=== PATIENT | female | born 1945 | race Caucasian/White ===

== ENCOUNTER → 2020-01-02 | Outpatient (CLI) | payer MEDICARE, BC ==
[~2020-01-02] MED LIST: ASPI81TA85 PO; BENZ150C2 PO; CRAN400C PO; CYMB1CAP5 PO; FAMO1TAB11 PO; FISH1000 PO; METF500T13 PO; METO1TAB7 PO; MULTCAP PO; OXYB15TA14 PO; PRAV40TA2 PO; [UNRECOGNIZED DRUG - CODE] PO
== END ==
LOC: M LABSMTC 11:32
PROVIDERS: ATTEND Anesthesiology
DX: Z01.818 Encounter for other preprocedural examination (principal); Z11.59 Encounter for screening for other viral diseases
CPT/HCPCS: C9803; U0003

== ENCOUNTER 2020-01-05 11:37 | Day surgery (SDC) | payer MEDICARE, BC ==
[~2020-01-05] VITALS: Ht 160 cm; Wt 92.0 kg
[~2020-01-05 11:37] MED LIST changes: +NS 1,000 ML IV ONE
[2020-01-05] MEDS ORDERED: fentaNYL 100 MCG/2 ML INJECTION (J3010) As Ordered ONE (13:46)
[2020-01-05] MEDS ORDERED: LIDOCAINE 2% 100MG/5ML SDV (FOR ANES.) As Ordered ONE (13:47)
[2020-01-05] MEDS ORDERED: propofoL 200 MG/20 ML VIAL As Ordered ONE (13:47)
[2020-01-05] MEDS ORDERED: LABETALOL 100MG/20ML VIAL As Ordered ONE (13:53)
--- NOTE | 2020-01-05 14:09 | ROOR ---
Patient Name: Kaur Echeverria Procedure Date: 01/05/2020 1:49 PM Date of : 1945 Age: 74 Room: [facility] Gender: Female Note Status: Finalized Procedure: Upper GI endoscopy Indications: Heartburn Providers: Abel CORCORAN MD Referring MD: ONDINA REED MD Requesting Provider: Medicines: Monitored Anesthesia Care Complications: No immediate complications. Procedure: Pre-Anesthesia Assessment: - The heart rate, respiratory rate, oxygen saturations, blood pressure, adequacy of pulmonary ventilation, and response to care were monitored throughout the procedure. The Endoscope was introduced through the mouth, and advanced to the second part of duodenum. The upper GI endoscopy was accomplished without difficulty. The patient tolerated the procedure well. Findings: The examined esophagus was normal. Abnormal motility was noted in the esophagus. There are extra peristaltic waves in the esophageal body. The entire examined stomach was normal. The examined duodenum was normal. Impression: - Normal esophagus. Some irregular contractions suggestive of presbyesophagus. - Normal stomach. - Normal examined duodenum. - No specimens collected. Recommendation: - Continue present medications. - Observe patient's clinical course. - Return to referring physician as previously scheduled. Abel Corcoran MD Abel CORCORAN MD 01/05/2020 2:08:42 PM Electronically signed by Abel CORCORAN MD Number of Addenda: 0 Note Initiated On: 01/05/2020 1:49 PM Estimated Blood Loss: Estimated blood loss: none.
[2020-01-05 14:35] VITALS: BP 187/82
== END 2020-01-05 14:47 | disposition home or self-care (01) ==
LOC: M OPP 11:37
PROVIDERS: ATTEND Internal Medicine Gastroenterology
DX: K22.4 Dyskinesia of esophagus (principal); R12 Heartburn; Z88.5 Allergy status to narcotic agent; Z79.82 Long term (current) use of aspirin; Z79.899 Other long term (current) drug therapy; Z87.891 Personal history of nicotine dependence
CPT/HCPCS: 43235; J3010

== ENCOUNTER 2021-05-24 06:48 | Emergency (ER) | payer MEDICARE, BC ==
[~2021-05-24] VITALS: Ht 157.5 cm; Wt 87.7 kg
[~2021-05-24 06:48] MED LIST changes: -ASPI81TA85 PO; +ASPI81TA86 PO; -NS 1,000 ML IV ONE
[2021-05-24] MEDS ORDERED: ZOFR4TAB16 PO ×2 (06:57→10:26)
[2021-05-24] MEDS ORDERED: CIPR-249 PO (06:57)
[2021-05-24] MEDS ORDERED: ONDANSETRON 4MG/2ML VIAL IV ONE (07:25)
[2021-05-24 08:04] LABS: BASO % 0.6 % (0.0-1.0); EOS # 0.1 10^3/uL (0.0-0.5); EOS % 1.4 % (0.0-3.0); HEMATOCRIT 44.1 % (36.0-47.0); HEMOGLOBIN 14.6 g/dl (12.0-15.5); LYMPH # 1.2 10^3/uL (1.5-5.0); LYMPH % 18.6 % (24.0-44.0); MEAN CORPUSCULAR HEMOGLOBIN 31.2 pg (27.0-33.0); MEAN CORPUSCULAR HGB CONC 33.1 g/dl (32.0-36.5); MEAN CORPUSCULAR VOLUME 94.2 fl (80.0-96.0); MONO # 0.5 10^3/uL (0.0-0.8); NEUTROPHILS # 4.6 10^3/uL (1.5-8.5); NEUTROPHILS % 72.1 % (36.0-66.0); PLATELET COUNT, AUTOMATED 232 10^3/uL (150-450); RED BLOOD COUNT 4.68 10^6/uL (4.00-5.40); WHITE BLOOD COUNT 6.4 10^3/uL (4.0-10.0)
--- OUTSIDE RECORDS SUMMARY | 2021-05-24 08:12 | CCD ---
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 Name Role Phone ONDINA REED MD 3 [phone] Allergies Code Code System Name Reaction Severity Status Onset 267 RxNorm Codeine Hives Mild to Moderate Active Medications Name Status Start Date Stop Date one by mouth every other day Active Not availa ble benzonatate 200 mg capsule Completed 10/14 blood pressure test kit-large cuff Completed 10/14/2020 ciclopirox 0.77 % topical cream APPLY TO FOOT TWO TIMES A DAY Completed ciprofloxacin 250 mg tablet Completed 11/2018 ciprofloxacin 500 mg tablet TAKE ONE TABLET BY MOUTH TWICE A DAY FOR 7 DAYS Active Not available cranberry one by mouth once daily Active Not available diclofenac 1 % topical gel Completed 03/03 duloxetine 30 mg capsule,delayed release TAKE ONE CAPSULE BY MOUTH EVERY DAY Active Not available duloxetine 60 mg capsule,delayed release TAKE ONE CAPSULE BY MOUTH EVERY DAY Active Not available famotidine 20 mg tablet TAKE ONE TABLET BY MOUTH TWICE A DAY Active No t available famotidine 40 mg tablet TAKE ONE TABLET BY MOUTH TWICE A DAY Completed Fish Oil one by mouth once daily Active Not available gabapentin 300 mg capsule Completed 2019 ibuprofen 800 mg tablet Completed 10/15/19 lisinopril 5 mg tablet TAKE ONE TABLET BY MOUTH EVERY DAY Active Not available metformin ER 500 mg tablet,extended rele ase 24 hr TAKE ONE TABLET BY MOUTH EVERY EVENING Active Not available metoclopramide 10 mg tablet Completed 09/27 metoprolol succinate ER 50 mg tablet,ext ended release 24 hr TAKE ONE TABLET BY MOUTH EVERY DAY Active Not available multivitamin one by mouth once daily Active Not available nitroglycerin 0.1 mg/hr transdermal 24 hour patch Active Not available omeprazole 20 mg capsule,delayed release TAKE ONE CAPSULE BY MOUTH EVERY DAY Active Not available oxybutynin chloride ER 15 mg tablet,exte nded release 24 hr TAKE ONE TABLET BY MOUTH EVERY DAY Active Not available penicillin V potassium 500 mg tablet TAKE 2 TABLETS BY MOUTH IMMEDIATELY THEN TAKE ONE TABLET FOUR TIMES A DAY Completed 03/24/2021 pravastatin 40 mg tablet TAKE ONE TABLET BY MOUTH AT BEDTIME Active Not available tramadol 50 mg tablet Active Not availa ble Vitamin D3 one by mouth once daily Completed 06/21/2020 Problems None recorded. Procedures Date Name Performed by 03/08/2021 Mastectomy Bra Notes: Left breast- Total Mastectomy Information not available Breast Procedure Information not avai lable Hammer Toe Operation Information not jennyfer ilable Cholecystectomy Information not avai lable Back Surgery Notes: 2007- Dr Carney Information not available Foot/toes Surgery Procedure Information not available 03/03/2019 MRI, Lumbar Spine, W/wo Contrast [facility] [address] [place] [address] (Work Place) Results Lab Results Date Name Specimen Result Interpretation Description Value Range Status Address 04/27/2021 [facility] P[facility] Report NOS No observation recorded. [facility]: [address] [facility], [place] 04/27/2021 SARS CoV 2 RNA (COVID-19), QL, echocardiologist-PCR, Respirat ory Specimen NOS Normal Sars-cov-2 negative negative Final [facility]: [address] [facility], [place] 09/27/2020 [facility] Pdf Report NOS No observation recorded. [facility]: [address] [facility], [place] 09/27/2020 SARS CoV 2 RNA (COVID-19), QL, echocardiologist-PCR, Respirat ory Specimen NOS Normal Sars-cov-2 negative negative Final [facility]: [address] [facility], [place] 09/13/2020 [facility] Pdf Report NOS No observation recorded. [facility]: [address] [facility], [place] 09/13/2020 SARS CoV 2 RNA (COVID-19), QL, echocardiologist-PCR, Respirat ory Specimen NOS Normal Sars-cov-2 negative negative Final [facility]: [address] [facility], [place] 08/25/2020 [facility] Pdf Report NOS No observation recorded. [facility]: [address] [facility], [place] 08/25/2020 SARS CoV 2 RNA (COVID-19), QL, echocardiologist-PCR, Respirat ory Specimen NOS Normal Sars-cov-2 negative negative Final [facility]: [address], [place] 08/11/2020 [facility] Pdf Report NOS No observation recorded. [facility]: [address], [place] 08/11/2020 SARS CoV 2 RNA (COVID-19), QL, echocardiologist-PCR, Respirat ory Specimen NOS Normal Sars-cov-2 negative negative Final [facility]: [address], [place] Past Encounters 05/02/2021 Lumbar Post-laminectomy Syndrome; Degeneration of Lumbar Intervertebral Disc; Lumbosacral Spondylosis without Myelopathy; Lumbar Radiculopathy; Spinal Stenosis of Lumbar Region Elpidio Gibson MD: [id number] [facility] [address], [facility] [place] [address], Ph. 04/27/2021 Pre-surgery Testing; Viral Screening Elpidio Gibson MD: [id number] [address], [facility] [place] [place] [address], Ph. [phone] 03/24/2021 Lumbar Post-laminectomy Syndrome; Degeneration of Lumbar Intervertebral Disc; Lumbosacral Spondylosis without Myelopathy; Lumbar Radiculopathy; Spinal Stenosis of Lumbar Region [facility], STUDIO PRODUCER: [address] [facility] [address], [facility] [place] [address], Ph. 10/14/2020 Lumbar Post-laminectomy Syndrome; Degeneration of Lumbar Intervertebral Disc; Lumbosacral Spondylosis without Myelopathy; Lumbar Radiculopathy; Spinal Stenosis of Lumbar Region [facility], STUDIO PRODUCER: [id number] [facility] [address], [facility] [place] [address], Ph. 09/30/2020 Lumbar Post-laminectomy Syndrome; Lumbar Radiculopathy; Degeneration of Lumbar Intervertebral Disc; Lumbosacral Spondylosis without Myelopathy; Spinal Stenosis of Lumbar Region Elpidio Gibson MD: [address] [facility] [address], [facility] [place] [address], Ph. 09/27/2020 Pre-surgery Testing; Viral Screening Elpidio Gibson MD: [id number] [facility] [address], [place] [address], Ph. [phone] 09/13/2020 Pre-surgery Testing; Viral Screening Elpidio Gibson MD: [id number] [facility] [address], [place] [address], Ph. [phone] 08/30/2020 Lumbar Post-laminectomy Syndrome; Lumbar Radiculopathy; Degeneration of Lumbar Intervertebral Disc; Lumbosacral Spondylosis without Myelopathy; Spinal Stenosis of Lumbar Region Elpidio Gibson MD: [address] [facility] [address], [place] [address], Ph. 08/25/2020 Pre-surgery Testing; Viral Screening Elpidio Gibson MD: [id number] [facility] [address], [facility] [place] [address], Ph. [phone] 08/16/2020 Lumbar Post-laminectomy Syndrome; Lumbar Radiculopathy; Degeneration of Lumbar Intervertebral Disc; Lumbosacral Spondylosis without Myelopathy; Spinal Stenosis of Lumbar Region Elpidio Gibson MD: [id number] [facility] [address], [place] [address], Ph. 08/11/2020 Pre-surgery Testing; Viral Screening Elpidio Gibson MD: [address]71 [facility] [address], [facility] [place] [address], Ph. [phone] 08/03/2020 Lumbar Post-laminectomy Syndrome; Degeneration of Lumbar Intervertebral Disc; Lumbosacral Spondylosis without Myelopathy; Lumbar Radiculopathy; Spinal Stenosis of Lumbar Region [facility], STUDIO PRODUCER: [address] [facility] [address], [place] [address], Ph. 06/21/2020 Lumbar Post-laminectomy Syndrome; Degeneration of Lumbar Intervertebral Disc; Lumbosacral Spondylosis without Myelopathy; Lumbar Radiculopathy; Spinal Stenosis of [facility], STUDIO PRODUCER: [address] [facility] [address], [facility] [place] [address], Ph. 04/28/2020 Lumbar Post-laminectomy Syndrome; Degeneration of Lumbar Intervertebral Disc; Lumbosacral Spondylosis without Myelopathy; Lumbar Radiculopathy; Spinal Stenosis of Lumbar Region Steph Chris Yeung, STUDIO PRODUCER: [address], [facility] [place] [address], Ph. 01/20/2020 Lumbar Post-laminectomy Syndrome; Degeneration of Lumbar Intervertebral Disc; Lumbosacral Spondylosis without Myelopathy; Lumbar Radiculopathy; Spinal Stenosis of Lumbar Region Steph Chris Yeung, STUDIO PRODUCER: [address], [facility] [place] [place] [address], Ph. 11/14/2019 Lumbar Post-laminectomy Syndrome; Degeneration of Lumbar Intervertebral Disc; Lumbosacral Spondylosis without Myelopathy; Lumbar Radiculopathy; Spinal Stenosis of Lumbar Region Steph Chris Yeung, STUDIO PRODUCER: [address] [address], Ph. 07/17/2019 Lumbar Post-laminectomy Syndrome; Degeneration of Lumbar Intervertebral Disc; Lumbosacral Spondylosis without Myelopathy; Lumbar Radiculopathy; Spinal Stenosis of Lumbar Region Steph Chris Yeung, STUDIO PRODUCER: [address], [facility] [place] [address], Ph. 06/12/2019 Lumbar Post-laminectomy Syndrome; Degeneration of Lumbar Intervertebral Disc; Lumbosacral Spondylosis without Myelopathy; Lumbar Radiculopathy; Spinal Stenosis of Lumbar Region Steph Chris Yeung, STUDIO PRODUCER: [address], [facility] [place] [address], Ph. 05/16/2019 Lumbar Post-laminectomy Syndrome; Spinal Stenosis of Lumbar Region; Lumbar Radiculopathy; Degeneration of Lumbar Intervertebral Disc; Lumbosacral Spondylosis without Myelopathy Elpidio Gibson MD: [address], [facility] [place] [place] [address], Ph. 04/28/2019 Lumbar Post-laminectomy Syndrome; Spinal Stenosis of Lumbar Region; Lumbar Radiculopathy; Degeneration of Lumbar Intervertebral Disc; Lumbosacral Spondylosis without Myelopathy Elpidio Gibson MD: [address] [address], [place] [address], Ph. 04/10/2019 Lumbar Post-laminectomy Syndrome; Spinal Stenosis of Lumbar Region; Lumbar Radiculopathy; Degeneration of Lumbar Intervertebral Disc; Lumbosacral Spondylosis without Myelopathy Elpidio Gibson MD: [id number] [address], [facility] [place] [place] [address], Ph. 03/03/2019 Lumbar Post-laminectomy Syndrome; Degeneration of Lumbar Intervertebral Disc; Lumbosacral Spondylosis without Myelopathy; Lumbar Radiculopathy; Spinal Stenosis of Lumbar Region Elpidio Gibson MD: [address] [address], [place] [address], Ph. Social History Tobacco Smoking Status Light Tobacco Smoker (1 pack per week ) Notes: less than a pack a week Vaccine List Vaccine Type COVID-19, mRNA, LNP-S, PF, 100 mcg/0.5 m L dose 09/16/2020 10/09/2020 Plan of Care Reminders Provider Appointments None recorded. Lab None recorded. Referral None recorded. Procedures None recorded. Surgeries None recorded. Imaging None recorded. Vitals 03/24/2021 10:30AM FOLLOW-UP Height Blood Pressure 5 ft 3 in 131/70 mm[Hg] 10/14/2020 10:00AM FOLLOW-UP Height Blood Pressure 5 ft 3 in 154/84 mm[Hg] 06/21/2020 01:15PM FOLLOW-UP Height Blood Pressure 5 ft 3 in 160/91 mm[Hg] 04/28/2020 01:30PM FOLLOW-UP Height Blood Pressure 5 ft 3 in 153/83 mm[Hg] 07/17/2019 09:15AM FOLLOW-UP Height Weight BMI Blood Pressure 5 ft 3 in 214 lbs 37.9 kg/m2 152/71 mm[Hg] 06/12/2019 10:15AM FOLLOW-UP Height Weight BMI Blood Pressure 5 ft 3 in 214 lbs 37.9 kg/m2 138/78 mm[Hg] 03/03/2019 02:00PM NEW PATIENT Height Weight BMI Blood Pressure 5 ft 3 in 214 lbs 37.9 kg/m2 131/74 mm[Hg]
--- OUTSIDE RECORDS SUMMARY | 2021-05-24 08:12 | CCD ---
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 [facility]: [address] [facility], [place] 04/27/2021 SARS CoV 2 RNA (COVID-19), QL, manager performance-PCR, Respirat ory Specimen NOS Normal Sars-cov-2 negative negative Final [facility]: [address] [facility], [place] 09/27/2020 [facility] Pdf Report NOS No observation recorded. [facility]: [address] [facility], [place] 09/27/2020 SARS CoV 2 RNA (COVID-19), QL, manager performance-PCR, Respirat ory Specimen NOS Normal Sars-cov-2 negative negative Final [facility]: [address] [facility], [place] 09/13/2020 [facility] Pdf Report NOS No observation recorded. [facility]: [address] [facility], [place] 09/13/2020 SARS CoV 2 RNA (COVID-19), QL, manager performance-PCR, Respirat ory Specimen NOS Normal Sars-cov-2 negative negative Final [facility]: [address] [facility], [place] 08/25/2020 [facility] Pdf Report NOS No observation recorded. [facility]: [address] [facility], [place] 08/25/2020 SARS CoV 2 RNA (COVID-19), QL, manager performance-PCR, Respirat ory Specimen NOS Normal Sars-cov-2 negative negative Final [facility]: [address], [place] 08/11/2020 [facility] Pdf Report NOS No observation recorded. [facility]: [address], [place] 08/11/2020 SARS CoV 2 RNA (COVID-19), QL, manager performance-PCR, Respirat ory Specimen NOS Normal Sars-cov-2 negative negative Final [facility]: [address], [place] Past Encounters 05/11/2021 Pre-surgery Testing; Viral Screening Elpidio Gibson MD: [id number] [facility] [address], [place] [address], Ph. [phone] 05/02/2021 Lumbar Post-laminectomy Syndrome; Degeneration of Lumbar Intervertebral Disc; Lumbosacral Spondylosis without Myelopathy; Lumbar Radiculopathy; Spinal Stenosis of Lumbar Region Elpidio Gibson MD: [id number] [facility] [address], [facility] [place] [address], Ph. 04/27/2021 Pre-surgery Testing; Viral Screening Elpidio Gibson MD: [address]63 [facility] [address], [place] [address], Ph. [phone] 03/24/2021 Lumbar Post-laminectomy Syndrome; Degeneration of Lumbar Intervertebral Disc; Lumbosacral Spondylosis without Myelopathy; Lumbar Radiculopathy; Spinal Stenosis of Lumbar Region Steph Noe Anjana, SPRAY PAINTER: [address] [facility] [address], [facility] [place] [address], Ph. 10/14/2020 Lumbar Post-laminectomy Syndrome; Degeneration of Lumbar Intervertebral Disc; Lumbosacral Spondylosis without Myelopathy; Lumbar Radiculopathy; Spinal Stenosis of Lumbar Region [facility] Maria G[facility]on, SPRAY PAINTER: [address] [facility] [address], [facility] [place] [address], Ph. 09/30/2020 Lumbar Post-laminectomy Syndrome; Lumbar Radiculopathy; Degeneration of Lumbar Intervertebral Disc; Lumbosacral Spondylosis without Myelopathy; Spinal Stenosis of Lumbar Region Elpidio Gibson MD: [address], [place] [address], Ph. 09/27/2020 Pre-surgery Testing; Viral Screening Elpidio Gibson MD: [address] [address], [facility] [place] [address], Ph. [phone] 09/13/2020 Pre-surgery Testing; Viral Screening Elpidio Gibson MD: [address] [address], [facility] [place] [address], Ph. [phone] 08/30/2020 Lumbar Post-laminectomy Syndrome; Lumbar Radiculopathy; Degeneration of Lumbar Intervertebral Disc; Lumbosacral Spondylosis without Myelopathy; Spinal Stenosis of Lumbar Region Elpidio Gibson MD: [address] [address], [place] [address], Ph. 08/25/2020 Pre-surgery Testing; Viral Screening Elpidio Gibson MD: [address] [address], [facility] [place] [address], Ph. [phone] 08/16/2020 Lumbar Post-laminectomy Syndrome; Lumbar Radiculopathy; Degeneration of Lumbar Intervertebral Disc; Lumbosacral Spondylosis without Myelopathy; Spinal Stenosis of Lumbar Region Elpidio Gibson MD: [address] [address], [facility] [place] [address], Ph. 08/11/2020 Pre-surgery Testing; Viral Screening Elpidio Gibson MD: [address] [address], [facility] [place] [address], Ph. [phone] 08/03/2020 Lumbar Post-laminectomy Syndrome; Degeneration of Lumbar Intervertebral Disc; Lumbosacral Spondylosis without Myelopathy; Lumbar Radiculopathy; Spinal Stenosis of Lumbar Region Steph Yeung NP: [address] [address], [place] [address], Ph. 06/21/2020 Lumbar Post-laminectomy Syndrome; Degeneration of Lumbar Intervertebral Disc; Lumbosacral Spondylosis without Myelopathy; Lumbar Radiculopathy; Spinal Stenosis of Lumbar Region Steph Chris Yeung, SPRAY PAINTER: [address], [facility] [place] [address], Ph. 04/28/2020 Lumbar Post-laminectomy Syndrome; Degeneration of Lumbar Intervertebral Disc; Lumbosacral Spondylosis without Myelopathy; Lumbar Radiculopathy; Spinal Stenosis of Lumbar Region Steph Chris Yeung, SPRAY PAINTER: [address], [facility] [place] [address], Ph. 01/20/2020 Lumbar Post-laminectomy Syndrome; Degeneration of Lumbar Intervertebral Disc; Lumbosacral Spondylosis without Myelopathy; Lumbar Radiculopathy; Spinal Stenosis of Lumbar Region Steph Chris Yeung, SPRAY PAINTER: [address], [facility] [place] [address], Ph. 11/14/2019 Lumbar Post-laminectomy Syndrome; Degeneration of Lumbar Intervertebral Disc; Lumbosacral Spondylosis without Myelopathy; Lumbar Radiculopathy; Spinal Stenosis of Lumbar Region Steph Chris Yeung, SPRAY PAINTER: [address] [place] [address], Ph. 07/17/2019 Lumbar Post-laminectomy Syndrome; Degeneration of Lumbar Intervertebral Disc; Lumbosacral Spondylosis without Myelopathy; Lumbar Radiculopathy; Spinal Stenosis of Lumbar Region Steph Chris Yeung, SPRAY PAINTER: [address], [facility] [place] [address], Ph. 06/12/2019 Lumbar Post-laminectomy Syndrome; Degeneration of Lumbar Intervertebral Disc; Lumbosacral Spondylosis without Myelopathy; Lumbar Radiculopathy; Spinal Stenosis of Lumbar Region Steph Chris Yeung, SPRAY PAINTER: [address], [facility] [place] [address], Ph. 05/16/2019 Lumbar Post-laminectomy Syndrome; Spinal Stenosis of Lumbar Region; Lumbar Radiculopathy; Degeneration of Lumbar Intervertebral Disc; Lumbosacral Spondylosis without Myelopathy Elpidio Gibson MD: [address] [address], [place] [address], Ph. 04/28/2019 Lumbar Post-laminectomy Syndrome; Spinal Stenosis of Lumbar Region; Lumbar Radiculopathy; Degeneration of Lumbar Intervertebral Disc; Lumbosacral Spondylosis without Myelopathy Elpidio Gibson MD: [address] [address], [place] [address], Ph. 04/10/2019 Lumbar Post-laminectomy Syndrome; Spinal Stenosis of Lumbar Region; Lumbar Radiculopathy; Degeneration of Lumbar Intervertebral Disc; Lumbosacral Spondylosis without Myelopathy Elpidio Gibson MD: [address] [address], [place] [address], Ph. 03/03/2019 Lumbar Post-laminectomy Syndrome; Degeneration of Lumbar Intervertebral Disc; Lumbosacral Spondylosis without Myelopathy; Lumbar Radiculopathy; Spinal Stenosis of Lumbar Region Elpidio Gibson MD: [address] [address], [place] [address], Ph. Social History Tobacco Smoking Status Light [...]
--- OUTSIDE RECORDS SUMMARY | 2021-05-24 08:12 | CCD ---
Author Organization Unknown Address [address] [place] [address] Phone [phone] Care Team Providers Care Floor Mechanic Name Role Phone ONDINA REED MD 3 [phone] Allergies Code Code System Name Reaction Severity [...] Not available duloxetine 60 mg capsule,delayed release Active Not available famotidine 20 mg tablet TAKE ONE TABLET BY MOUTH TWICE A DAY Active No t available famotidine 40 mg tablet TAKE ONE TABLET BY MOUTH TWICE A DAY Completed Fish Oil one by mouth once daily Active Not available gabapentin 300 mg capsule Completed 2019 ibuprofen 800 mg tablet Completed 10/15/19 21 lisinopril 5 mg tablet TAKE ONE TABLET BY MOUTH EVERY DAY Active Not available metformin ER 500 mg tablet,extended release 24 hr Active Not available metoclopramide 10 mg tablet Completed 09/27 metoprolol succinate ER 50 mg tablet,extended release 24 hr Acti ve Not available multivitamin one by mouth once daily Active Not available nitroglycerin 0.1 mg/hr transdermal 24 hour patch Active Not available omeprazole 20 mg capsule,delayed release TAKE ONE CAPSULE BY MOUTH EVERY DAY Active Not available oxybutynin chloride ER 15 mg tablet,extended release 24 hr Activ e Not available penicillin V potassium 500 mg tablet TAKE 2 TABLETS BY MOUTH IMMEDIATELY THEN TAKE ONE TABLET FOUR TIMES A DAY Completed 03/24/2021 pravastatin 40 mg tablet Active Not jennyfer ilable tramadol 50 mg tablet Active Not availa [...] available 03/03/2019 MRI, Lumbar Spine, W/wo Contrast [facility] [address] [place] [address] (Work Place) Results Lab Results Date Name Specimen Result Interpretation Description Value Range Status Address 05/11/2021 [facility] Pdf Report NOS No observation recorded. 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 05/11/2021 Pre-surgery Testing; Viral Screening Elpidio Gibson MD: [address] [facility] [address], [facility] [place] [address], Ph. [phone] 05/02/2021 Lumbar Post-laminectomy Syndrome; Degeneration of Lumbar Intervertebral Disc; Lumbosacral Spondylosis without Myelopathy; Lumbar Radiculopathy; Spinal Stenosis of Lumbar Region Elpidio Gibson MD: [address] [facility] [address], [facility] [place] [address], Ph. 04/27/2021 Pre-surgery Testing; Viral Screening Elpidio Gibson MD: [address] [facility] [address], [facility] [place], [place] [address], Ph. [phone] 03/24/2021 Lumbar Post-laminectomy Syndrome; Degeneration of Lumbar Intervertebral Disc; Lumbosacral Spondylosis without Myelopathy; Lumbar Radiculopathy; Spinal Stenosis of Lumbar Region Steph Yeung NP: [address] [facility] [address], [facility] [place] [address], Ph. 10/14/2020 Lumbar Post-laminectomy Syndrome; Degeneration of Lumbar Intervertebral Disc; Lumbosacral Spondylosis without Myelopathy; Lumbar Radiculopathy; Spinal Stenosis of Lumbar Region Steph YeungCHARMAINE: [address] [facility] [address], [facility] [place] [address], Ph. 09/30/2020 Lumbar Post-laminectomy Syndrome; Lumbar Radiculopathy; Degeneration of Lumbar Intervertebral Disc; Lumbosacral Spondylosis without Myelopathy; Spinal Stenosis of Lumbar Region Elpidio Gibson MD: [address] [facility] [address], [facility] [place] [address], Ph. 09/27/2020 Pre-surgery Testing; Viral Screening Elpidio Gibson MD: [address] [address], [place] [address], Ph. [phone] 09/13/2020 Pre-surgery Testing; Viral Screening Elpidio Gibson MD: [address] [address], [place] [address], Ph. [phone] 08/30/2020 Lumbar Post-laminectomy Syndrome; Lumbar Radiculopathy; Degeneration of Lumbar Intervertebral Disc; Lumbosacral Spondylosis without Myelopathy; Spinal Stenosis of Lumbar Region Elpidio Gibson MD: [address] [address], [facility] [place] [address], Ph. 08/25/2020 Pre-surgery Testing; Viral Screening Elpidio Gibson MD: [address] [address], [facility] [place] [address], Ph. [phone] 08/16/2020 Lumbar Post-laminectomy Syndrome; Lumbar Radiculopathy; Degeneration of Lumbar Intervertebral Disc; Lumbosacral Spondylosis without Myelopathy; Spinal Stenosis of Lumbar Region Elpidio Gibson MD: [address] [address], [place] [address], Ph. 08/11/2020 Pre-surgery Testing; Viral Screening Elpidio Gibson MD: [address] [address], [place] [address], Ph. [phone] 08/03/2020 Lumbar Post-laminectomy Syndrome; Degeneration of Lumbar Intervertebral Disc; Lumbosacral Spondylosis without Myelopathy; Lumbar Radiculopathy; Spinal Stenosis of Lumbar Region Steph Chris Yeung, HOME MORTGAGE DISCLOSURE ACT SPECIALIST: [address], [facility] [place] [address], Ph. 06/21/2020 Lumbar Post-laminectomy Syndrome; Degeneration of Lumbar Intervertebral Disc; Lumbosacral Spondylosis without Myelopathy; Lumbar Radiculopathy; Spinal Stenosis of Lumbar Region Steph Chris Feldmanon, HOME MORTGAGE DISCLOSURE ACT SPECIALIST: [address], [facility] [place] [address], Ph. 04/28/2020 Lumbar Post-laminectomy Syndrome; Degeneration of Lumbar Intervertebral Disc; Lumbosacral Spondylosis without Myelopathy; Lumbar Radiculopathy; Spinal Stenosis of Lumbar Region Steph Chris Feldmanon, HOME MORTGAGE DISCLOSURE ACT SPECIALIST: [address], [facility] [place] [address], Ph. 01/20/2020 Lumbar Post-laminectomy Syndrome; Degeneration of Lumbar Intervertebral Disc; Lumbosacral Spondylosis without Myelopathy; Lumbar Radiculopathy; Spinal Stenosis of Lumbar Region Steph Chris Feldmanon, HOME MORTGAGE DISCLOSURE ACT SPECIALIST: [address], [facility] [place] [address], Ph. 11/14/2019 Lumbar Post-laminectomy Syndrome; Degeneration of Lumbar Intervertebral Disc; Lumbosacral Spondylosis without Myelopathy; Lumbar Radiculopathy; Spinal Stenosis of Lumbar Region Steph Chris Feldmanon, HOME MORTGAGE DISCLOSURE ACT SPECIALIST: [address] [address], Ph. 07/17/2019 Lumbar Post-laminectomy Syndrome; Degeneration of Lumbar Intervertebral Disc; Lumbosacral Spondylosis without Myelopathy; Lumbar Radiculopathy; Spinal Stenosis of Lumbar Region Steph Lucíasonphi Feldmanon, HOME MORTGAGE DISCLOSURE ACT SPECIALIST: [address], [facility] [place] [address], Ph. 06/12/2019 Lumbar Post-laminectomy Syndrome; Degeneration of Lumbar Intervertebral Disc; Lumbosacral Spondylosis without Myelopathy; Lumbar Radiculopathy; Spinal Stenosis of Lumbar Region Steph YeungCHARMAINE: [address] [address], [facility] [place] [address], Ph. 05/16/2019 Lumbar Post-laminectomy Syndrome; Spinal Stenosis of Lumbar Region; Lumbar Radiculopathy; Degeneration of Lumbar Intervertebral Disc; Lumbosacral Spondylosis without Myelopathy Elpidio Gibson MD: [address] [address], Ph. 04/28/2019 Lumbar Post-laminectomy Syndrome; Spinal Stenosis of Lumbar Region; Lumbar Radiculopathy; Degeneration of Lumbar Intervertebral Disc; Lumbosacral Spondylosis without Myelopathy Elpidio Gibson MD: [address] [address], Ph. 04/10/2019 Lumbar Post-laminectomy Syndrome; Spinal Stenosis of Lumbar Region; Lumbar Radiculopathy; Degeneration of Lumbar Intervertebral Disc; Lumbosacral Spondylosis without Myelopathy Elpidio Gibson MD: [address] [address], [place] [address], Ph. 03/03/2019 Lumbar Post-laminectomy Syndrome; Degeneration of Lumbar Intervertebral Disc; Lumbosacral Spondylosis without Myelopathy; Lumbar Radiculopathy; Spinal Stenosis of Lumbar Region Elpidio Gibson MD: [address] [address], [facility] [place] [address], Ph. Social History Tobacco Smoking Status Light [...]
--- OUTSIDE RECORDS SUMMARY | 2021-05-24 08:13 | CCD | Summary of Care ---
Author Author [facility] Address Unknown Phone Unavailable Care Team Providers Care Carbonation Equipment Tender Name Role Phone Shimon Cordova MD PCP Reason for Visit * Reason Comments Follow-up Drain check Encounter Details Care Team Description Date Type Department Bianca Almaraz, CHARMAINE [address] [facility] [address] [place], [place] [id number] Ductal carcinoma in situ (DCIS) of left breast (Primary Dx); Status post left mastectomy 03/14/2021 Telemedicine [facility] [address] [place] [address] Allergies Comments Active Allergy Reactions Severity Noted Date Bee Venom 01/18/2021 Codeine Hives Medium 01/20/2013 documented as of this encounter (statuses as of 03/14/2021) Medications End Date Status Medication Sig Dispensed Refills Start Date Active VITAMIN D, Take by 0 CHOLECALCIFEROL, PO mouth daily. Active Cranberry 1000 MG CAPS Take by 0 mouth daily. Active riuizenpdlbk-ijec-viuqgja Chew 1 tablet 0 s-folic acid (CENTRUM) by mouth chewable tablet daily. Active pravastatin (PRAVACHOL) Take 40 mg by 0 40 MG tablet mouth daily. Active fish oil-omega-3 fatty Take 2 g by 0 acids 1000 MG capsule mouth daily. Active aspirin 81 MG tablet Take 325 mg 0 by mouth daily Active oxybutynin (DITROPAN XL) 0 15 MG 24 hr tablet 4 Active metoprolol (TOPROL-XL) 50 0 MG 24 hr tablet 5 Active DULoxetine HCl 60 MG Oral Take 60 mg by 0 Capsule Delayed Release mouth nightly Particles (CYMBALTA) Active EPINEPHrine 0.3 MG/0.3ML Inject 0.3 mg 0 Injection Solution into the Auto-injector (EPIPEN) muscle once Active metFORMIN HCl ER 500 MG metformin ER 0 Oral Tablet Extended 500 mg Release 24 Hour tablet,extend (GLUCOPHAGE-XR) ed release 24 hr TAKE ONE TABLET BY MOUTH EVERY EVENING Active Ciclopirox Olamine 0.77 % APPLY TO FOOT 0 0 External Cream (LOPROX) TWO TIMES A 1 DAY Active Omeprazole 20 MG Oral Take 20 mg by 0 Capsule Delayed Release mouth daily (PriLOSEC) Active Famotidine 20 MG Oral Take 20 mg by 0 Tablet (PEPCID) mouth Two Times Daily Active traMADol HCl 50 MG Oral Take 1 tablet 30 tablet 0 Tablet (ULTRAM) by mouth 1 every 6 (six) hours as needed for up to 10 doses, Max Daily Dose: 200 mg Additional Information Patient not taking. 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 [facility] Breast Navigator Meenakshi ARVIZU, RN-BC, CN-BN [phone] Multi-D) Problem Noted Date Breast cancer in female 02/24/2021 Status post left mastectomy 02/23/2021 Ductal carcinoma in situ (DCIS) of left breast 12/08 CTS (carpal tunnel syndrome) 02/27/2014 Tenosynovitis, wrist 02/27/2014 Lumbar spondylosis 11/27/2012 documented as of this encounter (statuses as of 03/14/2021) Immunizations Name Administration Dates Next Due documented as of this encounter Social History Date Tobacco Use Types Packs/Day Years Used Never Smoker Smokeless Tobacco: Never Used Comments Alcohol Use Standard Drinks/Week one per week Yes 0 (1 standard drink = 0.6 o z pure alcohol) Sex Assigned at Date Recorded Not on file Date Recorded COVID-19 Exposure Response 03/08/2021 9:03 AM EDT In the last month, have you been in contact with No / Unsure someone who was confirmed or suspected to have Coronavirus / COVID-19? documented as of this encounter Last Filed Vital Signs Not on filedocumented in this encounter Progress Notes * Bianca Almaraz DREDGE OPERATOR - 03/14/2021 8:30 AM EDT TELEMEDICINE VISIT This visit occurred via telephonic technology without the use of video technolog y due to the patient's inability or unwillingness to connect via audiovisual tel ehealth services. The encounter took place in the context of the novel coronavir us (COVID-19) pandemic and the related [facility] exemption from the requirement for vi juan technology for off-site visits. The patient was informed of the risks of obt aining medical care via telephone technology, including security breech, technol ogy failure, inability to perform full physical exam, and inability to obtain on -site immediate imaging, any of which could result in prevention or delay in acc urate diagnosis and/or medical complication from rendered treatment. The potenti al benefits of telephone communication, including access to medical care and adv ice while avoiding the risk of exposure to the novel coronavirus associated with an in-person visit were also discussed. The patient expressed understanding and verbally consented to the receipt of medical services rendered over telephonic platform. The patient was informed that many insurance companies have made exceptions to t elephonic visit coverage guidelines due to the ongoing pandemic, but that it is still possible that he/she might incur a charge from his/her covering insurance company. As insurance company guidelines are changing on a daily basis, I encour aged the patient to check his/her insurance company's current guidelines. Time spent talking with the patient during this telephonic visit encounter was 1 0 minutes. DIAGNOSIS: 2020 -multifocal left breast DCIS, grade 3, ER negative HPI: Kaur Echeverria is a pleasant 75 [address] Yu with a history o f multifocal left breast DCIS. She found to have abnormal breast imaging with 6-month follow-up left breast sridhar mogram and ultrasound showed new area of calcifications was concern of new palpa ble mass. She underwent biopsy that showed left breast DCIS, grade 3, ER negati ve, OK weakly positive. She underwent an MRI of the breast that showed a 4.7 cm mass. She underwent add itional biopsy with pathology that returned DCIS, grade 3, ER negative. Due to her multifocal left breast DCIS, she underwent a left mastectomy and sent inel lymph node biopsy. This was performed on 02/15/2021. Surgical pathology sh owed ductal carcinoma in situ. Margins negative, lymph nodes negative. INTERIM HISTORY: She was seen by Dr. Wallace on 03/08/2021 for postop visit. At that time she was still having significant amount of output from her PILO drain. This is straw-colo red in nature. Since last visit she has been averaging about 30 mL output twice a day. States that she was feeling well up until last night. She had some difficulty sl eeping last night. She woke up today and feels nauseated with some sinus conges tion. States that she did have about 70 mL of straw-colored output from PILO drai n overnight. Denies any increased pain to the incision. She denies any erythem a to the incision or PILO drain site. She does live approximately 2 hours away and was hoping once she is cleared to h ave PILO drain removed this can be done by her PCP locally. Dates that she has al ready reached out to her PCP regarding this and they are agreeable. Physical Exam: Unable to perform physical exam due to audio telemedicine visit ASSESSMENT/PLAN: Kaur Echeverria is doing well after left mastectomy on 02/23/2021. States that she was previously having approximately 60 mL of straw-colored outpu t from the PILO drain daily although overnight last night she did have approximate ly 70 mL in a 12-hour period. She denies any significant pain along the incisio n. She denies any erythema. We typically would remove PILO drain when there is b een under 30 mL output and daily basis for 2 to 3 days. She wishes for this to be done with her PCP as she does have a 2-hour drive to our office. She previou sly discussed this with her primary care office and they are agreeable as long a s we give the okay. We discussed that we ideally would remove the PILO drain prio r to the 1 month postop rocky to decrease chance of infections. She also reports that she woke up this morning with sinus congestion and nausea. Advised her to reach out to her PCP for further instructions as this is unrela colin to her previous surgery. We will plan to schedule another audio telemedicine visit with her in 1 week to determine if PILO drain can be removed at that time. She was advised if she notes the output is under 30 mL in a 24-hour period for 2 to 3 days then she will call the office sooner. She is currently scheduled to return to our office with Dr. Wallace in August 31 with right breast mammogram. They are to call with any questions or concerns in the meantime. documented in this encounter Plan of Treatment Care Team Description Date Type Specialty Bianca Almaraz NP [address] [place], [place] [id number] 03/21/2021 Telemedicine Breast Surgery Tan Guo MD [address] [place], [place] [id number] 03/29/2021 Telemedicine Hematology and Onco logy Velma Wallace MD [address] [place] [address] [place] [address] 09/15/2021 Appointment Radiology Velma Wallace MD [address] [place] [address] [place] [address] 09/15/2021 Office Visit Breast Surgery Health Maintenance Due Date Last Done Comments MMR Vaccines (1 of 1 - 11/24/1946 Standard series) Varicella Vaccines (1 of 11/24/1946 2 - 2-dose childhood series) Pneumococcal Vaccine: 65+ 11/24/1951 Years (1 of 4 - PCV13) Pneumococcal Vaccine: 11/24/1951 Pediatrics (0 to 5 Years) and At-Risk Patients (6 to 64 Years) (1 of 4 - PCV13) DTaP,Tdap,and Td Vaccines 11/24/1952 (1 - Tdap) Zoster Vaccines (1 of 2) 11/24/1993 Osteoporosis Screening 2 11/24/2008 yr Influenza Vaccine 04/29/2021 05/10/2018, 06/02/2016, 07/13/2015 COVID-19 Vaccine Completed 10/09/2020, 09/11/2020 HIB Vaccines Aged Out No longer eligible based on patient's age to complete this topic Hepatitis A Vaccines Aged Out No longer eligibl e based on patient's age to complete this topic Hepatitis B Vaccines Aged Out No longer eligibl e based on patient's age to complete this topic IPV Vaccines Aged Out No longer eligible based on patient's age to complete this topic documented as of this encounter Implants Device Identifier Shelf Expiration Date Model / Serial / L ot Implanted Type Area Manufactur er 06/03/2021 [id number] / / [id number] [facility] Eviva [id number]. Left: Breast [employer] - [id number] Implanted: Qty: 1 on 01/06/2021 by Angel Wagoner MD at [facility] INPATIENT documented as of this encounter Results Not on filedocumented in this encounter Visit Diagnoses Diagnosis Ductal carcinoma in situ (DCIS) of left breast - Primary Status post left mastectomy Acquired absence of breast and nipple documented in this encounter
--- OUTSIDE RECORDS SUMMARY | 2021-05-24 08:13 | CCD ---
Author Organization Unknown Address [address] [place] [id number] Phone [phone] Care Team Providers Care Velvet Steamer Name Role Phone ONDINA REED MD 3 [phone] Allergies Code Code System Name Reaction Severity [...] MOUTH TWICE A DAY FOR 7 DAYS FOR UTI Completed 03/24/2021 cranberry one by mouth once daily Active [...] available 03/03/2019 MRI, Lumbar Spine, W/wo Contrast [facility] [address] [place] [address] (Work Place) Results Lab Results Date Name Specimen Result Interpretation Description Value Range Status Address 09/27/2020 [facility] Pdf Report NOS No observation recorded. [facility] Covid: [address] [facility], [place] 09/27/2020 SARS CoV 2 RNA (COVID-19), QL, calibration specialist-PCR, Respirat ory Specimen NOS Normal Sars-cov-2 negative negative Final [facility] Covid: [address] [facility], [place] 09/13/2020 [facility] Pdf Report NOS No observation recorded. [facility] Cov[facility]: [address] [facility], [place] 09/13/2020 SARS CoV 2 RNA (COVID-19), QL, calibration specialist-PCR, Respirat ory Specimen NOS Normal Sars-cov-2 negative negative Final [facility] Cov[facility]: [address] [facility], [place] 08/25/2020 [facility] Pdf Report NOS No observation recorded. [facility]: [address] [facility], [place] 08/25/2020 SARS CoV 2 RNA (COVID-19), QL, calibration specialist-PCR, Respirat ory Specimen NOS Normal Sars-cov-2 negative negative Final [facility] Cov[facility]: [address] [facility], [place] 08/11/2020 [facility] Pdf Report NOS No observation recorded. [facility]: [address] [facility], [place] 08/11/2020 SARS CoV 2 RNA (COVID-19), QL, calibration specialist-PCR, Respirat ory Specimen NOS Normal Sars-cov-2 negative negative Final [facility] Cov[facility]: [address], [place] Past Encounters 03/24/2021 Lumbar Post-laminectomy Syndrome; Degeneration of Lumbar Intervertebral Disc; Lumbosacral Spondylosis without Myelopathy; Lumbar Radiculopathy; Spinal Stenosis of Lumbar Region Steph Yeung, WOOD TILE INSTALLATION HELPER: [address], [place] [address], Ph. 10/14/2020 Lumbar Post-laminectomy Syndrome; Degeneration of Lumbar Intervertebral Disc; Lumbosacral Spondylosis without Myelopathy; Lumbar Radiculopathy; Spinal Stenosis of Lumbar Region Steph Yeung, WOOD TILE INSTALLATION HELPER: [address], [place] [address], Ph. 09/30/2020 Lumbar Post-laminectomy Syndrome; Lumbar Radiculopathy; Degeneration of Lumbar Intervertebral Disc; Lumbosacral Spondylosis without Myelopathy; Spinal Stenosis of Lumbar Region Elpidio Gibson MD: [address], [place] [address], Ph. 09/27/2020 Pre-surgery Testing; Viral Screening Elpidio Gibson MD: [address], [place] [address], Ph. [phone] 09/13/2020 Pre-surgery Testing; Viral Screening Elpidio Gibson MD: [address], [place] [address], Ph. [phone] 08/30/2020 Lumbar Post-laminectomy Syndrome; Lumbar Radiculopathy; Degeneration of Lumbar Intervertebral Disc; Lumbosacral Spondylosis without Myelopathy; Spinal Stenosis of Lumbar Region Elpidio Gibson MD: [address], [place] [address], Ph. 08/25/2020 Pre-surgery Testing; Viral Screening Elpidio Gibson MD: [address], [place] [address], Ph. [phone] 08/16/2020 Lumbar Post-laminectomy Syndrome; Lumbar Radiculopathy; Degeneration of Lumbar Intervertebral Disc; Lumbosacral Spondylosis without Myelopathy; Spinal Stenosis of Lumbar Region Elpidio Gibson MD: [address] [address], [place] [address], Ph. 08/11/2020 Pre-surgery Testing; Viral Screening Elpidio Gibson MD: [address] [address], [place] [address], Ph. [phone] 08/03/2020 Lumbar Post-laminectomy Syndrome; Degeneration of Lumbar Intervertebral Disc; Lumbosacral Spondylosis without Myelopathy; Lumbar Radiculopathy; Spinal Stenosis of Lumbar Region Steph Lucíasonphi Yeung, WOOD TILE INSTALLATION HELPER: [address] [address], Ph. 06/21/2020 Lumbar Post-laminectomy Syndrome; Degeneration of Lumbar Intervertebral Disc; Lumbosacral Spondylosis without Myelopathy; Lumbar Radiculopathy; Spinal Stenosis of Lumbar Region Steph Lucíasonphi Feldmanon, WOOD TILE INSTALLATION HELPER: [address] [address], [place] [address], Ph. 04/28/2020 Lumbar Post-laminectomy Syndrome; Degeneration of Lumbar Intervertebral Disc; Lumbosacral Spondylosis without Myelopathy; Lumbar Radiculopathy; Spinal Stenosis of Lumbar Region Steph Lucíasonphi Cumminsmalon, WOOD TILE INSTALLATION HELPER: [address] [address], [place] [address], Ph. 01/20/2020 Lumbar Post-laminectomy Syndrome; Degeneration of Lumbar Intervertebral Disc; Lumbosacral Spondylosis without Myelopathy; Lumbar Radiculopathy; Spinal Stenosis of Lumbar Region Steph Manongsong Jumalon, WOOD TILE INSTALLATION HELPER: [address] [address], [place] [address], Ph. 11/14/2019 Lumbar Post-laminectomy Syndrome; Degeneration of Lumbar Intervertebral Disc; Lumbosacral Spondylosis without Myelopathy; Lumbar Radiculopathy; Spinal Stenosis of Lumbar Region Steph Yeung, WOOD TILE INSTALLATION HELPER: [address] [facility] [address], [place] [address], Ph. 07/17/2019 Lumbar Post-laminectomy Syndrome; Degeneration of Lumbar Intervertebral Disc; Lumbosacral Spondylosis without Myelopathy; Lumbar Radiculopathy; Spinal Stenosis of Lumbar Region Steph Yeung, WOOD TILE INSTALLATION HELPER: [address] [facility] [address], [facility] [address], [place] [address], Ph. 06/12/2019 Lumbar Post-laminectomy Syndrome; Degeneration of Lumbar Intervertebral Disc; Lumbosacral Spondylosis without Myelopathy; Lumbar Radiculopathy; Spinal Stenosis of Lumbar Region Steph Yeung, WOOD TILE INSTALLATION HELPER: [address] [facility] [address], [facility] [place] [address], Ph. 05/16/2019 Lumbar Post-laminectomy Syndrome; Spinal Stenosis of Lumbar Region; Lumbar Radiculopathy; Degeneration of Lumbar Intervertebral Disc; Lumbosacral Spondylosis without Myelopathy Elpidio Gibson MD: [address] [address], [facility] [place] [address], Ph. 04/28/2019 Lumbar Post-laminectomy Syndrome; Spinal Stenosis of Lumbar Region; Lumbar Radiculopathy; Degeneration of Lumbar Intervertebral Disc; Lumbosacral Spondylosis without Myelopathy Elpidio Gibson MD: [address] [address], [facility] [place] [address], Ph. 04/10/2019 Lumbar Post-laminectomy Syndrome; Spinal Stenosis of Lumbar Region; Lumbar Radiculopathy; Degeneration of Lumbar Intervertebral Disc; Lumbosacral Spondylosis without Myelopathy Elpidio Gibson MD: [address] [facility] [address], [facility] [place] [address], Ph. 03/03/2019 Lumbar Post-laminectomy Syndrome; Degeneration of Lumbar Intervertebral Disc; Lumbosacral Spondylosis without Myelopathy; Lumbar Radiculopathy; Spinal Stenosis of Lumbar Region Elpidio Gibson MD: [address], [place] [address], Ph. Social History Tobacco Smoking Status Light Tobacco Smoker (1 pack per week ) Notes: less than a pack a week Vaccine List Vaccine Type COVID-19, mRNA, LNP-S, PF, 100 mcg/0.5 m L dose 09/16/2020 Plan of Care Reminders Provider Appointments None [...]
--- OUTSIDE RECORDS SUMMARY | 2021-05-24 08:13 | CCD | Summary of Care ---
Author Author [facility] Address Unknown Phone Unavailable Care Team Providers Care Fitter Helper Name Role Phone Shimon Cordova MD PCP Reason for Visit * Reason Comments Follow-up Encounter Details Care Team Description Date Type Department Bianca Almaraz, CHARMAINE [address] [facility] [address] [place], [place] [id number] Ductal carcinoma in situ (DCIS) of left breast (Primary Dx); Status post left mastectomy 03/21/2021 Telemedicine [facility] [address] [place] [id number] Allergies Comments Active Allergy Reactions Severity Noted Date Bee Venom 01/18/2021 Codeine Hives Medium 01/20/2013 documented as of this encounter (statuses as of 03/21/2021) Medications End Date Status Medication Sig Dispensed Refills Start Date Active VITAMIN D, Take by 0 CHOLECALCIFEROL, PO mouth daily. Active Cranberry 1000 MG CAPS Take by 0 mouth daily. Active hgxvmonjeaig-ydul-zybhotk Chew 1 tablet 0 s-folic acid (CENTRUM) [...] as of this encounter (statuses as of 03/21/2021) Active Problems Patient Care Coordination Note 12/31/2020 No Logistics Planning Manager. [facility] Breast Navigator Meenakshi ARVIZU, RN-BC, CN-BN [phone] Multi-D) Problem Noted Date Breast cancer in female 02/24/2021 Status post left mastectomy 02/23/2021 Ductal carcinoma in situ (DCIS) of left breast 12/08 CTS (carpal tunnel syndrome) 02/27/2014 Tenosynovitis, wrist 02/27/2014 Lumbar spondylosis 11/27/2012 documented as of this encounter (statuses as of 03/21/2021) Immunizations Name Administration Dates Next Due documented as of this encounter Social History Date Tobacco Use Types Packs/Day Years Used Never Smoker Smokeless Tobacco: Never Used Comments Alcohol Use Standard Drinks/Week one per week Yes 0 (1 standard drink = 0.6 o z pure alcohol) Sex Assigned at Date Recorded Not on file Date Recorded COVID-19 Exposure Response 03/17/2021 2:56 PM EDT In the last month, have you been in contact with No / Unsure someone who was confirmed or suspected to have Coronavirus / COVID-19? documented as of this encounter Last Filed Vital Signs Not on filedocumented in this encounter Progress Notes * Bianca Almaraz, CARGO TANK MECHANIC - 03/21/2021 8:30 AM EDT TELEMEDICINE VISIT This visit occurred via telephonic technology without the use of video technolog y due to the patient's inability or unwillingness to connect via audiovisual tel ehealth services. The encounter took place in the context of the novel coronavir us (COVID-19) pandemic and the related [facility] exemption from the requirement for vi [...] during this telephonic visit encounter was 1 5 minutes. DIAGNOSIS: 2020 -multifocal left breast DCIS, [...] breast DCIS, grade 3, ER negati ve, CT weakly positive. She underwent an MRI of [...] in situ. Margins negative, lymph nodes negative. Last week she called the office with complaints of sinus congestion, nausea, dec reased appetite, and generalized weakness. She was seen by her PCP who she repo rts did some blood work although there is no definitive cause and her symptoms i mproved. INTERIM HISTORY: Since last telemedicine visit she continues to note intermittent nausea although this is improved. She denies any vomiting. She overall is feeling better. She reports that her incision is healing well. Denies any erythema. States that she is having a great deal of bronze color output. Yesterday for a 24-hour. Sh adan had 68 mL output, the day prior she had 72 mL and the take prior to that she h ad 74 mL. She does live approximately 2 hours away and was hoping once she is cleared to h ave PILO drain removed this can be done by her PCP locally. Physical Exam: Unable to perform physical exam due to audio telemedicine visit ASSESSMENT/PLAN: Kaur Echeverria is doing well after left mastectomy on 02/23/2021. States that she was previously having approximately 60-70 mL of straw-colored ou tput from the PILO drain daily. She reports that she has been wearing a sports br a for compression to help body absorb this fluid. She denies any significant pain along the incision. She denies any erythema. We typically would remove PILO drain when there is been under 30 mL output and dylan ly basis for 2 to 3 days. Her PILO drain has now been in place for approximately 1 month. Continuing with this cannot significantly increase her risk for infect ion. We decided that she will call her PCP and have the PILO drain removed in the next 2 to 3 days. We will plan to see her back in the office in 7 to 10 days after J P drain was removed to assess for potential recurrent seroma and evaluate the ne ed for repeat PILO drain placement. In regards to her previous come plaints of nausea, decreased appetite, and fatig ue. Her PCP was unable to locate any cause of her complaints and has reported t hat these have slightly improved. We will plan to schedule her in the office to see Dr. Wallace on 04/05/2021 for fol low up. They are to call with any questions or concerns in the meantime. documented in this encounter Plan of Treatment Care Team Description Date Type Specialty Tan Guo MD [address] [place] [address] 03/29/2021 Telemedicine Hematology and Onco logy Velma Wallace MD [address] [place] [address] 09/15/2021 Appointment Radiology Velma Wallace MD [address] [place] [address] [place] [address] 09/15/2021 Office Visit Breast Surgery Health Maintenance [...] ot Implanted Type Area Manufactur er 06/03/2021 [id number] / / [id number] [facility] Eviva [id number]. Left: Breast HO LOGIC - [id number] Implanted: Qty: 1 on 01/06/2021 by Angel Wagoner MD at [facility] INPATIENT documented as of this encounter Results Not on filedocumented in this encounter Visit Diagnoses Diagnosis Ductal carcinoma in situ (DCIS) of left breast - Primary Status post left mastectomy Acquired absence of breast and nipple documented in this encounter
--- OUTSIDE RECORDS SUMMARY | 2021-05-24 08:13 | CCD | Summary of Care ---
Author Author [facility] Organization [facility] Address Unknown Phone Unavailable Care Team Providers Care Account Review Specialist Name Role Phone Shimon Cordova MD PCP Reason for Referral * Home Health Care (Routine) Referred By Contact Referred To Contact Status Reason Specialty Diagnoses / Procedures Ivania Anderson PA [address] [place] [address] Email: [email or web address] Open Specialty Services Home Health Diagnoses Required Services Status post left mastectomy Electronically signed by Ivania BUNCH at Reason for Visit * Auth/Cert Referred By Contact Referred To Contact Status Reason Specialty Diagnoses / Procedures Velma Wallace MD [address] [place] [address] [place] [address] Email: [email or web address] Diagnoses breast cancer Encounter Details Care Team Description Date Type Department Velma Wallace MD [address] [place] [address] [place] [address] Status post left mastectomy (Primary Dx) ; Ductal carcinoma in situ (DCIS) of left breast 02/23/[address] MED/SURG CC - Encounter [address] 02/24/2021 [place] [address] Allergies Comments Active Allergy Reactions Severity Noted Date Bee Venom 01/18/2021 Codeine Hives Medium 01/20/2013 documented as of this encounter (statuses as of 02/24/2021) Medications End Date Status Medication Sig Dispensed Refills Start Date Active VITAMIN D, Take by 0 CHOLECALCIFEROL, PO mouth daily. Active Cranberry 1000 MG CAPS Take by 0 mouth daily. Active tssybiwsednw-lhnn-jjewxnm Chew 1 tablet 0 s-folic acid (CENTRUM) [...] Olamine 0.77 % APPLY TO FOOT 0 External Cream (LOPROX) TWO TIMES A 1 DAY Active Omeprazole 20 MG Oral Take 20 mg by 0 Capsule Delayed Release mouth daily (PriLOSEC) Active Famotidine 20 MG Oral Take 20 mg by 0 Tablet (PEPCID) mouth Two Times Daily 03/06/2021 Active Acetaminophen 325 MG Oral Take 2 30 tablet 0 Tablet tablets by 1 mouth Four times daily for 10 days Active traMADol HCl 50 MG Oral Take 1 tablet 30 tablet 0 Tablet (ULTRAM) by mouth 1 every 6 (six) hours as needed for up to 10 doses, Max Daily Dose: 200 mg 02/21/2021 Discontinued (Therapy comple colin) lisinopril 0 (PRINIVIL,ZESTRIL) 5 MG 4 tablet 02/21/2021 Discontinued (Therapy comple colin) hydrocodone-acetaminophen 0 (LORTAB) 5-325 MG per 5 tablet 02/21/2021 Discontinued (Therapy comple colin) gabapentin (NEURONTIN) Take 1 90 capsule 3 300 MG capsule by 7 capsuleIndications: mouth Three Dysesthesia times daily 02/21/2021 Discontinued (Therapy comple colin) Famotidine 20 MG Oral famotidine 20 0 Tablet (PEPCID) mg tablet TAKE ONE TABLET BY MOUTH TWICE A DAY 02/21/2021 Discontinued (Therapy comple colin) Ciprofloxacin HCl 500 MG Take 500 mg 0 11/09 Oral Tablet (CIPRO) by mouth Two 1 Times Daily documented as of this encounter (statuses as of 02/24/2021) Active Problems Patient Care Coordination Note 12/31/2020 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 [facility] Breast Navigator Meenakshi ARVIZU, RN-BC, CN-BN [phone] Multi-D) Problem Noted Date Breast cancer in female 02/24/2021 Status post left mastectomy 02/23/2021 Ductal carcinoma in situ (DCIS) of left breast 12/08 CTS (carpal tunnel syndrome) 02/27/2014 Tenosynovitis, wrist 02/27/2014 Lumbar spondylosis 11/27/2012 documented as of this encounter (statuses as of 02/24/2021) Social History Date Tobacco Use Types Packs/Day Years Used Never Smoker Smokeless Tobacco: Never Used Comments Alcohol Use Standard Drinks/Week one per week Yes 0 (1 standard drink = 0.6 o z pure alcohol) Sex Assigned at Date Recorded Not on file Date Recorded COVID-19 Exposure Response 02/23/2021 7:00 AM EDT In the last month, have you been in contact with No / Unsure someone who was confirmed or suspected to have Coronavirus / COVID-19? documented as of this encounter Last Filed Vital Signs Reading Time Taken Comments Vital Sign 122/47 02/24/2021 7:42 AM EDT Blood Pressure 62 02/24/2021 7:42 AM EDT Pulse 36.8 C (98.2 F) 02/24/2021 7:42 AM EDT Temperature 16 02/24/2021 7:42 AM EDT Respiratory Rate 96% 02/24/2021 7:42 AM EDT Oxygen Saturation - - Inhaled Oxygen Concentration 93 kg (205 lb) 02/23/2021 7:55 AM EDT Weight 160 cm (5' 3") 02/23/2021 7:55 AM EDT Height 36.31 02/23/2021 7:55 AM EDT Body Mass Index documented in this encounter Discharge Instructions * Instructions* Alysia Walls PA - 02/24/2021 7:44 AM EDT Discharge Instructions after Breast Surgery: General: Please rest today and tomorrow. Do not make any major decisions. Do not drive. Do not drink alcohol. Do not engage in activities that require you to think or act quickly. Do not sign legal documents. Diet: You may resume your regular diet. Activity: No lifting greater than 10 pounds with either arm for two weeks. Do not engage in strenuous activity or exercise until after your post-op visit. Driving: Please do not drive or operate heavy machinery until you are cleared to do so at your post-operative clinic visit. Medications: You may resume your home medications, unless we have asked you not to. Please do not resume herbal medications or supplements for two weeks. Do not use ibuprofen, Advil, Motrin, or Alleve for 2 weeks. Do not start using any new medications unless you have discussed this with us. Pain control: You will be given a prescription pain medication to take if needed. You can also take Tylenol. Please do not take more than the recommended daily d ose. Use a stool softener while you are using any prescription pain medications, as t hese medications may be constipating. Do not drive or make important decisions if you are taking any prescription pain medications. Do not use alcohol if you are taking pain medications. Surgical dressing: You may remove the clear plastic outer dressing and underlying gauze dressing 48 hours after your surgery. Please leave the paper steri-strips on. They will come off on their own. If th ey are still in place at the time of your post-op visit, we will remove them. Please do not apply any topical agents on your incision until after your post-op visit. Bathing: You may shower 48 hours after your surgery. Gently pat your incision dry. Do not rub it. No tub baths, swimming pools, jacuzzis, or lakes until after your post-op visit. Drain Care: If you have a surgical drain in place, please record the output daily. Once the output is less than 30 mL per day for two consecutive days, then please call the office for drain removal. Post-Op Visit: We will call you once your pathology report is available, generally 5-7 business days from your surgery date. You will see us for a post-op visit approximately 2 weeks after your surgery rm e. Please call us or come to the Emergency Room if: Persistent fever greater than 101 degrees Nausea and/or vomiting lasting greater than 24 hours Redness at incision site Drainage that smells bad from incision site Bleeding Increased swelling at the incision site Persistent pain that is not relived by the prescription pain medication Inability to urinate Increasing drowsiness Shortness of breath Chest pain Lower extremity pain or swelling documented in this encounter Progress Notes * Gina Mcnulty - 02/24/2021 11:34 AM EDT Discharge instructions provided per MD order. Pt states understanding of all mat erial, denies questions at this time. PILO drain teaching done by primary RN. Diane sported to discharge area via wheelchair by hospital volunteer, with all belongi ngs. Discharged to home via car with . * Liza Hernandez RN - 02/24/2021 11:09 AM EDT Met with patient and at bedside, confirmed demographics. Plan is for dc home today. Dr Wallace is requesting HC for patient, they had not preference of vendors. Pt referred to [facility], case accepted with SOC for tomorrow. Or rebecca pended. No other dc needs identified. Case Management Screen & Assessment Patient Name: Kaur Echeverria Gender: female Date of : 1945 Admission Dx: Status post left mastectomy [Z90.12] Breast cancer in female [C50.919] Age: 75 y.o. Admission: 02/23/2021 7:01 AM Attending Provider: Velma Wallace MD High Risk Criteria - Prior to Admission/Upon Arrival HEAD RIGGER-Type of Residence: Private Residence HEAD RIGGER- Home Care Services: No Limited Home Supports/Lives Alone?: No Multi trauma/Critical care/Step down admit?: No Head/Spinal cord injury?: No Self Pay: No Multiple ED visits?: No Related/Unplanned readmission within 30 days?: No Complex/New medical issues: breast ca s/p left mastectomy Relevant comorbidities: incontinence, DM, murmer, HLD, HTN, LBP Screening Outcome Social Work Consult Needed?: No Further Case Management Needs?: Case Management Needs Chart Review PCP Verified?: Patient has PCP Prior to Admission: Functional/Environmental Assessment Bathing: Independent Dressing: Independent Toileting: Independent Medication administration: Independent Transfers: Independent Ambulation: Independent Meal preparation: Independent Potential Barriers/Teaching Needs Physical: wound care, med mgmt, dx related Psychosocial: breast ca Discharge Planning Living Arrangements: Spouse/significant other Support Systems: Spouse/significant other Type of Residence: Private residence Patient/family informed of need for discharge planning?: Yes Patient expects to be discharged to:: home with HC Patient/Agent informed of choice and given written list?: Patient/agent declined list Actual discharge location : Home-With Homecare Services Does the patient need discharge transport arranged?: No Liza Hernandez * William Youssef RN - 02/23/2021 11:57 PM EDT Images from the original note were not included. If wound was present on admission, this documentation was sent to attending prov ider for cosignature. * Troy Chang PA - 02/23/2021 7:58 PM EDT Post-op Check: Subjective: Patient is a 75 y.o. female Hospital Day: 1, Day of Surgery. S/P left breast sim ple, total mastectomy with sentinel node biopsy. Doing well. Pain controlled, Denies N/V, CP/SOB. Feeling hungry Objective: Temp (24hrs), Av.9 C (98.4 F), Min:36.7 C (98.1 F), Max:37.1 C (98.8 F) Vitals: 02/23/21 1800 02/23/21 1843 02/23/21 1900 02/23/211932 BP: 135/63 136/66 93/60 133/68 BP Location: Right arm Right arm Right arm Patient Position: Lying Lying Lying Pulse: 64 60 60 61 Resp: Temp: 36.8 C (98.2 F) 36.9 C (98.4 F) 37 C (98.6 F) TempSrc: Oral Oral Oral SpO2: 90% 94% 96% 96% Weight: Height: I/O last 3 completed shifts: In: 1000 [I.V.:1000] Out: - I/O this shift: In: 1200 [I.V.:1200] Out: 390 [Urine:300; Drains:40; Blood:50] Gen: AAOx3, NAD Heart: RRR, peripheral pulses intact Lungs:Deep unlabored breathes Abd: Obese, Soft/ND, dressings clean/dry/intact A/P: 75 y.o. female, Hospital Day: 1, Day of Surgery DWPO Pain well controlled: Tylenol, fentanyl, tramadol Con Carb OOB DVT prophylaxis GI prophylaxis Check am labs Pilo Drain care Con to monitor Likely DC tomorrow Troy Chang PA-C * Jonathon Duran RN - 02/23/2021 11:56 AM EDT Pt. tolerated procedure well. VSS Cardiac Rhythm: SR Pulse: n/a Sensation: full Movement: to command Color: appropriate Postioning: supine Side rails up x 2. Call marshall within reach. No s/s of allergic reaction or toxic ity. Handoff complete. * Jonathon Duran RN - 02/23/2021 11:45 AM EDT Pt. AAOx3. PIV CD&I and infusing. Pt. positioned per anesthesia. Pt. on monitor, VSS. Consents signed and in chart. Cardiac rhythm: SR Pulse: N/a Sensation: full Movement: to command Color: appropriate Sedation: see mar BVM, O2, and suction at bedside documented in this encounter H&P Notes * Velma Wallace MD - 02/23/2021 11:47 AM EDT Patient seen and examined. No changes to medical history. Ready for surgery to day. documented in this encounter Miscellaneous Notes * Plan of Care - Venecia Lam RN - 02/24/2021 11:36 AM EDT Problem: Risk for Falls Goal: No falls during hospitalization Description: Patient will not fall during hospitalization. Outcome: Progressing * Yudy Patient Instructions - Gina Mcnulty - 02/24/2021 11:17 AM EDT 3805 Tramadol Oral Tablet 50 mg Uses For pain. Instructions This medicine may be taken with or without food. Keep the medicine at room temperature. Avoid heat and direct light. To reduce constipation, eat high fiber foods, drink plenty of water and exercise . If you forget to take a dose on time, take it as soon as you remember. If it is almost time for the next dose, do not take the missed dose. Return to your nurys l dosing schedule. Do not take 2 doses of this medicine at one time. Please tell your doctor and pharmacist about all the medicines you take. Include both prescription and aoyk-mjb-lldbmyx medicines. Also tell them about any josue mins, herbal medicines, or anything else you take for your health. Cautions Ask your doctor or pharmacist if you should have naloxone on hand to treat opioi d overdose. Teach your family or household members about the signs of an opioid overdose and how to treat it. This medicine can be habit-forming. If you use this medicine regularly for a kira g time, it can lead to withdrawal symptoms when you stop. Please use this medici ne only as directed. Tell your doctor and pharmacist if you ever had an allergic reaction to a medici ne. Symptoms of an allergic reaction can include trouble breathing, skin rash, i tching, swelling, or severe dizziness. Do not use the medication any more than instructed. If possible, avoid using with marijuana or other medicines that can cause dizzin ess or drowsiness. These include allergy/cold products, muscle relaxers, sleep a ids, and pain relievers. Your ability to stay alert or to react quickly may be impaired by this medicine. Do not drive or operate machinery until you know how this medicine will affect you. Do not drink beverages with alcohol while on this medicine. Tell the doctor or pharmacist if you are , planning to be , or b reastfeeding. Do not breastfeed while on this medicine. This medicine can hurt a new baby in the womb. If you become while on t his medicine, tell your doctor immediately. Your doctor may switch you to a diff erent medicine. Ask your pharmacist if this medicine can interact with any of your other medicin es. Be sure to tell them about all the medicines you take. Do not start or stop any other medicines without first speaking to your doctor o r pharmacist. Call your doctor right away if you notice slow or shallow breathing. Do not share this medicine with anyone who has not been prescribed this medicine . This medicine can cause serious side effects in some patients. Important informa tion from the U.[place]. Food and Drug Administration (FDA) is available from your pha rmacist. Please review it carefully with your pharmacist to understand the risks associated with this medicine. Side Effects The following is a list of some common side effects from this medicine. Please s peak with your doctor about what you should do if you experience these or other side effects. constipation dizziness drowsiness or sedation nausea vomiting weight loss Call your doctor or get medical help right away if you notice any of these more serious side effects: agitated feeling or trouble sleeping decreased appetite breathing interruption during sleep shallow, irregular breathing changes in memory, mood, or thinking fainting lack of energy and tiredness fast or irregular heart beats stomach upset or abdominal pain difficulty or discomfort urinating A few people may have an allergic reaction to this medicine. Symptoms can includ e difficulty breathing, skin rash, itching, swelling, or severe dizziness. If yo u notice any of these symptoms, seek medical help quickly. Extra Please speak with your doctor, nurse, or pharmacist if you have any questions ab out this medicine. [email or web address] IMPORTANT NOTE: This document tells you briefly how to take your medicine, but i t does not tell you all there is to know about it.Your doctor or pharmacist may give you other documents about your medicine. Please talk to them if you have an y questions.Always follow their advice. There is a more complete description of this medicine available in Finnish.Scan this code on your smartphone or tablet o r use the web address below. You can also ask your pharmacist for a printout. If you have any questions, please ask your pharmacist. 2020 [employer]. documented in this encounter Plan of Treatment Care Team Description Date Type Specialty Velma Wallace MD [address] [place] [address] [place] [address] [place] [id number] 03/08/2021 Office Visit Breast Surgery Date/Time Name Type Priority Associated Diag noses 02/24/2021 9:18 AM EDT Surgical Pathology Exam Pathology and Routine ( Only) Cytology Order Schedule Name Type Priority Associated Diag noses STAT for 1 Occurrences starting 02/24/20 21 until 02/23/2021 POCT glucose, docked (if Point of Care STAT diabetic) Testing-Docked Device Once for 1 Occurrences starting 02/24/20 21 until 02/23/2021 Surgical Pathology Exam Pathology and Routine ([facility] Only) Cytology Once for 1 Occurrences starting 02/24/20 21 until 02/23/2021 Surgical Pathology Exam Pathology and Routine ([facility] Only) Cytology 4X Daily (AC & HS) for 30 Days starting 02/23/2021 until 03/25/2021, 1 completed POCT glucose, docked AC & Point of Care Routine HS Testing-Docked Device Daily for 30 Days starting 02/23/2021 un til 03/24/2021, 1 completed POCT glucose, docked Point of Care Routine Testing-Docked Device Once for 1 Occurrences starting 02/24/20 21 until 02/23/2021 Surgical Pathology Exam Pathology and Routine ( Only) Cytology Order Schedule Name Type Priority Associated Diag noses Ordered: 02/24/2021 Referral to home health Outpatient Routine Status post left Referral mastectomy Health Maintenance Due Date Last Done Comments [...] yr Influenza Vaccine 04/29/2021 05/10/2018, 06/02/2016, 07/13/2015 HIB Vaccines Aged Out No longer eligible [...] ot Implanted Type Area Manufactur er 06/03/2021 [id number] / / [id number] [employer] Eviva [id number]. Left: Breast HO LOGIC - [id number] Implanted: Qty: 1 on 01/06/2021 by Angel Wagoner MD at [facility] INPATIENT documented as of this encounter Procedures Comments Procedure Name Priority Date/Time Associated Diag nosis POCT GLUCOSE, DOCKED Routine 02/24/2021 8:41 AM EDT BASIC METABOLIC PANEL Routine 02/24/2021 3:50 AM EDT POCT GLUCOSE, DOCKED Routine 02/23/2021 8:58 PM EDT POCT GLUCOSE, DOCKED Routine 02/23/2021 8:04 PM EDT TROPONIN T HIGH Routine 02/23/2021 SENSITIVITY 6:30 PM EDT ELECTROLYTE PANEL Routine 02/23/2021 6:30 PM EDT POCT GLUCOSE, DOCKED Routine 02/23/2021 5:01 PM EDT MASTECTOMY,SIMPLE,COMPLET 02/23/2021 Ductal carc inoma in situ E 12:12 PM EDT (DCIS) of left [facility] [facility] Special Needs Sent inj time - 10:00 am23 hr stay Donna [phone] POCT GLUCOSE, DOCKED Routine 02/23/2021 8:26 AM EDT documented in this encounter Results * POCT glucose, docked (02/24/2021 8:41 AM EDT) POC Glucose 128 70 - 140 mg/dL [facility] POC Specimen Whole Blood Performing Organization Address City/[facility] P cherelle Number POINT OF CARE TEST [address] [place] [address] [facility] POC [address] [place], [place] [address] * Basic Metabolic Panel (02/24/2021 3:50 AM EDT) Bicarbonate 29 22 - 29 mmol/L [facility] at CG Chloride 104 98 - 107 mmol/L [facility] at CG Creatinine 0.62 0.50 - 0.90 mg/dL [facility] at CG Glucose 144 (H) 70 - 140 mg/dL [facility] at CG Potassium 4.1 3.4 - 5.1 mmol/L [facility] at CG Sodium 138 136 - 145 mmol/L [facility] at CG Blood Urea 11 8 - 23 mg/dL [facility] at CG Anion Gap 5 (L) 8 - 15 mmol/L [facility] at CG Osmolality, Clement 288 275.0 - 300.0 [facility] mosm/kg [facility] at CG BUN/Cre Ratio 17 [facility] at CG Calcium 7.8 (L) 8.8 - 10.2 mg/dL [facility] at CG GFR Non 85 >60 mL/min/1.73m2 [facility] Upstat e [place] 2008 Medical [facility] at CDK-EPI CG GFR >90 >60 mL/min/1.73m2 [facility] at CKD-EPI CG Specimen Plasma Performing Organization Address City/State/[facility] Code P cherelle Number [facility] PATH[facility]Y AT [address] [place] [address] [phone] [address] at CG * POCT glucose, docked (02/23/2021 8:58 PM EDT) POC Glucose 156 (H) 70 - 140 mg/dL [facility] POC Specimen Whole Blood Performing Organization Address City/[facility] P cherelle Number POINT OF CARE TEST [address] [place] [address] [facility] POC [address] [place] [address] 5 * POCT glucose, docked (02/23/2021 8:04 PM EDT) POC Glucose 121 70 - 140 mg/dL [facility] POC Specimen Whole Blood Performing Organization Address [facility] P cherelle Number POINT OF CARE TEST [address] [place] [address] [facility] POC [address] [place], [place] [address] * Electrolyte panel (02/23/2021 6:30 PM EDT) Sodium 136 136 - 145 mmol/L [facility] at Potassium 4.2Comment: Hemolyzed 3.4 - 5.1 mmol/L [facility] at CG Chloride 100 98 - 107 mmol/L [facility] at CG Bicarbonate 29 22 - 29 mmol/L [facility] at Anion Gap 7 (L) 8 - 15 mmol/L [facility] at CG Specimen Plasma Performing Organization Address City/[facility] P cherelle Number [facility] PATH[facility] AT [address] [place] [address] [phone] [address] at CG * Troponin T High Sensitivity (02/23/2021 6:30 PM EDT) Troponin T High 10 <14 ng/L [facility] at CG Specimen Plasma Performing Organization Address City/[facility]/ZIP Code P cherelle Number [facility] PATH[facility] AT [address] [place] [address] [phone] [address] at CG * POCT glucose, docked (02/23/2021 5:01 PM EDT) POC Glucose 149 (H) 70 - 140 mg/dL [facility] POC Specimen Whole Blood Performing Organization Address City/State/ZIP Code P cherelle Number POINT OF CARE TEST [address] [place] [address] [facility] POC [address] [place], [place] [address] * POCT glucose, docked (02/23/2021 8:26 AM EDT) POC Glucose 131 70 - 140 mg/dL [facility] POC Specimen Whole Blood Performing Organization Address City/State/ZIP Code P cherelle Number POINT OF CARE TEST [address] [place] [address] [facility] POC [address] [place], [place] [address] documented in this encounter Visit Diagnoses Diagnosis Ductal carcinoma in situ (DCIS) of left breast - Primary Status post left mastectomy Acquired absence of breast and nipple Breast cancer in female documented in this encounter Administered Medications Action Date Dose Rate Site Medication Order MAR Action 02/24/2021 8:56 AM EDT 650 mg acetaminophen (TYLENOL) tablet 650 mg Given 650 mg, Oral, Four Times Daily Standard, First dose (after last modification) on Sun02/23/21 at 2100, For 3 days, Maximum daily dose of acetaminophen is 3,000 mg from all sources in 24 hours. 650 mg Given 02/23/2021 10:07 PM EDT dextrose 50 % IV solution 25 mL 25 mL, Intravenous, PRN, Other, blood glucose <55, Starting on Sun02/23/21 at 1840, For 30 days, Not for midline administration. 02/23/2021 10:07 PM EDT 60 mg DULoxetine (CYMBALTA) DR capsule 60 mg Given 60 mg, Oral, Nightly, First dose on Sun02/23/21 at 2200, For 30 days, Do not crush or chew fentaNYL (SUBLIMAZE) (PF) injection 25 mcg 25 mcg, Intravenous, Every 1 hour PRN, Severe Pain (Pain Scale Score 7-10), Break through, Starting on Sun02/23/21 at 1724, For 3 days glucagon (human recombinant) (GLUCAGEN) injection 1 mg 1 mg, Intramuscular, PRN, for glucose <55 without IV access, Starting on Sun02/23/21 at 1840, For 30 days glucose (GLUTOSE) 40 % oral gel 15 g 15 g, Oral, PRN, Low blood sugar, for gluose 55-69 mg/dl and able to take PO, Starting on Sun02/23/21 at 1840, For 30 days 02/24/2021 8:56 AM EDT 5,000 Units heparin (porcine) 5000 UNIT/ML injection Given 5,000 Units 5,000 Units, Subcutaneous, 2 Times Daily, First dose on Sun02/23/21 at 2100, For 30 days 5,000 Units Given 02/23/2021 10:07 PM EDT 02/24/2021 9:25 AM EDT 1 Units insulin lispro (HumaLOG) injection LOW Given DOSE EATING INSULIN patients 1-8 Units 1-8 Units, Subcutaneous, Three Times Daily-With Meals, First dose on Sun02/24/21 at 0800, For 30 days, Nursing MUST open the 'SQ Insulin Dosing Charts ' Sidebar Report, or, the Patient Summary or Summary Report within the ED. 02/24/2021 8:56 AM EDT 50 mg metoprolol (TOPROL-XL) 24 hr tablet 50 Given mg 50 mg, Oral, Daily Standard, First dos e on Sun02/24/21 at 0900, For 3 doses, Do not crush or chew ondansetron (ZOFRAN-ODT) disintegrating tablet 4 mg 4 mg, Oral, Every 8 hours PRN, Nausea , Vomiting, Starting on Sun02/23/21 at 1725, For 30 days, Dissolve on tongue. 02/24/2021 8:56 AM EDT 40 mg pantoprazole (PROTONIX) EC tablet 40 mg Given 40 mg, Oral, Daily Standard, First dos e on Sun02/24/21 at 0900, For 3 days, Do not crush or chew prochlorperazine (COMPAZINE) injection 10 mg 10 mg, Intravenous, Every 6 hours PRN , Nausea, Vomiting, Starting on Sun02/23/21 at 1726, For 30 days, For IV use: Prepare in 50 mL NS and infuse ove r 15 minutes. Action Date Dose Rate Site Medication Order MAR Action 02/23/2021 4:50 PM EDT 25 mcg fentaNYL (SUBLIMAZE) (PF) injection 25 Given by IV mcg push 25 mcg, Intravenous, Every 5 min PRN, Moderate Pain (Pain Scale Score 4-6), Starting on Sun02/23/21 at 1636, For 4 doses, Recovery 02/23/2021 1:33 PM EDT 25 mcg fentaNYL (SUBLIMAZE) (PF) injection 50 Given mcg 50 mcg, Intravenous, Every 2 min PRN, Other, Sedation, Starting on Sun 1 at 0754, For 2 doses, Pre-op, To be given by Regional Block Nurse for sedation during block procedure. 50 mcg Given 02/23/2021 12:21 PM EDT 50 mcg New Bag 02/23/2021 11:47 AM EDT 02/23/2021 11:47 AM EDT 0.5 mg midazolam (PF) (VERSED) injection 0.5 mg New Bag 0.5 mg, Intravenous, Every 2 min PRN, Sedation, Anxiety, Starting on Sun02/23/21 at 0754, For 2 doses, Pre-op, T o be given by Regional Block Nurse to be given for sedation during block procedure. 0.5 mg New Bag 02/23/2021 11:46 AM EDT 02/23/2021 4:36 PM EDT 4 mg ondansetron (ZOFRAN) injection 4 mg Given by IV 4 mg, Intravenous, Once PRN, Nausea, push Vomiting, Starting on Sun02/23/21 at 1636, For 1 dose, Recovery 02/24/2021 8:56 AM EDT 40 mg pravastatin (PRAVACHOL) tablet 40 mg Given 40 mg, Oral, Daily Standard, First dos e on Marcella 02/24/21 at 0900, For 1 dose documented in this encounter Active and Recently Administered Medications Times are shown in EDT. 02/23/2021 02/24/2021 Medication Order 02/22/20212206 (Given - Provider: Corina Mccoy) 0856 (Given - Provider: Venecia wade RN)1300 (Due)1700 (Due)2100 (Due) acetaminophen (TYLENOL) tablet 650 mg 650 mg, Oral, Four Times Daily Standard, First dose (after last modification) on Sun02/23/21 at 2100, For 3 days, Maximum daily dose of acetaminophen is 3,000 mg from all sources in 24 hours. 2206 (Given - Provider: Corina Mccoy) 2200 (Due) DULoxetine (CYMBALTA) DR capsule 60 mg 60 mg, Oral, Nightly, First dose on Sun02/23/21 at 2200, For 30 days, Do not crush or chew 220 (Given - Provider: Corina Mccoy) 0856 (Given - Provider: Venecia wade RN)2100 (Due) heparin (porcine) 5000 UNIT/ML injectio n 5,000 Units 5,000 Units, Subcutaneous, 2 Times Daily, First dose on Sun02/23/21 at 2100, For 30 days 0925 (Given - Provider: Venecia wade RN)1300 (Due)1800 (Due) insulin lispro (HumaLOG) injection LOW DOSE EATING INSULIN patients 1-8 Units 1-8 Units, Subcutaneous, Three Times Daily-With Meals, First dose on Sun02/24/21 at 0800, For 30 days, Nursing MUST open the 'SQ Insulin Dosing Charts ' Sidebar Report, or, the Patient Summary or Summary Report within the ED. 0856 (Given - Provider: Venecia wade RN) metoprolol (TOPROL-XL) 24 hr tablet 50 mg 50 mg, Oral, Daily Standard, First dos e on Sun02/24/21 at 0900, For 3 doses, Do not crush or chew 0856 (Given - Provider: Venecia wade RN) pantoprazole (PROTONIX) EC tablet 40 mg 40 mg, Oral, Daily Standard, First dos e on Sun02/24/21 at 0900, For 3 days, Do not crush or chew 0856 (Given - Provider: Venecia wade RN) pravastatin (PRAVACHOL) tablet 40 mg (COMPLETED) 40 mg, Oral, Daily Standard, First dos e on Sun02/24/21 at 0900, For 1 dose 0940 (New Syringe/Cartridge - Provider: RT Boris) TC-99M tilmanocept (LYMPHOSEEK) (COMPLETED) Intravenous, Once, On Sun02/23/21 at 0800, For 1 dose, Imaging Protocol 02/23/2021 02/24/2021 Medication Order 02/22/2021 1510 (Given - Provider: Kay Holloway) bupivacaine (PF) (MARCAINE) 0.25 % injection (CANCELED) PRN, Starting on Sun02/23/21 at 1510, Intra-op dextrose 50 % IV solution 25 mL 25 mL, Intravenous, PRN, Other, blood glucose <55, Starting on Sun02/23/21 at 1840, For 30 days, Not for midline administration. 1650 (Given by IV push - Provider: Eugenio Taylor RN) fentaNYL (SUBLIMAZE) (PF) injection 25 mcg (CANCELED) 25 mcg, Intravenous, Every 5 min PRN, Moderate Pain (Pain Scale Score 4-6), Starting on Sun02/23/21 at 1636, For 4 doses, Recovery fentaNYL (SUBLIMAZE) (PF) injection 25 mcg 25 mcg, Intravenous, Every 1 hour PRN, Severe Pain (Pain Scale Score 7-10), Break through, Starting on Sun02/23/21 at 1724, For 3 days 1147 (New Bag - Provider: Jonathon alamo RN)1221 (Given - Provider: Susannah Cortes CRNA)1333 (Given - Provider: Susannah Cortes CRNA) fentaNYL (SUBLIMAZE) (PF) injection 50 mcg (COMPLETED) 50 mcg, Intravenous, Every 2 min PRN, Other, Sedation, Starting on Sun 1 at 0754, For 2 doses, Pre-op, To be given by Regional Block Nurse for sedation during block procedure. glucagon (human recombinant) (GLUCAGEN) injection 1 mg 1 mg, Intramuscular, PRN, for glucose <55 without IV access, Starting on Sun02/23/21 at 1840, For 30 days glucose (GLUTOSE) 40 % oral gel 15 g 15 g, Oral, PRN, Low blood sugar, for gluose 55-69 mg/dl and able to take PO, Starting on Sun02/23/21 at 1840, For 30 days 1549 (Given - Provider: Kay Holloway) Mastisol Adhesive (CANCELED) PRN, Starting on Sun02/23/21 at 1549, Intra-op 1146 (New Bag - Provider: Jonathon alamo RN - Comment: per MD [email or web address])1147 (New Bag - Provider: Jonathon Duran RN) midazolam (PF) (VERSED) injection 0.5 m g (COMPLETED) 0.5 mg, Intravenous, Every 2 min PRN, Sedation, Anxiety, Starting on Sun02/23/21 at 0754, For 2 doses, Pre-op, T o be given by Regional Block Nurse to be given for sedation during block procedure. 1636 (Given by IV push - Provider: Eugenio Taylor, RN) ondansetron (ZOFRAN) injection 4 mg (COMPLETED) 4 mg, Intravenous, Once PRN, Nausea, Vomiting, Starting on Sun02/23/21 at 1636, For 1 dose, Recovery ondansetron (ZOFRAN-ODT) disintegrating tablet 4 mg 4 mg, Oral, Every 8 hours PRN, Nausea , Vomiting, Starting on Sun02/23/21 at 1725, For 30 days, Dissolve on tongue. prochlorperazine (COMPAZINE) injection 10 mg 10 mg, Intravenous, Every 6 hours PRN , Nausea, Vomiting, Starting on Sun02/23/21 at 1726, For 30 days, For IV use: Prepare in 50 mL NS and infuse ove r 15 minutes. tramadol (ULTRAM) tablet 50 mg 50 mg, Oral, Every 6 hours PRN, Moderate Pain (Pain Scale Score 4-6), Starting on Sun02/23/21 at 1632, For 3 days documented in this encounter
--- OUTSIDE RECORDS SUMMARY | 2021-05-24 08:13 | CCD ---
Author Organization Unknown Address [address] [place] [address] Phone [phone] Care Team Providers Care Progress Man Name Role Phone ONDINA REED MD 3 [phone] Allergies Code Code System Name Reaction Severity [...] available 03/03/2019 MRI, Lumbar Spine, W/wo Contrast [facility] [address] [place] [address] (Work Place) Results Lab Results Date Name Specimen Result Interpretation Description Value Range Status Address 09/27/2020 [facility] P[facility] Report NOS No observation recorded. [facility]: [address] [facility], [place] 09/27/2020 SARS CoV 2 RNA (COVID-19), QL, artist blacksmith-PCR, Respirat ory Specimen NOS Normal Sars-cov-2 negative negative Final [facility]: [address] [facility] [place] 09/13/2020 [facility] Pdf Report NOS No observation recorded. [facility]: [address] [facility] [place] 09/13/2020 SARS CoV 2 RNA (COVID-19), QL, artist blacksmith-PCR, Respirat ory Specimen NOS Normal Sars-cov-2 negative negative Final [facility]: [address] [facility], [place] 08/25/2020 [facility] Pdf Report NOS No observation recorded. [facility]: [address] [facility] [place] 08/25/2020 SARS CoV 2 RNA (COVID-19), QL, artist blacksmith-PCR, Respirat ory Specimen NOS Normal Sars-cov-2 negative negative Final [facility]: [address] [facility], [place] 08/11/2020 [facility] Pdf Report NOS No observation recorded. [facility]: [address] [facility] [place] 08/11/2020 SARS CoV 2 RNA (COVID-19), QL, artist blacksmith-PCR, Respirat ory Specimen NOS Normal Sars-cov-2 negative negative Final [facility]: [address], [place] Past Encounters 04/27/2021 Pre-surgery Testing; Viral Screening Elpidio Gibson MD: [id number], [place] [address], Ph. [phone] 03/24/2021 Lumbar Post-laminectomy Syndrome; Degeneration of Lumbar Intervertebral Disc; Lumbosacral Spondylosis without Myelopathy; Lumbar Radiculopathy; Spinal Stenosis of Lumbar Region [facility] Anjana, DISABILITY AIDE: [address], [place] [address], Ph. 10/14/2020 Lumbar Post-laminectomy Syndrome; Degeneration of Lumbar Intervertebral Disc; Lumbosacral Spondylosis without Myelopathy; Lumbar Radiculopathy; Spinal Stenosis of Lumbar Region [facility] Anjana, DISABILITY AIDE: [address] [facility] [address], [place] [address], Ph. 09/30/2020 Lumbar Post-laminectomy Syndrome; Lumbar Radiculopathy; Degeneration of Lumbar Intervertebral Disc; Lumbosacral Spondylosis without Myelopathy; Spinal Stenosis of Lumbar Region Elpidio Gibson MD: [address], [place] [address], Ph. 09/27/2020 Pre-surgery Testing; Viral Screening Elpidio Gibson MD: [id number] [facility] [address], [place] [address], Ph. [phone] 09/13/2020 Pre-surgery Testing; Viral Screening Elpidio Gibson MD: [address] [facility] [address], [place] [address], Ph. [phone] 08/30/2020 Lumbar Post-laminectomy Syndrome; Lumbar Radiculopathy; Degeneration of Lumbar Intervertebral Disc; Lumbosacral Spondylosis without Myelopathy; Spinal Stenosis of Lumbar Region Elpidio Gibson MD: [address] [facility] [address], [address], [place] [address], Ph. 08/25/2020 Pre-surgery Testing; Viral Screening Elpidio Gibson MD: [address], [place] [address], Ph. [phone] 08/16/2020 Lumbar Post-laminectomy Syndrome; Lumbar Radiculopathy; Degeneration of Lumbar Intervertebral Disc; Lumbosacral Spondylosis without Myelopathy; Spinal Stenosis of Lumbar Region Elpidio Gibson MD: [address], [place] [address], Ph. 08/11/2020 Pre-surgery Testing; Viral Screening Elpidio Gibson MD: [address], [place] [address], Ph. [phone] 08/03/2020 Lumbar Post-laminectomy Syndrome; Degeneration of Lumbar Intervertebral Disc; Lumbosacral Spondylosis without Myelopathy; Lumbar Radiculopathy; Spinal Stenosis of Lumbar Region Steph Lucíasong Maria Gmalon, DISABILITY AIDE: [address], [place] [address], Ph. 06/21/2020 Lumbar Post-laminectomy Syndrome; Degeneration of Lumbar Intervertebral Disc; Lumbosacral Spondylosis without Myelopathy; Lumbar Radiculopathy; Spinal Stenosis of Lumbar Region Steph Lucíasong Jumalon, DISABILITY AIDE: [address], [place] [address], Ph. 04/28/2020 Lumbar Post-laminectomy Syndrome; Degeneration of Lumbar Intervertebral Disc; Lumbosacral Spondylosis without Myelopathy; Lumbar Radiculopathy; Spinal Stenosis of Lumbar Region Steph Manongsong Jumalon, DISABILITY AIDE: [address], [place] [address], Ph. 01/20/2020 Lumbar Post-laminectomy Syndrome; Degeneration of Lumbar Intervertebral Disc; Lumbosacral Spondylosis without Myelopathy; Lumbar Radiculopathy; Spinal Stenosis of Lumbar Region Steph Manongsong Jumalon, DISABILITY AIDE: [address], [place] [address], Ph. 11/14/2019 Lumbar Post-laminectomy Syndrome; Degeneration of Lumbar Intervertebral Disc; Lumbosacral Spondylosis without Myelopathy; Lumbar Radiculopathy; Spinal Stenosis of Lumbar Region Steph Yeung, DISABILITY AIDE: [address] [facility] [address], [place] [address], Ph. 07/17/2019 Lumbar Post-laminectomy Syndrome; Degeneration of Lumbar Intervertebral Disc; Lumbosacral Spondylosis without Myelopathy; Lumbar Radiculopathy; Spinal Stenosis of Lumbar Region Steph Yeung, DISABILITY AIDE: [address], [place] [address], Ph. 06/12/2019 Lumbar Post-laminectomy Syndrome; Degeneration of Lumbar Intervertebral Disc; Lumbosacral Spondylosis without Myelopathy; Lumbar Radiculopathy; Spinal Stenosis of Lumbar Region Steph Yenug, DISABILITY AIDE: [address], [facility] [place] [address], Ph. 05/16/2019 Lumbar Post-laminectomy Syndrome; Spinal Stenosis of Lumbar Region; Lumbar Radiculopathy; Degeneration of Lumbar Intervertebral Disc; Lumbosacral Spondylosis without Myelopathy Elpidio Gibson MD: [id number] [facility] [address], [facility] [place] [address], Ph. 04/28/2019 Lumbar Post-laminectomy Syndrome; Spinal Stenosis of Lumbar Region; Lumbar Radiculopathy; Degeneration of Lumbar Intervertebral Disc; Lumbosacral Spondylosis without Myelopathy Elpidio Gibson MD: [address], [place] [address], Ph. 04/10/2019 Lumbar Post-laminectomy Syndrome; Spinal Stenosis of Lumbar Region; Lumbar Radiculopathy; Degeneration of Lumbar Intervertebral Disc; Lumbosacral Spondylosis without Myelopathy Elpidio Gibson MD: [address], [facility] [place] [address], Ph. 03/03/2019 Lumbar Post-laminectomy Syndrome; Degeneration of Lumbar Intervertebral Disc; Lumbosacral Spondylosis without Myelopathy; Lumbar Radiculopathy; Spinal Stenosis of Lumbar Region Elpidio Gibson MD: [address], [place] [address], Ph. Social History Tobacco Smoking Status Light [...]
--- OUTSIDE RECORDS SUMMARY | 2021-05-24 08:13 | CCD | Summary of Care ---
Author Author [facility] Organization [facility] Address Unknown Phone Unavailable Care Team Providers Care Gate Supervisor Name Role Phone Shimon Cordova MD PCP Reason for Referral * Diagnostic Radiology (Routine) Referred By Contact Referred To Contact Status Reason Specialty Diagnoses / Procedures Velma Wallace MD [address] [place] [address] Email: [email or web address] Open Radiology Diagnoses Ductal carcinoma in situ (DCIS) of left breast P rocedures NM Injection Radioactive Tracer - Sentinal Node; Electronically signed by Velma Wallace MD at Reason for Visit * Auth/Cert Referred By Contact Referred To Contact Status Reason Specialty Diagnoses / Procedures Velma Wallace MD [address] [place] [address] Email: [email or web address] Diagnoses breast cancer Encounter Details Care Team Description Date Type Department Velma Wallace MD [address] [place] [address] [place] [address] Ductal carcinoma in situ (DCIS) of left breast 02/23/2021 Hospital Nuclear Medicine Encounter [address] [address] Allergies Comments Active Allergy Reactions Severity Noted Date Bee Venom 01/18/2021 Codeine Hives Medium 01/20/2013 documented as of this encounter (statuses as of 02/24/2021) Medications End Date Status Medication Sig Dispensed Refills Start Date Suspended VITAMIN D, Take by 0 CHOLECALCIFEROL, PO mouth daily. Suspended Cranberry 1000 MG CAPS Take by 0 mouth daily. Suspended krhhqgaepyrp-reut-ihrunjm Chew 1 tablet 0 s-folic acid (CENTRUM) by mouth chewable tablet daily. Suspended pravastatin (PRAVACHOL) Take 40 mg by 0 40 MG tablet mouth daily. Suspended fish oil-omega-3 fatty Take 2 g by 0 acids 1000 MG capsule mouth daily. Suspended aspirin 81 MG tablet Take 325 mg 0 by mouth daily Suspended oxybutynin (DITROPAN XL) 0 15 MG 24 hr tablet 4 Suspended metoprolol (TOPROL-XL) 50 0 MG 24 hr tablet 5 Suspended DULoxetine HCl 60 MG Oral Take 60 mg by 0 Capsule Delayed Release mouth nightly Particles (CYMBALTA) Suspended EPINEPHrine 0.3 MG/0.3ML Inject 0.3 mg 0 Injection Solution into the Auto-injector (EPIPEN) muscle once Suspended metFORMIN HCl ER 500 MG metformin ER 0 Oral Tablet Extended 500 mg Release 24 Hour tablet,extend (GLUCOPHAGE-XR) ed release 24 hr TAKE ONE TABLET BY MOUTH EVERY EVENING Suspended Ciclopirox Olamine 0.77 % APPLY TO FOOT 0 External Cream (LOPROX) TWO TIMES A 1 DAY Suspended Omeprazole 20 MG Oral Take 20 mg by 0 Capsule Delayed Release mouth daily (PriLOSEC) Suspended Famotidine 20 MG Oral Take 20 mg by 0 Tablet (PEPCID) mouth Two Times Daily documented as of this encounter (statuses as of 02/24/2021) Active Problems Patient Care Coordination Note 12/31/2020 No Mandolin Repairer. [facility] Breast Navigator Meenakshi ARVIZU, RN-BC, CN-BN [phone] Multi-D) Problem Noted Date Status post left mastectomy 02/23/2021 Ductal carcinoma [...] Signs Not on filedocumented in this encounter Plan of Treatment Care Team Description Date Type Specialty Velma Wallace MD [address] [place] [address] [place] [address] [place] [id number] 03/08/2021 Office Visit Breast Surgery Date/Time Name Type Priority Associated Diag noses 02/23/2021 9:46 AM EDT NM Injection Radioactive Imaging Routine Ducta l carcinoma in situ Tracer - Sentinal Node; (DCIS) of left breast Order Schedule Name Type Priority Associated Diag noses As Needed for 1 Occurrences starting until 02/23/2021 NM Injection Radioactive Imaging Routine Ducta l carcinoma in situ Tracer - Sentinal Node; (DCIS) of left breast Health Maintenance Due Date Last Done Comments MMR Vaccines (1 of - 11/24/1946 Standard series) Varicella Vaccines (1 of 11/24/1946 2 - 2-dose childhood series) DTaP,Tdap,and Td Vaccines 11[birth year]24[birth year]1950 (1 - Tdap) Zoster Vaccines (1 of 2) 11/24/1993 Osteoporosis Screening 2 11/24/2008 yr Pneumococcal Vaccine: 65+ 11/24/2008 Years (1 of 1 - PPSV23) Influenza Vaccine 04/29/2021 05/10/2018, 06/02/2016, 07/13/2015 HIB [...] on patient's age to complete this topic Pneumococcal Vaccine: Aged Out No longer eligib le based on patient's age to Pediatrics (0 to 5 Years) complete this topic and At-Risk Patients (6 to 64 Years) documented as of this encounter Implants Device Identifier Shelf Expiration Date Model / Serial / L ot Implanted Type Area Manufactur er 06/03/2021 [id number] / / [id number] [facility] Eviva [id number]. Left: Breast HO LOGIC - [id number] Implanted: Qty: 1 on 01/06/2021 by Angel Wagoner MD at [facility] documented as of this encounter Results Not on filedocumented in this encounter Visit Diagnoses Diagnosis Ductal carcinoma in situ (DCIS) of left breast documented in this encounter Administered Medications Action Date Dose Rate Site Medication Order MAR Action 02/23/2021 9:40 AM EDT 0.526 millicuries TC-99M tilmanocept (LYMPHOSEEK) New Intravenous, Once, On Sun02/23/21 at Syringe/Cart 0800, For 1 dose, Imaging Protocol ridge documented in this encounter
--- OUTSIDE RECORDS SUMMARY | 2021-05-24 08:13 | CCD | Summary of Care ---
Author Author [facility] Organization [facility] Address Unknown Phone Unavailable Care Team Providers Care Svp Of Digital Name Role Phone Shimon Cordova MD PCP Reason for Referral * Used Durable Medical Equipment (Routine) Referred By Contact Referred To Contact Status Reason Specialty Diagnoses / Procedures Velma Alvarado MD [address] [place] [address] [place] [address] Email: [email or web address] Open Diagnoses Ductal carcinoma in situ (DCIS) of left breast P rocedures Masectomy Bra Electronically signed by Velma Alvarado MD at * Diagnostic Radiology (Routine) Referred By Contact Referred To Contact Status Reason Specialty Diagnoses / Procedures Velma Alvarado MD [address] [place] [address] [place] [address] Email: [email or web address] Authorized Radiology Diagnoses Ductal carcinoma in situ (DCIS) of left breast P rocedures Mammo Digital Diagnostic Right Electronically signed by Velma Alvarado MD at Reason for Visit * Reason Comments Post-op s/p Lt mastectomy Encounter Details Care Team Description Date Type Department Velma Alvarado MD [address] [place] [address] [place] [address] Ductal carcinoma in situ (DCIS) of left breast (Primary Dx) 03/08/2021 Office Visit [facility] [address] [place] [address] Allergies Comments Active Allergy Reactions Severity Noted Date Bee Venom 01/18/2021 Mandi Son Medium 01/20/2013 documented as of this encounter (statuses as of 03/17/2021) Medications End Date Status Medication Sig Dispensed Refills Start Date Active VITAMIN D, Take by 0 CHOLECALCIFEROL, PO mouth daily. Active Cranberry 1000 MG CAPS Take by 0 mouth daily. Active hlbjpqebopwc-hfho-hnekaoy Chew 1 tablet 0 s-folic acid (CENTRUM) [...] as of this encounter (statuses as of 03/17/2021) Active Problems Patient Care Coordination Note 12/31/2020 No Coagulation Operator. 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 Meenakshi DARDENN, RN-BC, CN-BN [phone] Multi-D) Problem Noted Date Breast cancer in female 02/24/2021 Status post left mastectomy 02/23/2021 Ductal carcinoma in situ (DCIS) of left breast 12/08 CTS (carpal tunnel syndrome) 02/27/2014 Tenosynovitis, wrist 02/27/2014 Lumbar spondylosis 11/27/2012 documented as of this encounter (statuses as of 03/17/2021) Immunizations Name Administration Dates Next Due documented [...] Signs Reading Time Taken Comments Vital Sign 120/86 03/08/2021 10:12 AM EDT Blood Pressure 74 03/08/2021 10:12 AM EDT Pulse 36.7 C (98 F) 03/08/2021 10:12 AM EDT Temperature - - Respiratory Rate - - Oxygen Saturation - - Inhaled Oxygen Concentration 90.7 kg (200 lb) 03/08/2021 10:12 AM EDT Weight 160 cm (5' 3") 03/08/2021 10:12 AM EDT Height 35.43 03/08/2021 10:12 AM EDT Body Mass Index documented in this encounter Progress Notes * Velma Alvarado MD - 03/08/2021 10:30 AM EDT Chief Complaint: Postoperative follow-up HPI: Ms. Echeverria is a 75 y.o. female here for routine postoperative follow-up statu s post left breast total simple mastectomy with left axillary sentinel lymph nod e biopsy performed on 02/23/2021 for multifocal left breast ductal carcinoma in s itu, high-grade, ER negative. Ms. Echeverria is a 75 y.o. female with a new diagnosis of multifocal Left breast DCI SRomaine Echeverria ([id number]) is a 75 year old female who presented to our BCP Clinic wit h newly diagnosed Left breast DCIS ER Negative and NV weak positive on 12/08/2020 @ [facility]. On 12/07/2020 she underwent @ [facility] 6 month follow up left sided mammogram and tar get left breast ultrasound for a new area of calcification noted on her earlier 07/07/2020 imaging studies. This showed left-sided mammogram wit h spot views demonstrate a new area of calcification seen anteriorly and lateral ly with some increased density in that region as well. This is in the region of palpable massnow felt by the patient. Older areas of microcalcification appe ars stable. TARGETED ULTRASOUND OF THE LEFT BREAST. Ultrasound was perfo rmed from 10:00 to approximately 2:00. Small cystic structure seen in that regio n appear to represent a complicated cyst measuring approximately 6.1 mm in great est diameter with adjacent small septated cyst. At 11:00 there is a simple cyst measuring approximately 1 cm in greatest diameter. At 2:00 in the region of palpable mass indicated by the patient there is an area of ill-defined hypoecho ic slightly firm feeling soft tissue that appears to contain calcifications that are in the region of new calcification seen on mammography. For further evaluat ion of this area ultrasound-guided biopsy is recommended. On 12/08/2020 she underwent @ [facility] US BREAST BIOPSY W/ GUIDANCE which showed the a cassi of mass with microcalcifications was identified in the left breast upper out er quadrant. 8 core biopsies of the mass were obtained a biopsy clip was cecile pk and demonstrated to be in satisfactory position on the postprocedural mammog talya.The pathology report was evaluated at [facility] and showed Left breast DCI S solid and comedo types Nuclear grade 3, Necrosis present calcification present in neoplastic tissue ER receptor negative <1%, NV positive weak (20%). Her imaging was reviewed at our multidisciplinary breast conference by Dr. Bib hilario, attending radiologist. She reports that in the left breast there is a 4.7 cm mass at the site of patient's palpable concern. This is a new area noted when compared to prior imaging. There are other areas with smaller masses in the breasts which projects at the 10 to 11 o'clock position which she reports may be complex cysts. She is recommending a repeat mammogram and ultrasound to include the left axilla for further evaluation. Ms. Echeverria then underwent a bilateral diagnostic mammogram with bilateral complete breast ultrasound at [facility] on 01/06/2021. Mammogram reports heterogeneously de nse breast tissue, category C. On mammography, pleomorphic calcifications wi th an associated mass and biopsy clip is seen in the left breast upper outer ryann drant at the site of biopsy-proven DCIS. Additional pleomorphic calcificatio ns are seen more posteriorly. Scattered circumscribed masses are seen both b reasts. Vascular calcifications are noted. She underwent a bilateral com plete breast ultrasound and a 4.5 x2.5x 4.1cm hypoechoic irregul ar mass with calcifications was seen in the upper outer left breast at the site of biopsy-proven DCIS. Scattered cysts and ductal dilatation were seen bilat erally. No axillary adenopathy was noted. As discussed, there were calcifications more posteriorto thesite of biop sy-proven DCIS in the left breast for which stereotactic core needle biopsy was recommended and performed on the same day. After this biopsy at [facility], a b iopsy marker clip was left at the site. Postprocedure mammogram showed the l ocalization clip in close proximity to the biopsy site. The pathology result ed as ductal carcinoma in situ, grade 3, ER negative. Thus, Ms. Echeverria has been diagnosed with a multifocal left breast DCIS. She pr esents today to our breast surgery clinicto further discuss this diagnos is and develop a clinical and surgical treatment plan. Breast MRI performed on 01/26/21at [facility] which showed multiple bilateral cy sts. Signal void is noted in the lateral right breast for biopsy marker. Enhancing the right breast is likely related fibrocystic changes. In the le ft breast, there is noted to be diffuse clumped yac-krux-nqtd enhancement predom inantly within the upper outer quadrant corresponding to the site of course hete rogeneous tissue located at 12:00 and pleomorphic calcifications located in the upper outer quadrant on mammography, measuring approximate 9 cm in AP diameter. Foci of signal void within the upper outer breast correspond to biopsy marke rs. There is asymmetric duct wall irregularity noted. There is also asym metric left breast subareolar ductal enhancement noted. 'scase was discussed at multidisciplinary BCP conference. Her recent imaging and biopsies were reviewed. Her mammographyimagesand MRI were reviewed by attending radiologist, Dr. Kwon.She has had 2 biopsies in the left breast thus far which have both shown DCIS. The area b etween the 2 biopsy sites span a area 5 cm and on mammography show a masslike ar ea and an MRI shows enhancement. Enhancement on MRI is segmental and measure s approximately 9 cm in greatest diameter with enhancement approaching the base of the left nipple. Thus surgical recommendation from the group is to pursue a left total mastectomy with sentinel lymph node biopsy. It is recommended that she not have a nipple preserving procedure given the enhancement seen at th e base of the nipple on MRI. She and her family wish to pursue a left total mas tectomy. She did meet with our plastic surgery colleague, Dr. Arredondo, to dis cuss reconstructive options versus complex chest wall closure. After their disc ussion, she chose not to proceed with either reconstruction or complex chest wal l closure. Thus, we finalize a plan for a left total simple mastectomy with lef t axillary sentinel lymph node biopsy. Surgery was performed on 02/15/2021. The pathology report showed multifocal left breast DCIS, grade 3, ER negative, with negative/wide margins and negative sentinel lymph nodes. Thus, this is a pTis N0 left breast multifocal DCIS. She has completed her surgical therapy. Clinically she reports overall she is doing well. She denies any fevers/chills. She denies nausea, vomiting, diarrhea, or constipation. She is not using any p ain medications for pain control. She has no concerns regarding her surgical si te. She reports her drain output is approximately 40-80/day for the past few days. It is lightening up and is serosanguineous. Pathology: SURGICAL Surgical Pathology Report Name: KAUR ECHEVERRIA Collection Date: 02/23/2021 00:00 Received Date: 02/24/2021 09:17 Physician(s): VELMA ALVARADO MD SHARMA, RANJNA, MD Specimen(s) Received A: Left axillary node #1 B: Left axillary sentinel node #2 C: Left axillary sentinel node #3 D: Left total mastectomy E: Left chest wall inferior skin Clinical History Breast cancer. Diagnosis A) SENTINEL LYMPH NODE, LEFT AXILLARY #1, EXCISION: NEGATIVE FOR TUMOR. B) SENTINEL LYMPH NODE, LEFT AXILLARY #2, EXCISION: NEGATIVE FOR TUMOR. C) SENTINEL LYMPH NODE, LEFT AXILLARY #3, EXCISION: NEGATIVE FOR TUMOR. D) BREAST, LEFT, TOTAL MASTECTOMY: DUCTAL CARCINOMA IN-SITU (See synoptic report). LYMPH NODES (4), EXCISION: NEGATIVE FOR TUMOR. E) SKIN, LEFT INFERIOR CHEST WALL, EXCISION: NEGATIVE FOR TUMOR. Synoptic Report: Specimen Procedure: Total mastectomy Specimen Laterality: Left Tumor Tumor Site: Central Histologic Type: Ductal carcinoma in situ Size (Extent) of DCIS: 47 Millimeters (mm) Number of Blocks with DCIS: 8 Number of Blocks Examined: 11 Architectural Patterns: [place] Nuclear Grade: Grade III (high) Necrosis: Present, central (expansive "comedo" necrosis) Microcalcifications: Present in DCIS; Present in nonneopla stic tissue Margins Margins: Uninvolved by DCIS Distance from Closest Margin (Millimeters): 25 mm Closest Margin(s): Posterior Distance from Other Margins Anterior Margin (Millimeters): 35 Superior Margin (Millimeters): 160 Inferior Margin (Millimeters): 80 Medial Margin (Millimeters): 60 Lateral Margin (Millimeters): 35 Lymph Nodes Regional Lymph Nodes: Uninvolved by tumor cells Total Number of Lymph Nodes Examined: 7 Number of [place] Nodes Examined: 3 Pathologic Stage Classification (pTNM, AJCC 8th Edition) Primary Tumor (pT): pTis (DCIS) Regional Lymph Nodes (pN): pN0 Additional Findings Additional Findings: Apocrine metaplasia, intraductal papillom as, adenosis. Breast Biomarker Testing Performed on Previous Biopsy Testing Performed on Estrogen Receptor (ER) Status: Negative Progesterone Receptor (PgR) Status: Positive Percentage of Cells with Nuclear Positivity: 25% CAP eCC August 2019 Annual Release Microscopic Description Multiplex stain P63/myosin was performed on 5 blocks and shows intact myoepithelial cell layer. Past Medical History: Diagnosis Date Bladder incontinence Carpal tunnel syndrome, bilateral DCIS (ductal carcinoma in situ) Left Breast Diabetes mellitus Heart murmur Hyperlipidemia Hypertension Low back pain Has drop foot on the left Past Surgical History: Procedure Laterality Date BREAST BIOPSY BREAST BIOPSY Left 01/06/2021 With clip placement BREAST SURGERY Bilateral 1968, 1969 biopsies, benign CHOLECYSTECTOMY FOOT SURGERY Right approx 1978 right great toe amputation, revision HAMMER TOE SURGERY Right approx 2003 HAND SURGERY right ECTR and tenosynovectomy dorsal right wrist 10/07/14 HYSTERECTOMY OOPHORECTOMY SEPTOPLASTY SPINE SURGERY 2007 Lumbar UPPER GASTROINTESTINAL ENDOSCOPY WRIST SURGERY Left Wrist Dorsal Ganglion Cyst Excision with ECTR 02/03/15 Current Outpatient Medications: DULoxetine HCl 60 MG Oral Capsule Delayed Release Particles (CYMBALTA), Take 60 mg by mouth nightly , Disp: , Rfl: Famotidine 20 MG Oral Tablet (PEPCID), Take 20 mg by mouth Two Times Camilla ly, Disp: , Rfl: metFORMIN HCl ER 500 MG Oral Tablet Extended Release 24 Hour (GLUCOPHAGE -XR), metformin ER 500 mg tablet,extended release 24 hr TAKE ONE TABLET BY MOUT H EVERY EVENING, Disp: , Rfl: metoprolol (TOPROL-XL) 50 MG 24 hr tablet, , Disp: , Rfl: Omeprazole 20 MG Oral Capsule Delayed Release (PriLOSEC), Take 20 mg by mouth daily, Disp: , Rfl: oxybutynin (DITROPAN XL) 15 MG 24 hr tablet, , Disp: , Rfl: pravastatin (PRAVACHOL) 40 MG tablet, Take 40 mg by mouth daily., Disp: , Rfl: aspirin 81 MG tablet, Take 325 mg by mouth daily (Patient not taking: R eported on 03/08/2021), Disp: , Rfl: Ciclopirox Olamine 0.77 % External Cream (LOPROX), APPLY TO FOOT TWO LUX ES A DAY (Patient not taking: Reported on 03/08/2021), Disp: , Rfl: Cranberry 1000 MG CAPS, Take by mouth daily. (Patient not taking: Repor colin on 03/08/2021), Disp: , Rfl: EPINEPHrine 0.3 MG/0.3ML Injection Solution Auto-injector (EPIPEN), Inje ct 0.3 mg into the muscle once, Disp: , Rfl: fish oil-omega-3 fatty acids 1000 MG capsule, Take 2 g by mouth daily. ( Patient not taking: Reported on 03/08/2021), Disp: , Rfl: qjcqxbosqlom-cqxx-xmqtkioi-folic acid (CENTRUM) chewable tablet, Chew 1 tablet by mouth daily. (Patient not taking: Reported on 03/08/2021), Disp: , Rfl: traMADol HCl 50 MG Oral Tablet (ULTRAM), Take 1 tablet by mouth every 6 (six) hours as needed for up to 10 doses, Max Daily Dose: 200 mg (Patient not t aking: Reported on 03/08/2021), Disp: 30 tablet, Rfl: 0 VITAMIN D, CHOLECALCIFEROL, PO, Take by mouth daily. (Patient not marilynn yip: Reported on 12/31/2020), Disp: , Rfl: Allergies Allergen Reactions Codeine Hives Bee Venom REVIEW OF SYSTEMS: A 14 point Review of Systems was conducted, and pertinent positives include as a brenda. PHYSICAL EXAM: Visit Vitals BP 120/86 Pulse 74 Temp 36.7 C (98 F) Ht 1.6 m (5' 3") Wt 90.7 kg (200 lb) BMI 35.43 kg/m General Appearance: no acute distress Breast exam: Patients' left chest wall was examined in both the upright and sup ine positions. Left chest wall: Along the left chest wall, there is a very well -healing transversely oriented surgical incision site which is clean dry intact. No surrounding cellulitis or underlying fluid collections noted. The Steri-St rips were removed in the office today. There is very mild redness beneath them which I think is reactive to the Steri-Strips and their adhesive. It does not a ppear to be cellulitis. She has a surgical drain emanating from the lateral asp ect of the left chest wall. The fluid within it is serosanguineous. The drain site is clean without evidence of cellulitis. No palpable masses, skin changes, nodules or ulcerations are noted Axilla: no adenopathy in the left axilla ASSESSMENT AND PLAN: It was a pleasure to meet Ms. Echeverria. She is a 75 y.o. female who is status post left total simple mastectomy with left axillary sentinel lym ph node biopsy performed on 02/23/2021 multifocal left breast ductal carcinoma in situ, grade 3, ER negative, pTis N0 left breast multifocal DCIS. She presents today for routine postoperative follow-up. Clinically, Ms. Echeverria is doing well overall. She has no signs or symptoms concer cyrus for infection or hemorrhage. We did discuss that beneath the Steri-Strips there is areas along the incision site which appears slightly red. I do feel th is is reactive from the Steri-Strips/their adhesive. I have asked her to monito r this area and certainly if it progresses we can prescribe an antibiotic if nee ded. In regards to her drain output, we discussed that it is still too elevated for d rain removal at this time. She will continue to monitor the output and once it is less than 30 cc/day for 2 days consecutively the drain may be removed. Ms. Corina sarmiento has asked if she could have her local primary care physician with a drain gi ricco it would be more convenient for her and her family. She reports she lives 2 [place] away to be challenging to come in weekly for evaluation of her drain in o clinic. This is certainly understandable. She is already spoken with her [facility] physician and they are happy to remove the drain per report. We disc ussed that we will have her check in via telehealth visits with our clinic weekl y and once the drain is ready for removal she may have this performed by her [facility] physician per her preference. Thus, we will plan to see her in 1 week's time for a telemedicine visit with our clinic and for review of the drain output. She has follow-up with her medical oncologist Dr. Guo 03/29/2021. We reached out to Dr. Gray, her radiation oncologist, reports that she does n ot require any radiation therapy or follow-up in their clinic. I provided her with a prescription for a postmastectomy prosthesis and provided her with names of stores where she may go to have this filled. We like to see her in 6 months time for right breast diagnostic mammogram and cl inical exam. Our office will schedule this appointment. This appointment has milton vargas scheduled for 09/15/2021 in our breast clinic. I also instructed Ms. Guerrero and her family how to change the drain dressing shou ld she need to do this. I provided her with supplies to do this at home, given that we would routinely do it in our clinic. But since she is not coming back t o our clinic for an in person visit for drain care, she may do this at home as n dawn. She and her family are comfortable with this. I also provided her with a copy of her postoperative exercise booklet for increa sing range of motion. We discussed that after mastectomy, axillary region somet imes develop scarring and we do not want her to have limits on her range of luis on. She will utilize the exercises twice daily once the drain has been removed. If she needs a physical therapy consult anytime were happy to provide this for her as well. She will also follow-up with her Primary Care Physician for any ongoing medical concerns and routine health maintenance. The patient and her family/friends had the opportunity to ask questions. All of their questions were answered to their satisfaction. They were given the conta ct information for our Office and know they may call our Office or return to [facility] if they have any further questions or concerns at any time. Of note, greater than 50% of this appointment was spent in oofm-fc-tafv counseli ng regarding the diagnosis, treatment options, and surgical plan. Thus, 35 miguel ermelinda of a 45 minute appointment, were spent in counseling and coordination of terry Alvarado M.D. documented in this encounter Plan of Treatment Care Team Description Date Type Specialty Bianca Almaraz NP [address] [place] [address] [place] [address] [phone] 03/21/2021 Telemedicine Breast Surgery Tan Guo MD [address] [place] [address] 03/29/2021 Telemedicine Hematology and Onco logy Velma Alvarado MD [address] [place] [address] [place] [phone] 09/15/2021 Appointment Radiology Velma Alvarado MD [address] [place] [address] [place] [id number] 307- 09/15/2021 Office Visit Breast Surgery Order Schedule Name Type Priority Associated Diag noses Expected: 03/08/2021, Expires: 2 Mammo Digital Diagnostic Imaging Routine Ducta l carcinoma in situ Right (DCIS) of left breast Health Maintenance Due [...] ot Implanted Type Area Manufactur er 06/03/2021 [id number] / / [id number] [employer] Eviva [id number]. Left: Breast HO LOGIC - [id number] Implanted: Qty: 1 on 01/06/2021 by Angel Wagoner MD at [facility] INPATIENT documented as of this encounter Results Not on filedocumented in this encounter Visit Diagnoses Diagnosis Ductal carcinoma in situ (DCIS) of left breast - Primary documented in this encounter
--- OUTSIDE RECORDS SUMMARY | 2021-05-24 08:13 | CCD | Summary of Care ---
Author Author [facility] Organization [facility] Address Unknown Phone Unavailable Care Team Providers Care Merchandising Consultant Name Role Phone Shimon Cordova MD PCP Reason for Referral * Physical Therapy (Routine) Referred By Contact Referred To Contact Status Reason Specialty Diagnoses / Procedures Velma Wallace MD [address] [place] [address] Email: [email or web address] Authorized Physical Therapy Diagnoses Ductal carcinoma in situ (DCIS) of left breast P rocedures Physical Therapy Electronically signed by Velma Wallace MD at Reason for Visit * Reason Comments Follow-up breast fol Encounter Details Care Team Description Date Type Department Velma Wallace MD [address] [place] [address] [place] [address] Ductal carcinoma in situ (DCIS) of left breast (Primary Dx) 04/05/2021 Office Visit [facility] [address] [place] [address] Allergies Comments Active Allergy Reactions Severity Noted Date Bee Venom 01/18/2021 Codeine Hives Medium 01/20/2013 documented as of this encounter (statuses as of 04/06/2021) Medications End Date Status Medication Sig Dispensed Refills Start Date Active Cranberry 1000 MG CAPS Take by 0 mouth daily. Active ixazouwmjwdc-skgk-fdumiuq Chew 1 tablet 0 s-folic acid (CENTRUM) by Mouth chewable tablet daily Active pravastatin (PRAVACHOL) Take 40 mg by 0 40 MG tablet mouth daily Active fish oil-omega-3 fatty Take 2 g by 0 acids 1000 MG capsule mouth daily Active aspirin 81 MG tablet Take 325 mg 0 by mouth every other day Active oxybutynin (DITROPAN XL) 0 15 MG [...] ONE TABLET BY MOUTH EVERY EVENING Active Omeprazole 20 MG Oral Take 20 mg by 0 Capsule Delayed Release mouth daily (PriLOSEC) Active Famotidine 20 MG Oral Take 20 mg by 0 Tablet (PEPCID) mouth Two Times Daily 04/05/2021 Discontinued (No longer need ed) VITAMIN D, Take by 0 CHOLECALCIFEROL, PO mouth daily. 04/05/2021 Discontinued (No longer need ed) Ciclopirox Olamine 0.77 % APPLY TO FOOT 0 External Cream (LOPROX) TWO TIMES A 1 DAY 04/05/2021 Discontinued (No longer need ed) traMADol HCl 50 MG Oral Take 1 tablet 30 tablet 0 Tablet (ULTRAM) by mouth 1 every 6 (six) hours as needed for up to 10 doses, Max Daily Dose: 200 mg documented as of this encounter (statuses as of 04/06/2021) Active Problems Patient Care Coordination Note 12/31/2020 No Ladies Suit Operator. [facility] Breast Navigator Meenakshi ARVIZU, RN-BC, CN-BN [phone] ( [phone] Multi-D) Problem Noted Date Breast cancer in female 02/24/2021 Status post left mastectomy 02/23/2021 Ductal carcinoma in situ (DCIS) of left breast 12/08 CTS (carpal tunnel syndrome) 02/27/2014 Tenosynovitis, wrist 02/27/2014 Lumbar spondylosis 11/27/2012 documented as of this encounter (statuses as of 04/06/2021) Immunizations Name Administration Dates Next Due documented as of this encounter Social History Date Tobacco Use Types Packs/Day Years Used Never Smoker Smokeless Tobacco: Never Used Comments Alcohol Use Standard Drinks/Week one per week Yes 0 (1 standard drink = 0.6 o z pure alcohol) Sex Assigned at Date Recorded Not on file Date Recorded COVID-19 Exposure Response 04/05/2021 10:27 AM EDT In the last month, have you been in contact with No / Unsure someone who was confirmed or suspected to have Coronavirus / COVID-19? documented as of this encounter Last Filed Vital Signs Reading Time Taken Comments Vital Sign 146/74 04/05/2021 10:58 AM EDT Blood Pressure 63 04/05/2021 10:58 AM EDT Pulse 36.7 C (98 F) 04/05/2021 10:58 AM EDT Temperature - - Respiratory Rate - - Oxygen Saturation - - Inhaled Oxygen Concentration 90.7 kg (200 lb) 04/05/2021 10:58 AM EDT Weight 160 cm (5' 2.99") 04/05/2021 10:58 AM EDT Height 35.44 04/05/2021 10:58 AM EDT Body Mass Index documented in this encounter Progress Notes * Velma Wallace MD - 04/05/2021 11:30 AM EDT Chief Complaint: Clinical follow-up HPI: Ms. Echeverria is a 75 y.o. female here for routine clinical follow-up status pos t left breast total simple mastectomy with left axillary sentinel lymph node bio psy performed on 02/23/2021 for multifocal left breast ductal carcinoma in situ, high-grade, ER negative. Ms. Echeverria is a 75 y.o. female with a new diagnosis of multifocal Left breast DCI SRomaine Echeverria ([id number]) is a 75 year old female who presented to our BCP Clinic wit h newly diagnosed Left breast DCIS ER Negative and WA weak positive on 12/08/2020 @ [facility]. On 12/07/2020 she underwent @ [facility] 6 month follow up left sided [...] is recommended. On 12/08/2020 she underwent @ [facility] US BREAST BIOPSY W/ GUIDANCE which showed the a cassi of mass with microcalcifications was identified in the left breast upper out er quadrant. 8 core biopsies of the mass were obtained a biopsy clip was cecile pk and demonstrated to be in satisfactory position on the postprocedural mammog talya.The pathology report was evaluated at [facility] and showed Left breast DCI S solid and comedo types Nuclear grade 3, Necrosis present calcification present in neoplastic tissue ER receptor negative <1%, WA positive weak (20%). Her imaging was reviewed [...] mammogram with bilateral complete breast ultrasound at [facility] on 01/06/2021. Mammogram reports heterogeneously de nse [...] the same day. After this biopsy at [facility], a b iopsy marker clip was left [...] treatment plan. Breast MRI performed on 01/26/21at [facility] which showed multiple bilateral cy sts. Signal void is noted in the lateral right breast for biopsy marker. Enhancing the right breast is likely related fibrocystic changes. In the le ft breast, there is noted to be diffuse clumped kcs-abqj-voki enhancement predom inantly within the upper outer [...] metric left breast subareolar ductal enhancement noted. was discussed at multidisciplinary BCP conference. Her [...] complex chest wal l closure. Thus, we finalized a plan for a left total simple mastectomy with le ft axillary sentinel lymph node biopsy. Surgery was performed on 02/15/2021. Th e pathology report showed multifocal left breast DCIS, grade 3, ER negative, wit h negative/wide margins and negative sentinel lymph nodes. Thus, this is a pTis N0 left breast multifocal DCIS. She has completed her surgical therapy. She had her surgical drain removed by her primary care physician at the 4-week [facility] as was recommended. She reports the drain was still putting out more than 3 0 cc/day. She reports that she did not develop a fluid collection on the chest wall thereafter. Clinically she reports overall she is doing well. She denies any fevers/chills. She denies nausea, vomiting, diarrhea, or constipation. She is not using any p ain medications for pain control. She has no concerns regarding her surgical si te. She has been doing the post-op exercises booklet; but reports decreased range of motion in Left upper extremity. She met with Dr. Guo via a telehealth visit on 04/01/2021. She reports that they are not recommending any adjuvant medical therapy. Pathology: SURGICAL Surgical Pathology Report Name: KAUR ECHEVERRIA Collection Date: 02/23/2021 00:00 Received Date: 02/24/2021 09:17 Physician(s): VELMA WALLACE MD SHARMA, RANJNA, MD Specimen(s) Received A: [...] of Lymph Nodes Examined: 7 Number of Mangum Nodes Examined: 3 Pathologic Stage Classification (pTNM, AJCC 8th Edition) Primary Tumor (pT): pTis (DCIS) Regional Lymph Nodes (pN): pN0 Additional Findings Additional Findings: Apocrine metaplasia, intraductal papillom as, adenosis. Breast Biomarker Testing Performed on Previous Biopsy Testing Performed on Estrogen Receptor (ER) Status: Negative Progesterone Receptor (PgR) Status: Positive Percentage of Cells with Nuclear Positivity: 25% CAP [facility] August 2019 Annual Release Microscopic Description Multiplex [...] dorsal right wrist 10/07/14 HYSTERECTOMY OOPHORECTOMY SEPTOPLASTY 1989' SPINE SURGERY 2007 Lumbar UPPER GASTROINTESTINAL ENDOSCOPY WRIST SURGERY Left Wrist Dorsal Ganglion Cyst Excision with ECTR 02/03/15 Current Outpatient Medications: aspirin 81 MG tablet, Take 325 mg by mouth every other day , Disp: , Rfl : DULoxetine HCl 60 MG Oral Capsule Delayed Release Particles (CYMBALTA), Take 60 mg by mouth nightly , Disp: , Rfl: Famotidine 20 MG Oral Tablet (PEPCID), Take 20 mg by mouth Two Times Camilla ly, Disp: , Rfl: fish oil-omega-3 fatty acids 1000 MG capsule, Take 2 g by mouth daily , Disp: , Rfl: metFORMIN HCl ER 500 MG Oral Tablet Extended Release 24 Hour (GLUCOPHAGE -XR), metformin ER 500 mg tablet,extended release 24 hr TAKE ONE TABLET BY MOUT H EVERY EVENING, Disp: , Rfl: metoprolol (TOPROL-XL) 50 MG 24 hr tablet, , Disp: , Rfl: mctdjdemxben-qvls-smtlpmyx-folic acid (CENTRUM) chewable tablet, Chew 1 tablet by Mouth daily , Disp: , Rfl: Omeprazole 20 MG Oral Capsule Delayed Release (PriLOSEC), Take 20 mg by mouth daily, Disp: , Rfl: oxybutynin (DITROPAN XL) 15 MG 24 hr tablet, , Disp: , Rfl: pravastatin (PRAVACHOL) 40 MG tablet, Take 40 mg by mouth daily , Disp: , Rfl: Cranberry 1000 MG CAPS, Take by mouth daily. (Patient not taking: Repor colin on 04/01/2021), Disp: , Rfl: EPINEPHrine 0.3 MG/0.3ML Injection Solution Auto-injector (EPIPEN), Inje ct 0.3 mg into the muscle once, Disp: , Rfl: Allergies Allergen Reactions Codeine Hives Bee Venom REVIEW OF SYSTEMS: A 14 point Review of Systems was conducted, and pertinent positives include as a brenda. PHYSICAL EXAM: Visit Vitals BP 146/74 Pulse 63 Temp 36.7 C (98 F) Ht 1.6 m (5' 2.99") Wt 90.7 kg (200 lb) BMI 35.44 kg/m General Appearance: no acute distress Breast exam: Patients' left chest wall was examined in both the upright and sup ine positions. Left chest wall: Along the left chest wall, there is a very well -healing transversely oriented surgical incision site which is clean dry intact. No surrounding cellulitis or underlying fluid collections noted. No ecchymoses or hematoma noted. There is no significant redundant tissue at the inferior a spect of the left chest wall. The area is healing well. No palpable masses, sk in changes, nodules or ulcerations are noted. The drain site on the lateral ed[address] st wall is closed and also healing well. Axilla: no adenopathy in the left axilla Upper extremity: In the left upper extremity, patient has improving range of mot ion. She is able to bring her arm proximal 130-104 degrees above baseline over her head. There are some tightness on the lateral chest wall at the lateral edg e of the pectoralis major muscle. ASSESSMENT AND PLAN: It was a pleasure to meet Ms. Echeverria. She is a 75 y.o. female who is status post left total simple mastectomy with left axillary sentinel lym ph node biopsy performed on 02/23/2021 multifocal left breast ductal carcinoma in situ, grade 3, ER negative, pTis N0 left breast multifocal DCIS. She presents today for routine clinical follow-up. Clinically, Ms. Echeverria is doing well overall. She has no signs or symptoms concer cyrus for infection or hemorrhage. Clinically, her surgical site is healing well . The drain has been removed. There is no seroma noted. As noted, she has met with Dr. Guo in the medical oncology clinic by a tele phone health visit and they are not recommending any adjuvant medical therapies. We reached out to Dr. Gray, her radiation oncologist, reports that she does n ot require any radiation therapy or follow-up in their clinic. I previously provided her with a prescription for a postmastectomy prosthesis an d provided her with names of stores where she may go to have this filled. We pr ovided her with other options for stores where she may have this prescription fi lled. She is continuing to do a postoperative exercise at home to optimize range of mo tion for her left upper extremity. We also do recommend consideration for a phy sical therapy consultation to continue to optimize this range of motion. She an d her are in favor of this and would like this closer to their home. Sh e would like a Rx for Physical Therapy. We provided Ms. Echeverria with a prescriptio n for physical therapy that she may have filled closer to home at her convenien e per her preference. We like to see her in 6 months time for right breast diagnostic mammogram and cl inical exam. Our office will schedule this appointment. This appointment has milton vargas scheduled for 09/15/2021 in our breast clinic. She will also follow-up with her Primary Care Physician for any ongoing medical concerns and routine health maintenance. The patient and her family/friends had the opportunity to ask questions. All of their questions were answered to their satisfaction. They were given the conta ct information for our Office and know they may call our Office or return to [facility] if they have any further questions or concerns at any time. Of note, greater than 50% of this appointment was spent in qsdi-iu-kvke counseli ng regarding the diagnosis, treatment options, and surgical plan. Thus, 35 miguel ermelinda of a 45 minute appointment, were spent in counseling and coordination of terry Wallace M.D. documented in this encounter Plan of Treatment Care Team Description Date Type Specialty Velma Wallace MD [address] [place] [address] 09/15/2021 Appointment Radiology Velma Wallace MD [address] [place] [address] [place] [address] 09/15/2021 Office Visit Breast Surgery Health Maintenance [...] ot Implanted Type Area Manufactur er 06/03/2021 [id number] / / [id number] [facility] [id number]. Left: Breast HO LOGIC - [id number] Implanted: Qty: 1 on 01/06/2021 by Angel Wagoner MD at [facility] INPATIENT documented as of this encounter Results Not on filedocumented in this encounter Visit Diagnoses Diagnosis Ductal carcinoma in situ (DCIS) of left breast - Primary documented in this encounter
--- OUTSIDE RECORDS SUMMARY | 2021-05-24 08:13 | CCD | Summary of Care ---
Author Author [facility] Address Unknown Phone Unavailable Care Team Providers Care Commercial Appraiser Name Role Phone Shimon Cordova MD PCP Reason for Visit * Reason Comments Follow-up Encounter Details Care Team Description Date Type Department Tan Guo MD [address], [place] [id number] Malignant neoplasm of left breast, stage 0 (Primary Dx) 04/01/2021 Telemedicine Hematology Oncology [address] [place] [id number] Allergies Comments Active Allergy Reactions Severity Noted Date Bee Venom 01/18/2021 Codeine Hives Medium 01/20/2013 documented as of this encounter (statuses as of 04/25/2021) Medications End Date Status Medication Sig Dispensed Refills Start Date Active Cranberry 1000 MG CAPS Take by 0 mouth daily. Active [id number] Chew 1 tablet 0 s-folic acid (CENTRUM) [...] as of this encounter (statuses as of 04/25/2021) Active Problems Patient Care Coordination Note 12/31/2020 No Compound Finisher. [facility] Breast Navigator Meenakshi ARVIZU, RN-BC, CN-BN [phone] ( [phone] Multi-D) Problem Noted Date Malignant neoplasm of left breast, stage 0 1 Cancer Staging: Pathologic stage from : Stage 0 (pTis (DCIS), pN0, cM0, G3, ER-, WV+, HER2-) - Signed by Candice Guo MD on 04/25/2021 Status post left mastectomy 02/23/2021 CTS (carpal tunnel syndrome) 02/27/2014 Tenosynovitis, wrist 02/27/2014 Lumbar spondylosis 11/27/2012 documented as of this encounter (statuses as of 04/25/2021) Resolved Problems Problem Noted Date Resolved Date Ductal carcinoma in situ (DCIS) of left breast 12/08/2020 04/25/2021 documented as of this encounter (statuses as of 04/25/2021) Immunizations Name Administration Dates Next Due documented [...] filedocumented in this encounter Progress Notes * Tan Guo MD - 04/01/2021 1:45 PM EDT Images from the original note were not included. BCP- Medical Oncology Note: Diagnosis: Left breast grade 3 DCIS, ER -, WV weakly positive Cancer Staging Malignant neoplasm of left breast, stage 0 Staging form: Breast, AJCC 8th Edition - Pathologic stage from 02/23/2021: Stage 0 (pTis (DCIS), pN0, cM0, G3, ER-, WV+, HER2-) - Signed by Tan Guo MD on 04/25/2021 HPI: Ms. Kaur Echeverria is a 75 year old female with past medical history of hypertension , hyperlipidemia, GERD, diabetes mellitus, who presents as a new patient to [facility] for new diagnosis of DCIS. Patient underwent screening mammogram 06/2020 showing 2 small hypoechoic structu res in the left breast at 10:00 and 11:0 positions for which 6 month follow up r ecommended and planned for 12/2020. However, patient developed palpable left side d breast mass for which imaging was done sooner with targeted ultrasound and [facility] mogram 12/07/20 showing suspicious area of the left breast at 2:00 [facility]. A biopsy was performed on 12/08/20 showing DCIS grade 3, ER - WV weakly positive 20%, prompting referral to [facility]. On review of her imaging during tumor board discussion, the hypoechoic area seen on imaging is rather large, about 4.7 cm in size. Patient presents today accompanied by her family. She reports overall feeling we ll. She reports she noticed the palpable lump in her left breast growing quickly , and feels it may be even larger since her biopsy was done. She also reports so me nipple changes with nipple inversion, denies nipple discharge. She has family history of brother having prostate cancer and he passed in 2004, Her 1st Menarche was around age 11, She had 3 pregnancies with [address] child born when she was 18. She had a complete hysterectomy in 1979 for inc reased bleeding unsure if she took HRT Interval History: Patient here for follow up via telemedicine for newly diagnosed breast cancer. S mar her last visit she underwent left sided mastectomy with sentinel node biops ies 02/23/21 showing: Diagnosis A) SENTINEL LYMPH NODE, LEFT AXILLARY [...] of Lymph Nodes Examined: 7 Number of [place] Nodes Examined: 3 Pathologic Stage Classification (pTNM, AJCC 8th Edition) Primary Tumor (pT): pTis (DCIS) Regional Lymph Nodes (pN): pN0 Additional Findings Additional Findings: Apocrine metaplasia, intraductal papillom as, adenosis. Breast Biomarker Testing Performed on Previous Biopsy Testing Performed on Estrogen Receptor (ER) Status: Negative Progesterone Receptor (PgR) Status: Positive Percentage of Cells with Nuclear Positivity: 25% Here to discuss any role for adjuvant systemic therapy. ECOG PS 1. Past Medical History reviewed including ADR and meds. ALLERGIES: Allergies Allergen Reactions Codeine Hives Bee Venom MEDICATIONS: Current Outpatient Medications on File Prior to Visit Medication Sig Dispense Refill aspirin 81 MG tablet Take 325 mg by mouth every other day DULoxetine HCl 60 MG Oral Capsule Delayed Release Particles (CYMBALTA) Ta ke 60 mg by mouth nightly EPINEPHrine 0.3 MG/0.3ML Injection Solution Auto-injector (EPIPEN) Inject 0.3 mg into the muscle once Famotidine 20 MG Oral Tablet (PEPCID) Take 20 mg by mouth Two Times Daily fish oil-omega-3 fatty acids 1000 MG capsule Take 2 g by mouth daily metFORMIN HCl ER 500 MG Oral Tablet Extended Release 24 Hour (GLUCOPHAGE- XR) metformin ER 500 mg tablet,extended release 24 hr TAKE ONE TABLET BY MOUTH EVERY EVENING metoprolol (TOPROL-XL) 50 MG 24 hr tablet eekgaqradpzf-znsz-befixvgl-folic acid (CENTRUM) chewable tablet Chew 1 ta blet by Mouth daily Omeprazole 20 MG Oral Capsule Delayed Release (PriLOSEC) Take 20 mg by mo uth daily oxybutynin (DITROPAN XL) 15 MG 24 hr tablet Cranberry 1000 MG CAPS Take by mouth daily. (Patient not taking: Reporte d on 04/01/2021) pravastatin (PRAVACHOL) 40 MG tablet Take 40 mg by mouth daily No current facility-administered medications on file prior to visit. PMH: Past Medical History: Diagnosis Date Bladder incontinence [...] Dorsal Ganglion Cyst Excision with ECTR 02/03/15 Patient Active Problem List Diagnosis Lumbar spondylosis CTS (carpal tunnel syndrome) Tenosynovitis, wrist Ductal carcinoma in situ (DCIS) of left breast Status post left mastectomy Breast cancer in female SOCIAL AND FAMILY HISTORY: Social History Tobacco Use Smoking status: Never Smoker Smokeless tobacco: Never Used Substance and Sexual Activity Alcohol use: Yes Comment: one per week Drug use: No family history includes Cancer in her brother; Diabetes in her brother, mother, and sister; Early in her sister; Heart disease in her brother and father; Stroke in her mother. ROS: The following systems were reviewed: Review of Systems Constitutional: Negative for chills, fever and unexpected weight change. HENT: Negative for trouble swallowing and voice change. Respiratory: Negative for cough and shortness of breath. Gastrointestinal: Negative for abdominal distention and abdominal pain. Musculoskeletal: Negative for arthralgias and myalgias. Skin: Left nipple inversion Neurological: Negative for dizziness, speech difficulty and headaches. Psychiatric/Behavioral: Negative for agitation, behavioral problems and confusio n. Physical Exam: The following systems were examined: There were no vitals filed for this visit. Physical Exam Vitals and nursing note reviewed. Constitutional: General: She is not in acute distress. Appearance: Normal appearance. HENT: Head: Normocephalic and atraumatic. Mouth/Throat: Pharynx: No oropharyngeal exudate. Eyes: General: No scleral icterus. Extraocular Movements: Extraocular movements intact. Cardiovascular: Rate and Rhythm: Normal rate. Pulmonary: Effort: Pulmonary effort is normal. No respiratory distress. Musculoskeletal: Right lower leg: No edema. Left lower leg: No edema. Skin: General: Skin is warm and dry. Comments: Left breast palpable mass at 2:00 position with nipple inversion Neurological: General: No focal deficit present. Mental Status: She is alert and oriented to person, place, and time. Cranial Nerves: No cranial nerve deficit. Psychiatric: Mood and Affect: Mood normal. Behavior: Behavior normal. Data review: Mammogram Left targeted ultrasound 12/07/20: Surgical pathology 12/08/20: Assessment and Plan: Ms. Echeverria is a 75 year old female with past medical history of hypertension, hype rlipidemia, GERD, diabetes mellitus, with recent diagnosis of left breast DCIS h ere for follow up after completion of left mastectomy 02/23/21. I spent >15 minutes reviewing implications of final surgical pathology consistent with stage 0 (pTis (DCIS), pN0, cM0, G3, ER-, WV+, HER2-) disease including lack of clear indication for adjuvant endocrine therapy given ER- nature of her disease, now post mastectomy and will have ongoing surveillance of contralateral right breast with routine imaging. The role of secondary prevention with parts counterman aromatase inhibitor therapy is also not well established given her advanced age. Patient therefore agreeable to forego endocrine therapy since risks of side effects and bone loss may likely outweigh any potential benefits. - Proceed with active surveillance as per breast surgery. Follow Up: Return visit only as needed. Total time spent on this telemedicine visit [id number] as detailed abo ve. "Thiswasa tele-medical visit. The patient was informed of the risks incl uding security breech, technological failure, inability to perform a comprehensi ve physical exam which could delay or prevent an accurate diagnosis, and potenti al complications from treatment decisions rendered over a telemedical platform. The patient understands and consented to the use of tele-health services." documented in this encounter Plan of Treatment Care Team Description Date Type Specialty Velma Wallace MD [address] [place] [address] [place] [address] 09/15/2021 Appointment Radiology Velma Wallace MD [address] [place] [address] [place] [address] 09/15/2021 Office Visit Breast Surgery [...] PPSV23) Influenza Vaccine 04/29/2021 05/10/2018, 06/02/2016, 07/13/2015 COVID-19 [...] ot Implanted Type Area Manufactur er 06/03/2021 [id number] / / [id number] [facility] [employer] [id number]. Left: Breast HO LOG[employer] - [id number] Implanted: Qty: 1 on 01/06/2021 by Angel Wagoner MD at [facility] INPATIENT documented as of this encounter Results Not on filedocumented in this encounter Visit Diagnoses Diagnosis Malignant neoplasm of left breast, stag e 0 - Primary documented in this encounter
--- OUTSIDE RECORDS SUMMARY | 2021-05-24 08:15 | CCD ---
Author Author [facility] Organization [facility] Address Unknown Phone Unavailable Care Team Providers Care Bench Worker Name Role Phone Sarah FARAH MD Unavailable Unavailable Sarah FARAH MD Unavailable Unavailable Sarah FARAH MD Unavailable Unavailable Sarah FARHA MD Unavailable Unavailable [place], L Leni MASTER SHEET CLERK Unavailable Unavailable [place], L Leni MASTER SHEET CLERK Unavailable Unavailable [place], L Leni MASTER SHEET CLERK Unavailable Unavailable [place], L Leni MASTER SHEET CLERK Unavailable Unavailable [place]eca, L Leni MASTER SHEET CLERK Unavailable Unavailable [place], L Leni MASTER SHEET CLERK Unavailable Unavailable Seneca, L Leni MASTER SHEET CLERK Unavailable Unavailable [place], L Leni MASTER SHEET CLERK Unavailable Unavailable [place], L Leni MASTER SHEET CLERK Unavailable Unavailable [place], L Leni MASTER SHEET CLERK Unavailable Unavailable [place], L Leni MASTER SHEET CLERK Unavailable Unavailable [place], L Leni MASTER SHEET CLERK Unavailable Unavailable [place], L Leni MASTER SHEET CLERK Unavailable Unavailable JL ALVARADO MD Unavailable Unavailable Jl Alvarado MD Unavailable Unavailable Jl Alvarado MD Unavailable Unavailable Jl Alvarado MD Unavailable Unavailable Jl Alvarado MD Unavailable Unavailable Jl Alvarado MD Unavailable Unavailable Jl Alvarado MD Unavailable Unavailable Jl Alvarado MD Unavailable Unavailable Jl Alvarado MD Unavailable Unavailable Jl Alvarado MD Unavailable Unavailable Jl Alvarado MD Unavailable Unavailable Jl Alvarado MD Unavailable Unavailable Jl Alvarado MD Unavailable Unavailable Jl Alvarado MD Unavailable Unavailable Jl Alvarado MD Unavailable Unavailable Jl Alvarado MD Unavailable Unavailable Jl Alvarado MD Unavailable Unavailable Jl Alvarado MD Unavailable Unavailable Jl Alvarado MD Unavailable Unavailable Jl Alvarado MD Unavailable Unavailable Jl Alvarado MD Unavailable Unavailable Jl Alvarado MD Unavailable Unavailable Jl Alvarado MD Unavailable Unavailable Jl Alvarado MD Unavailable Unavailable Jl Alvarado MD Unavailable Unavailable Jl Alvarado MD Unavailable Unavailable Jl Alvarado MD Unavailable Unavailable Jl Alvarado MD Unavailable Unavailable Jl Alvarado MD Unavailable Unavailable Fahsel MASTER SHEET CLERK, MASTER SHEET CLERK L Charo MASTER SHEET CLERK Unavailable + 24 Fahsel MASTER SHEET CLERK, MASTER SHEET CLERK L Charo MASTER SHEET CLERK Unavailable + 24 Fahsel MASTER SHEET CLERK, MASTER SHEET CLERK L Charo MASTER SHEET CLERK Unavailable + 24 Fahsel MASTER SHEET CLERK, MASTER SHEET CLERK L Charo MASTER SHEET CLERK Unavailable + 24 Fahsel MASTER SHEET CLERK, MASTER SHEET CLERK L Charo MASTER SHEET CLERK Unavailable + 24 Fahsel MASTER SHEET CLERK, MASTER SHEET CLERK L Charo MASTER SHEET CLERK Unavailable + 24 Fahsel MASTER SHEET CLERK, MASTER SHEET CLERK L Charo MASTER SHEET CLERK Unavailable + 24 Fahsel MASTER SHEET CLERK, MASTER SHEET CLERK L Charo MASTER SHEET CLERK Unavailable + 24 Fahsel MASTER SHEET CLERK, MASTER SHEET CLERK L Charo MASTER SHEET CLERK Unavailable + 24 Fahsel MASTER SHEET CLERK, MASTER SHEET CLERK L Charo MASTER SHEET CLERK Unavailable + 24 Fahsel MASTER SHEET CLERK, MASTER SHEET CLERK L Charo MASTER SHEET CLERK Unavailable + 24 Fahsel MASTER SHEET CLERK, MASTER SHEET CLERK L Charo MASTER SHEET CLERK Unavailable + 24 Fahsel MASTER SHEET CLERK, MASTER SHEET CLERK L Charo MASTER SHEET CLERK Unavailable + 24 Fahsel MASTER SHEET CLERK, MASTER SHEET CLERK L Charo MASTER SHEET CLERK Unavailable + 24 Fahsel MASTER SHEET CLERK, MASTER SHEET CLERK L Charo MASTER SHEET CLERK Unavailable + 24 Fahsel MASTER SHEET CLERK, MASTER SHEET CLERK L Charo MASTER SHEET CLERK Unavailable + 24 Fahsel MASTER SHEET CLERK, MASTER SHEET CLERK L Charo MASTER SHEET CLERK Unavailable + 24 Fahsel MASTER SHEET CLERK, MASTER SHEET CLERK L Charo MASTER SHEET CLERK Unavailable + 24 Fahsel MASTER SHEET CLERK, MASTER SHEET CLERK L Charo MASTER SHEET CLERK Unavailable + 24 Fahsel MASTER SHEET CLERK, MASTER SHEET CLERK L Charo MASTER SHEET CLERK Unavailable + 24 Fahsel MASTER SHEET CLERK, MASTER SHEET CLERK L Charo MASTER SHEET CLERK Unavailable 24 Fahsel MASTER SHEET CLERK, MASTER SHEET CLERK L Charo MASTER SHEET CLERK Unavailable + 24 Fahsel MASTER SHEET CLERK, MASTER SHEET CLERK L Charo MASTER SHEET CLERK Unavailable + 24 MAU, K JEANNE RETANA Unavailable Unavailable MAU, K JEANNE RETANA Unavailable Unavailable MAU, K JEANNE RETANA Unavailable Unavailable MAU, K JEANNE RETANA Unavailable Unavailable MAU, K JEANNE RETANA Unavailable Unavailable MAU, K JEANNE RETANA Unavailable Unavailable MAU, K JEANNE RETANA Unavailable Unavailable MAU, K JEANNE RETANA Unavailable Unavailable MAU, K JEANNE RETANA Unavailable Unavailable MAU, K JEANNE RETANA Unavailable Unavailable MAU, K JEANNE RETANA Unavailable Unavailable MAU, K JEANNE RETANA Unavailable Unavailable MAU, K JEANNE RETANA Unavailable Unavailable MAU, K JEANNE RETANA Unavailable Unavailable MAU, K JEANNE RETANA Unavailable Unavailable MAU, K JEANNE RETANA Unavailable Unavailable MAU, K JEANNE RETANA Unavailable Unavailable MAU, K JEANNE RETANA Unavailable Unavailable MAU, K JEANNE RETANA Unavailable Unavailable MAU, K JEANNE RETANA Unavailable Unavailable MAU, K JEANNE RETANA Unavailable Unavailable MAU, K JEANNE RETANA Unavailable Unavailable MAU, K JEANNE RETANA Unavailable Unavailable MAU, K JEANNE RETANA Unavailable Unavailable MAU, K JEANNE RETANA Unavailable Unavailable MUA, K JEANNE RETANA Unavailable Unavailable MAU, K JEANNE RETANA Unavailable Unavailable MAU, K JEANNE RETANA Unavailable Unavailable MAU, K JEANNE RETANA Unavailable Unavailable MAU, K JEANNE RETANA Unavailable Unavailable MAU, K JEANNE RETANA Unavailable Unavailable MAU, K JEANNE RETANA Unavailable Unavailable MAU, K JEANNE MD Unavailable Unavailable MAU, Avery ANGEL MD Unavailable Unavailable MAU, Avery ANGEL MD Unavailable Unavailable MAU, Avery ANGEL MD Unavailable Unavailable MAU, K JEANNE RETANA Unavailable Unavailable MAU, Avery ANGEL MD Unavailable Unavailable MAU, Avery ANGEL MD Unavailable Unavailable MAU, K JEANNE RETANA Unavailable Unavailable MAU, K JEANNE RETANA Unavailable Unavailable MAU, K JEANNE RETANA Unavailable Unavailable MAU, Avery ANGEL MD Unavailable Unavailable MAU, K JEANNE RETANA Unavailable Unavailable MAU, K JEANNE RETANA Unavailable Unavailable MAU, K JEANNE RETANA Unavailable Unavailable MAU, K JEANNE RETANA Unavailable Unavailable MAU, K JEANNE RETANA Unavailable Unavailable MAU, K JEANNE RETANA Unavailable Unavailable MAU, K JEANNE RETANA Unavailable Unavailable MAU, K JEANNE RETANA Unavailable Unavailable MAU, K JEANNE RETANA Unavailable Unavailable MAU, K JEANNE RETANA Unavailable Unavailable MAU, K JEANNE RETANA Unavailable Unavailable MAU, Avery ANGEL MD Unavailable Unavailable MAU, Avery ANGEL MD Unavailable Unavailable MAU, K JEANNE RETANA Unavailable Unavailable Jumalon, M Steph FIRE SERVICES PLUMBER Unavailable Unavailable Jumalon, M Steph FIRE SERVICES PLUMBER Unavailable Unavailable Jumalon, M Steph FIRE SERVICES PLUMBER Unavailable Unavailable Jumalon, M Steph FIRE SERVICES PLUMBER Unavailable Unavailable Jumalon, M Steph FIRE SERVICES PLUMBER Unavailable Unavailable Jumalon, M Steph FIRE SERVICES PLUMBER Unavailable Unavailable Jumalon, M Steph FIRE SERVICES PLUMBER Unavailable Unavailable Jumalon, M Steph FIRE SERVICES PLUMBER Unavailable Unavailable Jumalon, M Steph FIRE SERVICES PLUMBER Unavailable Unavailable Jumalon, M Steph FIRE SERVICES PLUMBER Unavailable Unavailable Jumalon, M Steph FIRE SERVICES PLUMBER Unavailable Unavailable Jumalon, M Steph FIRE SERVICES PLUMBER Unavailable Unavailable Jumalon, M Steph FIRE SERVICES PLUMBER Unavailable Unavailable Jumalon, M Steph FIRE SERVICES PLUMBER Unavailable Unavailable Jumalon, M Steph FIRE SERVICES PLUMBER Unavailable Unavailable Jumalon, M Steph FIRE SERVICES PLUMBER Unavailable Unavailable Jumalon, M Steph FIRE SERVICES PLUMBER Unavailable Unavailable Jumalon, M Steph FIRE SERVICES PLUMBER Unavailable Unavailable Jumalon, M Steph FIRE SERVICES PLUMBER Unavailable Unavailable Jumalon, M Steph FIRE SERVICES PLUMBER Unavailable Unavailable Jumalon, M Steph FIRE SERVICES PLUMBER Unavailable Unavailable Jumalon, M Steph FIRE SERVICES PLUMBER Unavailable Unavailable Jumalon, M Steph FIRE SERVICES PLUMBER Unavailable Unavailable Jumalon, M Steph FIRE SERVICES PLUMBER Unavailable Unavailable Jumalon, M Steph FIRE SERVICES PLUMBER Unavailable Unavailable Jumalon, M Steph FIRE SERVICES PLUMBER Unavailable Unavailable Jumalon, M Steph FIRE SERVICES PLUMBER Unavailable Unavailable Jumalon, M Steph FIRE SERVICES PLUMBER Unavailable Unavailable Jumalon, M Steph FIRE SERVICES PLUMBER Unavailable Unavailable Jumalon, M Steph FIRE SERVICES PLUMBER Unavailable Unavailable Miranda ALMARAZ Unavailable Unavailable ABNER GUO MD Unavailable Unavailable ABNER GUO MD Unavailable Unavailable ABNER GUO MD Unavailable Unavailable ABNER GUO MD Unavailable Unavailable ABNER GUO MD Unavailable Unavailable ABNER GUO MD Unavailable Unavailable ABNER GUO MD Unavailable Unavailable ABNER GUO MD Unavailable Unavailable ABNER GUO MD Unavailable Unavailable ABNER GUO MD Unavailable Unavailable ABNER GUO MD Unavailable Unavailable ABNER GUO MD Unavailable Unavailable ABENR GUO MD Unavailable Unavailable ABNER GUO MD Unavailable Unavailable ABNER GUO MD Unavailable Unavailable ABNER GUO MD Unavailable Unavailable ABNER GUO MD Unavailable Unavailable ABNER GUO MD Unavailable Unavailable ABNER GUO MD Unavailable Unavailable ABNER GUO MD Unavailable Unavailable ABNER GUO MD Unavailable Unavailable ABNER GUO MD Unavailable Unavailable ABNER GUO MD Unavailable Unavailable ABNER GUO MD Unavailable Unavailable ABNER GUO MD Unavailable Unavailable ABNER GUO MD Unavailable Unavailable ABNER GUO MD Unavailable Unavailable ABNER GUO MD Unavailable Unavailable ABNER GUO MD Unavailable Unavailable ABNER GUO MD Unavailable Unavailable ABNER GUO MD Unavailable Unavailable ABNER GUO MD Unavailable Unavailable ABNER GUO MD Unavailable Unavailable ABNER GUO MD Unavailable Unavailable ABNER GUO MD Unavailable Unavailable ABNER GUO MD Unavailable Unavailable ABNER GUO MD Unavailable Unavailable ABNER GUO MD Unavailable Unavailable PATTI ABNER Unavailable Unavailable ABNER GUO MD Unavailable Unavailable ABNER GUO MD Unavailable Unavailable ABNER GUO MD Unavailable Unavailable ABNER GUO MD Unavailable Unavailable ABNER GUO MD Unavailable Unavailable ABNER GUO MD Unavailable Unavailable ABNER GUO MD Unavailable Unavailable ABNER GUO MD Unavailable Unavailable ABNER GUO MD Unavailable Unavailable ABNER GUO MD Unavailable Unavailable ABNER GUO MD Unavailable Unavailable ABNER GUO MD Unavailable Unavailable ABNER GUO MD Unavailable Unavailable ABNER GUO MD Unavailable Unavailable ABNER GUO MD Unavailable Unavailable PATTI, ABNER MD Unavailable Unavailable PATTI, ABNER MD Unavailable Unavailable PATTI, ABNER MD Unavailable Unavailable PATTI, ABNER MD Unavailable Unavailable PATTI, ABNER MD Unavailable Unavailable PATTI, ABNER MD Unavailable Unavailable PATTI, ABNER MD Unavailable Unavailable PATTI, ABNER MD Unavailable Unavailable PATTI, ABNER MD Unavailable Unavailable PATTI, ABNER MD Unavailable Unavailable PATTI, ABNER MD Unavailable Unavailable PATTI, ABNER MD Unavailable Unavailable PATTI, ABNER MD Unavailable Unavailable PATTI, ABNER MD Unavailable Unavailable PATTI, ABNER MD Unavailable Unavailable PATTI, ABNER MD Unavailable Unavailable PATTI, ABNER MD Unavailable Unavailable PATTI, ABNER MD Unavailable Unavailable PATTI, ABNER MD Unavailable Unavailable PATTI, ABNER MD Unavailable Unavailable PATTI, ABNER MD Unavailable Unavailable PATTI, ABNER MD Unavailable Unavailable PATTI, ABNER MD Unavailable Unavailable PATTI, ABNER MD Unavailable Unavailable PATTI, ABNER MD Unavailable Unavailable PATTI, ABNER MD Unavailable Unavailable PATTI, ABNER MD Unavailable Unavailable PATTI, ABNER MD Unavailable Unavailable PATTI, ABNER MD Unavailable Unavailable PATTI, ABNER MD Unavailable Unavailable Candice Gibson MD Unavailable Unavailable Candice Gibson MD Unavailable Unavailable Candice Gibson MD Unavailable Unavailable Candice Gibson MD Unavailable Unavailable Candice Gibson MD Unavailable Unavailable Candice Gibson MD Unavailable Unavailable Candice Gibson MD Unavailable Unavailable Candice Gibson MD Unavailable Unavailable Candice Gibson MD Unavailable Unavailable Candice Gibson MD Unavailable Unavailable Candice Gibson MD Unavailable Unavailable Candice Gibson MD Unavailable Unavailable Candice Gibson MD Unavailable Unavailable Candice Gibson MD Unavailable Unavailable Candice Gibson MD Unavailable Unavailable Candice Gibson MD Unavailable Unavailable Candice Gibson MD Unavailable Unavailable Candice Gibson MD Unavailable Unavailable Candice Gibson MD Unavailable Unavailable Candice Gibson MD Unavailable Unavailable Candice Gibson MD Unavailable Unavailable Candice Gibson MD Unavailable Unavailable Candice Gibson MD Unavailable Unavailable Candice Gibson MD Unavailable Unavailable Candice Gibson MD Unavailable Unavailable Candice Gibson MD Unavailable Unavailable Candice Gibson MD Unavailable Unavailable Candice Gibson MD Unavailable Unavailable Candice Gibson MD Unavailable Unavailable Candice Gibson MD Unavailable Unavailable Candice Gibson MD Unavailable Unavailable Candice Gibson MD Unavailable Unavailable Candice Gibson MD Unavailable Unavailable BolCandice carrero MD Unavailable Unavailable BolCandice carrero MD Unavailable Unavailable BolCandice carrero MD Unavailable Unavailable BolCandice carrero MD Unavailable Unavailable BolCandice carrero MD Unavailable Unavailable BolCandice carrero MD Unavailable Unavailable BolCandice carrero MD Unavailable Unavailable BolCandice carrero MD Unavailable Unavailable BolCandice carrero MD Unavailable Unavailable BolCandice carrero MD Unavailable Unavailable BolCandice carrero MD Unavailable Unavailable BolCandice carrero MD Unavailable Unavailable BolCandice carrero MD Unavailable Unavailable BolCandice carrero MD Unavailable Unavailable BolCandice carrero MD Unavailable Unavailable Candice Gibson MD Unavailable Unavailable Tasha, Corina Hodgsonosarah RETANA Unavailable Unavailable Tasha, Corina Hodgsonosarah RETANA Unavailable Unavailable Tasha, Corina Hodgsonosarah RETANA Unavailable Unavailable Tasha, Corina Hodgsonosarah RETANA Unavailable Unavailable Tasha, R Shimno MD Unavailable Unavailable Tasha, Corina Shimon MD Unavailable Unavailable Tasha, Corina Shimon MD Unavailable Unavailable Tasha, Corina Shimon MD Unavailable Unavailable Tasha, R Shimon MD Unavailable Unavailable Tasha, R Shimon MD Unavailable Unavailable Tasha, R Shimon MD Unavailable Unavailable Tasha, R Shimon MD Unavailable Unavailable Tasha, R Shimon MD Unavailable Unavailable Tasha, R Shimon MD Unavailable Unavailable Tasha, R Shimon MD Unavailable Unavailable Tasha, R Sihmon MD Unavailable Unavailable Tasha, R Shimon MD Unavailable Unavailable Tasha, R Shimon MD Unavailable Unavailable Tasha, R Shimon MD Unavailable Unavailable Tasha, R Shimon MD Unavailable Unavailable Tasha, R Shimon MD Unavailable Unavailable Tasha, R Shimon MD Unavailable Unavailable Tasha, R Shimon MD Unavailable Unavailable Tasha, R Shimon MD Unavailable Unavailable Tasha, R Shimon MD Unavailable Unavailable Tasha, R Shimon MD Unavailable Unavailable Tasha, R Shimon MD Unavailable Unavailable Tasha, R Shimon MD Unavailable Unavailable Tasha, R Shimon MD Unavailable Unavailable Tasha, R Shimon MD Unavailable Unavailable Tasha, R Shimon MD Unavailable Unavailable Tasha, R Shimon MD Unavailable Unavailable Tasha, R Shimon MD Unavailable Unavailable Tasha, R Shimon MD Unavailable Unavailable Tasha, R Shimon MD Unavailable Unavailable Tasha, R Shimon MD Unavailable Unavailable Tasha, R Shimon MD Unavailable Unavailable Tasha, R Shimon MD Unavailable Unavailable Tasha, R Shimon MD Unavailable Unavailable Tasha, R Shimon MD Unavailable Unavailable Tasha, R Shimon MD Unavailable Unavailable Tasha, R Shimon MD Unavailable Unavailable Tasha, R Shimon MD Unavailable Unavailable Tasha, R Shimon MD Unavailable Unavailable Tasha, R Shimon MD Unavailable Unavailable Tasha, R Shimon MD Unavailable Unavailable Tasha, R Shimon MD Unavailable Unavailable Tasha, R Shimon MD Unavailable Unavailable Tasha, R Shimon MD Unavailable Unavailable Tasha, R Shimon MD Unavailable Unavailable Tasha, R Shimon MD Unavailable Unavailable Tasha, R Shimon MD Unavailable Unavailable Tasha, R Shimon MD Unavailable Unavailable Tasha, R Shimon MD Unavailable Unavailable Tasha, R Shimon MD Unavailable Unavailable Tasha, R Shimon MD Unavailable Unavailable Tasha, R Shimon MD Unavailable Unavailable Tasha, R Shimon MD Unavailable Unavailable Tasha, R Shimon MD Unavailable Unavailable Tasha, R Shimon MD Unavailable Unavailable Tasha, R Shimon MD Unavailable Unavailable Tasha, R Shimon MD Unavailable Unavailable Tasha, R Shimon MD Unavailable Unavailable Tasha, R Shimon MD Unavailable Unavailable Tasha, R Shimon MD Unavailable Unavailable Tasha, R Shimon MD Unavailable Unavailable Tasha, R Shimon MD Unavailable Unavailable Tasha, R Shimon MD Unavailable Unavailable Tasha, R Shimon MD Unavailable Unavailable Tasha, R Shimon MD Unavailable Unavailable Tasha, R Shimon MD Unavailable Unavailable Tasha, R Shimon MD Unavailable Unavailable Tasha, R Shimon MD Unavailable Unavailable Tasha, R Shimon MD Unavailable Unavailable Tasha, R Shimon MD Unavailable Unavailable Tasha, R Shimon MD Unavailable Unavailable Tasha, R Shimon MD Unavailable Unavailable Tasha, R Shimon MD Unavailable Unavailable Tasha, R Shimon MD Unavailable Unavailable Ameya, J Holly Unavailable Unavailable Ameya, J Holly Unavailable Unavailable Ameya, J Holly Unavailable Unavailable Ameya, J Holly Unavailable Unavailable Ameya, J Holly Unavailable Unavailable Ameya, J Holly Unavailable Unavailable Ameya, J Holly Unavailable Unavailable Ameya, J Holly Unavailable Unavailable Ameya, J Holly Unavailable Unavailable Ameya, J Holly Unavailable Unavailable Ameya, J Holly Unavailable Unavailable Ameya, J Holly Unavailable Unavailable Ameya, J Holly Unavailable Unavailable Ameya, J Holly Unavailable Unavailable Ameya, J Holly Unavailable Unavailable Ameya, J Holly Unavailable Unavailable Ameya, J Holly Unavailable Unavailable Ameya, J Holly Unavailable Unavailable Ameya, J Holly Unavailable Unavailable Ameya, J Holly Unavailable Unavailable Ameya, J Holly Unavailable Unavailable Ameya, J Holly Unavailable Unavailable Ameya, J Holly Unavailable Unavailable Ameya, J Holly Unavailable Unavailable Ameya, J Holly Unavailable Unavailable Ameya, J Holly Unavailable Unavailable Ameya, J Holly Unavailable Unavailable Ameya, J Holly Unavailable Unavailable Ed Montanez MD Unavailable Unavail able CarolaavaEd campos MD Unavailable Unavail able Ed Montanez MD Unavailable Unavail able CarolaavaEd campos MD Unavailable Unavail able NanavaEd campos MD Unavailable Unavail able CarolaavaEd campos MD Unavailable Unavail able Ed Montanez MD Unavailable Unavail able Ed Montanez MD Unavailable Unavail able Ed Montanez MD Unavailable Unavail able Ed Montanez MD Unavailable Unavail able Ed Montanez MD Unavailable Unavail able NanavaEd campos MD Unavailable Unavail able CarolaavaEd campos MD Unavailable Unavail able NanavaEd campos MD Unavailable Unavail able NanavaEd campos MD Unavailable Unavail able CarolaavaEd campos MD Unavailable Unavail able NanavaEd campos MD Unavailable Unavail able NanavaEd campos MD Unavailable Unavail able Ed Montanez MD Unavailable Unavail able CarolaavaEd campos MD Unavailable Unavail able NanavaEd campos MD Unavailable Unavail able NanavaEd campos MD Unavailable Unavail able Nanavati, Ed Corona MD Unavailable Unavail able Nanavati, Ed Corona MD Unavailable Unavail able Nanavati, Ed Corona MD Unavailable Unavail able Nanavati, Ed Corona MD Unavailable Unavail able Nanavati, Ed Corona MD Unavailable Unavail able Nanavati, Ed Corona MD Unavailable Unavail able Nanavati, Ed Corona MD Unavailable Unavail able Nanavati, Ed Corona MD Unavailable Unavail able Nanavati, Ed Corona MD Unavailable Unavail able Nanavati, Ed Corona MD Unavailable Unavail able Nanavati, Ed Corona MD Unavailable Unavail able Nanavati, Ed Corona MD Unavailable Unavail able Nanavati, Ed Corona MD Unavailable Unavail able Nanavati, Ed Corona MD Unavailable Unavail able Nanavati, Ed Corona MD Unavailable Unavail able Nanavati, Ed Corona MD Unavailable Unavail able Nanavati, Ed Corona MD Unavailable Unavail able Nanavati, Ed Corona MD Unavailable Unavail able Nanavati, Ed Corona MD Unavailable Unavail able Nanavati, Ed Corona MD Unavailable Unavail able Nanavati, Ed Corona MD Unavailable Unavail able Nanavati, Ed Corona MD Unavailable Unavail able Nanavati, Ed Corona MD Unavailable Unavail able Nanavati, Ed Corona MD Unavailable Unavail able Nanavati, Ed Corona MD Unavailable Unavail able Nanavati, Ed Corona MD Unavailable Unavail able Nanavati, Ed Corona MD Unavailable Unavail able Nanavati, Ed Corona MD Unavailable Unavail able Nanavati, Ed Corona MD Unavailable Unavail able Nanavati, Ed Corona MD Unavailable Unavail able Nanavati, Ed Corona MD Unavailable Unavail able Nanavati, Ed Corona MD Unavailable Unavail able Nanavati, Ed Corona MD Unavailable Unavail able Nanavati, Bhalchandra Cj MD Unavailable Unavail able Nanavati, Ed Corona MD Unavailable Unavail able Nanavati, Ed Corona MD Unavailable Unavail able Nanavabeth, Ed Corona MD Unavailable Unavail able Nanavabeth, Ed Corona MD Unavailable Unavail able Nanavabeth, Ed Corona MD Unavailable Unavail able Nanavati, Ed Corona MD Unavailable Unavail able Nanavati, Ed Corona MD Unavailable Unavail able Nanavati, Ed Corona MD Unavailable Unavail able Nanavati, Ed Corona MD Unavailable Unavail able Nanavati, Ed Corona MD Unavailable Unavail able Nanavati, Ed Corona MD Unavailable Unavail able Nanavabeth, Ed Corona MD Unavailable Unavail able Nanavabeth, Ed Corona MD Unavailable Unavail able Nanavabeth, Ed Corona MD Unavailable Unavail able Nanavabeth, Ed Corona MD Unavailable Unavail able Nanavati, Ed Corona MD Unavailable Unavail able Carolaavabeth, Ed Corona MD Unavailable Unavail able Lisseth, Ed Corona MD Unavailable Unavail able Lisseth, Ed Corona MD Unavailable Unavail able Ed Montanez MD Unavailable Unavail able Anselmo Avery MD Unavailable Unavailable Anselmo Avery MD Unavailable Unavailable Anselmo Avery MD Unavailable Unavailable Anselmo Avery MD Unavailable Unavailable Anselmo Avery MD Unavailable Unavailable Anselmo Avery MD Unavailable Unavailable Anselmo Avery MD Unavailable Unavailable Anselmo Avery MD Unavailable Unavailable Anselmo Avery MD Unavailable Unavailable Anselmo Avery MD Unavailable Unavailable Anselmo Avery MD Unavailable Unavailable Anselmo Avery MD Unavailable Unavailable Anselmo Avery MD Unavailable Unavailable Anselmo Avery MD Unavailable Unavailable Anselmo Avery MD Unavailable Unavailable Anselmo Avery MD Unavailable Unavailable Anselmo Avery MD Unavailable Unavailable Anselmo Avery MD Unavailable Unavailable Anselmo Avery MD Unavailable Unavailable Anselmo Avery MD Unavailable Unavailable Avery, E Little MD Unavailable Unavailable Avery, E Little MD Unavailable Unavailable Avery, E Little MD Unavailable Unavailable Avery, E Little MD Unavailable Unavailable Avery, E Little MD Unavailable Unavailable Avery, E Little MD Unavailable Unavailable Avery, E Little MD Unavailable Unavailable Avery, E Little MD Unavailable Unavailable Avery, E Little MD Unavailable Unavailable Avery, E Little MD Unavailable Unavailable Avery, E Little MD Unavailable Unavailable Avery, E Little MD Unavailable Unavailable Avery, E Little MD Unavailable Unavailable Avery, E Little MD Unavailable Unavailable Avery, E Little MD Unavailable Unavailable Avery, E Little MD Unavailable Unavailable Avery, E Little MD Unavailable Unavailable Avery, E Little MD Unavailable Unavailable Avery, E Little MD Unavailable Unavailable Avery, E Little MD Unavailable Unavailable Avery, E Little MD Unavailable Unavailable Avery, E Little MD Unavailable Unavailable Avery, E Little MD Unavailable Unavailable Avery, E Little MD Unavailable Unavailable Re-disclosure Warning The records that you are about to access may contain information from federally-assisted alcohol or drug abuse programs. If such information is present, then the following federally mandated warning applies: This information has been disclosed to you from records protected by federal confidentiality rules (42 CFR part 2). The federal rules prohibit you from making any further disclosure of this information unless further disclosure is expressly permitted by the written consent of the person to whom it pertains or as otherwise permitted by 42 CFR part 2. A general authorization for the release of medical or other information is NOT sufficient for this purpose. The Federal rules restrict any use of the information to criminally investigate or prosecute any alcohol or drug abuse patient.The records that you are about to access may contain highly sensitive health information, the redisclosure of which is protected by Article 27-F of the [facility] Public Health law. If you continue you may have access to information: Regarding HIV / AIDS; Provided by facilities licensed or operated by the [facility] Office of Mental Health; or Provided by the [facility] Office for People With Developmental Disabilities. If such information is present, then the following [facility] mandated warning applies: This information has been disclosed to you from confidential records which are protected by state law. State law prohibits you from making any further disclosure of this information without the specific written consent of the person to whom it pertains, or as otherwise permitted by law. Any unauthorized further disclosure in violation of state law may result in a fine or nursing home sentence or both. A general authorization for the release of medical or other information is NOT sufficient authorization for further disc losure. Allergies and Adverse Reactions Type Description Substance Reaction Status Data Source(s ) Drug allergy codeine Codeine RASH (SKIN RASH) [facility] Food allergy No Known Food Allergies No Known Food Allergies [facility] Propensity to adverse reactions BEE VENOM BEE VENOM [facility] Family History Family Member Name Family Member Gender Family Member Status Date o f Status Description Data Source(s) Unknown Condition [facility] Unknown Condition [facility] Unknown Condition [facility] Unknown Condition [facility] Condition [facility] Unknown Condition [facility] Unknown Condition [facility] Condition [facility] Unknown Condition [facility] Condition [facility] Unknown Condition [facility] Condition [facility] Condition [facility] Unknown Condition [facility] Unknown Condition [facility] Unknown Condition [facility] [facility] Unknown Condition [facility] Unknown Condition [facility] Unknown Condition [facility] Encounters Encounter Providers Location Date Indications Data Source(s ) Outpatient Attender: Jl Natherrer: Jl payne MD 09/15/2021 12:00:00 AM [facility] Outpatient Attender: Jl Natherrer: Jl payne MD 09/15/2021 12:00:00 AM [facility] Emergency Attender: JUNG FARAH MD 04/30 09:38:00 AM EDT - 05/21/2021 12:42:00 PM [facility] Outpatient Attender: Shimon Cordova MD 05/20/2021 11:08:00 AM EDT W/ ABN X RAY [facility] W/ ABN X RAY Outpatient Attender: Shimon Cordova MD 05/19/2021 11:40:00 AM EDT R53.1,R30.0 [facility] R53.1,R30.0 Outpatient Attender: Shimon Cordova MDReferrer: Shimon Cordova MD 05/19/2021 11:11:00 AM EDT - 05/19/2021 01:07:00 PM EDT [facility] Elpidio Gibson MD: [address], [address], [place] [address], Ph. Attender: [place]pidio Gibson MD [place] - [facility] 05/16/2021 12:00:00 AM EDT ETHEL ([facility]) Elpidio Gibson MD: [address], [address], [place] [address], Ph. [phone] Attender: [place]pidio Gibson MD [place] - [facility] 05/11/2021 12:00:00 AM EDT ETHEL ([facility]) Elpidio Gibson MD: [address], [address], [place] [address], Ph. [phone] Attender: Elpidio Gibson MD [place] - [facility] 05/11/2021 12:00:00 AM EDT ETHEL ([facility]) Elpidio Gibson MD: [address], [address], [place] [address], Ph. Attender: Elpidio LEYVA - [facility] 05/02/2021 12:00:00 AM EDT ETHEL ([facility]) Elpidio Gibson MD: [address], [address], [place] [address], Ph. Attender: Elpidio Gibson MD [place] - [facility] 05/02/2021 12:00:00 AM EDT ETHEL ([facility]) Elpidio Gibson MD: [address], [address], [place] [address], Ph. Attender: Elpidio Gibson MD [place] - [facility] 05/02/2021 12:00:00 AM EDT ETHEL ([facility]) Outpatient Attender: Shimon Cordova MDReferrer: Shimon Cordova MD 04/27/2021 10:02:00 AM EDT [facility] Elpidio Gibson MD: [address], [place] [address], Ph. [phone] Attender: [place]pidio Gibson MD [place] - [facility] 04/27/2021 12:00:00 AM EDT ETHEL ([facility]) Elpidio Gibson MD: [address], [place] [address], Ph. [phone] Attender: Elpidio Gibson MD [place] - [facility] 04/27/2021 12:00:00 AM EDT ETHEL ([facility]) Elpidio Gibson MD: [address], [place] [address], Ph. [phone] Attender: Elpidio Gibson MD [place] - [facility] 04/27/2021 12:00:00 AM EDT ETHEL ([facility]) Elpidio Gibson MD: [address], [place] [address], Ph. [phone] Attender: Elpidio Gibson MD [place] - [facility] 04/27/2021 12:00:00 AM EDT ETHEL ([facility]) Outpatient Attender: JL ALVARADO MDReferrer: JL Payne MD 04/26/2021 10:09:00 AM EDT S/P BREAT REMOVAL [facility] S/P BREAT REMOVAL Outpatient Attender: Shimon Cordova MD 04/11/2021 03:15:00 PM EDT R30.0 [facility] R30.0 Outpatient Attender: Jl Alvarado MD [id number] 04/05 12:00:00 AM EDT - 04/05/2021 12:11:20 PM [facility] Outpatient Attender: ABNER AngelaA-ONCCACTR 2020 12:00:00 AM EDT - 04/01/2021 02:49:16 PM [facility] Outpatient Attender: ABNER GUO MD 03/29/2021 12:00:00 A M [facility] Steph Yeung, MASTER SHEET CLERK: [address], [place] [address], Ph. Attender: Steph Yeung [facility] - [facility] 03/24/2021 12:00:00 AM EDT ATHE NA ([facility]) Steph Perez Anjana, MASTER SHEET CLERK: [address], [place] [address], Ph. Attender: Steph Yeung [facility] 03/24/2021 12:00:00 AM EDT ATHE NA ([facility]) Steph Perez Anjana, MASTER SHEET CLERK: [address], [place] [address], Ph. Attender: Steph Yeung [facility] - [facility] 03/24/2021 12:00:00 AM EDT ATHE NA ([facility]) Steph Perez Anjana, MASTER SHEET CLERK: [address], [place] [address], Ph. Attender: Steph Yeung [facility] - [facility] 03/24/2021 12:00:00 AM EDT ATHE NA ([facility]) Steph Gokulmarco adanielito Yeung NP: [address], [address], [place] [address], Ph. Attender: Stephdennis Cumminstati BRAN [place] - [facility] - Main Office 03/24/2021 12:00:00 AM EDT ATHE NA ([facility]) Outpatient Attender: Shimon Cordova MDReferrer: Shimon Cordova MD 03/23/2021 08:51:00 AM EDT [facility] Outpatient Attender: Shimon Cordova MD 03/23/2021 08:44:00 AM EDT R74.8 [facility] R74.8 Outpatient Attender: CHARMAINE Almaraz NPAttender: CHARO ALMARAZ [id number] 03/21/2021 12:00:00 AM EDT - 03/21/2021 09:00:58 AM T [facility] Outpatient Attender: Shimon Cordova MD 03/18/2021 09:55:00 AM EDT ELEVATED LFTS [facility] ELEVATED LFTS Outpatient Attender: Shimon Cordova MD 03/16/2021 08:34: 00 AM EDT E11.9. R11.0, R63.0 [facility] E11.9. R11.0, R63.0 Outpatient Attender: Shimon Cordova MDReferrer: Shimon Cordova MD 03/16/2021 08:02:00 AM EDT - 03/16/2021 08:26:00 AM EDT [facility] Outpatient Attender: CHARMAINE Almaraz NPAttender: CHARO ALMARAZ [id number] 03/14/2021 12:00:00 AM EDT - 03/14/2021 11:02:13 AM T [facility] Outpatient Attender: Jl Alvarado MD [id number] 03/08 12:00:00 AM EDT - 03/08/2021 12:03:24 PM EDT [facility] Outpatient Attender: Leni Saleh NPReferrer: Leni Saleh NP 02/25/2021 02:41:00 PM EDT - 02/25/2021 03:25:00 PM EDT [facility] Outpatient Attender: Jl Alvarado MDAdmitter: Jl payne MD [id number] 02/24/2021 12:00:00 AM EDT - 02/24/2021 12:00:00 AM [facility] Patient discharged. 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 [facility] Outpatient Attender: Leni Saleh NPReferrer: Shimon Cordova MD 02/17/2021 12:43:00 PM EDT [facility] Outpatient Attender: JEANNE LEÓN MD [id number] 02/14/2021 12:00:00 AM EDT - 02/14/2021 11:22:56 AM [facility] Outpatient Attender: Leni Saleh NP 02/11/2021 08:39:00 AM EDT PREOP [facility] PREOP Outpatient Attender: Jl Alvarado MD [id number] 02/08 12:00:00 AM EDT - 02/08/2021 10:18:24 AM [facility] Outpatient Referrer: Jl Alvarado MD 01/26/2021 12: 00:00 AM EDT Intraductal carcinoma in situ of left [facility] Intraductal carcinoma in situ of left [facility] Outpatient Referrer: Jl Alvarado MD 01/26/2021 12:00:00 AM [facility] Outpatient Attender: Jl Alvarado MDReferrer: Jl apyne MD 01/20/2021 12:00:00 AM [facility] Outpatient Attender: Jl Alvarado MD [id number] 01/18 12:00:00 AM EDT - 01/18/2021 11:28:49 AM [facility] Outpatient Attender: Jl Alvarado MDReferrer: Jl payne MD 01/18/2021 12:00:00 AM EDT Intraductal carcinoma in situ of left [facility] Intraductal carcinoma in situ of left [facility] Outpatient Attender: Jl Alvarado MDAd mitter: Jl Alvarado MDReferrer: Jl Alvarado MD 01/06/2021 12:00:00 AM EDT 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 [facility] Intraductal carcinoma in situ of left [facility] Outpatient Attender: Jl Alvarado MDReferrer: Jl payne MD 01/06/2021 12:00:00 AM EDT Intraductal carcinoma in situ of left [facility] Intraductal carcinoma in situ of left [facility] Outpatient Attender: Jl Alvarado MDReferrer: Jl payne MD 01/06/2021 12:00:00 AM EDT Intraductal carcinoma in situ of left [facility] Intraductal carcinoma in situ of left [facility] Outpatient Attender: Cj Montanez MD [id number] 12:00:00 AM EDT - 12/31/2020 04:03:07 PM EDT [facility] Outpatient Attender: Jl Alvarado MDReferrer: CHARO ACOSTA [id number] 12/31/2020 12:00:00 AM EDT - 12/31/2020 04:02:04 PM EDT Intraductal carcinoma in situ of left [facility] Intraductal carcinoma in situ of left [facility] Outpatient Attender: Holly Hou 12/31/2020 12:00:00 AM EDT [facility] Outpatient Attender: Shimon Cordova MDReferrer: Shimon Cordova MD 12/14/2020 08:22:00 AM EDT - 12/14/2020 09:16:00 AM EDT [facility] Outpatient Attender: Shimon Cordova MD 12/08/2020 10:08:00 AM EDT LT BREAST BX [facility] LT BREAST BX Outpatient Attender: Shimon Cordova MD 12/07/2020 08:55: 00 AM EDT LEFT SIDE LUMP, R92.8 [facility] LEFT SIDE LUMP, R92.8 Outpatient Attender: Shimon Cordova MD 12/06/2020 07:27:00 AM EDT E11.9 [facility] E11.9 Outpatient Attender: Shimon Cordova MD 11/09/2020 02:06:00 PM EDT R82.90 [facility] R82.90 Outpatient Attender: Shimon Cordova MDReferrer: Shimon Cordova MD 11/09/2020 12:53:00 PM EDT - 11/09/2020 02:20:00 PM EDT [facility] Steph Yeung, MASTER SHEET CLERK: [address], [place] [address], Ph. Attender: Steph Yeung [facility] - [facility] 10/14/2020 12:00:00 AM EDT ATHE NA ([facility]) Steph Yeung, MASTER SHEET CLERK: [address], [place] [address], Ph. Attender: Steph Yeung [facility] 10/14/2020 12:00:00 AM EDT ATHE NA ([facility]) Steph Yeung, MASTER SHEET CLERK: [address], [place] [address], Ph. Attender: Steph Yeung [facility] - [facility] 10/14/2020 12:00:00 AM EDT ATHE NA ([facility]) Steph Yeung, MASTER SHEET CLERK: [address], [place] [address], Ph. Attender: Steph Yeung [facility] - [facility] 10/14/2020 12:00:00 AM EDT ATHE NA ([facility]) Steph Perez Anjana, MASTER SHEET CLERK: [address], [address], [place] [address], Ph. Attender: Steph Yeung [facility] - [facility] 10/14/2020 12:00:00 AM EDT ATHE NA ([facility]) Steph Yeung, MASTER SHEET CLERK: [address], [address], [place] [address], Ph. Attender: Steph Yeung [facility] - [facility] 10/14/2020 12:00:00 AM EDT ATHE NA ([facility]) Elpidio Gibson MD: [address], [place] [address], Ph. Attender: Elpidio Gibson MD [place] - [facility] 09/30/2020 12:00:00 AM EST ETHEL ([facility]) Elpidio Gibson MD: [address], [address], [place] [address], Ph. Attender: Elpidio Gibson MD [place] - [facility] 09/30/2020 12:00:00 AM EST ETHEL ([facility]) Elpidio Gibson MD: [address], [place] [address], Ph. Attender: Elpidio Gibson MD [place] - [facility] 09/30/2020 12:00:00 AM EST ETHEL ([facility]) lEpidio Gibson MD: [address], [place] [address], Ph. Attender: Elpidio Gibson MD [place] - [facility] 09/30/2020 12:00:00 AM EST ETHEL ([facility]) Elpidio Gibson MD: [address], [place] [address], Ph. Attender: Elpidio Gibson MD [place] - [facility] 09/30/2020 12:00:00 AM EST ETHEL ([facility]) Elpidio Gibson MD: [address], [address], [place] [address], Ph. Attender: Elpidio LEYVA - [facility] 09/30/2020 12:00:00 AM EST ETHEL ([facility]) Elpidio Gibson MD: [address], [place] [address], Ph. Attender: Elpidio LEYVA - [facility] 09/30/2020 12:00:00 AM EST ETHEL ([facility]) Elpidio Gibson MD: [address], [place] [address], Ph. [phone] Attender: Elpidio LEYVA - [facility] 09/27/2020 12:00:00 AM EST ETHEL ([facility]) Elpidio Gibson MD: [address], [place] [address], Ph. [phone] Attender: Elpidio LEYVA - [facility] 09/27/2020 12:00:00 AM EST ETHEL ([facility]) Elpidio Gibson MD: [address], [place] [address], Ph. [phone] Attender: Elpidio LEYVA - [facility] 09/27/2020 12:00:00 AM EST ETHEL ([facility]) Elpidio Gibson MD: [address], [address], [place] [address], Ph. [phone] Attender: Elpidio Gibson MD [place] - [facility] 09/27/2020 12:00:00 AM EST ETHEL ([facility]) Elpidio Gibson MD: [address], [address], [place] [address], Ph. [phone] Attender: Elpidio Gibson MD [place] - [facility] 09/27/2020 12:00:00 AM EST ETHEL ([facility]) Elpidio Gibson MD: [address], [address], [place] [address], Ph. [phone] Attender: Elpidio Gibson MD [place] - [facility] 09/27/2020 12:00:00 AM EST ETHEL ([facility]) Elpidio Gibson MD: [address], [address], [place] [address], Ph. [phone] Attender: Elpidio Gibson MD [place] - [facility] 09/27/2020 12:00:00 AM EST ETHEL ([facility]) Elpidio Gibson MD: [address], [address], [place] [address], Ph. [phone] Attender: Elpidio Gibson MD [place] - [facility] 09/13/2020 12:00:00 AM EST ETHEL ([facility]) Elpidio Gibson MD: [address], [address], [place] [address], Ph. [phone] Attender: Elpidio Gibson MD [place] - [facility] 09/13/2020 12:00:00 AM EST ETHEL ([facility]) Elpidio Gibson MD: [address], [address], [place] [address], Ph. [phone] Attender: Elpidio Gibson MD [place] - [facility] 09/13/2020 12:00:00 AM EST ETHEL ([facility]) Elpidio Gibson MD: [address], [place] [address], Ph. [phone] Attender: Elpidio Gibson MD [place] - [facility] 09/13/2020 12:00:00 AM EST ETHEL ([facility]) Elpidio Gibson MD: [address], [address], [place] [address], Ph. [phone] Attender: Elpidio Gibson MD [place] - [facility] 09/13/2020 12:00:00 AM EST ETHEL ([facility]) Elpidio Gibson MD: [address], [address], [place] [address], Ph. [phone] Attender: Elpidio Gibsno [place] - [facility] 09/13/2020 12:00:00 AM EST ETHEL ([facility]) Elpidio Gibson MD: [address], [address], [place] [address], Ph. [phone] Attender: Elpidio Gibson MD [place] - [facility] 09/13/2020 12:00:00 AM EST ETHEL ([facility]) Elpidio Gibson MD: [address], [address], [place] [address], Ph. [phone] Attender: Elpidio Gibson MD [place] - [facility] 09/13/2020 12:00:00 AM EST ETHEL ([facility]) Elpidio Gibson MD: [address], [place] [address], Ph. Attender: Elpidio Gibson MD [place] - [facility] 08/30/2020 12:00:00 AM EST ETHEL ([facility]) Elpidio Gibson MD: [address], [place] [address], Ph. Attender: Elpidio Gibson MD [place] - [facility] 08/30/2020 12:00:00 AM EST ETHEL ([facility]) Elpidio Gibson MD: [address], [address], [place] [address], Ph. Attender: Elpidio Gibson MD [place] - [facility] 08/30/2020 12:00:00 AM EST ETHEL ([facility]) Elpidio Gibson MD: [address], [place] [address], Ph. Attender: Elpidio LEYVA - [facility] 08/30/2020 12:00:00 AM EST ETHEL ([facility]) Elpidio Gibson MD: [address], [place] [address], Ph. Attender: Elpidio LEYVA - [facility] 08/30/2020 12:00:00 AM EST ETHEL ([facility]) Elpidio Gibson MD: [address], [address], [place] [address], Ph. Attender: Elpidio Gibson MD [place] - [facility] 08/30/2020 12:00:00 AM EST ETHEL ([facility]) Elpidio Gibson MD: [address], [place] [address], Ph. Attender: Elpidio Gibson MD [place] - [facility] 08/30/2020 12:00:00 AM EST ETHEL ([facility]) Elpidio Gibson MD: [address], [place] [address], Ph. Attender: Elpidio Gibson MD [place] - [facility] 08/30/2020 12:00:00 AM EST ETHEL ([facility]) Elpidio Gibson MD: [address], [address], [place] [address], Ph. Attender: Elpidio Gibson MD [place] - [facility] 08/30/2020 12:00:00 AM EST ETHEL ([facility]) Elpidio Gibson MD: [address], [place] [address], Ph. [phone] Attender: Elpidio Gibson MD [place] - [facility] 08/25/2020 12:00:00 AM EST ETHEL ([facility]) Elpidio Gibson MD: [address]476 [address], [place] [address], Ph. [phone] Attender: Elpidio Gibson MD [place] - [facility] 08/25/2020 12:00:00 AM EST ETHEL ([facility]) Elpidio Gibson MD: [address], [place] [address], Ph. [phone] Attender: Elpidio Gibson MD [place] - [facility] 08/25/2020 12:00:00 AM EST ETHEL ([facility]) Elpidio Gibson MD: [address]361 [address], [place] [address], Ph. [phone] Attender: Elpidio Gibson MD [place] - [facility] 08/25/2020 12:00:00 AM EST ETHEL ([facility]) Elpidio Gibson MD: [address], [address], [place] [address], Ph. [phone] Attender: Elpidio Gibson MD [place] - [facility] 08/25/2020 12:00:00 AM EST ETHEL ([facility]) Elpidio Gibson MD: [address]235 [address], [address], [place] [address], Ph. [phone] Attender: Elpidio Gibson MD [place] - [facility] 08/25/2020 12:00:00 AM EST ETHEL ([facility]) Elpidio Gibson MD: [address]64 [address], [address], [place] [address], Ph. [phone] Attender: Elpidio Gibson MD [place] - [facility] 08/25/2020 12:00:00 AM EST ETHEL ([facility]) Elpidio Gibson MD: [address]266 [address], [address], [place] [address], Ph. [phone] Attender: Elpidio Gibson MD [place] - [facility] 08/25/2020 12:00:00 AM EST ETHEL ([facility]) Elpidio Gibson MD: [address]408 [address], [address], [place] [address], Ph. [phone] Attender: Elpidio Gibson MD [place] - [facility] 08/25/2020 12:00:00 AM EST ETHEL ([facility]) Elpidio Gibson MD: [address]163 [address], [address], [place] [address], Ph. [phone] Attender: Elpidio Gibson MD [place] - [facility] 08/25/2020 12:00:00 AM EST ETHEL ([facility]) Elpidio Gibson MD: 83309 [address], [address], [place] [address], Ph. Attender: Elpidio Gibson MD [place] - [facility] 08/16/2020 12:00:00 AM EST ETHEL ([facility]) Elpidio Gibson MD: [address]81 [address], [address], [place] [address], Ph. Attender: Elpidio Gibson MD [place] - [facility] 08/16/2020 12:00:00 AM EST ETHEL ([facility]) Elpidio Gibson MD: [address]66 [address], [address], [place] [address], Ph. Attender: Elpidio Gibson MD [place] - [facility] 08/16/2020 12:00:00 AM EST ETHEL ([facility]) Elpidio Gibson MD: 10760 [address], [address], [place] [address], Ph. Attender: Elpidio Gibson MD [place] - [facility] 08/16/2020 12:00:00 AM EST ETHEL ([facility]) Elpidio Gibson MD: [address]606 [address], [place] [address], Ph. Attender: Elpidio Gibson MD [place] - [facility] 08/16/2020 12:00:00 AM EST ETHEL ([facility]) Elpidio Gibson MD: 78212 [address], [address], [place] [address], Ph. Attender: Elpidio Gibson MD [place] - [facility] 08/16/2020 12:00:00 AM EST ETHEL ([facility]) Elpidio Gibson MD: [address]77 [address], [address], [place] [address], Ph. Attender: Elpidio Gibson MD [place] - [facility] 08/16/2020 12:00:00 AM EST ETHEL ([facility]) Elpidio Gibson MD: [address]47 [address], [address], [place] [address], Ph. Attender: Elpidio Gibson MD [place] - [facility] 08/16/2020 12:00:00 AM EST ETHEL ([facility]) Elpidio Gibson MD: 10257 [address], [address], [place] [address], Ph. Attender: Elpidio Gibson MD [place] - [facility] 08/16/2020 12:00:00 AM EST ETHEL ([facility]) Elpidio Gibson MD: 45167 [address], [address], [place] [address], Ph. Attender: Elpidio LEYVA - [facility] 08/16/2020 12:00:00 AM EST ETHEL ([facility]) Elpidio Gibson MD: 89465 [address], [address], [place] [address], Ph. Attender: Elpidio LEYVA - [facility] 08/16/2020 12:00:00 AM EST ETHEL ([facility]) Elpidio Gibson MD: 39337 [address], [address], [place] [address], Ph. [phone] Attender: Elpidio LEYAV - [facility] 08/11/2020 12:00:00 AM EST ETHEL ([facility]) Elpidio Gibson MD: 23329 [address], [address], [place] [address], Ph. [phone] Attender: Elpidio Gibson MD [place] - [facility] 08/11/2020 12:00:00 AM EST ETHEL ([facility]) Elpidio Gibson MD: 70709 [address], [place] [address], Ph. [phone] Attender: Elpidio Gibson MD [place] - [facility] 08/11/2020 12:00:00 AM EST ETHEL ([facility]) Elpidio Gibson MD: [address]74 [address], [address], [place] [address], Ph. [phone] Attender: Elpidio Gibson MD [place] - [facility] 08/11/2020 12:00:00 AM EST ETHEL ([facility]) Elpidio Gibson MD: 83555 [address], [address], [place] [address], Ph. [phone] Attender: Elpidio Gibson MD [place] - [facility] 08/11/2020 12:00:00 AM EST ETHLE ([facility]) Elpidio Gibson MD: [address]00 [address], [address], [place] [address], Ph. [phone] Attender: Elpidio Gibson MD [place] - [facility] 08/11/2020 12:00:00 AM EST ETHEL ([facility]) Elpidio Gibson MD: 15749 [address], [address], [place] [address], Ph. [phone] Attender: Elpidio Gibson MD [place] - [facility] 08/11/2020 12:00:00 AM EST ETHEL ([facility]) Elpidio Gibson MD: 40346 [address], [address], [place] [address], Ph. [phone] Attender: Elpidio Gibson MD [place] - [facility] 08/11/2020 12:00:00 AM EST ETHEL ([facility]) Elpidio Gibson MD: 45439 [address], [place] [address], Ph. [phone] Attender: Elpidio Gibson MD [place] - [facility] 08/11/2020 12:00:00 AM EST ETHEL ([facility]) Elpidio Gibson MD: [address]12 [address], [place] [address], Ph. [phone] Attender: Elpidio Gibson MD [place] - [facility] 08/11/2020 12:00:00 AM EST ETHEL ([facility]) Elpidio Gibson MD: 76269 [address], [place] [address], Ph. [phone] Attender: Elpidio Gibson MD [place] - [facility] 08/11/2020 12:00:00 AM EST ETHEL ([facility]) Elpidio Gibson MD: 05184 [address], [place] [address], Ph. [phone] Attender: Elpidio Gibson MD [place] - [facility] 08/11/2020 12:00:00 AM EST ETHEL ([facility]) Steph Yeung, MASTER SHEET CLERK: [address], [place] [address], Ph. Attender: Steph Yeung [facility] - [facility] 08/03/2020 12:00:00 AM EST ATHE NA ([facility]) Steph Yeung, MASTER SHEET CLERK: [address]78 [address], [place] [address], Ph. Attender: Steph Yeung [facility] - [facility] 08/03/2020 12:00:00 AM EST ATHE NA ([facility]) Steph Yeung, MASTER SHEET CLERK: [address]130 [address], [place] [address], Ph. Attender: Steph Yeung [facility] - [facility] 08/03/2020 12:00:00 AM EST ATHE NA ([facility]) Steph Yeung, MASTER SHEET CLERK: [address]0965 [address], [place] [address], Ph. Attender: Steph Yeung [facility] - [facility] 08/03/2020 12:00:00 AM EST ATHE NA ([facility]) Steph Yeung, MASTER SHEET CLERK: [address]42 [address], [place] [address], Ph. Attender: Steph Yeung [facility] - [facility] 08/03/2020 12:00:00 AM EST ATHE NA ([facility]) Steph Yeung, MASTER SHEET CLERK: [address]15 [address], [place] [address], Ph. Attender: Steph Yeung [facility] - [facility] 08/03/2020 12:00:00 AM EST ATHE NA ([facility]) Steph Yeung, MASTER SHEET CLERK: [address]14 [address], [place] [address], Ph. Attender: Steph Yeung [facility] 08/03/2020 12:00:00 AM EST ATHE NA ([facility]) Steph Yeung, MASTER SHEET CLERK: [address]45 [address], [place] [address], Ph. Attender: Steph Yeung [facility] - [facility] 08/03/2020 12:00:00 AM EST ATHE NA ([facility]) Steph Yeung, MASTER SHEET CLERK: 50256 [address], [place] [address], Ph. Attender: Steph Yeung [facility] - [facility] 08/03/2020 12:00:00 AM EST ATHE NA ([facility]) Steph Yeung, MASTER SHEET CLERK: 24738 [address], [place] [address], Ph. Attender: Steph Yeung [facility] 08/03/2020 12:00:00 AM EST ATHE NA ([facility]) Steph Yeung, MASTER SHEET CLERK: [address]15 [address], [place] [address], Ph. Attender: Steph Yeung [facility] 08/03/2020 12:00:00 AM EST ATHE NA ([facility]) Steph Yeung, MASTER SHEET CLERK: 94200 [address], [place] [address], Ph. Attender: Steph eYung [facility] - [facility] 08/03/2020 12:00:00 AM EST ATHE NA ([facility]) Steph Yeung, MASTER SHEET CLERK: 58176 [address], [place] [address], Ph. Attender: Steph Yeung [facility] 08/03/2020 12:00:00 AM EST ATHE NA ([facility]) Outpatient Attender: Shimon Cordova MD 07/07/2020 09:35: 00 AM EST SCREENING Z12.31 [facility] SCREENING Z12.31 Outpatient Attender: Shimon Cordova MD 06/22/2020 12:00:00 PM EST Z12.11 [facility] Z12.11 Steph Yeung, MASTER SHEET CLERK: [address]903 [address], [place] [address], Ph. Attender: Steph Yeung [facility] - [facility] 06/21/2020 12:00:00 AM EST ATHE NA ([facility]) Steph Yeung, MASTER SHEET CLERK: 64376 [address], [place] [address], Ph. Attender: Steph Yeung [facility] - [facility] 06/21/2020 12:00:00 AM EST ATHE NA ([facility]) Steph Yeung, MASTER SHEET CLERK: 68853 [address], [place] [address], Ph. Attender: Steph Yeung [facility] - [facility] 06/21/2020 12:00:00 AM EST ATHE NA ([facility]) Steph Yeung, MASTER SHEET CLERK: 83474 [address], [place] [address], Ph. Attender: Steph Yeung [facility] - [facility] 06/21/2020 12:00:00 AM EST ATHE NA ([facility]) Steph Yeung, MASTER SHEET CLERK: 27060 [address], [place] [address], Ph. Attender: Steph Yeung [facility] - [facility] 06/21/2020 12:00:00 AM EST ATHE NA ([facility]) Steph Yeung, MASTER SHEET CLERK: 90844 [address], [place] [address], Ph. Attender: Steph Yeung [facility] - [facility] 06/21/2020 12:00:00 AM EST ATHE NA ([facility]) Steph Yeung, MASTER SHEET CLERK: 55864 [address], [address], [place] [address], Ph. Attender: Steph Yeung [facility] - [facility] 06/21/2020 12:00:00 AM EST ATHE NA ([facility]) Steph Yeung, MASTER SHEET CLERK: 25451 [address], [place] [address], Ph. Attender: Steph Yeung [facility] - [facility] 06/21/2020 12:00:00 AM EST ATHE NA ([facility]) Steph Yeung, MASTER SHEET CLERK: 96081 [address], [place] [address], Ph. Attender: Steph Yeung [facility] - [facility] 06/21/2020 12:00:00 AM EST ATHE NA ([facility]) Steph Yeung, MASTER SHEET CLERK: 03589 [address], [address], [place] [address], Ph. Attender: Steph Yeung [facility] - [facility] 06/21/2020 12:00:00 AM EST ATHE NA ([facility]) Steph Yeung, MASTER SHEET CLERK: 45785 [address], [place] [address], Ph. Attender: Stephdennis Cumminsjackieenedelia [facility] - [facility] 06/21/2020 12:00:00 AM EST ATHE NA ([facility]) Steph Yeung, MASTER SHEET CLERK: 44478 [address], [place] [address], Ph. Attender: Steph Yeung [facility] - [facility] 06/21/2020 12:00:00 AM EST ATHE NA ([facility]) Steph Yeung, MASTER SHEET CLERK: [address]2619 [address], [place] [address], Ph. Attender: Steph Yeung [facility] - [facility] 06/21/2020 12:00:00 AM EST ATHE NA ([facility]) Steph Yeung, MASTER SHEET CLERK: 44180 [address], [facility] [place] [address], Ph. Attender: Steph Yeung [facility] - [facility] 06/21/2020 12:00:00 AM EST ATHE NA ([facility]) Outpatient Attender: Shimon Cordova MDReferrer: Shimon Cordova MD 06/10/2020 08:45:00 AM EST - 06/10/2020 09:50:00 AM EST [facility] Outpatient Attender: Shimon Cordova MD 06/08/2020 07:37:00 AM EST E11.9 [facility] E11.9 Outpatient Attender: Little Avery MD 05/24/2020 03:17:00 PM EDT [facility] Outpatient Attender: Shimon Cordova MDReferrer: Shimon Cordova MD 05/07/2020 11:02:00 AM EDT [facility] Steph Yeung, MASTER SHEET CLERK: 70735 [address], [place] [address], Ph. Attender: Steph Yeung [employer] [place] - [facility] 04/28/2020 12:00:00 AM EDT ATHE NA ([facility]) Steph Yeung, MASTER SHEET CLERK: 31639 [address], [address], [place] [address], Ph. Attender: Steph Yeung [facility] - [facility] 04/28/2020 12:00:00 AM EDT ATHE NA ([facility]) Steph Yeung, MASTER SHEET CLERK: 02929 [address], [address], [place] [address], Ph. Attender: Steph Yeung [facility] - [facility] 04/28/2020 12:00:00 AM EDT ATHE NA ([facility]) Steph Yeung, MASTER SHEET CLERK: 96751 [address], [address], [place] [address], Ph. Attender: Steph Yeung [facility] - [facility] 04/28/2020 12:00:00 AM EDT ATHE NA ([facility]) Steph Yeung, MASTER SHEET CLERK: 50131 [address], [address], [place] [address], Ph. Attender: Steph Yeung [facility] - [facility] 04/28/2020 12:00:00 AM EDT ATHE NA ([facility]) Steph Yeung, MASTER SHEET CLERK: 40975 [address], [address], [place] [address], Ph. Attender: Steph Yeung [facility] - [facility] 04/28/2020 12:00:00 AM EDT ATHE NA ([facility]) Steph Perez Maria Gjackieenedelia, MASTER SHEET CLERK: 00946 [address], [address], [place] [address], Ph. Attender: Steph Yeung [facility] - [facility] 04/28/2020 12:00:00 AM EDT ATHE NA ([facility]) Steph Yeung, MASTER SHEET CLERK: 97837 [address], [place] [address], Ph. Attender: Steph Yeung [facility] - [facility] 04/28/2020 12:00:00 AM EDT ATHE NA ([facility]) Steph Yeung, MASTER SHEET CLERK: 94452 [address], [place] [address], Ph. Attender: Steph Yeung [facility] - [facility] 04/28/2020 12:00:00 AM EDT ATHE NA ([facility]) Steph Yeung, MASTER SHEET CLERK: 01554 [address], [place] [address], Ph. Attender: Steph Yeung [facility] - [facility] 04/28/2020 12:00:00 AM EDT ATHE NA ([facility]) Steph Yeung, MASTER SHEET CLERK: 42168 [address], [place] [address], Ph. Attender: Steph Yeung [facility] - [facility] 04/28/2020 12:00:00 AM EDT ATHE NA ([facility]) Steph Yeung, MASTER SHEET CLERK: 41752 [address], [place] [address], Ph. Attender: Steph Yeung [facility] - [facility] 04/28/2020 12:00:00 AM EDT ATHE NA ([facility]) Steph Yeung, MASTER SHEET CLERK: 86654 [address], [place] [address], Ph. Attender: Steph Yeung [facility] - [facility] 04/28/2020 12:00:00 AM EDT ATHAnselmo NA ([facility]) Steph Yeung, MASTER SHEET CLERK: 83975 [address], [address], [place] [address], Ph. Attender: Steph Yeung [facility] - [facility] 04/28/2020 12:00:00 AM EDT CHAITANYA AILEEN ([facility]) Steph Yeung, MASTER SHEET CLERK: 59675 [address], [place] [address], Ph. Attender: Steph Yeung [facility] - [facility] 04/28/2020 12:00:00 AM EDT ATHAnselmo AILEEN ([facility]) Immunizations Vaccine Date Status Description Data Source(s) COVID-19, mRNA, LNP-S, PF, 100 mcg/0.5 mL dose 10/09/2020 12 :00:00 AM EST completed 10/09/2020 ETHEL ([facility] [place] COVID-19, mRNA, LNP-S, PF, 100 mcg/0.5 mL dose 10/09/2020 12 :00:00 AM EST completed 10/09/2020 ETHEL ([facility] [place] COVID-19, mRNA, LNP-S, PF, 100 mcg/0.5 mL dose 10/09/2020 12 :00:00 AM EST completed 10/09/2020 ETHEL ([facility] [place] COVID-19, mRNA, LNP-S, PF, 100 mcg/0.5 mL dose 10/09/2020 12 :00:00 AM EST completed 10/09/2020 ETHEL ([facility] [place] COVID-19 Moderna 10/09/2020 12:00:00 AM EST completed [facility] COVID-19 VACCINE Moderna 10/09/2020 12:00:00 AM EST completed [facility] Vaccine Series Complete: NOThis Data was Submitted to [facility]. COVID-19, mRNA, LNP-S, PF, 100 mcg/0.5 mL dose 09/16/2020 12 :00:00 AM EST completed 09/16/2020 ETHEL ([facility] [place] COVID-19, mRNA, LNP-S, PF, 100 mcg/0.5 mL dose 09/16/2020 12 :00:00 AM EST completed 09/16/2020 ETHEL ([facility] [place] COVID-19, mRNA, LNP-S, PF, 100 mcg/0.5 mL dose 09/16/2020 12 :00:00 AM EST completed 09/16/2020 ETHEL ([facility] [place] COVID-19, mRNA, LNP-S, PF, 100 mcg/0.5 mL dose 09/16/2020 12 :00:00 AM EST completed 09/16/2020 ETHEL ([facility] [place] COVID-19, mRNA, LNP-S, PF, 100 mcg/0.5 mL dose 09/16/2020 12 :00:00 AM EST completed 09/16/2020 ETHEL ([facility] [place] COVID-19 Moderna 09/11/2020 12:00:00 AM EST completed [facility] COVID-19 VACCINE Moderna 09/11/2020 12:00:00 AM EST completed [facility] Vaccine Series Complete: NOThis Data was Submitted to [facility] Via [employer]. IIV3. This is one of two codes replacing CVX 15, which is being retired. 05/07/2020 12:00:00 AM EDT completed [facility] IIV3. This is one of two codes replacing CVX 15, which is being retired. 05/07/2020 12:00:00 AM EDT completed influenza vaccine, inactivated [facility] IIV3. This is one of two codes replacing CVX 15, which is being retired. 05/07/2020 12:00:00 AM EDT completed influenza vaccine, inactivated [facility] IIV3. This is one of two codes replacing CVX 15, which is being retired. 05/07/2020 12:00:00 AM EDT completed influenza vaccine, inactivated [facility] Medications Medication Brand Name Start Date Product Form Dose Route Admi nistrative Instructions Pharmacy Instructions Status Indications Reaction Description Data Source(s) Ondansetron 4 MG Disintegrating Oral Tablet ONDANSETRON 05/20/2021 12:00:00 AM EDT tablet,disintegrating 20 DISSOLVE O NE TABLET ON TONGUE EVERY 8 HOURS NEEDED FOR NAUSEA AND VOMITING DISSOLVE ONE TABLET ON TONGUE EVERY 8 HO URS NEEDED FOR NAUSEA AND VOMITING SOLD: 05/20/2021 [facility] 500 mg 05/19/2021 12:00:00 AM EDT tablet 14 TAKE ONE TABLET BY MOUTH TWICE A DAY FOR 7 DAYS TAKE ONE TABLET BY MOUTH TWICE A DAY FOR 7 DAYS SOLD: 2020 [facility] 60 mg 04/14/2021 12:00:00 AM EDT capsule,delayed release (DR/EC) 30 TAKE ONE CAPSULE BY MOUTH EVERY DAY TAKE ONE CAPSULE BY MOUTH EVERY DAY SOLD: 04/19/2021 [facility] 60 mg 04/14/2021 12:00:00 AM EDT capsule,delayed release (DR/EC) 30 TAKE ONE CAPSULE BY MOUTH EVERY DAY TAKE ONE CAPSULE BY MOUTH EVERY DAY SOLD: 05/20/2021 [facility] 500 mg 04/11/2021 12:00:00 AM EDT tablet 14 TAKE ONE TABLET BY MOUTH TWICE A DAY FOR 7 DAYS TAKE ONE TABLET BY MOUTH TWICE A DAY FOR 7 DAYS SOLD: 2020 [facility] 60 mg 03/17/2021 12:00:00 AM EDT capsule,delayed release (DR/EC) 30 TAKE ONE CAPSULE BY MOUTH EVERY DAY TAKE ONE CAPSULE BY MOUTH EVERY DAY SOLD: 03/18/2021 [facility] 24 HR Oxybutynin chloride 15 MG Extended Release Oral Tablet Oxybutynin Chloride Oxybutynin Chloride 03/07/2021 07:24:21 AM EDT 0 active [facility] 24 HR metoprolol succinate 50 MG Extende d Release Oral Tablet Metoprolol Succinate Metoprolol Succinate 03/07/2021 07:24:17 AM EDT 0 active [facility] 15 mg 03/07/2021 12:00:00 AM EDT tablet extended release 24hr 30 TAKE ONE TABLET BY MOUTH EVERY DAY TAKE ONE TABLET BY MOUTH EVERY DAY SOLD: 04/19/2021 [facility] 15 mg 03/07/2021 12:00:00 AM EDT tablet extended release 24hr 30 TAKE ONE TABLET BY MOUTH EVERY DAY TAKE ONE TABLET BY MOUTH EVERY DAY SOLD: 03/18/2021 [facility] 50 mg 03/07/2021 12:00:00 AM EDT tablet extended release 24 hr 30 TAKE ONE TABLET BY MOUTH EVERY DAY TAKE ONE TABLET BY MOUTH EVERY DAY SOLD: 04/19/2021 [facility] 50 mg 03/07/2021 12:00:00 AM EDT tablet extended release 24 hr 30 TAKE ONE TABLET BY MOUTH EVERY DAY TAKE ONE TABLET BY MOUTH EVERY DAY SOLD: 03/18/2021 [facility] 15 mg 03/07/2021 12:00:00 AM EDT tablet extended release 24hr 30 TAKE ONE TABLET BY MOUTH EVERY DAY TAKE ONE TABLET BY MOUTH EVERY DAY SOLD: 05/20/2021 [facility] 50 mg 03/07/2021 12:00:00 AM EDT tablet extended release 24 hr 30 TAKE ONE TABLET BY MOUTH EVERY DAY TAKE ONE TABLET BY MOUTH EVERY DAY SOLD: 05/20/2021 [facility] 24 HR metoprolol succinate 50 MG Extende d Release Oral Tablet metoprolol (TOPROL-XL) 24 hr tablet 50 mg metoprolol (TOPROL-XL) 24 hr tablet 50 mg 02/24/2021 09:00:00 AM EDT 50 mg Oral active 50 mg, Oral, Daily Standard, First dose on [facility] 02/24/21 at 0900, For 3 doses
Do not crush or chew
[facility] Medication administered onsite pantoprazole 40 MG Delayed Release Oral Tablet pantoprazole (PROTONIX) EC tablet 40 mg pantoprazole (PROTONIX) EC tablet 40 mg 02/24/2021 09:00:00 AM E DT 40 mg Oral active 40 mg, Ora l, Daily Standard, First dose on [facility] 02/24/21 at 0900, For 3 days
Do not crush or chew
[facility] Medication administered onsite Pravastatin Sodium 40 MG Oral Tablet pravastatin (PRAV ACHOL) tablet 40 mg pravastatin (PRAVACHOL) tablet 40 mg 02/24/2021 09:00:00 AM EDT 40 mg Oral completed 40 mg, Oral, Camilla ly Standard, First dose on Sun02/24/21 at 0900, For 1 dose [facility] Medication administered onsite insulin lispro (HumaLOG) injection LOW DOSE EATING INS ULIN patients 1-8 Units [id number] 02/24/2021 08:00:00 AM EDT U Subcutaneous active 1-8 Units, Subcutaneous, Three Times Daily-With Meals, First dose on Sun02/24/21 at 0800, For 30 days
Nursing MUST open the 'SQ Insulin Dosing Charts' Sidebar Report, or, the Patient Summary or Summary Report within the ED.
[facility] Medication administered onsite 50 mg 02/24/2021 12:00:00 AM EDT tablet 30 TAKE ONE TABLET BY MOUTH EVERY 6 HOURS NEEDED MAXIMUM DAILY DOSE = 4 TAKE ONE TABLET BY MOUTH EVERY 6 HOURS A S NEEDED MAXIMUM DAILY DOSE = 4 SOLD: 02/24/2021 [facility] tramadol hydrochloride 50 MG Oral Tablet traMADol HCl 50 MG Oral Tablet (ULTRAM) traMADol HCl 50 MG Oral Tablet (ULTRAM) 02/24/2021 12:00:00 AM EDT 50 mg Oral aborted Take 1 tablet b y mouth every 6 (six) hours as needed for up to 10 doses, Max Daily Dose: 200 mg [facility] Acetaminophen 325 MG Oral Tablet Acetaminophen 325 MG Oral T ablet 02/24/2021 12:00:00 AM EDT 650 mg Oral active Take 2 tablets by mouth Four times daily for 10 days [facility] duloxetine 60 MG Delayed Release Oral Ca psule DULoxetine (CYMBALTA) DR capsule 60 mg DULoxetine (CYMBALTA) DR capsule 60 mg 02/23/2021 10:00:00 PM EDT 60 mg Oral active 60 mg, Oral, N ightly, First dose on Sun02/23/21 at 2200, For 30 days
Do not crush or chew
[facility] Medication administered onsite heparin (porcine) 5000 UNIT/ML injection 5,000 Units [id number] 02/23/2021 09:00:00 PM EDT 5000 U Subcutaneous active 5,000 Units, Subcutaneous, 2 Times Daily, First dose on Sun02/23/21 at 2100, For 30 days [facility] Medication administered onsite Acetaminophen 325 MG Oral Tablet acetaminophen (TYLENO L) tablet 650 mg acetaminophen (TYLENOL) tablet 650 mg 02/23/2021 09:00:00 PM EDT 65 0 mg Oral active 650 mg, Oral, F our Times Daily Standard, First dose (after last modification) on Sun02/23/21 at 2100, For 3 days
Maximum daily dose of acetaminophen is 3,000 mg from all sources in 24 hours.
[facility] Medication administered onsite Glucagon 1 MG Injection glucagon (human recombinant) ( GLUCAGEN) injection 1 mg glucagon (human recombinant) (GLUCAGEN) injection 1 mg 02/23/2021 06:40:28 PM EDT 1 mg Intramuscular active 1 mg, Intramuscular, PRN, for glucose <55 without IV access, Starting on Sun02/23/21 at 1840, For 30 days [facility] Medication administered onsite dextrose 50 % IV solution 25 mL [id number] 02/23/2021 06:40:28 PM E DT 25 mL Intravenous active 25 mL, Intrav enous, PRN, Other, blood glucose <55, Starting on Sun02/23/21 at 1840, For 30 days
Not for midline administration.
[facility] Medication administered onsite Glucose 0.417 MG/MG Oral Gel glucose (GLUTOSE) 40 % or al gel 15 g glucose (GLUTOSE) 40 % oral gel 15 g 02/23/2021 06:40:28 PM EDT 15 g Oral active 15 g, Oral, PRN, Low blood s ugar, for gluose 55-69 mg/dl and able to take PO, Starting on Sun02/23/21 at 1840, For 30 days [facility] Medication administered onsite Prochlorperazine 5 MG/ML Injectable Solu tion prochlorperazine (COMPAZINE) injection 10 mg prochlorperazine (COMPAZINE) injection 10 mg 05:26:00 PM EDT 10 mg Intravenous active 10 m g, Intravenous, Every 6 hours PRN, Nausea, Vomiting, Starting on Sun02/23/21 at 1726, For 30 days
For IV use: Prepare in 50 mL NS and infuse over 15 minutes.
[facility] Medication administered onsite Ondansetron 4 MG Disintegrating Oral Tab let ondansetron (ZOFRAN-ODT) disintegrating tablet 4 mg ondansetron (ZOFRAN-ODT) disintegrating tablet 4 mg 02/23/2021 05:25:08 PM EDT 4 mg Oral active 4 mg, Oral, Every 8 hours PRN, Nausea, Vomiting, Starting on Sun02/23/21 at 1725, For 30 days
Dissolve on tongue.
[facility] Medication administered onsite fentaNYL (SUBLIMAZE) (PF) injection 25 mcg [id number] 02/23/2021 05:24:35 PM EDT 25 ug Intravenous active 25 m cg, Intravenous, Every 1 hour PRN, Severe Pain (Pain Scale Score 7-10), Break through, Starting on Sun02/23/21 at 1724, For 3 days [facility] Medication administered onsite ondansetron (ZOFRAN) injection 4 mg [id number] 02/23/2021 04:36:1 6 PM EDT 4 mg Intravenous completed 4 mg, In travenous, Once PRN, Nausea, Vomiting, Starting on Sun02/23/21 at 1636, For 1 dose, Recovery [facility] Medication administered onsite fentaNYL (SUBLIMAZE) (PF) injection 25 mcg [id number] 02/23/2021 04:36:16 PM EDT 25 ug Intravenous aborted 25 m cg, Intravenous, Every 5 min PRN, Moderate Pain (Pain Scale Score 4-6), Starting on Sun02/23/21 at 1636, For 4 doses, Recovery [facility] Medication administered onsite tramadol hydrochloride 50 MG Oral Tablet tramadol (ULT JERMAN) tablet 50 mg tramadol (ULTRAM) tablet 50 mg 02/23/2021 04:32:28 PM EDT 50 mg Oral active 50 mg, Oral, Every 6 hours PRN, Moderate Pain (Pain Scale Score 4-6), Starting on Sun02/23/21 at 1632, For 3 days [facility] Medication administered onsite TC-99M tilmanocept (LYMPHOSEEK) [id number] 02/23/2021 08:00:00 AM EDT Intravenous completed Intravenous, Once, On Sun02/23/21 at 0800, For 1 dose, Imaging Protocol [facility] Medication administered onsite 2 ML Midazolam 1 MG/ML Injection midazolam (PF) (VERSE D) injection 0.5 mg midazolam (PF) (VERSED) injection 0.5 mg 02/23/2021 07:54:16 AM EDT 0.5 mg Intravenous completed 0.5 mg, Intra venous, Every 2 min PRN, Sedation, Anxiety, Starting on Sun02/23/21 at 0754, For 2 doses, Pre-op
To be given by Regional Block Nurse to be given for sedation during block procedure.
[facility] Medication administered onsite fentaNYL (SUBLIMAZE) (PF) injection 50 mcg [id number] 02/23/2021 07:54:16 AM EDT 50 ug Intravenous completed 50 mcg, Intravenous, Every 2 min PRN, Other, Sedation, Starting on Sun02/23/21 at 0754, For 2 doses, Pre-op
To be given by Regional Block Nurse for sedation during block procedure.
[facility] Medication administered onsite Aspirin 81 MG Delayed Release Oral Table t Aspirin (Adult Low Dose Aspirin) 81 mg tablet,delayed release (DR/EC) Aspirin (Adult Low Dose Aspirin) 81 mg tablet,delayed release (DR/EC) 02/17/2021 12:49:37 PM EDT 81 MG active [facility] Famotidine 20 MG Oral Tablet FAMOTIDINE 02/17/2021 12:00:00 AM EDT tab let 60 TAKE ONE TABLET BY MOUTH TWICE A DAY TAKE ONE TABLET BY MOUTH TWICE A DAY SOLD: 02/18/2021 [facility] Famotidine 20 MG Oral Tablet FAMOTIDINE 02/17/2021 12:00:00 AM EDT tab let 60 TAKE ONE TABLET BY MOUTH TWICE A DAY TAKE ONE TABLET BY MOUTH TWICE A DAY SOLD: 05/20/2021 [facility] 60 mg 02/17/2021 12:00:00 AM EDT capsule,delayed release (DR/EC) 30 TAKE ONE CAPSULE BY MOUTH EVERY DAY TAKE ONE CAPSULE BY MOUTH EVERY DAY SOLD: 02/18/2021 [facility] Famotidine 20 MG Oral Tablet FAMOTIDINE 02/17/2021 12:00:00 AM EDT tab let 60 TAKE ONE TABLET BY MOUTH TWICE A DAY TAKE ONE TABLET BY MOUTH TWICE A DAY SOLD: 03/18/2021 [facility] Famotidine 20 MG Oral Tablet FAMOTIDINE 02/17/2021 12:00:00 AM EDT tab let 60 TAKE ONE TABLET BY MOUTH TWICE A DAY TAKE ONE TABLET BY MOUTH TWICE A DAY SOLD: 04/19/2021 [facility] 40 mg 01/03/2021 12:00:00 AM EDT tablet 30 TAKE ONE TABLET BY MOUTH AT BEDTIME TAKE ONE TABLET BY MOUTH AT BEDTIME SOLD: 02/09/2021 [facility] 40 mg 01/03/2021 12:00:00 AM EDT tablet 30 TAKE ONE TABLET BY MOUTH AT BEDTIME TAKE ONE TABLET BY MOUTH AT BEDTIME SOLD: 03/18/2021 [facility] 40 mg 01/03/2021 12:00:00 AM EDT tablet 30 TAKE ONE TABLET BY MOUTH AT BEDTIME TAKE ONE TABLET BY MOUTH AT BEDTIME SOLD: 04/19/2021 [facility] 40 mg 01/03/2021 12:00:00 AM EDT tablet 30 TAKE ONE TABLET BY MOUTH AT BEDTIME TAKE ONE TABLET BY MOUTH AT BEDTIME SOLD: 05/20/2021 [facility] 40 mg 01/03/2021 12:00:00 AM EDT tablet 30 TAKE ONE TABLET BY MOUTH AT BEDTIME TAKE ONE TABLET BY MOUTH AT BEDTIME SOLD: 01/09/2021 [facility] Pravastatin Sodium 40 MG Oral Tablet Pravastatin 12/29/2020 07:20: 24 AM EDT 40 MG active [facility] Metformin Metformin 11/29/2020 07:11:29 AM EDT 500 MG a ctive [facility] 60 mg 11/29/2020 12:00:00 AM EDT capsule,delayed release (DR/EC) 30 TAKE ONE CAPSULE BY MOUTH EVERY DAY TAKE ONE CAPSULE BY MOUTH EVERY DAY SOLD: 12/04/2020 [facility] 24 HR Metformin hydrochloride 500 MG Extended Release Oral T ablet METFORMIN HCL 11/29/2020 12:00:00 AM EDT tablet extended release 24 hr 30 TAKE ONE TABLET BY MOUTH EVERY EVENING TAKE ONE TABLET BY MOUTH EVERY EVENING SOLD: 04/19/2021 [facility] 24 HR Metformin hydrochloride 500 MG Extended Release Oral T ablet METFORMIN HCL 11/29/2020 12:00:00 AM EDT tablet extended release 24 hr 30 TAKE ONE TABLET BY MOUTH EVERY EVENING TAKE ONE TABLET BY MOUTH EVERY EVENING SOLD: 03/18/2021 [facility] 60 mg 11/29/2020 12:00:00 AM EDT capsule,delayed release (DR/EC) 30 TAKE ONE CAPSULE BY MOUTH EVERY DAY TAKE ONE CAPSULE BY MOUTH EVERY DAY SOLD: 01/09/2021 [facility] 24 HR Metformin hydrochloride 500 MG Extended Release Oral T ablet METFORMIN HCL 11/29/2020 12:00:00 AM EDT tablet extended release 24 hr 30 TAKE ONE TABLET BY MOUTH EVERY EVENING TAKE ONE TABLET BY MOUTH EVERY EVENING SOLD: 01/09/2021 [facility] 24 HR Metformin hydrochloride 500 MG Extended Release Oral T ablet METFORMIN HCL 11/29/2020 12:00:00 AM EDT tablet extended release 24 hr 30 TAKE ONE TABLET BY MOUTH EVERY EVENING TAKE ONE TABLET BY MOUTH EVERY EVENING SOLD: 05/20/2021 [facility] 24 HR Metformin hydrochloride 500 MG Extended Release Oral T ablet METFORMIN HCL 11/29/2020 12:00:00 AM EDT tablet extended release 24 hr 30 TAKE ONE TABLET BY MOUTH EVERY EVENING TAKE ONE TABLET BY MOUTH EVERY EVENING SOLD: 02/09/2021 [facility] 500 mg 11/29/2020 12:00:00 AM EDT tablet extended release 24 hr 30 TAKE ONE TABLET BY MOUTH EVERY EVENING TAKE ONE TABLET BY MOUTH EVERY EVENING SOLD: 12/04/2020 [facility] Ciprofloxacin 500 MG Oral Tablet Ciprofloxacin Hcl Ciproflox acin Hcl 11/09/2020 02:20:54 PM EDT 500 MG completed [facility] Ciprofloxacin 500 MG Oral Tablet Ciprofloxacin HCl 500 MG Oral Tablet (CIPRO) Ciprofloxacin HCl 500 MG Oral Tablet (CIPRO) 11/09/2020 12:00:00 AM EDT 500 mg Oral aborted Take 500 mg by mouth Two Times Daily [facility] 500 mg 11/09/2020 12:00:00 AM EDT tablet 14 TAKE ONE TABLET BY MOUTH TWICE A DAY FOR 7 DAYS FOR UTI TAKE ONE TABLET BY MOUTH TWICE A DAY FOR 7 DAYS FOR UT I SOLD: 11/09/2020 [facility] 500 mg 10/21/2020 12:00:00 AM EDT tablet 29 TAKE 2 TABLETS BY MOUTH IMMEDIATELY THEN TAKE ONE TABLET FOUR TIMES A DAY TAKE 2 TABLETS BY MOUTH IMMEDIATELY THEN TAKE ONE TABLET FOUR TIMES A DAY SOLD: 10/21/2020 [facility] Famotidine 20 MG Oral Tablet FAMOTIDINE 10/04/2020 12:00:00 AM EST tab let 60 TAKE ONE TABLET BY MOUTH TWICE A DAY TAKE ONE TABLET BY MOUTH TWICE A DAY SOLD: 11/04/2020 [facility] Famotidine 20 MG Oral Tablet FAMOTIDINE 10/04/2020 12:00:00 AM EST tab let 60 TAKE ONE TABLET BY MOUTH TWICE A DAY TAKE ONE TABLET BY MOUTH TWICE A DAY SOLD: 12/04/2020 [facility] Famotidine 20 MG Oral Tablet FAMOTIDINE 10/04/2020 12:00:00 AM EST tab let 60 TAKE ONE TABLET BY MOUTH TWICE A DAY TAKE ONE TABLET BY MOUTH TWICE A DAY SOLD: 01/09/2021 [facility] 20 mg 10/04/2020 12:00:00 AM EST tablet 60 TAKE ONE TABLET BY MOUTH TWICE A DAY TAKE ONE TABLET BY MOUTH TWICE A DAY SOLD: 10/13/2020 [facility] 800 mg 09/29/2020 12:00:00 AM EST tablet 20 TAKE ONE TABLET BY MOUTH FOUR TIMES A DAY NEEDED TAKE ONE TABLET BY MOUTH FOUR TIMES A DAY NEEDED SO LD: 09/29/2020 [facility] 0.77 % 09/28/2020 12:00:00 AM EST cream 15 APPLY TO FOOT TWO TIMES A DAY APPLY TO FOOT TWO TIMES A DAY SOLD: 09/28/2020 [facility] ciclopirox 7.7 MG/ML Topical Cream Ciclo pirox Olamine 0.77 % External Cream (LOPROX) Ciclopirox Olamine 0.77 % External Cream (LOPROX) 08/2020 12:00:00 AM EST aborted APPLY TO FOOT TW O TIMES A DAY [facility] 60 mg 09/07/2020 12:00:00 AM EST capsule,delayed release (DR/EC) 30 TAKE ONE CAPSULE BY MOUTH EVERY DAY TAKE ONE CAPSULE BY MOUTH EVERY DAY SOLD: 10/03/2020 [facility] 60 mg 09/07/2020 12:00:00 AM EST capsule,delayed release (DR/EC) 30 TAKE ONE CAPSULE BY MOUTH EVERY DAY TAKE ONE CAPSULE BY MOUTH EVERY DAY SOLD: 09/08/2020 [facility] 24 HR Oxybutynin chloride 15 MG Extended Release Oral Tablet Oxybutynin Chloride Oxybutynin Chloride 09/06/2020 07:10:52 AM EST 0 active [facility] 24 HR Oxybutynin chloride 15 MG Extended Release Oral Tablet Oxybutynin Chloride Oxybutynin Chloride 09/06/2020 07:10:52 AM EST 0 completed [facility] 24 HR metoprolol succinate 50 MG Extende d Release Oral Tablet Metoprolol Succinate Metoprolol Succinate 09/06/2020 07:10:13 AM EST 0 completed [facility] 24 HR metoprolol succinate 50 MG Extende d Release Oral Tablet Metoprolol Succinate Metoprolol Succinate 09/06/2020 07:10:13 AM EST 0 active [facility] 50 mg 09/06/2020 12:00:00 AM EST tablet extended release 24 hr 30 TAKE ONE TABLET BY MOUTH EVERY DAY TAKE ONE TABLET BY MOUTH EVERY DAY SOLD: 11/04/2020 [facility] 15 mg 09/06/2020 12:00:00 AM EST tablet extended release 24hr 30 TAKE ONE TABLET BY MOUTH EVERY DAY TAKE ONE TABLET BY MOUTH EVERY DAY SOLD: 02/09/2021 [facility] 15 mg 09/06/2020 12:00:00 AM EST tablet extended release 24hr 30 TAKE ONE TABLET BY MOUTH EVERY DAY TAKE ONE TABLET BY MOUTH EVERY DAY SOLD: 01/09/2021 [facility] 50 mg 09/06/2020 12:00:00 AM EST tablet extended release 24 hr 30 TAKE ONE TABLET BY MOUTH EVERY DAY TAKE ONE TABLET BY MOUTH EVERY DAY SOLD: 10/03/2020 [facility] 50 mg 09/06/2020 12:00:00 AM EST tablet extended release 24 hr 30 TAKE ONE TABLET BY MOUTH EVERY DAY TAKE ONE TABLET BY MOUTH EVERY DAY SOLD: 01/09/2021 [facility] 50 mg 09/06/2020 12:00:00 AM EST tablet extended release 24 hr 30 TAKE ONE TABLET BY MOUTH EVERY DAY TAKE ONE TABLET BY MOUTH EVERY DAY SOLD: 12/04/2020 [facility] 15 mg 09/06/2020 12:00:00 AM EST tablet extended release 24hr 30 TAKE ONE TABLET BY MOUTH EVERY DAY TAKE ONE TABLET BY MOUTH EVERY DAY SOLD: 10/03/2020 [facility] 50 mg 09/06/2020 12:00:00 AM EST tablet extended release 24 hr 30 TAKE ONE TABLET BY MOUTH EVERY DAY TAKE ONE TABLET BY MOUTH EVERY DAY SOLD: 02/09/2021 [facility] 15 mg 09/06/2020 12:00:00 AM EST tablet extended release 24hr 30 TAKE ONE TABLET BY MOUTH EVERY DAY TAKE ONE TABLET BY MOUTH EVERY DAY SOLD: 09/07/2020 [facility] 15 mg 09/06/2020 12:00:00 AM EST tablet extended release 24hr 30 TAKE ONE TABLET BY MOUTH EVERY DAY TAKE ONE TABLET BY MOUTH EVERY DAY SOLD: 12/04/2020 [facility] 50 mg 09/06/2020 12:00:00 AM EST tablet extended release 24 hr 30 TAKE ONE TABLET BY MOUTH EVERY DAY TAKE ONE TABLET BY MOUTH EVERY DAY SOLD: 09/07/2020 [facility] 15 mg 09/06/2020 12:00:00 AM EST tablet extended release 24hr 30 TAKE ONE TABLET BY MOUTH EVERY DAY TAKE ONE TABLET BY MOUTH EVERY DAY SOLD: 11/04/2020 [facility] 60 mg 08/11/2020 12:00:00 AM EST capsule,delayed release (DR/EC) 30 TAKE ONE CAPSULE BY MOUTH EVERY DAY TAKE ONE CAPSULE BY MOUTH EVERY DAY SOLD: 08/13/2020 [facility] 30 mg 07/30/2020 12:00:00 AM EST capsule,delayed release (DR/EC) 30 TAKE ONE CAPSULE BY MOUTH EVERY DAY TAKE ONE CAPSULE BY MOUTH EVERY DAY SOLD: 08/03/2020 [facility] 500 mg 07/05/2020 12:00:00 AM EST tablet 28 TAKE ONE TABLET BY MOUTH FOUR TIMES A DAY UNTIL GONE TAKE ONE TABLET BY MOUTH FOUR TIMES A DAY UNTIL GONE SOLD: 07/05/2020 [facility] 20 mg 07/02/2020 12:00:00 AM EST tablet 60 TAKE ONE TABLET BY MOUTH TWICE A DAY TAKE ONE TABLET BY MOUTH TWICE A DAY SOLD: 07/04/2020 [facility] 20 mg 07/02/2020 12:00:00 AM EST tablet 60 TAKE ONE TABLET BY MOUTH TWICE A DAY TAKE ONE TABLET BY MOUTH TWICE A DAY SOLD: 08/03/2020 [facility] Famotidine 20 MG Oral Tablet FAMOTIDINE 07/02/2020 12:00:00 AM EST tab let 60 TAKE ONE TABLET BY MOUTH TWICE A DAY TAKE ONE TABLET BY MOUTH TWICE A DAY SOLD: 09/07/2020 [facility] duloxetine 60 MG Delayed Release Oral Capsule Duloxetine Dul oxetine 06/10/2020 09:08:[address] [facility] duloxetine 60 MG Delayed Release Oral Capsule Duloxetine Dul oxetine 06/10/2020 09:08:38 AM EST active [facility] duloxetine 60 MG Delayed Release Oral Capsule Duloxetine Dul oxetine 06/10/2020 09:08:[address] [facility] 60 mg 06/09/2020 12:00:00 AM EST capsule,delayed release (DR/EC) 30 TAKE ONE CAPSULE BY MOUTH EVERY DAY TAKE ONE CAPSULE BY MOUTH EVERY DAY SOLD: 07/04/2020 [facility] 60 mg 06/09/2020 12:00:00 AM EST capsule,delayed release (DR/EC) 30 TAKE ONE CAPSULE BY MOUTH EVERY DAY TAKE ONE CAPSULE BY MOUTH EVERY DAY SOLD: 06/10/2020 [facility] 500 mg 06/01/2020 12:00:00 AM EST tablet extended release 24 hr 30 TAKE ONE TABLET BY MOUTH EVERY EVENING TAKE ONE TABLET BY MOUTH EVERY EVENING SOLD: 10/03/2020 [facility] 500 mg 06/01/2020 12:00:00 AM EST tablet extended release 24 hr 30 TAKE ONE TABLET BY MOUTH EVERY EVENING TAKE ONE TABLET BY MOUTH EVERY EVENING SOLD: 11/04/2020 [facility] 500 mg 06/01/2020 12:00:00 AM EST tablet extended release 24 hr 30 TAKE ONE TABLET BY MOUTH EVERY EVENING TAKE ONE TABLET BY MOUTH EVERY EVENING SOLD: 09/07/2020 [facility] 500 mg 06/01/2020 12:00:00 AM EST tablet extended release 24 hr 30 TAKE ONE TABLET BY MOUTH EVERY EVENING TAKE ONE TABLET BY MOUTH EVERY EVENING SOLD: 08/03/2020 [facility] 500 mg 06/01/2020 12:00:00 AM EST tablet extended release 24 hr 30 TAKE ONE TABLET BY MOUTH EVERY EVENING TAKE ONE TABLET BY MOUTH EVERY EVENING SOLD: 06/04/2020 [facility] 500 mg 06/01/2020 12:00:00 AM EST tablet extended release 24 hr 30 TAKE ONE TABLET BY MOUTH EVERY EVENING TAKE ONE TABLET BY MOUTH EVERY EVENING SOLD: 07/04/2020 [facility] Metformin Metformin 05/31/2020 08:07:45 AM EST [address] [facility] Metformin Metformin 05/31/2020 08:07:45 AM EST [address] [facility] Metformin Metformin 05/31/2020 08:07:45 AM EST 500 MG c ompleted [facility] 500 mg 05/17/2020 12:00:00 AM EDT tablet 29 TAKE TWO TABLETS BY MOUTH NOW, THEN 1 TABLET FOUR TIMES A DAY UNTIL GONE TAKE TWO TABLETS BY MOUTH NOW, THEN 1 TABLET FOUR TIMES A DAY UNTIL GONE SOLD: 05/17/2020 [facility] (3yr up)(PF) (flu vac [id number] 36mos up(P F)) 05/07/2020 11:02:19 AM EDT 60 MCG completed [facility] Qd (3yr up)(PF) (flu vac [id number] 36mos up(P F)) 05/07/2020 11:02:19 AM EDT 60 MCG completed [facility] Qd (3yr up)(PF) (flu vac [id number] 36mos up(P F)) 05/07/2020 11:02:19 AM EDT 60 MCG completed [facility] Qd (3yr up)(PF) (flu vac [id number] 36mos up(P F)) 05/07/2020 11:02:19 AM EDT 60 MCG completed [facility] 60 mg 05/02/2020 12:00:00 AM EDT capsule,delayed release (DR/EC) 30 TAKE ONE CAPSULE BY MOUTH EVERY DAY TAKE ONE CAPSULE BY MOUTH EVERY DAY SOLD: 11/04/2020 [facility] 60 mg 05/02/2020 12:00:00 AM EDT capsule,delayed release (DR/EC) 30 TAKE ONE CAPSULE BY MOUTH EVERY DAY TAKE ONE CAPSULE BY MOUTH EVERY DAY SOLD: 05/05/2020 [facility] 30 mg 04/02/2020 12:00:00 AM EDT capsule,delayed release (DR/EC) 30 TAKE ONE CAPSULE BY MOUTH EVERY DAY TAKE ONE CAPSULE BY MOUTH EVERY DAY SOLD: 04/05/2020 [facility] Famotidine 20 MG Oral Tablet FAMOTIDINE 03/02/2020 12:00:00 AM EDT tab let 60 TAKE ONE TABLET BY MOUTH TWICE A DAY TAKE ONE TABLET BY MOUTH TWICE A DAY SOLD: 04/28/2020 [facility] 20 mg 03/02/2020 12:00:00 AM EDT tablet 60 TAKE ONE TABLET BY MOUTH TWICE A DAY TAKE ONE TABLET BY MOUTH TWICE A DAY SOLD: 06/04/2020 [facility] 20 mg 03/02/2020 12:00:00 AM EDT tablet 20 TAKE ONE TABLET BY MOUTH TWICE A DAY TAKE ONE TABLET BY MOUTH TWICE A DAY SOLD: 05/30/2020 [facility] Oxybutynin Chloride 02/23/2020 02:02:39 PM EDT 0 completed [facility] Oxybutynin Chloride 02/23/2020 02:02:39 PM EDT 0 completed [facility] 24 HR metoprolol succinate 50 MG Extende d Release Oral Tablet Metoprolol Succinate Metoprolol Succinate 02/23/2020 02:01:08 PM EDT 0 completed [facility] 24 HR metoprolol succinate 50 MG Extende d Release Oral Tablet Metoprolol Succinate Metoprolol Succinate 02/23/2020 02:01:08 PM EDT 0 completed [facility] 50 mg 02/23/2020 12:00:00 AM EDT tablet extended release 24 hr 30 TAKE ONE TABLET BY MOUTH EVERY DAY TAKE ONE TABLET BY MOUTH EVERY DAY SOLD: 06/04/2020 [facility] 50 mg 02/23/2020 12:00:00 AM EDT tablet extended release 24 hr 30 TAKE ONE TABLET BY MOUTH EVERY DAY TAKE ONE TABLET BY MOUTH EVERY DAY SOLD: 04/01/2020 [facility] 50 mg 02/23/2020 12:00:00 AM EDT tablet extended release 24 hr 30 TAKE ONE TABLET BY MOUTH EVERY DAY TAKE ONE TABLET BY MOUTH EVERY DAY SOLD: 08/03/2020 [facility] 50 mg 02/23/2020 12:00:00 AM EDT tablet extended release 24 hr 30 TAKE ONE TABLET BY MOUTH EVERY DAY TAKE ONE TABLET BY MOUTH EVERY DAY SOLD: 07/04/2020 [facility] 50 mg 02/23/2020 12:00:00 AM EDT tablet extended release 24 hr 30 TAKE ONE TABLET BY MOUTH EVERY DAY TAKE ONE TABLET BY MOUTH EVERY DAY SOLD: 05/05/2020 [facility] 15 mg 02/22/2020 12:00:00 AM EDT tablet extended release 24hr 30 TAKE ONE TABLET BY MOUTH EVERY DAY TAKE ONE TABLET BY MOUTH EVERY DAY SOLD: 08/03/2020 [facility] 15 mg 02/22/2020 12:00:00 AM EDT tablet extended release 24hr 30 TAKE ONE TABLET BY MOUTH EVERY DAY TAKE ONE TABLET BY MOUTH EVERY DAY SOLD: 06/04/2020 [facility] 15 mg 02/22/2020 12:00:00 AM EDT tablet extended release 24hr 30 TAKE ONE TABLET BY MOUTH EVERY DAY TAKE ONE TABLET BY MOUTH EVERY DAY SOLD: 07/04/2020 [facility] 15 mg 02/22/2020 12:00:00 AM EDT tablet extended release 24hr 30 TAKE ONE TABLET BY MOUTH EVERY DAY TAKE ONE TABLET BY MOUTH EVERY DAY SOLD: 04/01/2020 [facility] 15 mg 02/22/2020 12:00:00 AM EDT tablet extended release 24hr 30 TAKE ONE TABLET BY MOUTH EVERY DAY TAKE ONE TABLET BY MOUTH EVERY DAY SOLD: 05/05/2020 [facility] Pravastatin Sodium 40 MG Oral Tablet Pravastatin 12/29/2019 07:28: 38 AM EDT 40 MG [facility] 40 mg 12/29/2019 12:00:00 AM EDT tablet 30 TAKE ONE TABLET BY MOUTH AT BEDTIME TAKE ONE TABLET BY MOUTH AT BEDTIME SOLD: 10/03/2020 [facility] 40 mg 12/29/2019 12:00:00 AM EDT tablet 30 TAKE ONE TABLET BY MOUTH AT BEDTIME TAKE ONE TABLET BY MOUTH AT BEDTIME SOLD: 11/04/2020 [facility] 40 mg 12/29/2019 12:00:00 AM EDT tablet 30 TAKE ONE TABLET BY MOUTH AT BEDTIME TAKE ONE TABLET BY MOUTH AT BEDTIME SOLD: 09/07/2020 [facility] 40 mg 12/29/2019 12:00:00 AM EDT tablet 30 TAKE ONE TABLET BY MOUTH AT BEDTIME TAKE ONE TABLET BY MOUTH AT BEDTIME SOLD: 07/04/2020 [facility] 40 mg 12/29/2019 12:00:00 AM EDT tablet 30 TAKE ONE TABLET BY MOUTH AT BEDTIME TAKE ONE TABLET BY MOUTH AT BEDTIME SOLD: 08/03/2020 [facility] 40 mg 12/29/2019 12:00:00 AM EDT tablet 30 TAKE ONE TABLET BY MOUTH AT BEDTIME TAKE ONE TABLET BY MOUTH AT BEDTIME SOLD: 12/04/2020 [facility] 40 mg 12/29/2019 12:00:00 AM EDT tablet 30 TAKE ONE TABLET BY MOUTH AT BEDTIME TAKE ONE TABLET BY MOUTH AT BEDTIME SOLD: 04/01/2020 [facility] 40 mg 12/29/2019 12:00:00 AM EDT tablet 30 TAKE ONE TABLET BY MOUTH AT BEDTIME TAKE ONE TABLET BY MOUTH AT BEDTIME SOLD: 05/05/2020 [facility] 40 mg 12/29/2019 12:00:00 AM EDT tablet 30 TAKE ONE TABLET BY MOUTH AT BEDTIME TAKE ONE TABLET BY MOUTH AT BEDTIME SOLD: 06/04/2020 [facility] Metformin Metformin 12/15/2019 09:12:36 AM EDT 500 MG c [facility] Metformin Metformin 12/15/2019 09:12:36 AM EDT 500 MG c [facility] Metformin Metformin 12/15/2019 09:12:36 AM EDT 500 MG c [facility] 500 mg 12/15/2019 12:00:00 AM EDT tablet extended release 24 hr 30 TAKE ONE TABLET BY MOUTH EVERY EVENING TAKE ONE TABLET BY MOUTH EVERY EVENING SOLD: 04/01/2020 [facility] 500 mg 12/15/2019 12:00:00 AM EDT tablet extended release 24 hr 30 TAKE ONE TABLET BY MOUTH EVERY EVENING TAKE ONE TABLET BY MOUTH EVERY EVENING SOLD: 05/05/2020 [facility] duloxetine 30 MG Delayed Release Oral Capsule Duloxetine Dul oxetine 06/23/2019 11:21:22 AM EST 30 MG [facility] duloxetine 30 MG Delayed Release Oral Capsule Duloxetine Dul oxetine 06/23/2019 11:21:22 AM EST 30 MG [facility] duloxetine 30 MG Delayed Release Oral Capsule Duloxetine Dul oxetine 06/23/2019 11:21:22 AM EST 30 MG [facility] Cranberry preparation 200 MG Oral Capsule Cranberry Extract Cranberry Extract 02/11/2019 11:00:37 AM EDT 200 MG [facility] Cranberry preparation 200 MG Oral Capsule Cranberry Extract Cranberry Extract 02/11/2019 11:00:37 AM EDT 200 MG [facility] [place]-3 Fatty Acids-Fish Oil 02/11/2019 11:00:26 AM EDT 1 CAP [facility] gabapentin 300 MG Oral Capsule gabapentin (NEURONTIN) 300 MG capsule gabapentin (NEURONTIN) 300 MG capsule 06/06/2017 12:00:00 AM EST 300 mg Oral aborted Dysesthesia Take 1 capsule by mouth Three times [facility] Dysesthesia Acetaminophen 325 MG / Hydrocodone Yelena trate 5 MG Oral Tablet hydrocodone- acetaminophen (LORTAB) 5-325 MG per tablet hydrocodone-acetaminophen (LORTAB) 5- 325 MG per tablet 10/07/2014 12:00:00 AM EDT abort ed [facility] Lisinopril 5 MG Oral Tablet lisinopril (PRINIVIL,ZESTR IL) 5 MG tablet lisinopril (PRINIVIL,ZESTRIL) 5 MG tablet 10/10/2013 12:00:00 AM EDT aborted [facility] Aspirin 325 MG Oral Tablet Aspirin 08/28/2012 11:59:00 AM EST 32 5 MG completed [facility] ciclopirox 7.7 MG/ML Topical Cream ciclo pirox 0.77 % topical cream APPLY TO FOOT TWO TIMES A DAY ciclopirox 0.77 % topical cream APPLY TO FOOT TWO TIMES A DA Y completed ciclopirox 7.7 MG/ML Topical Cream [facility]THE[facility] ([facility]) Vitamin D3 one by mouth once daily compl eted Vitamin D3 [facility] ([facility]) Famotidine 40 MG Oral Tablet famotidine 40 mg tablet TAKE ONE TABLET BY MOUTH TWICE A DAY famotidine 40 mg tablet TAKE ONE TABLET BY MOUTH TWICE A DAY completed famotidine 40 MG Ora l Tablet [facility] ([facility]) gabapentin 300 MG Oral Capsule gabapentin 300 mg capsu le gabapentin 300 mg capsule completed gabapentin 300 MG Oral Capsule [facility] ([facility]) Famotidine 40 MG Oral Tablet famotidine 40 mg tablet TAKE ONE TABLET BY MOUTH TWICE A DAY famotidine 40 mg tablet TAKE ONE TABLET BY MOUTH TWICE A DAY completed famotidine 40 MG Ora l Tablet ETHE[facility] ([facility]) ciclopirox 7.7 MG/ML Topical Cream ciclo pirox 0.77 % topical cream APPLY TO FOOT TWO TIMES A DAY ciclopirox 0.77 % topical cream APPLY TO FOOT TWO TIMES A DA Y completed ciclopirox 7.7 MG/ML Topical Cream ETHE[facility] ([facility]) benzonatate 200 MG Oral Capsule benzonatate 200 mg cap brianna benzonatate 200 mg capsule completed benzonatate 20 0 MG Oral Capsule [facility] ([facility]) blood pressure test kit-large cuff [id number] completed blood pressure test kit-large cuff [facility] ([facility]) Penicillin V Potassium 500 MG Oral Table t penicillin V potassium 500 mg tablet TAKE 2 TABLETS BY MOUTH IMMEDIATELY THEN TAKE ONE TABLET FOUR TIMES A DAY penicillin V potassium 500 mg tablet TAKE 2 TABLETS BY MOUTH IMMEDIATELY THEN TAKE ONE TABLET FOUR TIMES A DAY compl eted penicillin V potassium 500 MG Oral Tablet [facility] ([facility]) Penicillin V Potassium 500 MG Oral Table t penicillin V potassium 500 mg tablet TAKE 2 TABLETS BY MOUTH IMMEDIATELY THEN TAKE ONE TABLET FOUR TIMES A DAY penicillin V potassium 500 mg tablet TAKE 2 TABLETS BY MOUTH IMMEDIATELY THEN TAKE ONE TABLET FOUR TIMES A DAY compl eted penicillin V potassium 500 MG Oral Tablet [facility] ([facility]) Metoclopramide 10 MG Oral Tablet metoclopramide 10 mg tablet metoclopramide 10 mg tablet completed metocloprami de 10 MG Oral Tablet [facility] ([facility]) Vitamin D3 one by mouth once daily compl eted Vitamin D3 [facility]THE[facility] ([facility]) Vitamin D3 one by mouth once daily compl eted Vitamin D3 ETHEL ([facility]) Vitamin D3 one by mouth once daily compl eted Vitamin D3 ETHE[facility] ([facility]) gabapentin 300 MG Oral Capsule gabapentin 300 mg capsu le gabapentin 300 mg capsule completed gabapentin 300 MG Oral Capsule [facility] ([facility]) blood pressure test kit-large cuff [id number] completed blood pressure test kit-large cuff [facility] ([facility]) Famotidine 40 MG Oral Tablet famotidine 40 mg tablet TAKE ONE TABLET BY MOUTH TWICE A DAY famotidine 40 mg tablet TAKE ONE TABLET BY MOUTH TWICE A DAY completed famotidine 40 MG Ora l Tablet ETHE[facility] ([facility]) Ibuprofen 800 MG Oral Tablet ibuprofen 800 mg tablet ibuprofen 8 00 mg tablet completed ibuprofen 800 MG Oral Tablet [facility] ([facility]) benzonatate 200 MG Oral Capsule benzonatate 200 mg cap brianna benzonatate 200 mg capsule completed benzonatate 20 0 MG Oral Capsule ETHE[facility] ([facility]) Penicillin V Potassium 500 MG Oral Table t penicillin V potassium 500 mg tablet TAKE ONE TABLET BY MOUTH FOUR TIMES A DAY UNTIL GONE penicillin V potassium 500 mg tablet TAKE ONE TABLET BY MOUTH FOUR TIMES A DAY UNTIL GONE completed penicillin V potassium 500 MG Or al Tablet ETHE[facility] ([facility]) gabapentin 300 MG Oral Capsule gabapentin 300 mg capsu le gabapentin 300 mg capsule completed gabapentin 300 MG Oral Capsule [facility] ([facility] [place] [place]) VITAMIN D, CHOLECALCIFEROL, PO Oral a borted Take by mouth daily. [facility] ciclopirox 7.7 MG/ML Topical Cream ciclo pirox 0.77 % topical cream APPLY TO FOOT TWO TIMES A DAY ciclopirox 0.77 % topical cream APPLY TO FOOT TWO TIMES A DA Y completed ciclopirox 7.7 MG/ML Topical Cream ETHEL ([facility]) ciclopirox 7.7 MG/ML Topical Cream ciclo pirox 0.77 % topical cream APPLY TO FOOT TWO TIMES A DAY ciclopirox 0.77 % topical cream APPLY TO FOOT TWO TIMES A DA Y completed ciclopirox 7.7 MG/ML Topical Cream ETHEL ([facility]) blood pressure test kit-large cuff [id number] completed blood pressure test kit-large cuff ETHE[facility] ([facility]) benzonatate 200 MG Oral Capsule benzonatate 200 mg cap brianna benzonatate 200 mg capsule completed benzonatate 20 0 MG Oral Capsule [facility]THE[facility] ([facility]) Ciprofloxacin 500 MG Oral Tablet ciprofl oxacin 500 mg tablet TAKE ONE TABLET BY MOUTH TWICE A DAY FOR 7 DAYS FOR UTI ciprofloxacin 500 mg tablet TAKE ONE TAB LET BY MOUTH TWICE A DAY FOR 7 DAYS FOR UTI completed ciprofloxacin 500 MG Oral Tablet ETHE[facility] ([facility]) blood pressure test kit-large cuff [id number] completed blood pressure test kit-large cuff ETHEL ([facility]) gabapentin 300 MG Oral Capsule gabapentin 300 mg capsu le gabapentin 300 mg capsule completed gabapentin 300 MG Oral Capsule E[facility] ([facility]) Metoclopramide 10 MG Oral Tablet metoclopramide 10 mg tablet metoclopramide 10 mg tablet completed metocloprami de 10 MG Oral Tablet [facility] ([facility]) Famotidine 40 MG Oral Tablet famotidine 40 mg tablet TAKE ONE TABLET BY MOUTH TWICE A DAY famotidine 40 mg tablet TAKE ONE TABLET BY MOUTH TWICE A DAY completed famotidine 40 MG Ora l Tablet ETHE[facility] ([facility]) Vitamin D3 one by mouth once daily compl eted Vitamin D3 ETHE[facility] ([facility]) Ibuprofen 800 MG Oral Tablet ibuprofen 800 mg tablet ibuprofen 8 00 mg tablet completed ibuprofen 800 MG Oral Tablet [facility]THE[facility] ([facility]) Vitamin D3 one by mouth once daily compl eted Vitamin D3 ETHE[facility] ([facility]) Ibuprofen 800 MG Oral Tablet ibuprofen 800 mg tablet ibuprofen 8 00 mg tablet completed ibuprofen 800 MG Oral Tablet [facility] ([facility]) Famotidine 40 MG Oral Tablet famotidine 40 mg tablet TAKE ONE TABLET BY MOUTH TWICE A DAY famotidine 40 mg tablet TAKE ONE TABLET BY MOUTH TWICE A DAY completed famotidine 40 MG Ora l Tablet [facility] ([facility]) Metoclopramide 10 MG Oral Tablet metoclopramide 10 mg tablet metoclopramide 10 mg tablet completed metocloprami de 10 MG Oral Tablet [facility] ([facility]) Penicillin V Potassium 500 MG Oral Table t penicillin V potassium 500 mg tablet TAKE 2 TABLETS BY MOUTH IMMEDIATELY THEN TAKE ONE TABLET FOUR TIMES A DAY penicillin V potassium 500 mg tablet TAKE 2 TABLETS BY MOUTH IMMEDIATELY THEN TAKE ONE TABLET FOUR TIMES A DAY compl eted penicillin V potassium 500 MG Oral Tablet [facility]THE[facility] ([facility]) Penicillin V Potassium 500 MG Oral Table t penicillin V potassium 500 mg tablet TAKE 2 TABLETS BY MOUTH IMMEDIATELY THEN TAKE ONE TABLET FOUR TIMES A DAY penicillin V potassium 500 mg tablet TAKE 2 TABLETS BY MOUTH IMMEDIATELY THEN TAKE ONE TABLET FOUR TIMES A DAY compl eted penicillin V potassium 500 MG Oral Tablet [facility]THE[facility] ([facility]) Ibuprofen 800 MG Oral Tablet ibuprofen 800 mg tablet ibuprofen 8 00 mg tablet completed ibuprofen 800 MG Oral Tablet [facility] ([facility]) gabapentin 300 MG Oral Capsule gabapentin 300 mg capsu le gabapentin 300 mg capsule completed gabapentin 300 MG Oral Capsule ETHE[facility] ([facility]) Vitamin D3 one by mouth once daily compl eted Vitamin D3 ETHE[facility] ([facility]) blood pressure test kit-large cuff [id number] completed blood pressure test kit-large cuff [facility] ([facility]) ciclopirox 7.7 MG/ML Topical Cream ciclo pirox 0.77 % topical cream APPLY TO FOOT TWO TIMES A DAY ciclopirox 0.77 % topical cream APPLY TO FOOT TWO TIMES A DA Y completed ciclopirox 7.7 MG/ML Topical Cream ETHEL ([facility]) Metoclopramide 10 MG Oral Tablet metoclopramide 10 mg tablet metoclopramide 10 mg tablet completed metocloprami de 10 MG Oral Tablet [facility] ([facility]) Famotidine 40 MG Oral Tablet famotidine 40 mg tablet TAKE ONE TABLET BY MOUTH TWICE A DAY famotidine 40 mg tablet TAKE ONE TABLET BY MOUTH TWICE A DAY completed famotidine 40 MG Ora l Tablet ETHE[facility] ([facility]) gabapentin 300 MG Oral Capsule gabapentin 300 mg capsu le gabapentin 300 mg capsule completed gabapentin 300 MG Oral Capsule ETHE[facility] ([facility]) gabapentin 300 MG Oral Capsule gabapentin 300 mg capsu le gabapentin 300 mg capsule completed gabapentin 300 MG Oral Capsule ETHE[facility] ([facility]) Penicillin V Potassium 500 MG Oral Table t penicillin V potassium 500 mg tablet TAKE 2 TABLETS BY MOUTH IMMEDIATELY THEN TAKE ONE TABLET FOUR TIMES A DAY penicillin V potassium 500 mg tablet TAKE 2 TABLETS BY MOUTH IMMEDIATELY THEN TAKE ONE TABLET FOUR TIMES A DAY compl eted penicillin V potassium 500 MG Oral Tablet ETHE[facility] ([facility]) benzonatate 200 MG Oral Capsule benzonatate 200 mg cap brianna benzonatate 200 mg capsule completed benzonatate 20 0 MG Oral Capsule [facility]THE[facility] ([facility]) duloxetine 30 MG Delayed Release Oral Ca psule duloxetine 30 mg capsule,delayed release duloxetine 30 mg capsule,delayed release completed duloxetine 30 MG Delayed Release Oral Capsule ETHE[facility] ([facility]) Famotidine 40 MG Oral Tablet famotidine 40 mg tablet TAKE ONE TABLET BY MOUTH TWICE A DAY famotidine 40 mg tablet TAKE ONE TABLET BY MOUTH TWICE A DAY completed famotidine 40 MG Ora l Tablet ETHE[facility] ([facility]) gabapentin 300 MG Oral Capsule gabapentin 300 mg capsu le gabapentin 300 mg capsule completed gabapentin 300 MG Oral Capsule ETHEL ([facility]) Famotidine 40 MG Oral Tablet famotidine 40 mg tablet TAKE ONE TABLET BY MOUTH TWICE A DAY famotidine 40 mg tablet TAKE ONE TABLET BY MOUTH TWICE A DAY completed famotidine 40 MG Ora l Tablet ETHE[facility] ([facility]) Vitamin D3 one by mouth once daily compl eted Vitamin D3 ETHEL ([facility]) gabapentin 300 MG Oral Capsule gabapentin 300 mg capsu le gabapentin 300 mg capsule completed gabapentin 300 MG Oral Capsule ETHEL ([facility]) gabapentin 300 MG Oral Capsule gabapentin 300 mg capsu le gabapentin 300 mg capsule completed gabapentin 300 MG Oral Capsule ETHEL ([facility]) gabapentin 300 MG Oral Capsule gabapentin 300 mg capsu le gabapentin 300 mg capsule completed gabapentin 300 MG Oral Capsule ETHEL ([facility]) Ibuprofen 800 MG Oral Tablet ibuprofen 800 mg tablet ibuprofen 8 00 mg tablet completed ibuprofen 800 MG Oral Tablet ETHE[facility] ([facility]) Metoclopramide 10 MG Oral Tablet metoclopramide 10 mg tablet metoclopramide 10 mg tablet completed metocloprami de 10 MG Oral Tablet ETHEL ([facility]) benzonatate 200 MG Oral Capsule benzonatate 200 mg cap brianna benzonatate 200 mg capsule completed benzonatate 20 0 MG Oral Capsule ETHEL ([facility]) benzonatate 200 MG Oral Capsule benzonatate 200 mg cap brianna benzonatate 200 mg capsule completed benzonatate 20 0 MG Oral Capsule ETHEL ([facility]) Famotidine 40 MG Oral Tablet famotidine 40 mg tablet TAKE ONE TABLET BY MOUTH TWICE A DAY famotidine 40 mg tablet TAKE ONE TABLET BY MOUTH TWICE A DAY completed famotidine 40 MG Ora l Tablet ETHEL ([facility]) Famotidine 40 MG Oral Tablet famotidine 40 mg tablet TAKE ONE TABLET BY MOUTH TWICE A DAY famotidine 40 mg tablet TAKE ONE TABLET BY MOUTH TWICE A DAY completed famotidine 40 MG Ora l Tablet ETHEL ([facility]) Vitamin D3 one by mouth once daily compl eted Vitamin D3 ETHEL ([facility]) Metoclopramide 10 MG Oral Tablet metoclopramide 10 mg tablet metoclopramide 10 mg tablet completed metocloprami de 10 MG Oral Tablet ETHEL ([facility]) Famotidine 40 MG Oral Tablet famotidine 40 mg tablet TAKE ONE TABLET BY MOUTH TWICE A DAY famotidine 40 mg tablet TAKE ONE TABLET BY MOUTH TWICE A DAY completed famotidine 40 MG Ora l Tablet ETHEL ([facility]) gabapentin 300 MG Oral Capsule gabapentin 300 mg capsu le gabapentin 300 mg capsule completed gabapentin 300 MG Oral Capsule ETHEL ([facility]) Ibuprofen 800 MG Oral Tablet ibuprofen 800 mg tablet ibuprofen 8 00 mg tablet completed ibuprofen 800 MG Oral Tablet ETHEL ([facility]) Famotidine 40 MG Oral Tablet famotidine 40 mg tablet TAKE ONE TABLET BY MOUTH TWICE A DAY famotidine 40 mg tablet TAKE ONE TABLET BY MOUTH TWICE A DAY completed famotidine 40 MG Ora l Tablet ETHEL ([facility]) blood pressure test kit-large cuff [id number] completed blood pressure test kit-large cuff ETHE[facility] ([facility]) Penicillin V Potassium 500 MG Oral Table t penicillin V potassium 500 mg tablet TAKE TWO TABLETS BY MOUTH NOW THEN 1 TABLET FOUR TIMES A DAY UNTIL GONE penicillin V potassium 500 mg tablet TAKE TWO TABLETS BY MOUTH NOW THEN 1 TABLET FOUR TIMES A DAY UNTIL GONE com pleted penicillin V potassium 500 MG Oral Tablet ETHEL ([facility]) Vitamin D3 one by mouth once daily compl eted Vitamin D3 ETHEL ([facility]) Famotidine 20 MG Oral Tablet Famotidine 20 MG Oral Tab let (PEPCID) Famotidine 20 MG Oral Tablet (PEPCID) aborted famotidine 20 mg tablet TAKE ONE TABLET BY MOUTH TWICE A DAY [facility] Famotidine 20 MG Oral Tablet famotidine 20 mg tablet TAKE ONE TABLET BY MOUTH TWICE A DAY famotidine 20 mg tablet TAKE ONE TABLET BY MOUTH TWICE A DAY completed famotidine 20 MG Ora l Tablet ETHEL ([facility]) Vitamin D3 one by mouth once daily compl eted Vitamin D3 ETHEL ([facility]) Vitamin D3 one by mouth once daily compl eted Vitamin D3 ETHEL ([facility]) ciclopirox 7.7 MG/ML Topical Cream ciclo pirox 0.77 % topical cream APPLY TO FOOT TWO TIMES A DAY ciclopirox 0.77 % topical cream APPLY TO FOOT TWO TIMES A DA Y completed ciclopirox 7.7 MG/ML Topical Cream ETHEL ([facility]) Vitamin D3 one by mouth once daily compl eted Vitamin D3 ETHEL ([facility]) Vitamin D3 one by mouth once daily compl eted Vitamin D3 ETHEL ([facility]) gabapentin 300 MG Oral Capsule gabapentin 300 mg capsu le gabapentin 300 mg capsule completed gabapentin 300 MG Oral Capsule ETHEL ([facility]) Famotidine 40 MG Oral Tablet famotidine 40 mg tablet TAKE ONE TABLET BY MOUTH TWICE A DAY famotidine 40 mg tablet TAKE ONE TABLET BY MOUTH TWICE A DAY completed famotidine 40 MG Ora l Tablet ETHEL ([facility]) gabapentin 300 MG Oral Capsule gabapentin 300 mg capsu le gabapentin 300 mg capsule completed gabapentin 300 MG Oral Capsule ETHEL ([facility]) Famotidine 40 MG Oral Tablet famotidine 40 mg tablet TAKE ONE TABLET BY MOUTH TWICE A DAY famotidine 40 mg tablet TAKE ONE TABLET BY MOUTH TWICE A DAY completed famotidine 40 MG Ora l Tablet ETHEL ([facility]) Insurance Providers Payer name Policy type / Coverage type Policy ID Covered green party ID Covered green party's relationship to mcgee Policy Mcgee Plan Information [employer]EE PROGRAM [id number] [employer] EMPLOYEE PROGRAM [id number] EXCELLUS C [id number] Spouse [id number] MEDICARE A [id number] Self [id number] MEDICARE A [id number] Self [id number] A DME Jurisdiction A NHIC C [id number] SELF [id number] Blue Federal Employee Program J [id number] SELF [id number] Medicare C [id number] SELF [id number] MEDICARE [id number] SP [id number] P52 BC [facility] S [id number] S [id number] MEDICARE P [id number] S [id number] Medicare [facility] [id number] 18 [id number] [facility] [id number] 18 [id number] MEDICARE P [id number] S [id number] A BCBS [facility] Other 0 [id number] F amily Dependent [place] 0 Medicare Part B [facility] Other 0 [id number] S elf [id number] Problems, Conditions, and Diagnoses Code Display Name Description Problem Type Effective Dates Data Source(s) breast cancer breast cancer Diagnosis 02/23/2021 12:00:00 AM EDT [facility] 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 Surgeries/Procedures Procedure Description Date Indications Data Source(s) Breast prosthesis, mastectomy bra, witho ut integrated breast prosthesis form, any size, any type Mastectomy Bra 03/08/2021 12:00:00 AM EDT AT [facility] ([facility]) Breast prosthesis, mastectomy bra, witho ut integrated breast prosthesis form, any size, any type Mastectomy Bra 03/08/2021 12:00:00 AM EDT AT [facility] ([facility]) Breast prosthesis, mastectomy bra, witho ut integrated breast prosthesis form, any size, any type Mastectomy Bra 03/08/2021 12:00:00 AM EDT AT [facility] ([facility]) Breast prosthesis, mastectomy bra, witho ut integrated breast prosthesis form, any size, any type Mastectomy Bra 03/08/2021 12:00:00 AM EDT AT [facility] ([facility]) Breast prosthesis, mastectomy bra, witho ut integrated breast prosthesis form, any size, any type Mastectomy Bra 03/08/2021 12:00:00 AM EDT AT [facility] (Pain [facility]) POCT GLUCOSE, DOCKED <td>POCT GLUCOSE, DOCKED</td ><td>Routine</td><td>02/24/2021 8:41 AM EDT</td><td></td><td> </td> 02/24/2021 08:41:00 AM [facility] BASIC METABOLIC PANEL CALCIUM TOTAL <td>BASIC METABOLI C PANEL</td><td>Routine</td><td>02/24/2021 3:50 AM EDT</td><td></td><td> </td> 02/24/2021 03:50:00 AM [facility] GLUCOSE QUANTITATIVE BLOOD XCPT REAGENT STRIP <td>POCT GLUCOSE, DOCKED</td><td>Routine</td><td>02/23/2021 8:58 PM EDT</td><td></td><td> </td> 02/23/2021 08:58:00 PM [facility] GLUCOSE QUANTITATIVE BLOOD XCPT REAGENT STRIP <td>POCT GLUCOSE, DOCKED</td><td>Routine</td><td>02/23/2021 8:04 PM EDT</td><td></td><td> </td> 02/23/2021 08:04:00 PM [facility] TROPONIN T HIGH SENSITIVITY <td>TROPONIN T HIGH SENSITIVITY</td><td>Routine</td><td>02/23/2021 6:30 PM EDT</td><td></td><td> </td> 02/23/2021 06:30:00 PM [facility] ELECTROLYTE PANEL <td>ELECTROLYTE PANEL</td><t d>Routine</td><td>02/23/2021 6:30 PM EDT</td><td></td><td> </td> 02/23/2021 06:30:00 PM [facility] GLUCOSE QUANTITATIVE BLOOD XCPT REAGENT STRIP <td>POCT GLUCOSE, DOCKED</td><td>Routine</td><td>02/23/2021 5:01 PM EDT</td><td></td><td> </td> 02/23/2021 05:01:00 PM [facility] MASTECTOMY,SIMPLE,COMPLETE <td>MASTECTOMY,SIMPLE,COMPLETE</td><td></td><td>02/23/2021 12:12 PM EDT</td><td> Ductal carcinoma in situ (DCIS) of left breast</td><td></td> 02/23/2021 12:12:00 PM EDT - 02/23/2021 04:57:00 PM EDT Ductal carcinoma in situ (DCIS) of left breast [facility] Ductal carcinoma in situ (DCIS) of left breast GLUCOSE QUANTITATIVE BLOOD XCPT REAGENT STRIP <td>POCT GLUCOSE, DOCKED</td><td>Routine</td><td>02/23/2021 8:26 AM EDT</td><td></td><td> </td> 02/23/2021 08:26:00 AM [facility] BLOOD COUNT COMPLETE AUTOMATED <td>CBC</td><td>Routine </td><td>01/18/2021 11:42 AM EDT</td><td> Ductal carcinoma in situ (DCIS) of left breast</td><td> </td> 01/18/2021 11:42:00 AM EDT Ductal carcinoma in situ (DCIS) of left breast [facility] Ductal carcinoma in situ (DCIS) of left breast BASIC METABOLIC PANEL CALCIUM TOTAL <td>BASIC METABOLI C PANEL</td><td>Routine</td><td>01/18/2021 11:42 AM EDT</td><td> Ductal carcinoma in situ (DCIS) of left breast</td><td> </td> 01/18/2021 11:42:00 AM EDT Ductal carcinoma in situ (DCIS) of left breast [facility] Ductal carcinoma in situ (DCIS) of left breast Surgical specimen (breast) 12/08/2020 11:28:00 AM [facility] US BREAST BIOPSY W/ GUIDANCE 12/08/2020 11:24:00 AM [facility] DIG MAMMO DIAG LT 2D ONLY 12/08/2020 11:21:00 AM [facility] Ultrasonography of breast (procedure) 12/07/2020 10:12 :00 AM [facility] 3D DIG MAMMO DIAG LT 12/07/2020 09:02:13 AM [facility] Urine culture (procedure) 11/09/2020 12:00:00 AM [facility] US Breast - Complete Bilat 07/07/2020 11:08:00 AM [facility] US Breast - Complete Bilat 07/07/2020 11:08:00 AM [facility] Screening mammography (procedure) 07/07/2020 10:10:00 AM [facility] Screening mammography (procedure) 07/07/2020 10:10:00 AM [facility] Measurement of occult blood in stool specimen using immunoas say (procedure) 06/22/2020 12:00:[facility] of occult blood in stool specimen using immunoas say (procedure) 06/22/2020 12:00:00 AM [facility] Viral antigen assay (procedure) 05/24/2020 12:00:00 AM [facility] Viral antigen assay (procedure) 05/24/2020 12:00:00 AM EDT [facility] Severe acute respiratory syndrome coronavirus 2 (SARS-CoV-2) antigen assay 05/24/2020 12:00:00 AM EDT [facility] Results ID Date Data Source [id number] 05/21/2021 11:32:00 AM EDT [facility] [address] [place] [address] [phone] NAME SEX PT STATUS ACCOUNT NUMBER ETTA ECHEVERRIA REG ER [id number] ORDERING PHYSICIAN LOCATION MEDICAL RECORD NO. Jung Farah MD ER [id number] ATTENDING PHYSICIAN DATE OF DATE OF EXAM/TIME Shimon Cordova MD 1945 05/21/211108 TYPE / EXAM US Abd single organ/quadrant REASON FOR EXAM Upper abdominal discomfort and nausea Clinical History/Indication for Exam: Upper abdominal discomfort and nausea US ABDOMEN LIMITED RIGHT UPPER QUADRANT INDICATION: Upper abdominal discomfort and nausea TECHNIQUE: Real-time ultrasound of the right upper quadrant with image documentation. Bowel gas obscures some details. COMPARISON: 05/20/21 CT abdomen and pelvis FINDINGS: Liver: Unremarkable. No mass. No intrahepatic bile duct dilation. Gallbladder: Cholecystectomy is noted. Common bile duct: Common bile duct is 3.4 mm. No stones. No dilation. Pancreas: Unremarkable as visualized. Right kidney: Right kidney measures 9.2 x 4.8 x 4.3 cm. No stones. No hydronephrosis. Other findings: Left kidney measures 11.1 x 5.7 x 5 cm. IMPRESSION: Cholecystectomy. Common bile duct is 3.4 mm. No secondary signs of inflammation. REPORT SIGNATURE ON FILE 05/21/2021 (11:32 Eastern Time ) Signed by: Yary Miles M.D. Reported By Yary Miles MD on 05/21/211131 Signed By Yary Miles MD on 05/21/211131 Date Time CC: Shimon Cordova MD; Yary Miles MD Techn: TABSA Trans Dt/Tm: Trans by: DT Prt Dt/Tm: : Total DLP = 0.00 mGy-cm : Total Radiation Dose = 0.0000 mSv Lifetime Dose: 29.9550 mSv Name Value Range Interpretation Code Description Data Teodora rce(s) Supporting Document(s) ID Date Data Source [id number] 05/21/2021 10:22:00 AM EDT [facility] Name Value Range Interpretation Code Description Data Teodora rce(s) Supporting Document(s) Leukocytes [#/volume] in Blood by Automated count 7.3 10*3/uL 4.45-10 .71 N [facility] Erythrocytes [#/volume] in Blood by Automated count 4.83 10*6/uL 4.20 -5.40 N [facility] Hemoglobin [Moles/volume] in Blood 15.3 g/dL 10.7-15.4 N [facility] Hematocrit [Volume Fraction] of Blood by Automated count 44.6 % 3 7-47 N [facility] Erythrocyte mean corpuscular volume [Ent itic volume] in Cord blood by Automated count 92 fL 80-96 N [facility] ital Erythrocyte mean corpuscular hemoglobin [Entitic mass] by Au tomated count 32 pg 27-31 Above high normal [facility] Erythrocyte mean corpuscular hemoglobin concentration [Mass/volume] in Cord blood 34 g/dL 33-37 N [facility] ital Erythrocyte distribution width [Entitic volume] by Automated count 12 % 11-15 N [facility] Platelets [#/volume] in Blood by Automated count 219 10*3/uL 130-472 N [facility] Platelet mean volume [Entitic volume] in Blood 8.5 fL 9.1-13. 1 Below low normal [facility] Neutrophils/100 leukocytes in Blood by Automated count 74.3 % 41- 77 N [facility] Neutrophils [#/volume] in Blood by Automated count 5.5 U 1.7-7.6 N [facility] Lymphocytes/100 leukocytes in Blood by Automated count 15.7 % 14- 46 N [facility] Lymphocytes [#/volume] in Blood by Automated count 1.2 U 0.6-4.6 N [facility] Monocytes/100 leukocytes in Blood by Automated count 7.6 % 4-12 N [facility] Monocytes [#/volume] in Blood by Automated count 0.6 U 0.2-1.2 N [facility] Eosinophils/100 leukocytes in Blood by Automated count 1.2 % 0-7 N [facility] Eosinophils [#/volume] in Blood by Automated count 0.1 U 0.0-0.5 N [facility] Basophils/100 leukocytes in Blood by Automated count 0.8 % 0.4-1 .3 N [facility] Basophils [#/volume] in Blood by Automated count 0.1 U 0.0-0.2 N [facility] NUCLEATED RED BLOOD CELL 0 % [facility] NUCLEATED RED BLOOD CELL# 0 U [facility] Immature granulocytes [Presence] in Blood by Automated count 0-2 N [facility] Immature granulocytes [#/volume] in Blood by Automated count 0.0 U 0-0.1 [facility] Manual Differential panel - Blood NO [facility] ID Date Data Source [id number] 05/21/2021 10:41:00 AM EDT [facility] Name Value Range Interpretation Code Description Data Teodora rce(s) Supporting Document(s) Prothrombin Time (Patient) 10.9 s 9.6-12.3 N [facility] INR 1.0 0.9-1.1 [facility] THE INR IS OPERATIONALLY DEFINED FOR DONATO SH PLASMA FROMPATIENTS STABILIZED ON ORAL ANTICOAGULANTS.ROUTINE ANTICOAGULANT THERAPY 2.0-3.0RECURRENT SYSTEMIC EMBOLISM/HEART VALVE REPLACEMENT 2.5-3.5 aPTT.lupus sensitive (LA screen) 24.0 s 22.7-31.6 N [facility] ID Date Data Source [id number] 05/21/2021 10:43:00 AM EDT [facility] Name Value Range Interpretation Code Description Data Teodora rce(s) Supporting Document(s) Urea nitrogen [Mass/volume] in Serum or Plasma 13 mg/dL 9-23 N [facility] Sodium [Moles/volume] in Serum or Plasma 140 mmol/L 132-146 [facility] Potassium [Moles/volume] in Serum or Plasma 4.1 mmol/L 3.5-5.5 [facility] Chloride [Moles/volume] in Serum or Plasma 105 mmol/L 99-109 N [facility] Carbon dioxide, total [Moles/volume] in Serum or Plasma 30 mmol/L 20 -31 N [facility] Anion gap in Serum or Plasma 9 mmol/L 8-[address] [facility] Glucose [Mass/volume] in Serum or Plasma 128 mg/dL 74-106 Above high normal [facility] Creatinine 0.8 mg/dL 0.5-1.1 [facility] Glomerular filtration rate/1.73 sq M.pre dicted [Volume Rate/Area] in Serum or Plasma Greater Than 60 ABOVE 60 [facility] Alanine aminotransferase [Enzymatic acti vity/volume] in Serum or Plasma by With P-5'-P 23 U/L 10-49 N [facility] ital Aspartate aminotransferase [Enzymatic ac tivity/volume] in Serum or Plasma by With P-5'-P 15 U/L 0-33 N [facility] Alkaline phosphatase [Enzymatic activity/volume] in Serum or Plasma 103 U/L 45-129 N [facility] Calcium [Mass/volume] in Serum or Plasma 8.9 mg/dL 8.5-10.1 [facility] Bilirubin.total [Mass/volume] in Serum or Plasma 0.8 mg/dL 0.3-1.2 [facility] Albumin [Mass/volume] in Serum or Plasma by Bromocresol purple (BCP) dye binding method 3.2 g/dL 3.2-4.8 [facility] ital Protein [Mass/volume] in Serum or Plasma 7.5 g/dL 5.7-8.2 [facility] ID Date Data Source [id number] 05/21/2021 10:43:00 AM EDT [facility] Name Value Range Interpretation Code Description Data Teodora rce(s) Supporting Document(s) Troponin I.cardiac [Mass/volume] in Serum or Plasma Less Than 0.015 0.00-0.09 [facility] Less than 0.09 NG/ML Negative0.10 - 0.77 NG/ML High Risk0.78 NG/ML or Greater PositiveThe WHO defined the cutoff (definition for diagnosis of RI)for this method as 0.78 ng/ml. ID Date Data Source [id number] 05/21/2021 10:43:00 AM EDT [facility] Name Value Range Interpretation Code Description Data Teodora rce(s) Supporting Document(s) Natriuretic peptide.B prohormone N-Terminal [Mass/volu me] in Serum or Plasma 119.00 pg/mL 0.00-450 N [facility] ID Date Data Source [id number] 05/21/2021 10:08:00 AM EDT [facility] ED Physician Documentation NAME: ETTA ECHEVERRIA : 1945 AGE: 75 MR#: [id number] SERVICE DATE: 05/21/[address]: Jung Farah MD PRIMARY CARE DR: Shimon Cordova MD ROOM#: [facility] (Adult, General) General Chief Complaint: Multi system (Adult) Stated Complaint: NAUSATED Resident LTC, travel outisde home, exposure to hot tubs:: No Time Seen by Provider: 05/21/21 09:48 Source: patient Exam Limitations: no limitations History of Present Illness Narrative: 75 yo woman with h/o NIDDM, HTN, L sided breast cancer, s/p mastectomy in , chronic low backpain, presents with c/o persistent nausea and reflux type symptoms getting worse for the past 3 weeks. She notes that she has had 2 epidural injections over the same time period as treatment for chronic back pain. She has no chest pain or SOB, no cough, no fever or chills. She has vomited rarely since the symptoms began but has no diarrhea. Allergies/Home Meds Allergies Allergy/AdvReac Type Severity Reaction Status Date / Time codeine [Codeine] Allergy Intermediate RASH (SKIN Verified 05/21/21 11:27 RASH) No Known Food Allergies Allergy Verified 05/21/21 11:27 Home Medications Medication Instructions Recorded Confirmed Last Taken Type epinephrine 0.3 mg/0.3 mL 0.3 mg IM 1T #1 box 05/17/17 05/21/21 Unknown History injection, auto-inje ctor famotidine 20 mg tablet 20 mg PO BID tab 03/10/20 05/21/21 Unknown History omeprazole 20 mg capsule,delayed 20 mg PO DAILY cap 03/10/20 05/21/21 Unknown History release duloxetine 60 mg capsule,delayed 60 mg PO DAILY 06/10/20 05/21/21 Unknown History release aspirin 81 mg tablet,delayed 325 mg PO DAILY tab 02/17/21 05/21/21 Unknown History release (Adult Low Dose Aspirin) ondansetron 4 mg disintegrating 4 mg PO Q8H PRN #20 tab 05/20/21 05/21/21 05/21/21 Rx tablet ciprofloxacin HCl 500 mg tablet 500 mg PO BID 05/21/21 05/21/21 05/21/21 08:00 History metformin 500 mg tablet,extended 500 mg PO QPM 05/21/21 05/21/21 05/18/21 History release 24hr metoprolol succinate 50 mg 50 mg PO DAILY 05/21/21 05/21/21 05/20/21 History tablet,extended release 24 hr oxybutynin chloride 15 mg See Rx Instructions .ROUTE .COMPLEX 05/21/21 05/21/21 Unknown History tablet,extended release 24 hr pravastatin 40 mg tablet 40 mg PO HS 05/21/21 05/21/21 Unknown History PMH (from Triage) Patient Medical History PMH Reviewed/Updated as Needed: Yes PMH/PSH from Triage: Medical History (Updated 03/16/21 @ 15:40 by Shimon Cordova M.D.) Bee sting reaction (Medical) T63.441A Breast cancer (Medical) C50.919 Left breast Bulging Disc (Medical) MRI LS spine bulging disc 09/2007 Degenerative Disc Disease (Medical) Lumbar Spine, hips, hands, feet MRI 09/2007 Degenerative Spondylothesis (Medical) Dr Shaun Welch SOS Essential hypertension (Medical 07/18/10) I10 Gastr oenteritis due to norovirus (Medical 07/25/16) A08.11 GERD without esophagitis (Medical) K21.9 Heart murmur (Medical) Hiatal hernia (Medical) History of appendectomy (Medical) Z90.49 History of back surgery (Medical) Z98.[address] Carney; Decompressive Lumbar Spine Surgery History of breast biopsy (Medical) Z98.890 Bilateral History of cholecystectomy (Medical) Z90.49 History of foot surgery (Medical) Z98.890 Right foot for hammertoes 10/2007 History of total mastectomy of left breast (Medical) Z90.12 02/23/2021 and 3 lymph nodes. Lumbar radiculopathy (Medical) Bulging disc Overactive bladder (Medical) N32.81 Presbyesophagus (Medical) Pure hypercholesterolemia (Medical 07/13/14) E78.00 Type 2 diabetes mellitus without complication, without long-term current use of insulin (Medical) E11.9 Xerosis (Medical) Surgical History (Updated 02/25/21 @ 15:05 by Mary Ramírez) History of - surgery (Surgical) L4-L5 History of - surgery (Surgical) 1968 and 1969 History of appendectomy (Surgical) Z90.49 History of back surgery (Surgical) Z98.[address] Carney; Decompressive Lumbar Spine Surgery History of breast biopsy (Surgical) Z98.890 Bilateral History of cholecystectomy (Surgical) Z90.49 History of foot surgery (Surgical) Z98.890 Right foot for hammertoes 10/2007 History of hysterectomy (Surgical) ALDA due to Dysmenorrhea 1979 History of total mastectomy of left breast (Surgical) Z90.12 02/23/2021 and 3 lymph nodes. Left CTS and left ganglion cyst [address] Bravo (Surgical) Status post carpal tunnel release (Surgical) Right endoscopic carpal tunnel release, Right dorsal wrist tenosynovectomy Dr Bravo 09/2014 Status post oophorectomy (Surgical) BSO Hx Drug Resistant Infections Hx MRSA: (Methicillin- resistant Staphylococcus aureus): No Hx VRE (Vancomycin-resistant enterococci): No Hx C.Diff: No Hx CRKP: No Hx Other Resistant Infection?: No Isolation: Standard precautions Hx Recent Travel Out of the country within 10 days (where): No Hx Fever: No Hx Fever with a rash?: No Nurse screening for coronavirus: Recent Travel outside the No country (where) Has patient experienced No coronavirus symptoms Social History Does patient have suicidal/homicidal thoughts or ideation?: No Are you in a relationship with/Does anyone hit you, yell/swear at you, steal from you?: No Substance Use Hx Alcohol Use: Yes (occasionally) Hx Substance Use: No Hx Substance Use Treatment: No Smoking Status: Former smoker Tobacco Use Years smoked:: 10yrs Vaccination History Hx/Date of Tetanus, Diphtheria Vaccination: Yes Hx/Date of Influenza Vaccination: Yes Hx/Date of Pneumococcal Vaccination: Yes PFSH Medical History Bee sting reaction Breast cancer Bulging Disc Degenerative Disc Disease Degenerative Spondylothesis Essential hypertension (07/18/10) Gastroenteritis due to norovirus (07/25/16) GERD without esophagitis Heart murmur Hiatal hernia Lumbar radiculopathy Overactive bladder Presbyesophagus Pure hypercholesterolemia (07/13/14) Type 2 diabetes mellitus without complication, without long-term current use of insulin Xerosis Surgical History History of - surgery History of - surgery History of appendectomy History of back surgery History of breast biopsy History of cholecystectomy History of foot surgery History of hysterectomy History of total mastectomy of left breast Left CTS and left ganglion cyst [address] Bravo Status post carpal tunnel release Status post oophorectomy Family History Mother Diabetes Father Heart disease Brother No problems noted. Brother No problems noted. Brother No problems noted. Brother No problems noted. Brother No problems noted. Brother No problems noted. Brother No problems noted. Brother No problems noted. Sister No problems noted. Sister CORBETT (nonalcoholic steatohepatitis) Son No problems noted. Daughter No problems noted. Daughter No problems noted. 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 pets and animals: No leisure activities: reading, volunteer work and other Hx Recent Travel (where): No well-balanced diet: daily caffeine: Yes (no answer) high- fat food intake: 0-1 times daily daily servings fruits/ve-4 daily servings of milk/calcium: 0-1 eating out: rarely or never reads food labels: sometimes during the past year weight has: increased > 10 lbs what type of physical activity do you participate in?: walking Smoking Status: Former smoker alcohol intake: current alcohol intake frequency: holidays/special occasions only substance use type: does not use susan/mu-ism: Unknown special susan needs: No seatbelt use: always helmet use: No drive intox or ride w/ intox roll off driver: No water heater temp set < 120 deg: No working smoke detector in home: Yes fire extinguisher in home: Yes carbon monox detector in home: Yes firearms in home: Yes firearms unloaded and locked: Yes victim of physical abuse: No victim of emotional abuse: No ROS Review of Systems Constitutional: Denies fever, chills or weakness Eyes: Denies vision change ENT: Denies nasal discharge or throat pain Respiratory: Denies cough Cardiovascular: Denies chest pain or palpitations Gastrointestinal: Reports nausea, vomiting and heartburn; Denies abdominal pain, diarrhea or constipation Genitourinary- Female: Denies dysuria or frequency Musculoskeletal: Reports back pain Skin/Breasts: Denies rash Neurologic: Denies weakness or numbness Psychiatric: Reports anxiety Endocrine: Denies Loss of appetite Hematological/Lymphatic: Denies swollen glands Allergic/Immunologic: Denies rash Physical Exam General Physical Exam Narrative: awake and alert elderly woman, comfortable laying on the stretcher Limitations: no limitations General appearance: alert, in no apparent distress and obese Head Head exam: Present atraumatic, normocephalic and normal inspection Eye Eye exam: Present normal apperance and EOMI; Absent scleral icterus or conjunctival injection ENT ENT exam: Present normal exam, normal orophraynx and mucous membranes moist Neck Neck exam: Present normal inspection and full ROM; Absent tenderness Respiratory Respiratory exam: Present normal lung sounds bilaterally; Absent respiratory distress Cardiovascular Cardiovascular Exam: Present regular rate and normal rhythm GI/Abdominal GI/Abdominal exam: Present Abd soft, bowel sounds present all quadrents; Absent tenderness Extremities Exam Extremities exam: Present normal inspection and full ROM; Absent tenderness Back Exam Back exam: Present full ROM, tenderness and muscle spasm Neurological Exam Neurological exam: Present alert and oriented X3; Absent motor sensory deficit Psychiatric Psychiatric exam: Present normal affect and normal mood Skin Skin exam: Present warm, dry, intact and normal color Vital Signs Vital Signs: Vital Signs 05/21/21 09:39 05/21/21 12:40 Temperature 98.6 F 98.2 F Pulse Rate 72 64 Respiratory Rate 20 20 Blood Pressure 184/88 169/80 O2 Sat by Pulse Oximetry 95 95 MDM (comprehensive) Lab Data Labs: 05/21/21 10:15 05/21/21 10:15 Laboratory Results Last 24 hours 05/21/21 10:15: WBC 7.3, RBC 4.83, Hgb 15.3, Hct 44.6, MCV 92, MCH 32 H, MCHC 34, RDW 12, Plt Count 219, MPV 8.5 L, Immature Gran % (Auto) 0.4, Neut % (Auto) 74.3, Lymph % (Auto) 15.7, Donley % (Auto) 7.6, Eos % (Auto) 1.2, Baso % (Auto) 0.8, Lymph # (Auto) 1.2, Abs Immat Gran (auto) 0.0, Add Manual Diff No, Absolute Neutrophils 5.5, Monocytes # 0.6, Absolute Eosinophils 0.1, Absolute Basophils 0.1 05/21/21 10:15: PT 10.9, INR 1.0, PTT ([place]) 24.0 05/21/21 10:15: Sodium 140, Potassium 4.1, Chloride 105, Carbon Dioxide 30, Anion Gap 9, BUN 13, Creatinine 0.8, GFR Calculation Greater than 60, Glucose 128 H, Calcium 8.9, Total Bilirubin 0.8, AST 15, ALT 23, Alkaline Phosphatase 103, Troponin I Less than 0.015, Csc-H-Vpmgecjsekx Pept 119.00, Serum Total Protein 7.5, Albumin 3.2 05/21/21 11:22: POC Glucose 118 H EKG Data -: EKG Interpreted by De EKG shows normal: sinus rhythm Rate: normal Radiology Data Radiology results: report reviewed Medical Decision Making Free Text/Narative:: The patient was evaluated for severe nausea for the past 3 weeks. The PE was significant for a soft abdomen with no focal tenderness. Labs were unremarkable. US wnl. EKG and Troponin wnl. The symptoms coincide with the spinal injections. No other obvious etiology. Plan Plan Plan: d/c home Plan of care: Follow up appointments discussed, Plan of care discussed with patient and or family, Patient encouraged to ask questions about plan and Patient agrees with plan of care Discharge Plan Admission/Discharge Dx Primary DC Diagnosis: Nausea ED Provider: Jung Farah ED Status: Discharged Time Seen by Provider: 05/21/21 09:48 Triaged At: 05/21/21 09:39 Condition Condition: Stable Discharge Detail Disposition: Home, Self-Care Med Rec New Prescriptions: No Action famotidine 20 mg tablet 20 mg PO BID 0RF Label Comments: TAKE ONE TABLET BY MOUTH TWICE A DAY omeprazole 20 mg capsule,delayed release(DR/EC) 20 mg PO DAILY 0RF Label Comments: TAKE ONE CAPSULE BY MOUTH EVERY DAY duloxetine 60 mg capsule,delayed release(DR/EC) 60 mg PO DAILY 0RF aspirin [Adult Low Dose Aspirin] 81 mg tablet,delayed release (DR/EC) 325 mg PO DAILY 0RF oxybutynin chloride 15 mg tablet extended release 24 hr See Rx Instructions .ROUTE .COMPLEX 0RF Rx Instructions: TAKE ONE TABLET BY MOUTH EVERY DAY pravastatin 40 mg tablet 40 mg PO HS 0RF metoprolol succinate 50 mg tablet extended release 24 hr 50 mg PO DAILY 0RF Rx Instructions: TAKE ONE TABLET BY MOUTH EVERY DAY ciprofloxacin HCl 500 mg tablet 500 mg PO BID 0RF metformin 500 mg tabl et extended release 24hr 500 mg PO QPM 0RF epinephrine 0.3 MG/0.3 ML auto-injector 0.3 mg IM 1T Qty: 1 1RF ondansetron 4 mg tablet,disintegrating 4 mg PO Q8H PRN (Reason: nausea and vomiting) Qty: 20 0RF Medications Medication reconciliation performed by provider at discharge: Yes Follow Up Care/Instructions Diet/Activity/Wound Care..: Please take Tylenol only for knee and back pain, follow-up with Dr. Cordova *Discharge Patient* Discharge Orders: Discharge Order (Routine); Ordered 05/21/21 Ordered By: Jung Farah Discharge Date/Time: 05/21/21 12:42 Interventions Interventions: ED Discharge Instructions Last Done: 05/21/21 12:41 ED General Adult Last Done: 05/21/21 09:40 Report Signers: <Electronically signed by Jung Farah MD> Jung Farah MD 05/21/21 1916 Jung Farah MD SIGNATURE DA Report Cosigners: Nusrat RIBEIRO 05/21/211007 T: SKEMI 05/21/211007 CC: Shimon Cordova MD Name Value Range Interpretation Code Description Data Teodora rce(s) Supporting Document(s) ID Date Data Source [id number] 05/20/2021 03:16:00 PM EDT [facility] [address] [place] [id number] [phone] NAME SEX PT STATUS ACCOUNT NUMBER ETTA ECHEVERRIA REG REF [id number] ORDERING PHYSICIAN LOCATION MEDICAL RECORD NO. Shimon Cordova MD CT [id number] ATTENDING PHYSICIAN DATE OF DATE OF EXAM/TIME Shimon Cordova MD 1945 05/20/211246 TYPE / EXAM CT Abd/pel w/ contrast REASON FOR EXAM Severe anorexia; left sided abdominal bloating CLINICAL HISTORY: [facility] Severe anorexia; left sided abdominal bloating COMPARISON: Comparison CT study is from June 14, 2019. TECHNIQUE: TECHNIQUE: CT images through the abdomen and pelvis obtained with intravenous contrast. Oral contrast was also administered. 100 mL's of Omnipaque 300 is administered intravenously. FINDINGS: Preliminary digital reel assembler radiograph is unremarkable. There are clips in right upper quadrant. The patient is status post prior left mastectomy. There are low-density areas in the right breast soft tissue consistent with cysts. There is no evidence of infiltrate atelectasis or pleural effusion in the lung bases. No pericardial effusion is seen. There is mild diffuse fatty infiltration of the liver. There are clips in the gallbladder fossa. Nofocal liver lesion is seen. No biliary ductal dilation is observed. There is no abnormality in the pancreas. The spleen is normal size homogeneous in texture. No adrenal lesion is observed. The kidneys enhance symmetrically and are morphologically intact. Normal caliber aorta. Small and large intestinal bowel loops are normal in the abdomen and pelvis. Uterus is surgically absent. No pelvic mass or adenopathy is seen. Urinary bladder is unremarkable. No abdominal wall defect is seen. Bone window settings show no bony destructive lesion. IMPRESSION: There is mild diffuse fatty infiltration of the liver. Post cholecystectomy and hysterectomy. Post left mastectomy. No acute abdominal or pelvic abnormality. Reported By Kerwin Bennett MD on 05/20/21 0416 Signed By Kerwin Bennett MD on 05/20/21 1522 Date Time CC: Kerwin Bennett M.D.; Shimon Cordova MD Techn: MORSA Trans Dt/Tm: Trans by: DT Prt Dt/Tm: : Total DLP = 939.00 mGy-cm : Total Radiation Dose = 14.0850 mSv Lifetime Dose: 29.9550 mSv Name Value Range Interpretation Code Description Data Teodora rce(s) Supporting Document(s) ID Date Data Source [id number] 05/19/2021 12:36:00 PM EDT [facility] @05/19/21 1220: UA W/ MICRO added. RFLXG = UMIC.Method of Collection:: Voided @05/19/21 1220: UA W/ MICRO added. RFLXG = UMIC.Method of Collection:: Voided Name Value Range Interpretation Code Description Data Teodora rce(s) Supporting Document(s) Color of Urine [facility] Appearance of Urine CLEAR Abnormal (applies to non-nu meric results) [facility] pH of Urine by Test strip 6.0 5-8 [facility] Specific gravity of Urine by Refractometry 1.020 1.005-1.030 [facility] Leukocyte esterase [Presence] in Urine by Test strip NEGATIVE Above high normal [facility] @DO MICRO!!!! Nitrite [Presence] in Urine by Test strip NEGATIVE Above high normal [facility] @DO MICRO!!!! Protein [Presence] in Urine by Test strip NEGATIVE Above high normal [facility] @DO MICRO!!!! Glucose [Mass/volume] in Urine by Automated test strip NEGATIVE NEG ATIVE [facility] Ketones [Presence] in Urine by Test strip NEGATIVE [facility] Urobilinogen [Presence] in Urine 0.2-1 EU/dl [facility] Bilirubin.total [Presence] in Urine by Automated test strip NEGATIVE [facility] Erythrocytes [#/volume] in Urine by Test strip MODERATE N EGATIVE Above high normal [facility] @DO MICRO!!!! URINE MICROSCOPIC ADDED Microscopic Added [facility] ID Date Data Source [id number] 05/19/2021 12:36:00 PM EDT [facility] @05/19/21 1220: UA W/ MICRO added. RFLXG = UMIC.Method of Collection:: Voided @05/19/21 1220: UA W/ MICRO added. RFLXG = UMIC.Method of Collection:: Voided Name Value Range Interpretation Code Description Data Teodora rce(s) Supporting Document(s) Erythrocytes [#/volume] in Urine by Manual count OCCASIONAL 0-5 [facility] Leukocytes [#/volume] in Urine by Manual count 5-8 /hpf 0-5 Above high normal [facility] Cells [Type] in Urine sediment by Light microscopy [facility] Bacteria [Presence] in Urine sediment by Light microscopy NEGATIVE Above high normal [facility] ID Date Data Source [id number] 05/19/2021 12:24:00 PM EDT [facility] Name Value Range Interpretation Code Description Data Teodora rce(s) Supporting Document(s) Leukocytes [#/volume] in Blood by Automated count 10.4 10*3/uL 4.45-1 0.71 N [facility] Erythrocytes [#/volume] in Blood by Automated count 4.78 10*6/uL 4.20 -5.40 N [facility] Hemoglobin [Moles/volume] in Blood 15.0 g/dL 10.7-15.4 N [facility] Hematocrit [Volume Fraction] of Blood by Automated count 43.9 % 3 7-47 N [facility] Erythrocyte mean corpuscular volume [Ent itic volume] in Cord blood by Automated count 92 fL 80-96 N [facility] ital Erythrocyte mean corpuscular hemoglobin [Entitic mass] by Au tomated count 31 pg 27-31 N [facility] Erythrocyte mean corpuscular hemoglobin concentration [Mass/volume] in Cord blood 34 g/dL 33-37 N [facility] ital Erythrocyte distribution width [Entitic volume] by Automated count 12 % 11-15 N [facility] Platelets [#/volume] in Blood by Automated count 244 10*3/uL 130-472 N [facility] Platelet mean volume [Entitic volume] in Blood 8.7 fL 9.1-13. 1 Below low normal [facility] Neutrophils/100 leukocytes in Blood by Automated count 76.0 % 41- 77 N [facility] Neutrophils [#/volume] in Blood by Automated count 7.9 U 1.7-7.6 Above high normal [facility] Lymphocytes/100 leukocytes in Blood by Automated count 14.7 % 14- 46 N [facility] Lymphocytes [#/volume] in Blood by Automated count 1.5 U 0.6-4.6 N [facility] Monocytes/100 leukocytes in Blood by Automated count 6.9 % 4-12 N [facility] Monocytes [#/volume] in Blood by Automated count 0.7 U 0.2-1.2 N [facility] Eosinophils/100 leukocytes in Blood by Automated count 1.3 % 0-7 N [facility] Eosinophils [#/volume] in Blood by Automated count 0.1 U 0.0-0.5 N [facility] Basophils/100 leukocytes in Blood by Automated count 0.7 % 0.4-1 .3 N [facility] Basophils [#/volume] in Blood by Automated count 0.1 U 0.0-0.2 N [facility] NUCLEATED RED BLOOD CELL 0 % [facility] NUCLEATED RED BLOOD CELL# 0 U [facility] Immature granulocytes [Presence] in Blood by Automated count 0-2 N [facility] Immature granulocytes [#/volume] in Blood by Automated count 0.0 U 0-0.1 N [facility] Manual Differential panel - Blood NO [facility] ID Date Data Source [id number] 05/19/2021 01:28:00 PM EDT [facility] Name Value Range Interpretation Code Description Data Teodora rce(s) Supporting Document(s) Urea nitrogen [Mass/volume] in Serum or Plasma 17 mg/dL 9-23 N [facility] Sodium [Moles/volume] in Serum or Plasma 142 mmol/L 132-146 N [facility] Potassium [Moles/volume] in Serum or Plasma 4.1 mmol/L 3.5-5.5 N [facility] Chloride [Moles/volume] in Serum or Plasma 106 mmol/L 99-109 N [facility] Carbon dioxide, total [Moles/volume] in Serum or Plasma 29 mmol/L 20 -31 N [facility] Anion gap in Serum or Plasma 11 mmol/L 8-[address] [facility] Glucose [Mass/volume] in Serum or Plasma 115 mg/dL 74-106 Above high normal [facility] Creatinine 0.8 mg/dL 0.5-1.1 [facility] Glomerular filtration rate/1.73 sq M.pre dicted [Volume Rate/Area] in Serum or Plasma Greater Than 60 ABOVE 60 [facility] Alanine aminotransferase [Enzymatic acti vity/volume] in Serum or Plasma by With P-5'-P 22 U/L 10-49 N [facility] ital Aspartate aminotransferase [Enzymatic ac tivity/volume] in Serum or Plasma by With P-5'-P 17 U/L 0-33 [facility] pital Alkaline phosphatase [Enzymatic activity/volume] in Serum or Plasma 108 U/L 45-129 N [facility] Calcium [Mass/volume] in Serum or Plasma 9.3 mg/dL 8.5-10. 1 No range defined, or normal ranges don't apply [facility] Repeated by: Fela Rodriguez 05/19/21 132 8.Result Confirmation: 9.2 mg/dL Bilirubin.total [Mass/volume] in Serum or Plasma 0.6 mg/dL 0.3-1.2 [facility] Albumin [Mass/volume] in Serum or Plasma by Bromocresol purple (BCP) dye binding method 3.5 g/dL 3.2-4.8 [facility] ital Protein [Mass/volume] in Serum or Plasma 7.6 g/dL 5.7-8.2 [facility] ID Date Data Source [id number] 05/21/2021 12:04:00 PM EDT [facility] Name Value Range Interpretation Code Description Data Teodora rce(s) Supporting Document(s) Nuclear Ab [Presence] in Serum by Immunofluorescence NEGAT MANE [facility] SCOTTIE IFA is a first line screen for detec ting thepresence of up to approximately 150 autoantibodies invarious autoimmune diseases. A negative SCOTTIE IFA resultsuggests an SCOTTIE-associated autoimmune disease is notpresent at this time, but is not definitive. If thereis high clinical suspicion for Sjogren's syndrome,testing for anti-SS-A/Ro antibody should be considered.Anti-Berlin-1 antibody should be considered for clinicallysuspected inflammatory myopathies.AC-0: NegativeInternational Consensus on SCOTTIE Patterns(https://doi.org/10.1515/fhzn-1720-3871)For additional information, please refer tohttp://education.WEISSENHAUS/faq/UIQ787(This link is being provided for informational/educational purposes only.)THIS TEST WAS PERFORMED AT:[facility] [employer] [id number] MERATI,MD ID Date Data Source [id number] 05/19/2021 12:24:00 PM [facility] Name Value Range Interpretation Code Description Data Teodora rce(s) Supporting Document(s) Erythrocyte sedimentation rate by Westergren method 6 mm/hr 0-30 N [facility] @Reenter manual test result: 6@by Fela Gallagher at 05/19/21 1224. ID Date Data Source [id number] 05/19/2021 01:28:00 PM [facility] Name Value Range Interpretation Code Description Data Teodora rce(s) Supporting Document(s) C reactive protein [Mass/volume] in Serum or Plasma Less Than 2.9 0.0 -5.0 N [facility] @Report as less than lower limit ID Date Data Source [id number] 05/19/2021 01:28:00 PM [facility] Name Value Range Interpretation Code Description Data Teodora rce(s) Supporting Document(s) Thyrotropin [Units/volume] in Serum or Plasma by Detec tion limit <= 0.005 mIU/L 2.39 u[iU]/mL 0.35-5.50 [facility] ID Date Data Source [id number] 05/19/2021 11:09:00 AM [facility] Patient Name: ETTA ECHEVERRIA : 1945 Sex: F Pt Unit #: [id number] Location:[facility] Provider: Visit Date/Time: 05/19/21 Primary Insurance: MEDICARE [employer] Secondary Insurance: BC/BS [employer] EMPLOYEES Intake Vital Signs 05/19/21 11:13 Current Height 5 ft 3 in Current Weight 198 lb Weight Measurement Method Standing Scale BMI 35.0 BP 152/80 Blood Pressure Location Rt brachial Position Sitting Pulse 57 L Pulse Strength Normal Pulse Source Pulse Oximeter Temp 97.0 F L Temp Source Tympanic Pulse Oximetry (%) 96 Oxygen Delivery Method room air Intake Visit Reasons: Vertigo Nurse Note: Increased nausea, weakness, fatigue and no appetite x3 days. Pt's wondering if she may have an infection. Consolidator Required: No Accompanied by: Self / Same as Patient Is patient in pain?: No Allergies codeine [Codeine] Allergy (Intermediate, Verified 03/16/21 08:24) RASH (SKIN RASH) No Known Food Allergies Allergy (Verified 03/16/21 08:24) Medications - Last Reconciled 05/19/21 by Shimon Cordova M.D. aspirin (Adult Low Dose Aspirin) 81 mg PO .every other day ciprofloxacin HCl 500 mg PO BID duloxetine mg PO epinephrine 0.3 mg IM 1T famotidine 20 mg PO BID metformin ER 500 mg PO QPM metoprolol succinate ER TAKE ONE TABLET BY MOUTH EVERY DAY omeprazole 20 mg PO oxybutynin chloride ER TAKE ONE TABLET BY MOUTH EVERY DAY pravastatin 40 mg PO HS Vision Wearing glasses?: Yes Fall Risk History of falls: No Ambulatory Aid:: None Gait/Transferring:: Normal Medications:: Antihypertensives HIV Testing Offer - ages 13-64 HIV testing Offer: No Requirement for HIV testing offer been met?: Not in age range Do you need a note to return Do you need a note to return to daycare/school/sports/work: No Coronavirus Screening Screening Are you currently positive or on isolation for COVID ?: No Do you have any NEW signs of one or more of the following?: no symptoms Do you have NEW signs of at least two of the following?: tiredness HPI Additional HPI HPI Details: Patient started feeling ill a couple of days prior to her office visit. She complained of feeling profoundly weak. All she wanted to do is sleep. She was clueless as to what could have brought this on. She was wondering if she had another urinary infection. She was experiencing some nausea and fatigue as well. She has a total loss of appetite. The odor of cooked food is nauseating to her. She did also complain of having warm and cold chills. She continues to experience the left-sided abdominal fullness. Her stomach is extremely queasy. Despite this she has been able to keep the food that she has consumed down in her stomach. She also has noticed some blurring of her vision. She was accompanied by her at today's visit. [facility] Medical History Bee sting reaction Breast cancer Bulging Disc Degenerative Disc Disease Degenerative Spondylothesis Essential hypertension (07/18/10) Gastroenteritis due to norovirus (07/25/16) GERD without esophagitis Heart murmur Hiatal hernia Lumbar radiculopathy Overactive bladder Presbyesophagus Pure hypercholesterolemia (07/13/14) Type 2 diabetes mellitus without complication, without long-term current use of insulin Xerosis Surgical History History of - surgery History of - surgery History of appendectomy History of back surgery History of breast biopsy History of cholecystectomy History of foot surgery History of hysterectomy History of total mastectomy of left breast Left CTS and left ganglion cyst [address] Bravo Status post carpal tunnel release Status post oophorectomy Family History Mother Diabetes Father Heart disease Brother No problems noted. Brother No problems noted. Brother No problems noted. Brother No problems noted. Brother No problems noted. Brother No problems noted. Brother No problems noted. Brother No problems noted. Sister No problems noted. Sister CORBETT (nonalcoholic steatohepatitis) Son No problems noted. Daughter No problems noted. Daughter No problems noted. 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 pets and animals: No leisure activities: reading, volunteer work and other Hx Recent Travel (where): No well-balanced diet: daily caffeine: Yes (no answer) high-fat food intake: 0-1 times daily daily servings fruits/ve-4 daily servings of milk/calcium: 0-1 eating out: rarely or never reads food labels: sometimes during the past year weight has: increased > 10 lbs what type of physical activity do you participate in?: walking Smoking Status: Former smoker alcohol intake: current alcohol intake frequency: holidays/special occasions only substance use type: does not use susan/mu-ism: Unknown special susan needs: No seatbelt use: always helmet use: No drive intox or ride w/ intox roll off driver: No water heater temp set < 120 deg: No working smoke detector in home: Yes fire extinguisher in home: Yes carbon monox detector in home: Yes firearms in home: Yes firearms unloaded and locked: Yes victim of physical abuse: No victim of emotional abuse: No Review of Systems Const All systems reviewed are unremarkable except as noted in HPI and below Reports anorexia, Reports chills, Reports fatigue, Denies headache(s), Reports lethargy, Reports poor appetite and Reports weakness Eyes Reports blurry vision ENT Denies headache(s) Card Denies chest pain, Denies syncope, Denies palpitations and Denies dyspnea Resp Denies cough and Denies dyspnea GI Reports bloating (Left side of her abdomen) and Reports nausea Genitourinary: Reports urinary frequency Musc Denies muscle cramps Skin/Breast Reports other (Unable to wear the left-sided breast prosthesis because of discomfort) Neuro Denies syncope, Denies headache(s), Denies lack of coordination and Reports weakness Endo Reports fatigue and Denies palpitations Sarath/Lymph Denies easy bleeding Exam Const General: cooperative, well developed, well groomed and in distress mild (Because of the nausea and stomach queasiness) Orientation: alert and awake Eyes Sclera: sclerae normal Pupils: PERRL Neck Neck: normal visual inspection, supple and no JVD present Chest Chest: abnormal inspection of the chest scar (Left mastectomy) Resp Effort Inspection: normal respiratory effort Auscultation: clear to auscultation bilaterally Cardio Rate: regular rate Rhythm: regular rhythm Heart Sounds: S1 normal, S2 normal and murmur (Along the right sternal border with radiation to the carotids) Bruits: no abdominal aortic bruits GI Inspection: Yes abdominal distension Palpation: soft and nontender Auscultation: normal bowel sounds General: No CVA tenderness Neuro General: gait normal Extrem General: normal to insp ection and no clubbing, cyanosis or edema Psych Appearance: grossly normal Mental Status: mental status grossly normal Speech and Movement: speech and movement normal Assessment Plan Assessment Plan (1) Anorexia: Status: Acute Code(s): R63.0 - Anorexia SNOMED Code(s): 27376912 Category: Medical Plan: Patient with severe anorexia and aversion to food with certain smells. She expresses a desire to get to the bottom of this. Investigations will be requested. (2) Nausea: Status: Acute Code(s): R11.0 - Nausea SNOMED Code(s): 662429033 Category: Medical Plan: Patient with severe stomach queasiness that will need to be investigated. 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 Given the left-sided bloating that she complains of, a CT scan will be requested. (3) Urinary urgency: Code(s): R39.15 - Urgency of urination Plan: Patient with urinary urgency suggestive of a possible UTI. Urinalysis and culture will be requested. Plan: Patient with above- described problems that will need additional investigations. Extensive lab work and urine culture have been requested. A CT of the abdomen has been requested. Orders: Orders CMP 05/19/21 R30.0 - Dysuria, R53.1 - Weakness CRP, C-REACTIVE PROTEIN 05/19/21 R30.0 - Dysuria, R53.1 - Weakness TSH 05/19/21 R30.0 - Dysuria, R53.1 - Weakness CBC W AUTO DIFF 05/19/21 R30.0 - Dysuria, R53.1 - Weakness SED RATE 05/19/21 R30.0 - Dysuria, R53.1 - Weakness SCOTTIE Abs w Rfx to Patterns(IFA) 05/19/21 R30.0 - Dysuria, R53.1 - Weakness URINALYSIS 05/19/21 R30.0 - Dysuria, R53.1 - Weakness Additional Comments Additional Comments: At the time of dictation of this note the lab data and the CT scan results are already back. Patient is confirmed to have a urinary infection. No abdominal pathology was identified on the CT of the abdomen. I spoke with the patient this morning. I instructed her to come into the emergency room to get a cardiac work-up. She is a diabetic. Her nausea and stomach queasiness could be an anginal equivalent. She understands this reasoning and is heading to the ER. I have also spoken with the ER physician regarding my concern and the need for a cardiac work-up. He also is in agreement with this plan. Coding Level of Care Code 49945 Est Pt Extended Comp Coding comments Coding Comments Additional info for the brokerage coordinator: Fairly extensive evaluation of the patient's complaints of severe anorexia, nausea, abdominal bloating and urinary frequency Exam Comprehensive Diagnoses Anorexia R63.0 Nausea R11.0 Urinary urgency R39.15 Additional Codes Intake - Is patient in pain?: No (1126F) <Electronically signed by hSimon Cordova MD> 05/21/21 0924 Name Value Range Interpretation Code Description Data Teodora rce(s) Supporting Document(s) ID Date Data Source [id number] 05/11/2021 12:00:00 AM EDT [facility] Name Value Range Interpretation Code Description Data Teodora rce(s) Supporting Document(s) SARS-CoV-2 NEGATIVE [facility] This lab was ordered by [facility] and reported by [facility]. ID Date Data Source [id number] 05/11/2021 12:00:00 AM EDT [facility] ([facility]) Name Value Range Interpretation Code Description Data Teodora rce(s) Supporting Document(s) SARS-CoV-2 (COVID-19) RNA [Presence] in Respiratory specimen by MEENAKSHI with probe detection negative negative Sars-cov-2 [facility] ([facility]) ID Date Data Source [id number] 05/11/2021 12:00:00 AM EDT [facility] ([facility]) Name Value Range Interpretation Code Description Data Teodora rce(s) Supporting Document(s) ID Date Data Source [id number] 04/27/2021 10:12:00 AM EDT [facility] Patient Name: ETTA ECHEVERRIA : 1945 Sex: F Pt Unit #: [id number] Location:AMB.IM Provider: Visit Date/Time: 04/27/21 Primary Insurance: MEDICARE [employer] Secondary Insurance: BC/BS [employer] EMPLOYEES Intake Nurse Note Intake Visit Reasons: Flu shot Nurse Note: Pt was given a Flu vaccine for preventive purposes. Immunizations flu vac [id number] 36mos up(PF) Performing Provider: Shimon Cordova M.D. Administered by: Krystle Arreguin on 04/27/21 10:13 Dose Route Admin Location Lot Number Expiration Date NDC Manufactu rer 0.5 mL IM Right deltoid [id number] 01/26/22 [id number] [employer] VIS Given Date VIS Provided VIS Publication Date 04/27/21 Single Vaccine 21 Eligibility Eligibility Date Funding Source Not [facility] Eligible 04/27/21 Private Assessment Plan Assessment Plan Orders: Orders INJ - Influenza Vaccine Today Z23 - Encounter for immunization <Electronically signed by Shimon Cordova MD> 04/27/21 1132 Name Value Range Interpretation Code Description Data Teodora rce(s) Supporting Document(s) ID Date Data Source [id number] 04/27/2021 12:00:00 AM EDT ETHEL ([facility]) Name Value Range Interpretation Code Description Data Teodora rce(s) Supporting Document(s) SARS-CoV-2 (COVID-19) RNA [Presence] in Respiratory specimen by MEENAKSHI with probe detection negative negative Sars-cov-2 ETHEL ([facility]) ID Date Data Source [id number] 04/27/2021 12:00:00 AM EDT ETHEL ([facility]) Name Value Range Interpretation Code Description Data Teodora rce(s) Supporting Document(s) ID Date Data Source [id number] 04/27/2021 12:00:00 AM EDT ETHEL ([facility]) Name Value Range Interpretation Code Description Data Teodora rce(s) Supporting Document(s) SARS-CoV-2 (COVID-19) RNA [Presence] in Respiratory specimen by MEENAKSHI with probe detection negative negative Sars-cov-2 ETHEL ([facility]) ID Date Data Source [id number] 04/27/2021 12:00:00 AM EDT ETHEL ([facility]) Name Value Range Interpretation Code Description Data Teodora rce(s) Supporting Document(s) ID Date Data Source [id number] 04/27/2021 12:00:00 AM EDT ETHEL ([facility]) Name Value Range Interpretation Code Description Data Teodora rce(s) Supporting Document(s) SARS-CoV-2 (COVID-19) RNA [Presence] in Respiratory specimen by MEENAKSHI with probe detection negative negative Sars-cov-2 EATON ([facility]) ID Date Data Source [id number] 04/27/2021 12:00:00 AM EDT EATON ([facility]) Name Value Range Interpretation Code Description Data Teodora rce(s) Supporting Document(s) ID Date Data Source [id number] 04/27/2021 12:00:00 AM EDT [facility] Name Value Range Interpretation Code Description Data Teodora rce(s) Supporting Document(s) SARS-CoV-2 NEGATIVE [facility] This lab was ordered by [facility] and reported by [facility]. ID Date Data Source [id number] 04/26/2021 11:15:00 AM EDT [facility] Therapy Department JUWANETTA Miranda : 1945 Date: 04/26/21 [id number] Attending: JL ALVARADO MD PT Outpatient Evaluation - Evaluation/Subjective Diagnosis:: s/p left mastectomy with decreased AROM left arm Impairments: Pain, Decreased AROM, Decreased Strength - Subjective Subjective: Patient reports she had left total mastectomy on 03/08/21 with lymph node removal of 3 nodes. She now has decreased AROM in left arm. She states she has 3/10 pain at best with sitting and rest and up to 9/10 at worst with reaching back and in wrong ways. Patient states she was not allowed to lift > 12 #. She takes gabapentin for her back. 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 - Objective Objective: Obsesrvation: patient with rounded shoulders, slightly forward head. AROM: left shoulder flexion 145, abduction 175, ER 60, IR to L2. Strength: left shoulder flexion 4+/5 and abduction 4/5, ER 4/5, IR 4+/5 Assessment: Patient presents s/p left mastectomy with pain, decreased left UE ROM, decreased strength making it difficult to complete all nurys daily activity. Interventions: Therapeutic exercise, Patient education - Plan of Care Short Term Goal #1: Patient will be independent and 100% accurate with HEP. Short Term Goal #2: Patient will demo no pain > 2/10 to get back to all normal daily activity. Short Term Goal #3: Patient will demo full AROM left shoulder to decrease pain with ADLs and reaching. group home goal #1: NA Penitentiary Goal #2: NA group home goal #3: NA Frequency: 1x/week Rehab Potential: Good Visits Requested: 4 Expiration date of orders:: 05/24/21 Therapist Mi Vargas 04/26/21 1115 I certify this plan of care Cosigner Date Time LAST EDIT: Name Value Range Interpretation Code Description Data Teodora rce(s) Supporting Document(s) ID Date Data Source [id number] 04/25/2021 10:23:[address] [facility] Name Value Range Interpretation Code Description Data Teodora rce(s) Supporting Document(s) Progress Note [facility] [id number] [facility] [file] [id number] ID Date Data Source [id number] 04/11/2021 04:56:00 PM EDT [facility] @04/11/21 1646: UA W/ MICRO added. RFLXG = UMIC CIF.Method of Collection:: Clean Catch @04/11/21 1656: Urine culture added. RFL XG = CULT.ADD.@04/13/21 0815: Urine ID Charge added. RFLXG = CHGURID. @04/11/21 1646: UA W/ MICRO added. RFLXG = UMIC CIF.Method of Collection:: Clean Catch Name Value Range Interpretation Code Description Data Teodora rce(s) Supporting Document(s) Color of Urine [facility] Appearance of Urine CLEAR Abnormal (applies to non-nu meric results) [facility] pH of Urine by Test strip 5.5 5-8 [facility] Specific gravity of Urine by Refractometry 1.018 1.005-1.030 [facility] Leukocyte esterase [Presence] in Urine by Test strip NEGATIVE Abnormal (applies to non-numeric results) [facility]A Culture has been added to this specimen per established criteria Nitrite [Presence] in Urine by Test strip NEGATIVE Above high normal [facility] @DO MICRO!!!!A Culture has been added to this specimen per established criteria Protein [Presence] in Urine by Test strip NEGATIVE Above high normal [facility] @DO MICRO!!!! Glucose [Mass/volume] in Urine by Automated test strip NEGATIVE NEG ATIVE [facility] Ketones [Presence] in Urine by Test strip NEGATI VE Abnormal (applies to non- numeric results) [facility] Urobilinogen [Presence] in Urine 0.2-1 EU/dl [facility] Bilirubin.total [Presence] in Urine by Automated test strip NEGATIVE [facility] Erythrocytes [#/volume] in Urine by Test strip LARGE NEGATIV E Above high normal [facility] @DO MICRO!!!!A Culture has been added to this specimen per established criteria URINE MICROSCOPIC? (CIF) Microscopic Added [facility] ID Date Data Source [id number] 04/06/2021 04:33:[address] [facility] Name Value Range Interpretation Code Description Data Teodora rce(s) Supporting Document(s) Progress Note [facility] [id number] lbm [file] [id number]= ID Date Data Source [id number] 03/30/2021 09:43:00 AM EDT [facility] [address] [place] [address] [phone] NAME SEX PT STATUS ACCOUNT NUMBER ETTA ECHEVERRIA REG REF [id number] ORDERING PHYSICIAN LOCATION MEDICAL RECORD NO. Shimon Cordova MD LAB [id number] ATTENDING PHYSICIAN DATE OF DATE OF EXAM/TIME Shimon Cordova MD 1945 03/23/21927 TYPE / EXAM Xray Abdomen 2V (Flat/Upright) REASON FOR EXAM LUQ bloating CLINICAL HISTORY: 75-year-old female with left upper quadrant bloating LUQ bloating TECHNIQUE: AP erect and supine radiographs of the abdomen. COMPARISON: There are no prior studies available for comparison. FINDINGS: Surgical c lips in the right upper quadrant consistent with prior cholecystectomy. Air is demonstrated in nondilated loops of small and large bowel throughout the abdomen and pelvis. A moderate amount of stool is retained throughout the descending, transverse and proximal descending colon. Calcifications in the left hemipelvis are consistent with phleboliths. Mild degenerative changes in the lower lumbar spine are noted, most severe at L4-5. Bones are intact. Hip joint spaces, sacroiliac joints and pubic symphysis are preserved. IMPRESSION: Nonobstructive bowel gas pattern. No radiographic evidence of acute pathology. Consider CT abdomen pelvis with IV and oral contrast for further clarification, if clinically indicated. END IMPRESSION Reported By Ebony Guo DO on 03/30/21942 Signed By Ebony Guo DO on 03/30/21944 Date Time CC: Ebony Guo DO; Shimon Cordova MD Techn: XENA Trans Dt/Tm: Trans by: DT Prt Dt/Tm: [id number]: Total DLP = 0.00 mGy-cm Fluoroscopy Time (in secs): Name Value Range Interpretation Code Description Data Teodora rce(s) Supporting Document(s) ID Date Data Source [id number] 03/23/2021 12:05:00 PM EDT [facility] Name Value Range Interpretation Code Description Data Teodora rce(s) Supporting Document(s) Leukocytes [#/volume] in Blood by Automated count 6.8 10*3/uL 4.45-10 .71 N [facility] Erythrocytes [#/volume] in Blood by Automated count 4.04 10*6/uL 4.20-5.40 Below low normal [facility] Hemoglobin [Moles/volume] in Blood 12.9 g/dL 10.7-15.4 N [facility] Hematocrit [Volume Fraction] of Blood by Automated count 37.9 % 3 7-47 N [facility] Erythrocyte mean corpuscular volume [Ent itic volume] in Cord blood by Automated count 94 fL 80-96 N [facility] ital Erythrocyte mean corpuscular hemoglobin [Entitic mass] by Au tomated count 32 pg 27-31 Above high normal [facility] Erythrocyte mean corpuscular hemoglobin concentration [Mass/volume] in Cord blood 34 g/dL 33-37 N [facility] ital Erythrocyte distribution width [Entitic volume] by Automated count 12 % 11-15 N [facility] Platelets [#/volume] in Blood by Automated count 274 10*3/uL 130-472 N [facility] Platelet mean volume [Entitic volume] in Blood 8.8 fL 9.1-13. 1 Below low normal [facility] Neutrophils/100 leukocytes in Blood by Automated count 69.1 % 41- 77 N [facility] Neutrophils [#/volume] in Blood by Automated count 4.7 U 1.7-7.6 N [facility] Lymphocytes/100 leukocytes in Blood by Automated count 18.4 % 14- 46 N [facility] Lymphocytes [#/volume] in Blood by Automated count 1.2 U 0.6-4.6 N [facility] Monocytes/100 leukocytes in Blood by Automated count 8.7 % 4-12 N [facility] Monocytes [#/volume] in Blood by Automated count 0.6 U 0.2-1.2 N [facility] Eosinophils/100 leukocytes in Blood by Automated count 2.1 % 0-7 N [facility] Eosinophils [#/volume] in Blood by Automated count 0.1 U 0.0-0.5 N [facility] Basophils/100 leukocytes in Blood by Automated count 1.0 % 0.4-1 .3 N [facility] Basophils [#/volume] in Blood by Automated count 0.1 U 0.0-0.2 N [facility] NUCLEATED RED BLOOD CELL 0 % [facility] NUCLEATED RED BLOOD CELL# 0 [facility] Immature granulocytes [Presence] in Blood by Automated count 0-2 N [facility] Immature granulocytes [#/volume] in Blood by Automated count 0.1 U 0-0.1 N [facility] Manual Differential panel - Blood NO [facility] ID Date Data Source [id number] 03/23/2021 10:14:00 AM EDT [facility] Name Value Range Interpretation Code Description Data Teodora rce(s) Supporting Document(s) Alanine aminotransferase [Enzymatic acti vity/volume] in Serum or Plasma by With P-5'-P 27 U/L 10-49 N [facility] ital Aspartate aminotransferase [Enzymatic ac tivity/volume] in Serum or Plasma by With P-5'-P 13 U/L 0-33 N [facility] Alkaline phosphatase [Enzymatic activity/volume] in Serum or Plasma 107 U/L 45-129 N [facility] Bilirubin.total [Mass/volume] in Serum or Plasma 0.5 mg/dL 0.3-1.2 N [facility] Bilirubin.direct [Mass/volume] in Serum or Plasma 0.1 mg/dL 0.0-0.2 [facility] Albumin [Mass/volume] in Serum or Plasma by Bromocresol purple (BCP) dye binding method 2.8 g/dL 3.2-4.8 Below low normal [facility] Protein [Mass/volume] in Serum or Plasma 6.6 g/dL 5.7-8.2 [facility] ID Date Data Source [id number] 03/23/2021 08:52:00 AM EDT [facility] Patient Name: ETTA ECHEVERRIA : 1945 Sex: F Pt Unit #: [id number] Location:[facility] Provider: Visit Date/Time: 03/23/21 Primary Insurance: MEDICARE [employer] Secondary Insurance: BC/BS [employer] Intake Vital Signs 03/23/21 08:52 Current Height 5 ft 3.5 in Current Weight 198 lb Weight Measurement Method Stated by Patient BMI 34.5 Pulse 74 Pulse Strength Normal Pulse Source Pulse Oximeter Pulse Oximetry (%) 95 Oxygen Delivery Method room air Intake Visit Reasons: Office procedure Nurse Note: Pt's here to have drainage tube removed. Consolidator Required: No Accompanied by: Self / Same as Patient Is patient in pain?: No Allergies codeine [Codeine] Allergy (Intermediate, Verified 03/16/21 08:24) RASH (SKIN RASH) No Known Food Allergies Allergy (Verified 03/16/21 08:24) Medications - Last Reconciled 03/23/21 by Shimon Cordova M.D. aspirin (Adult Low Dose Aspirin) 81 mg PO .every other day duloxetine mg PO epinephrine 0.3 mg IM 1T famotidine 20 mg PO BID metformin ER 500 mg PO QPM metoprolol succinate ER TAKE ONE TABLET BY MOUTH EVERY DAY omeprazole 20 mg PO oxybutynin chloride ER TAKE ONE TABLET BY MOUTH EVERY DAY pravastatin 40 mg PO HS Vision Wearing glasses?: Yes Fall Risk History of falls: No Ambulatory Aid:: None Gait/Transferring:: Normal Medications:: Antihypertensives HIV Testing Offer - ages 13-64 HIV testing Offer: No Requirement for HIV testing offer been met?: Not in age range Do you need a note to return Do you need a note to return to daycare/school/sports/work: No Coronavirus Screening Screening Are you currently positive or on isolation for COVID ?: No Do you have any NEW signs of one or more of the following?: no symptoms Do you have NEW signs of at least two of the following?: no symptoms HPI Additional HPI HPI Details: Patient recently underwent left mastectomy. She had a PILO drain in place. This has been there for the past several weeks. It has been draining less than 30 cc in the last few days. I was requested to remove it to save the patient from traveling to [place] for the procedure. She complained of left upper quadrant abdominal bloating. Her appetite has improved. Her nausea has resolved. She plans on having her liver enzymes rechecked today. She denied constitutional symptoms of infection. [facility] Medical History Bee sting reaction Breast cancer Bulging Disc Degenerative Disc Disease Degenerative Spondylothesis Essential hypertension (07/18/10) Gastroenteritis due to norovirus (07/25/16) GERD without esophagitis Heart murmur Hiatal hernia Lumbar radiculopathy Overactive bladder Presbyesophagus Pure hypercholesterolemia (07/13/14) Type 2 diabetes mellitus without complication, without long-term current use of insulin Xerosis Surgical History History of - surgery History of - surgery History of appendectomy History of back surgery History of breast biopsy History of cholecystectomy History of foot surgery History of hysterectomy History of total mastectomy of left breast Left CTS and left ganglion cyst [address] Bravo Status post carpal tunnel release Status post oophorectomy Family History Mother Diabetes Father Heart disease Brother No problems noted. Brother No problems noted. Brother No problems noted. Brother No problems noted. Brother No problems noted. Brother No problems noted. Brother No problems noted. Brother No problems noted. Sister No problems noted. Sister CORBETT (nonalcoholic steatohepatitis) Son No problems noted. Daughter No problems noted. Daughter No problems noted. 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 pets and animals: No leisure activities: reading, volunteer work and other Hx Recent Travel (where): No well-balanced diet: daily caffeine: Yes (no answer) high-fat food intake: 0-1 times daily daily servings fruits/ve-4 daily servings of milk/calcium: 0-1 eating out: rarely or never reads food labels: sometimes during the past year weight has: increased > 10 lbs what type of physical activity do you participate in?: walking Smoking Status: Former smoker alcohol intake: current alcohol intake frequency: holidays/special occasions only substance use type: does not use ussan/mu-ism: Unknown special susan needs: No seatbelt use: always helmet use: No drive intox or ride w/ intox roll off driver: No water heater temp set < 120 deg: No working smoke detector in home: Yes fire extinguisher in home: Yes carbon monox detector in home: Yes firearms in home: Yes firearms unloaded and locked: Yes victim of physical abuse: No victim of emotional abuse: No Review of Systems Const Denies chills, Denies fever(s) and Denies malaise Eyes Denies blurry vision Card Denies chest pain and Denies dyspnea Resp Denies dyspnea GI Reports bloating (In the left upper quadrant), Denies diarrhea, Denies nausea and Denies vomiting Skin/Breast Reports other (PILO drain in the left anterior axillary line) Exam Const General: cooperative, well developed and well groomed Orientation: alert and awake Eyes Sclera: sclerae normal Pupils: PERRL Neck Neck: normal visual inspection, supple and no JVD present Chest Chest: abnormal inspection of the chest scar (Left mastectomy, PILO drain in place) Resp Effort Inspection: normal respiratory effort Cardio Rate: regular rate Rhythm: regular rhythm GI Inspection: Yes abdominal distension Palpation: soft and nontender Percussion: tympanic to percussion Auscultation: normal bowel sounds Neuro General: gait normal Extrem General: normal to inspection and no clubbing, cyanosis or edema Assessment Plan Assessment Plan (1) Encounter for procedure: Plan: Patient came to the office to have the PILO drain removed. (2) Encounter for change or removal of drains: Code(s): Z48.03 - Encounter for change or removal of drains Plan: The Joseluis- Mccabe drain was successfully removed. Patient tolerated the procedure well. The entrance site was cleaned and dressed. There was no evidence of infection. Plan: Patient's abdominal bloating will be investigated. Imaging study has been requested. Repeat hepatic panel has been requested. I will call her with the results. Orders: Orders HEPATIC PANEL (LFT's - lab) Today R74.8 - Abnormal levels of other serum enzymes Xray Abdomen 2V (Flat/Upright) Today R14.0 - Abdominal distension (gaseous) Additional Comments Additional Comments: This document was dictated using Hunie speech recognition software. A reasonable attempt to proofread has been made to minimize errors. Please call if you notice any errors or have any questions. Coding Level of Care Code 50525 Est Pt Intermediate Comp Coding comments Coding Comments Additional info for the brokerage coordinator: Removal of PILO drain and addressed her complaint of abdominal bloating Exam Comprehensive Diagnoses Encounter for procedure Encounter for change or removal of drains Z48.03 Additional Codes Intake - Is patient in pain?: No (1126F) <Electronically signed by Shimon Cordova MD> 03/23/21 0928 Name Value Range Interpretation Code Description Data Teodora rce(s) Supporting Document(s) ID Date Data Source [id number] 03/21/2021 12:58:[address] [facility] Name Value Range Interpretation Code Description Data Teodora rce(s) Supporting Document(s) Progress Note [facility] [id number]yMVQ4jN1bDTD7JGbNXiNuWlByEPYm lb [file] [id number]+pt2t8RfTtAZMl/I3yn6e/maoq/LRlGaK4hRkv++Deputy Manager [file] [id number]= ID Date Data Source [id number] 03/18/2021 11:05:00 AM EDT [facility] [address] [place], [place] [address] [phone] NAME SEX PT STATUS ACCOUNT NUMBER ETTA ECHEVERRIA REG REF [id number] ORDERING PHYSICIAN LOCATION MEDICAL RECORD NO. Shimon Cordova MD [id number] ATTENDING PHYSICIAN DATE OF DATE OF EXAM/TIME Shimon Cordova MD 1945 03/18/211012 TYPE / EXAM US Abd single organ/quadrant REASON FOR EXAM Elevated liver enzymes CLINICAL HISTORY: 75-year-old female with Elevated liver enzymes and history of cholecystectomy, hepatic steatosis and hepatomegaly. COMPARISON: Abdominal ultrasound 06/24/2019 TECHNIQUE: Real-time sonography of the abdomen is performed. FINDINGS: LIVER: 17.0 cm in maximum dimension Visible liver is homogenous but increased in echogenicity when compared with the adjacent right kidney, consistent with fatty infiltration. No visible mass or ascites. No intrahepatic biliary dilation. GALLBLADDER: Not demonstrated, consistent with history of cholecystectomy. COMMON BILE DUCT: 0.8 cm in maximum diameter, which is normal for patient's age and status post cholecystectomy. PANCREAS: Visible pancreatic head and body are within normal limits. No ductal dilation or visible mass. Because detail is obscured by overlying bowel gas. RIGHT KIDNEY: 10.0 cm x 5.0 cm x 5.1 cm for total volume of the 132 mL. No hydronephrosis, stone or solid mass. IMPRESSION: 1. No sonographic evidence of acute pathology. 2. Hepatomegaly and hepatic steatosis, as before. If there are clinical concerns for gallbladder dysfunction, follow- up nuclear medicine HIDA scan may be helpful for further evaluation. END IMPRESSION Reported By Ebony Guo DO on 03/18/21 1105 Signed By Ebony Guo DO on 03/18/21 1108 Date Time CC: Ebony Guo DO; Shimon Cordova MD Techn: ELIOT Trans Dt/Tm: Trans by: DT Prt Dt/Tm: : Total DLP = 0.00 mGy-cm : Total Radiation Dose = 0.0000 mSv Lifetime Dose: 15.8700 mSv Name Value Range Interpretation Code Description Data Teodora rce(s) Supporting Document(s) ID Date Data Source [id number] 03/22/2021 05:03:00 AM EDT [facility] Name Value Range Interpretation Code Description Data Teodora rce(s) Supporting Document(s) Hepatitis B virus surface Ag [Presence] in Serum or Plasma b y Immunoassay NON-REACTIVE [facility] Hepatitis B Core IgM Ab NON-REACTIVE NON-REACTIVE [facility] Virus identified in Unspecified specimen NON-REACTIVE [facility] For additional information, please refer [email or web address](This link is being provided for informational/educational purposes only.) Hepatitis C virus Ab [Presence] in Serum or Plasma by Immuno assay NON-REACTIVE [facility] Hepatitis C virus Ab Signal/Cutoff in Serum or Plasma by Imm unoassay 0.01 <1.00 [facility] HCV antibody was non-reactive. There is no laboratoryevidence of HCV infection.In most cases, no further action is required. However,if recent HCV exposure is suspected, a test for HCV RNA(test code 44264) is suggested.For additional information please refer [email or web address](This link is being provided for informational/educational purposes only.)THIS TEST WAS PERFORMED AT:[facility] [address]ESTHELA MOTA MD ID Date Data Source [id number] 03/17/2021 06:42:[address] [facility] Name Value Range Interpretation Code Description Data Teodora rce(s) Supporting Document(s) Progress Note [facility] [id number]/[id number]AxI6CsVKM8sO0cDPF3OWhFUyVtXnFeBMY6 [facility] [file] [id number]/ [file] [id number]/OzUt0 1S475/69Hln62RV3cUdWWhZ+3w6u+cTBtZxvqjARenotVkqY/idLTHeDYYBwxNFzmRPlZe1fkO9RI2Gp KTwXjH8U/h+S/9u5df/JhBQXQD6780Nvi2Wn07uO9OQS50JyHueED53PduKGhYnxZcxxHJ+/6tZ1P/Vm REuS3J8vJxduj9Wz15fDsEcOc6oe2zT+iyQtxRRD7t nThc/Izx0ecLyGsLkkUw+b3YHQestx4Li56O/as8BnGa1FrByDx+CO3WCaFZ6Ke+FFghzGUWEQHiKMwu OEzYbz/QaCgsASKx8nR7zSC5qK6fmpiRX5fn3/5H7CxDIYtX3xtCzz4YqPQstIzexSZFkTTmjORVjUGK EGIxpERMUQdxcHQvD7YrApIYUCLHhQdHKb8HaoqamG 7BDAAOApDYaTVDQcgCJO0CxFlgfZFdfz8WcGbg7t341B/fo92pyltfbovg0kKrGD5Q/8yROg5S9SF8j5 eRk7T15bsvzIR8M0x7w24R6+supervisor denture department/W6TiozZt+XE3n97CdI/ov9IP+d3uY8pl1p56LQ5oF+xMaCZulfMS [file] [id number]= ID Date Data Source [id number] 03/16/2021 09:40:00 AM EDT [facility] @03/16/21 0945: MANUAL DIFF added. RFLXG = DIFF. @03/16/21 0945: MANUAL DIFF added. RFLXG = DIFF. Name Value Range Interpretation Code Description Data Teodora rce(s) Supporting Document(s) Urea nitrogen [Mass/volume] in Serum or Plasma 11 mg/dL 9-23 N [facility] Sodium [Moles/volume] in Serum or Plasma 139 mmol/L 132-146 N [facility] Potassium [Moles/volume] in Serum or Plasma 3.9 mmol/L 3.5-5.5 N [facility] Chloride [Moles/volume] in Serum or Plasma 107 mmol/L 99-109 N [facility] Carbon dioxide, total [Moles/volume] in Serum or Plasma 27 mmol/L 20 -31 N [facility] Anion gap in Serum or Plasma 9 mmol/L 8-[address] [facility] Glucose [Mass/volume] in Serum or Plasma 167 mg/dL 74-106 Above high normal [facility] Creatinine 0.8 mg/dL 0.5-1.1 [facility] Glomerular filtration rate/1.73 sq M.pre dicted [Volume Rate/Area] in Serum or Plasma Greater Than 60 ABOVE 60 [facility] Alanine aminotransferase [Enzymatic acti vity/volume] in Serum or Plasma by With P-5'-P 131 U/L 10-49 Above high normal [facility] Aspartate aminotransferase [Enzymatic ac tivity/volume] in Serum or Plasma by With P-5'-P 122 U/L 0-33 Above high normal [facility] Alkaline phosphatase [Enzymatic activity/volume] in Serum or Plasma 112 U/L 45-129 N [facility] Calcium [Mass/volume] in Serum or Plasma 8.1 mg/dL 8.5-10.1 Below low normal [facility] Bilirubin.total [Mass/volume] in Serum or Plasma 1.5 mg/dL 0.3-1.2 Above high normal [facility] Albumin [Mass/volume] in Serum or Plasma by Bromocresol purple (BCP) dye binding method 2.9 g/dL 3.2-4.8 Below low normal [facility] Protein [Mass/volume] in Serum or Plasma 6.5 g/dL 5.7-8.2 [facility] ID Date Data Source [id number] 03/16/2021 09:44:00 AM EDT [facility] @03/16/21 0945: MANUAL DIFF added. RFLXG = DIFF. @03/16/21 0945: MANUAL DIFF added. RFLXG = DIFF. Name Value Range Interpretation Code Description Data Teodora rce(s) Supporting Document(s) Hemoglobin A1c [Mass/volume] in Blood 5.9 % 3.8-5.6 Above hig h normal [facility] The following ranges may be u sed for interpretation of results: HGBA1C degree of glucose control: Greater than 8%: Action Suggested * Less than 7%: Goal of Diabetic Therapy Less than 5.6%: NormalFactors such as duration of diabetes, adherence to therapyand the age of the patient should also be considered inassessing the degree of blood glucose control.* High risk of developing director long term care complications such asretinopathy, nephropathy, neuropathy, cardiopathy, etc. Some danger of hypoglycemic reaction in Type I diabetics.Some glucose intolerant individuals and "Sub Clinical"diabetics may demonstrate HGBA1C levels in this area. Glucose mean value [Moles/volume] in Blood Estimated f rom glycated hemoglobin 123 mg/dL [facility] l An A1C of 7% - the goal of diabetic ther apy - is equivalentto an EAG of 154 mg/dl. ID Date Data Source [id number] 03/16/2021 10:29:00 AM EDT [facility] @03/16/21 0945: MANUAL DIFF added. RFLXG = DIFF. @03/16/21 0945: MANUAL DIFF added. RFLXG = DIFF. Name Value Range Interpretation Code Description Data Teodora rce(s) Supporting Document(s) Leukocytes [#/volume] in Blood by Automated count 12.0 10*3/uL 4.45-10.71 Above high normal [facility] Erythrocytes [#/volume] in Blood by Automated count 4.14 10*6/uL 4.20-5.40 Below low normal [facility] Hemoglobin [Moles/volume] in Blood 12.9 g/dL 10.7-15.4 N [facility] Hematocrit [Volume Fraction] of Blood by Automated count 38.3 % 3 7-47 N [facility] Erythrocyte mean corpuscular volume [Ent itic volume] in Cord blood by Automated count 93 fL 80-96 N [facility] ital Erythrocyte mean corpuscular hemoglobin [Entitic mass] by Au tomated count 31 pg 27-31 N [facility] Erythrocyte mean corpuscular hemoglobin concentration [Mass/volume] in Cord blood 34 g/dL 33-37 N [facility] ital Erythrocyte distribution width [Entitic volume] by Automated count 13 % 11-15 N [facility] Platelets [#/volume] in Blood by Automated count 224 10*3/uL 130-472 N [facility] Platelet mean volume [Entitic volume] in Blood 8.9 fL 9.1-13. 1 Below low normal [facility] Neutrophils/100 leukocytes in Blood by Automated count 81.9 % 41-77 Above high normal [facility] Neutrophils [#/volume] in Blood by Automated count 9.8 U 1.7-7.6 Above high normal [facility] Lymphocytes/100 leukocytes in Blood by Automated count 7.1 % 14-46 Below low normal [facility] Lymphocytes [#/volume] in Blood by Automated count 0.9 U 0.6-4.6 N [facility] Monocytes/100 leukocytes in Blood by Automated count 9.0 % 4-12 N [facility] Monocytes [#/volume] in Blood by Automated count 1.1 U 0.2-1.2 N [facility] Eosinophils/100 leukocytes in Blood by Automated count 0.7 % 0-7 N [facility] Eosinophils [#/volume] in Blood by Automated count 0.1 U 0.0-0.5 N [facility] Basophils/100 leukocytes in Blood by Automated count 0.5 % 0.4-1 .3 N [facility] Basophils [#/volume] in Blood by Automated count 0.1 U 0.0-0.2 N [facility] NUCLEATED RED BLOOD CELL 0 % [facility] NUCLEATED RED BLOOD CELL# 0 U [facility] Immature granulocytes [Presence] in Blood by Automated count 0-2 N [facility] Immature granulocytes [#/volume] in Blood by Automated count 0.1 U 0-0.1 N [facility] Manual Differential panel - Blood Manual Diff Added [facility] ID Date Data Source [id number] 03/16/2021 10:29:00 AM EDT [facility] @03/16/21 0945: MANUAL DIFF added. RFLXG = DIFF. @03/16/21 0945: MANUAL DIFF added. RFLXG = DIFF. Name Value Range Interpretation Code Description Data Teodora rce(s) Supporting Document(s) Cells counted [#] 100 [facility] Neutrophils [#/volume] in Blood by Manual count 87 % 41-77 Above high normal [facility] Band form neutrophils [#/volume] in Blood by Manual count 1 % 0-5 N [facility] Lymphocytes [#/volume] in Blood by Manual count 9 % 14-46 Below low normal [facility] Monocytes [#/volume] in Blood by Manual count 3 % 4-12 B elow low normal [facility] Platelets [#/volume] in Blood by Estimate APPEARS NORMAL NORMAL [facility] Morphology [Interpretation] in Blood Narrative APPEARS NORMAL NORMAL [facility] ID Date Data Source [id number] 03/16/2021 08:04:00 AM EDT [facility] Patient Name: ETTA ECHEVERRIA : 1945 Sex: F Pt Unit #: [id number] Location:[facility] Provider: Visit Date/Time: 03/16/21 Primary Insurance: MEDICARE [employer] Secondary Insurance: BC/BS [employer] EM[employer]YE[employer] Intake Vital Signs 03/16/21 08:06 Current Height 5 ft 3.5 in Current Weight 198 lb Weight Measurement Method Standing Scale BMI 34.5 Pulse 77 Pulse Strength Normal Pulse Source Pulse Oximeter Pulse Oximetry (%) 97 Oxygen Delivery Method room air Intake Visit Reasons: Nausea/vomiting Nurse Note: Pt's having nausea, dry mouth, blurry vision and sensitivity to light x3 days. Consolidator Required: No Accompanied by: Self / Same as Patient Is patient in pain?: No Allergies codeine [Codeine] Allergy (Intermediate, Verified 03/16/21 08:24) RASH (SKIN RASH) No Known Food Allergies Allergy (Verified 03/16/21 08:24) Medications - Last Reconciled 03/16/21 by Shimon Cordova M.D. aspirin (Adult Low Dose Aspirin) 81 mg PO .every other day duloxe rene mg PO epinephrine 0.3 mg IM 1T famotidine 20 mg PO BID metformin ER 500 mg PO QPM metoprolol succinate ER TAKE ONE TABLET BY MOUTH EVERY DAY omeprazole 20 mg PO oxybutynin chloride ER TAKE ONE TABLET BY MOUTH EVERY DAY pravastatin 40 mg PO HS Vision Wearing glasses?: Yes Fall Risk History of falls: No Ambulatory Aid:: None Gait/Transferring:: Normal Medications:: Antihypertensives HIV Testing Offer - ages 13-64 HIV testing Offer: No Requirement for HIV testing offer been met?: Not in age range Do you need a note to return Do you need a note to return to daycare/school/sports/work: No Coronavirus Screening Screening Are you currently positive or on isolation for COVID ?: No Do you have any NEW signs of one or more of the following?: no symptoms Do you have NEW signs of at least two of the following?: nausea and vomiting and tiredness HPI Additional HPI HPI Details: Patient recently underwent a left mastectomy for breast malignancy. She has drainage tubes in place that will need to be removed next week. The surgery was about 3 weeks ago. She has had nausea on and off since surgery. She also has side effects from oxybutynin including dry mouth and constipation. She also complained of blurry vision. She feels tired. She is excessively sleepy. She does not feel like eating. She has lost 8 pounds since her November visit. Nausea/Vomiting History of Present Illness Current symptoms: Reports nausea, Denies fever(s) and Reports constipation Associated symptoms: Denies chest pain, Reports fatigue, Denies headache(s), Denies lightheadedness, Denies dizziness and Denies palpitations [facility] Medical History Bee sting reaction Breast cancer Bulging Disc Degenerative Disc Disease Degenerative Spondylothesis Essential hypertension (07/18/10) Gastroenteritis due to norovirus (07/25/16) GERD without esophagitis Heart murmur Hiatal hernia Lumbar radiculopathy Overactive bladder Presbyesophagus Pure hypercholesterolemia (07/13/14) Type 2 diabetes mellitus without complication, without long-term current use of insulin Xerosis Surgical History History of - surgery History of - surgery History of appendectomy History of back surgery History of breast biopsy History of cholecystectomy History of foot surgery History of hysterectomy History of total mastectomy of left breast Left CTS and left ganglion cyst [address] Bravo Status post carpal tunnel release Status post oophorectomy Family History Mother Diabetes Father Heart disease Brother No problems noted. Brother No problems noted. Brother No problems noted. Brother No problems noted. Brother No problems noted. Brother No problems noted. Brother No prob lems noted. Brother No problems noted. Sister No problems noted. Sister CORBETT (nonalcoholic steatohepatitis) Son No problems noted. Daughter No problems noted. Daughter No problems noted. 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 pets and animals: No leisure activities: reading, volunteer work and other Hx Recent Travel (where): No well-balanced diet: daily caffeine: Yes (no answer) high- fat food intake: 0-1 times daily daily servings fruits/ve-4 daily servings of milk/calcium: 0-1 eating out: rarely or never reads food labels: sometimes during the past year weight has: increased > 10 lbs what type of physical activity do you participate in?: walking Smoking Status: Former smoker alcohol intake: current alcohol intake frequency: holidays/special occasions only substance use type: does not use susan/mu-ism: Unknown special susan needs: No seatbelt use: always helmet use: No drive intox or ride w/ intox roll off driver: No water heater temp set < 120 deg: No working smoke detector in home: Yes fire extinguisher in home: Yes carbon monox detector in home: Yes firearms in home: Yes firearms unloaded and locked: Yes victim of physical abuse: No victim of emotional abuse: No Review of Systems Const Reports fatigue, Denies fever(s) and Denies headache(s) Eyes Reports blurry vision ENT Denies dysphagia, Denies dizziness, Denies headache(s) and Denies disequilibrium Card Denies chest pain, Denies pedal edema, Denies lightheadedness, Denies palpitations and Denies dyspnea Resp Denies cough, Denies excessive phlegm production, Denies pain on inspiration, Denies dyspnea and Denies wheezing GI Reports constipation, Denies dysphagia and Reports nausea Neuro Denies dizziness, Denies headache(s), Denies memory loss, Denies paresthesias and Denies disequilibrium Psych Denies memory loss Endo Reports fatigue and Den ies palpitations Aller/Immun Denies wheezing Exam Const General: cooperative, well developed and well groomed Orientation: alert and awake Eyes Pupils: PERRL Neck Neck: normal visual inspection, no lymphadenopathy, supple and no JVD present Carotids: normal carotid upstroke Resp Effort Inspection: normal respiratory effort Auscultation: clear to auscultation bilaterally Percussion: percussion normal Cardio Jugular venous pressure: no JVD Rate: regular rate Rhythm: regular rhythm Heart Sounds: S1 normal, S2 normal and murmur GI Inspection: Yes normal to inspection Palpation: soft and nontender Auscultation: normal bowel sounds Neuro General: gait normal Extrem General: normal to inspection and no clubbing, cyanosis or edema Assessment Plan Assessment Plan (1) Anorexia: Status: Acute Code(s): R63.0 - Anorexia SNOMED Code(s): 54613124 Category: Medical (2) Nausea: Status: Acute Code(s): R11.0 - Nausea SNOMED Code(s): 218945905 Category: Medical Plan: Patient has been experiencing anorexia and nausea. Physical examination is unremarkable. Lab work has been requested. I will call the patient with the results. She will return next week for removal of the surgical drains. Orders: Orders CMP Today E11.9 - Type 2 diabetes mellitus without complications, R11.0 - Nausea, R63.0 - Anorexia CBC W AUTO DIFF Today E11.9 - Type 2 diabetes mellitus without complications, R11.0 - Nausea, R63.0 - Anorexia HGBA1C + EAG Today E11.9 - Type 2 diabetes mellitus without complications, R11.0 - Nausea, R63.0 - Anorexia Additional Comments Additional Comments: Certain parts of this note may have been carried over from prior notes to maintain accuracy of the patient's pertinent medical history and continuity of care. The details were verified and edited as appropriate. This document was dictated using Hunie speech recognition software. A reasonable attempt to proofread has been made to minimize errors. Please call if you notice any errors or have any questions. Orders Instructions: Acute Nausea and Vomiting (AC) Coding Level of Care Code 15669 Est Pt Extended Comp Coding comments Coding Comments Additional info for the brokerage coordinator: New symptoms of nausea and anorexia that will require additional investigations Exam Comprehensive Diagnoses Anorexia R63.0 Nausea R11.0 <Electronically signed by Shimon Cordova MD> 03/16/21 0834 Name Value Range Interpretation Code Description Data [facility] Supporting Document(s) ID Date Data Source [id number] 03/14/2021 11:36:[address] [facility] Name Value Range Interpretation Code Description Data [facility] rce(s) Supporting Document(s) Progress Note [facility] FTCWQx4oCzHNQcHg62/QICooTAXqu7LdOXorFZh9UKjmTNJtY8IgRZW7mM6uEWI3WGpVKdNiCuEuCLM6 lbm [file] [id number] ID Date Data Source [id number] 02/25/2021 02:50:00 PM EDT [facility] Patient Name: ETTA ECHEVERRIA : 1945 Sex: F Pt Unit #: [id number] Location:[facility] Provider: Visit Date/Time: 02/25/21 Primary Insurance: MEDICARE [employer] Secondary Insurance: BC/BS [employer] EMPLOYEES Intake Vital Signs 02/25/21 14:50 Current Height 5 ft 3.5 in Current Weight 205 lb 8 oz Weight Measurement Method Standing Scale BMI 35.8 BP 120/64 Blood Pressure Location Rt brachial Position Sitting Respiration 20 Pulse 63 Pulse Strength Normal Pulse Source Pulse Oximeter Temp 98.3 F Temp Source Tympanic Pulse Oximetry (%) 93 L Oxygen Delivery Method room air Intake Visit Reasons: Office visit Nurse Note: 75 year old here today for hosp d/c f/u. Her J-Mccabe was emptied and instruction given to the pt. as how to empty correc tly. Is patient in pain?: No Allergies codeine [Codeine] Allergy (Intermediate, Verified 02/17/21 12:55) RASH (SKIN RASH) No Known Food Allergies Allergy (Verified 02/17/21 12:55) Medications - Last Reconciled 02/25/21 by Leni Saleh NP aspirin (Adult Low Dose Aspirin) 81 mg PO .every other day duloxetine mg PO epinephrine 0.3 mg IM 1T famotidine 20 mg PO BID metformin ER 500 mg PO QPM metoprolol succinate ER TAKE ONE TABLET BY MOUTH EVERY DAY omeprazole 20 mg PO oxybutynin chloride ER TAKE ONE TABLET BY MOUTH EVERY DAY pravastatin 40 mg PO HS Post menopausal: Yes Vision Wearing glasses?: Yes Fall Risk History of falls: No Ambulatory Aid:: None Gait/Transferring:: Normal PHQ-2/9 Over the last 2 weeks, how often have you been bothered by any of the following problems? 1. Little interest or pleasure in doing things: not at all 2. Feeling down, depressed, or hopeless: not at all Total score: 0 HIV Testing Offer - ages 13-64 HIV testing Offer: No Requirement for HIV testing offer been met?: Not in age range SBIRT Annual Questionnaire Are you currently in recovery for alcohol or substance use?: No How many times in the past year have you had 4 or more drinks in a day?: None How many times in the past year have you used a recreational drug or used a prescription medication for nonmedical reasons?: None Coronavirus Screening Screening Are you currently positive or on isolation for COVID ?: No Do you have any NEW signs of one or more of the following?: no symptoms Do you have NEW signs of at least two of the following?: no symptoms HPI Additional HPI HPI Details: Patient presents for post surgery follow-up. [facility] is unable to come in time to check her dressing so she has come to our office. She denies any fever, chills, body aches, purulent drainage, redness to skin, malaise. Pain is well controlled with medication and nerve block given by surgeon. Surgery was 2 days ago and she is due for follow-up March 06. They have changed the dressing once over the PILO drain and the other dressing has remained clean dry and intact. She is showering without complications. [facility] Medical History (Updated 02/17/21 @ 13:01 by Leni Saleh NP) Bee sting reaction Breast cancer Bulging Disc Degenerative Disc Disease Degenerative Spondylothesis Essential hypertension (07/18/10) Gastroenteritis due to norovirus (07/25/16) GERD without esophagitis Heart murmur Hiatal hernia Lumbar radiculopathy Overactive bladder Presbyesophagus Pure hypercholesterolemia (07/13/14) Type 2 diabetes mellitus without complication, without long-term current use of insulin Xerosis Surgical History (Updated 02/25/21 @ 15:05 by Mary Ramírez) History of - surgery History of - surgery History of appendectomy History of back surgery History of breast biopsy History of cholecystectomy History of foot surgery History of hysterectomy History of total mastectomy of left breast Left CTS and left ganglion cyst [address] Bravo Status post carpal tunnel release Status post oophorectomy Family History Mother Diabetes Father Heart disease Brother No problems noted. Brother No problems noted. Brother No problems noted. Brother No problems noted. Brother No problems noted. Brother No problems noted. Brother No problems noted. Brother No problems noted. Sister No problems noted. Sister CORBETT (nonalcoholic steatohepatitis) Son No problems noted. Daughter No problems noted. Daughter No problems noted. 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 pets and animals: No leisure activities: reading, volunteer work and other Hx Recent Travel (where): No well-balanced diet: daily caffeine: Yes (no answer) high-fat food intake: 0-1 times daily daily servings fruits/ve-4 daily servings of milk/calcium: 0-1 eating out: rarely or never reads food labels: sometimes during the past year weight has: increased > 10 lbs what type of physical activity do you participate in?: walking Smoking Status: Former smoker alcohol intake: current alcohol intake frequency: holidays/special occasions only substance use type: does not use susan/mu-ism: Unknown special susan needs: No seatbelt use: always helmet use: No drive intox or ride w/ intox roll off driver: No water heater temp set < 120 deg: No working smoke detector in home: Yes fire extinguisher in home: Yes carbon monox detector in home: Yes firearms in home: Yes firearms unloaded and locked: Yes victim of physical abuse: No victim of emotional abuse: No Review of Systems Const Reports as per HPI and Reports system reviewed and no additional complaints, except as documented Exam Const General: cooperative and healthy appearing Nutritional Appearance: well nourished Orientation: alert, awake and oriented x3 Eyes General: appearance normal, both eyes and all related structures Pupils: PERRL EOM: EOM intact bilaterally Neck Neck: normal visual inspection and full ROM Resp Effort Inspection: normal respiratory effort Auscultation: clear to auscultation bilaterally Cardio Rate: regular rate Rhythm: regular rhythm Heart Sounds: S1 normal and S2 normal Bruits: no carotid bruits Skin Lesions: no lesions Rashes: no rashes Hair: normal Nails: normal Other: Dressings are clean dry and intact. No erythema or purulent drainage around the PILO drain. PILO drain present to left chest wall and is draining serosanguineous fluid. Neuro General: patient alert, patient oriented x3 and moves all extremities Cognition: normal cognition Speech: speech normal Gait: normal gait Assessment Plan Assessment Plan (1) Surgical wound present: Code(s): T14.8XXA - Other injury of unspecified body region, initial encounter Plan: Reassurance given that wound is healing well. Educated on use of PILO drain. If she develops erythema, edema, purulent drainage, fever, body aches she will notify office and surgeon immediately. Coding Level of Care Code 09158 Est Pt Limited Comp Diagnoses Surgical wound present T14.8XXA <Electronically signed by Leni Saleh NP> 02/25/21 1555 Name Value Range Interpretation Code Description Data Teodora rce(s) Supporting Document(s) ID Date Data Source [id number] 02/25/2021 01:45:[address] [facility] Name Value Range Interpretation Code Description Data Te[facility]ora rce(s) Supporting Document(s) Discharge Summary [facility] [id number] lbm [file] [id number]= ID Date Data Source [id number] 02/24/2021 01:15:[address] [facility] Name Value Range Interpretation Code Description Data Teodora rce(s) Supporting Document(s) Operative Note [facility] [id number]/[id number]lR5gNXD7ZGpQJnOeCtCwIrE8 lbm [file] [id number] ID Date Data Source [id number] 02/24/2021 12:34:[address] [facility] NM INJECTION RADIOACTIVE TRACER - SENTIN AL NODEFINAL RESULTInterpreted by:Sara Keenan MDNBLANCHARD VALLEY HEALTH [facility] MED[facility] LEFT BREAST INJECTION FOR SENTINEL LYMPH NODE BIOPSY: PROCEDURALIST: Sara Keenan, DOTECHNOLOGIST: MARION SantanaMT, LNOHThe skin around the areola was cleansed with ChloraPrep. An intradermal injection of 526 uCi of Lymphoseek was given in the superior periareolar region.A small round bandage was placed over the injection site.No images were obtained.The patient tolerated the procedure well. There were no immediate complications. This document has been electronically signed by Sara Keenan MD on 02/24/2021 12:32 PM Name Value Range Interpretation Code Description Data Teodora rce(s) Supporting Document(s) ID Date Data Source [id number] 02/24/2021 11:36:[address] [facility] Name Value Range Interpretation Code Description Data Teodora rce(s) Supporting Document(s) Progress Note [facility] [id number]/ZUSfeCEJzv7OeNYokGNw4QTgwOXWfS8QnWBO8cL6zNYA7SLnIYxOlPzGeSjI2 lbm [file] [id number] ID Date Data Source [id number] 02/24/2021 11:16:[address] [facility] Name Value Range Interpretation Code Description Data Teodora rce(s) Supporting Document(s) Progress Note [facility] IZFKMy9iQnOWLpDm27/QPSusSPVnu7PjFNncXAk2GDoxEHJsY6ToVUS8rH5zOHO3IEcDYqJeNySsKfR0 lbm [file] [id number]= ID Date Data Source [id number] 02/24/2021 08:43:[address] [facility] Name Value Range Interpretation Code Description Data Teodora rce(s) Supporting Document(s) Glucose [Mass/volume] in Capillary blood by Glucometer 128 mg/dL 70- 140 [facility] ID Date Data Source [id number] 02/24/2021 04:30:[address] [facility] Name Value Range Interpretation Code Description Data Teodora rce(s) Supporting Document(s) Bicarbonate [Moles/volume] in Serum 29 mmol/L 22-29 [facility] Chloride [Moles/volume] in Serum or Plasma 104 mmol/L 98-107 [facility] Creatinine [Mass/volume] in Serum or Plasma 0.62 mg/dL 0.50-0.90 [facility] Glucose [Mass/volume] in Serum or Plasma 144 mg/dL 70-140 H [facility] Potassium [Moles/volume] in Serum or Plasma 4.1 mmol/L 3.4-5.1 [facility] Sodium [Moles/volume] in Serum or Plasma 138 mmol/L 136-145 [facility] Urea nitrogen [Mass/volume] in Serum or Plasma 11 mg/dL 8-23 [facility] Anion gap 3 in Serum or Plasma 5 mmol/L 8-15 L [facility] Osmolality of Serum or Plasma by calculation 288 mosm/kg 275-300 [facility] Creatinine/Urea nitrogen [Mass Ratio] in Serum or Plasma 17 [facility] Calcium [Mass/volume] in Serum or Plasma 7.8 mg/dL 8.8-10.2 L [facility] Glomerular filtration rate/1.73 sq M pre dicted among non-blacks [Volume Rate/Area] in Serum or Plasma by Creatinine-based formula (MDRD) 85 mL/min/1.73m2 >60 [facility] Glomerular filtration rate/1.73 sq M pre dicted among blacks [Volume Rate/Area] in Serum or Plasma by Creatinine-based formula (MDRD) >60 [facility] ID Date Data Source [id number] 02/23/2021 09:03:[address] [facility] Name Value Range Interpretation Code Description Data Teodora rce(s) Supporting Document(s) Glucose [Mass/volume] in Capillary blood by Glucometer 156 mg/dL 70- 140 H [facility] ID Date Data Source [id number] 02/23/2021 08:06:44 PM EDT [facility] Value Range Interpretation Code Description Data Teodora rce(s) Supporting Document(s) Glucose [Mass/volume] in Capillary blood by Glucometer 121 mg/dL 70- 140 [facility] ID Date Data Source [id number] 02/23/2021 06:56:21 PM EDT [facility] Value Range Interpretation Code Description Data Teodora rce(s) Supporting Document(s) Sodium [Moles/volume] in Serum or Plasma 136 mmol/L 136-145 [facility] Potassium [Moles/volume] in Serum or Plasma 4.2 mmol/L 3.4-5.1 [facility] Hemolyzed Chloride [Moles/volume] in Serum or Plasma 100 mmol/L 98-107 [facility] Bicarbonate [Moles/volume] in Serum 29 mmol/L 22-29 [facility] Anion gap 3 in Serum or Plasma 7 mmol/L 8-15 L [facility] ID Date Data Source [id number] 02/23/2021 06:56:[address] [facility] Name Value Range Interpretation Code Description Data Teodora rce(s) Supporting Document(s) Cardiactroponin T pnl SerPlHS 10 ng/L <14 [facility] ID Date Data Source [id number] [facility] Code Description Data Teodora rce(s) Supporting Document(s) Glucose [Mass/volume] in Capillary blood by Glucometer 149 mg/dL 70- 140 H [facility] ID Date Data Source [id number] [facility] Interpretation Code Description Data Teodora rce(s) Supporting Document(s) Progress Note [facility] TSJJCg3dIxOEQzIb36/WHLwlMXQqv1WiCCjnHEa1LNsvZTTuT7DyJDO9oT4bXJW3UPzECwOuPlWvKyD4 [facility] [file] [id number] ID Date Data Source [id number] 02/23/2021 11:56:[address] [facility] Name Value Range Interpretation Code Description Data Teodora rce(s) Supporting Document(s) Progress Note [facility] BIYJBw0fSqHSTmPo73/EJTwzKIEmb5KdJQafSSv1SRkvNDIpH0BkUAZ4vU5zPRX2GSnQRfQuKlYbXhE0 lbm [file] AgICAgICAgICAgICAgICAgICAgICAgICAgICAgICAgICAgICAgICAgICAgICAgICAgICAgICAgICAgIC AgICAgICAgICAgICAgICAgICAgICAgICAgICAgICAgICAgICAgICANCiAgICAgICAgICAgICAgICAgIC AgICAgICAgICAgICAgICAgICAgICAgICAgICAgICAg ICAgICAgICAgICAgICAgICAgICAgICAgICAgICAgICAgICAgICAgICAgICAgICAgICANCiAgICAgICAg ICAgICAgICAgICAgICAgICAgICAgICAgICAgICAgICAgICAgICAgICAgICAgICAgICAgICAgICAgICAg ICAgICAgICAgICAgICAgICAgICAgICAgICAgICAgIC ANCiAgICAgICAgICAgICAgICAgICAgICAgICAgICAgICAgICAgICAgICAgICAgICAgICAgICAgICAgIC AgICAgICAgICAgICAgICAgICAgICAgICAgICAgICAgICAgICAgICAgICANCiAgICAgICAgICAgICAgIC AgICAgICAgICAgICAgICAgICAgICAgICAgICAgICAg ICAgICAgICAgICAgICAgICAgICAgICAgICAgICAgICAgICAgICAgICAgICAgICAgICAgICANCiAgICAg ICAgICAgICAgICAgICAgICAgICAgICAgICAgICAgICAgICAgICAgICAgICAgICAgICAgICAgICAgICAg ICAgICAgICAgICAgICAgICAgICAgICAgICAgICAgIC AgICANCiAgICAgICAgICAgICAgICAgICAgICAgICAgICAgICAgICAgICAgICAgICAgICAgICAgICAgIC AgICAgICAgICAgICAgICAgICAgICAgICAgICAgICAgICAgICAgICAgICAgICANCiAgICAgICAgICAgIC AgICAgICAgICAgICAgICAgICAgICAgICAgICAgICAg ICAgICAgICAgICAgICAgICAgICAgICAgICAgICAgICAgICAgICAgICAgICAgICAgICAgICAgICANCiAg ICAgICAgICAgICAgICAgICAgICAgICAgICAgICAgICAgICAgICAgICAgICAgICAgICAgICAgICAgICAg ICAgICAgICAgICAgICAgICAgICAgICAgICAgICAgIC AgICAgICANCiAgICAgICAgICAgICAgICAgICAgICAgICAgICAgICAgICAgICAgICAgICAgICAgICAgIC AgICAgICAgICAgICAgICAgICAgICAgICAgICAgICAgICAgICAgICAgICAgICAgICANCjw/eDBeA9msnQ JcklG2H1neQn3FXx6EIL7zy9TxHADuZAffxwBsIbfP DqGtNYOtKdjHUof4AXntML6KfNFlU3WpJ6AaDEvpGN5HLGUrNIHvlHGtYXUzSFAvYzX3DXUlXRogOB1A zSXaDIqtRFOiKGJcRE8APZDzM100gqVtPY2ZJl6IFcFpQN1uzb7RIOglCOJhEnxKZis9NFkwYT8ZjAZx xOUyOZUaOVDYJfQmT2dry3JgQRyaNDDDHBczUR0Ho8 VudCAxDQo+Qh7XMP2bm5TpKValTQMvSL4edk8JNPwWLeAwA7NydMmbKSYcl8xmSNEbMN0jgCLoZZI7BU LvQK2lBX1xZcBEtFVumSP5sambccnkVe6wDAHbEu5fFT4gUAAwMRLvUgJ1KDPJCS5AULMkHVJcnYYsBO OdYTFDSG6IPRksBSP9PVTyqvYwiVMnRRvrDQ5ONTPr bnQgMTcgMCBSDQo+Js7BIA4zy7CyGZodICMkFB0vyx3CFBuELhEpY6F4nEUdW9D0RHjeAn3XMPLeZGYp KBLoAJOOCJqwSI1XNT9vxgX0PP2GzEYxSJHnKLNsuMMaADe2F48nlSOdACkgRO7JCFH+Rosy+Ho6LUWGo OLMzHMDgLbQlBGZKKyTsG8HkY3KZp6PzP0ZgWS35fZ lsqhKzIUotQK1OOL7tMVYpCRYCWA9GkQSiwF0wcrEwJqDeBAEHGgSuH83caSDrIOBxKBK3JTWpSy2NIK QnQ7DwbbGmjImnvdUqNBWrPALLJT5DAJzxirCimRQlaWbfFL76cUxxAI0SAr6FShSuQA3oww3PyBBmJa 1RQTFtZP8FHUTyOFKdPPJnIBP0DAWgVwIkLRceRAIw GBZtJQC4OGSlMXHyFJ5LTkZgZOQqWACtMBNsQGGhQJJykv3DYAQmIEKiPmy5AIFsPPUsTRCdKBncAHZk MKYvCUQ3WNTpHTBvZO0EGlNjQXLeTRV8TDXlNSIrZXXijp9QXEIaWIWcRxU7UETfSFWhJLVrXJxvWHVb WGYlWXF6MUTpPBLjEA6XOcYmEGOyNYFfGXFmGILeTU Hafk8RAXZnPIZxEsQcPHRlMTDlFKRzRRheBZYjYSB5Icf2APGyPBXgVF9ZSjKwKZAqIQI6MCOiSAWqNJ Swte4PAAEpIHNzTXs3SqBcYQVsZARtIHhuRUEqBDY1SiL3KIRhDKCvWQ8QFxKhBWLtVEP2KnBpSXPcNI Uwft7IWFVsJHZlVgDhVfApNMNnMWQvIKtzNIZjMOJ7 UID0VZVlBBJmTB4MRuTkQBFlUSl8ToyyBHPhCJGbns0GIRPcZALwGHL9AZFdEPBcWDZsNQxgLSXiDRX9 SeV5JSWvUUFoMU4KGfQiQMtkUYPJRwl5QQsgK8u1RUUiES6JH6Uzm0CtCLqiLYKAJAljVM1snyTgHCVj Ct7NZ5xQHwbkZPI8SsCuYyS3EOgyWVa7KZTtNnBtSi MeRsYkDMY6My5sVJRwTmU9FKOdOOLsF4DbASW5GeV2WgP5FUNzNUWgHBxwGjIuIY6QSi9YPoA6TDT0vB QxFg3NLQH4UL3LPCHYW8LTOx== ID Date Data Source [id number] 02/23/2021 11:48:[address] [facility] Name Value Range Interpretation Code Description Data [facility](s) Supporting Document(s) History and Physical [facility] VJPWSr1qFzQLZjJp71/RNUdhTMYnk7LfRBbuYHr1BYvuRJKzA1NuLAD2tP8qJMW6UUuTRjAbKbUrSqO0 lbm [file] AgICAgICAgICAgICAgICAgICAgICAgICAgICAgICAgICAgICAgICAgICAgICAgICAgICAgICAgICAgIC AgICAgICAgICAgICAgICAgICAgDQogICAgICAgICAgICAgICAgICAgICAgICAgICAgICAgICAgICAgIC AgICAgICAgICAgICAgICAgICAgICAgICAgICAgICAg ICAgICAgICAgICAgICAgICAgICAgICAgICAgICAgDQogICAgICAgICAgICAgICAgICAgICAgICAgICAg ICAgICAgICAgICAgICAgICAgICAgICAgICAgICAgICAgICAgICAgICAgICAgICAgICAgICAgICAgICAg ICAgICAgICAgICAgDQogICAgICAgICAgICAgICAgIC AgICAgICAgICAgICAgICAgICAgICAgICAgICAgICAgICAgICAgICAgICAgICAgICAgICAgICAgICAgIC AgICAgICAgICAgICAgICAgICAgICAgDQogICAgICAgICAgICAgICAgICAgICAgICAgICAgICAgICAgIC AgICAgICAgICAgICAgICAgICAgICAgICAgICAgICAg ICAgICAgICAgICAgICAgICAgICAgICAgICAgICAgICAgDQogICAgICAgICAgICAgICAgICAgICAgICAg ICAgICAgICAgICAgICAgICAgICAgICAgICAgICAgICAgICAgICAgICAgICAgICAgICAgICAgICAgICAg ICAgICAgICAgICAgICAgDQogICAgICAgICAgICAgIC AgICAgICAgICAgICAgICAgICAgICAgICAgICAgICAgICAgICAgICAgICAgICAgICAgICAgICAgICAgIC AgICAgICAgICAgICAgICAgICAgICAgICAgDQogICAgICAgICAgICAgICAgICAgICAgICAgICAgICAgIC AgICAgICAgICAgICAgICAgICAgICAgICAgICAgICAg ICAgICAgICAgICAgICAgICAgICAgICAgICAgICAgICAgICAgDQogICAgICAgICAgICAgICAgICAgICAg ICAgICAgICAgICAgICAgICAgICAgICAgICAgICAgICAgICAgICAgICAgICAgICAgICAgICAgICAgICAg ICAgICAgICAgICAgICAgICAgDQogICAgICAgICAgIC AgICAgICAgICAgICAgICAgICAgICAgICAgICAgICAgICAgICAgICAgICAgICAgICAgICAgICAgICAgIC TuEGSqXFRsDFSbNVYnBYYrJJPvANGlHNUlGLGwWWh5Z8nkSBRlKUKgGB3kMHw3It5+SNjLTlVxWHX9cc CceW8WMK7pl4ZwATdbUPTdn7EgFJc2DQ5UYHFdCEfb BZ9KPFbjsd8MRQVxNXNieCOVo4byLaDjAOR0OMHfGwhgQR3CNHSxZ0mhkmLtKUEvKPFDVW0VBnAaP8Mq yK98SPVAEr4+DKopihWuZjdURxM9IGGnk3KcRRm2JJ6TZAQkWrkhd9HpRAkcCMXCZYxjKY1HXRX1TOH7 DDWgSk5RWKWkQ039dpZhQG8CZt4LWfWnLQ5nzo3IHS bmCAJwUldKJfy1UZtaWU1BbZTkVYlQKoApBfdqBxWodw8oLZZpIZDlCHhoLQPtBFRjWt3mHR7jFRWjAE NtSlW2PBARPG9AWVWyYPPiuQEcTZToRBFECB3EKYgzTZJ0QAIpdkAgeTVaGGuaOE5VJRAdcnKrYZnlZJ BSDQo+Ta1EEP8on9XkUNhfDKHlLW4fma3LEEjULvNe W9N4lPPsX7A3NDodMl6WMJMzNZHnNUGcBNXNGQqqWE2RLD4ktbK7AQ1VfXJoBUAgBFGotSEiQYp4W33z cQDpEDsnTT1FQIS+Rosy+Sh0QUZXtCXJnTBDiVvYsJXHAQzStA4FyR2QQg2YyL1ByQD43jCrmsxEhKBbm UR3XGQ5aZPLvLXXZUW9McLXjrJ5gafDtFzVwRVWOQq RtM93qyAMvOPPsGPC1OQDlXu4ICTUpD9WmqeZizKncywDrPUOiAQANUT2HEUddqpEnkSRzzWpfGP10uK yvSF2ISc3QVtXbYF1onz9NvQLgJg1ZGPXaMS6YROKoQBZvMIHvXVJ4QJSvTgDsTCoyUWDcRMQwUIY8PB JvRAHlYN1CVdYfPUTpCTQ9CLllNTTqPPUzpo4PIOIj ONOgKcK7ZtRnHHEoVHAeJMsdCXStZPFwRLJ3NQKbGHYiNA3SNpThRCVyWEW8XtvaRIEbDTCvce9YOPVu DVCcYKe7BwXmCRLcAEGkQJgyRIXlECGbRkReZESwKDMyYG4AOfIuRMEqBPX2XcymTOHcWZKujc2IBJUl CZPsKbAlHdQxPYJkERCvQXnxIVHdQEW4UDD3GOQfPX XgRQ7WHwMaKOZoGYAlNxwhBXPzYQTymh2OHHKwGTTqJUA4MIJkGBKvKEBaDKhfEGErVET9DVU6OMVlJA RzFX9HHrKeVHMaHOW1BVXaXPUoTYDlkf4YAFRdMMVlTDg6ADGnTNDjNEOqWDsaFFElAAY9KuR9CACvJZ DiGX8TDcDyHVPnZTb5JADsFWNmHPLrko7DVAZdZSSc YyxdXBInVJNtGDJxGMgaEQJmFVP8EILkDECbRWKdCX6HQfRbDCipIXCOBna7KKizD1e9UQJoAL4GW8Ct u8FsBDrmJWCCRJfaTT1ryvAgWOFvSm5DV9fPVzmlMiIxNOR7MpUlVAv8FrJ8JxW8AVL5CdBqOclqWkKw It4rYCUrWPG0GIC4DIY8HuH8RRDxLXZcBCafZAQbXP Z8BmM7ClLzJB4DTu7HDnE4HKN4nEHwLb2SYPXsWq2RDZUYB8VQDd== ID Date Data Source [id number] 02/23/2021 08:36:[address] [facility] Name Value Range Interpretation Code Description Data [facility] rce(s) Supporting Document(s) Glucose [Mass/volume] in Capillary blood by Glucometer 131 mg/dL 70- 140 [facility] ID Date Data Source [id number] 03/02/2021 04:26:[address] [facility] Surgical Pathology ReportName: CAROLA ECHEVERRIAMRN: [id number] Number: [id number] Date: 02/23/2021 00:00Received Date: 02/24/2021 09:17Physician(s): ALVARADO,RANJNA,MD ALVARADO,RANJNA,MDSpecimen(s) ReceivedA: Left axillary node #1B: Left axillary sentinel node #2C: Left axillary sentinel node #3D: Left total mastectomyE: Left chest wall inferior skinClinical HistoryBreast cancer.DiagnosisA) SENTINEL LYMPH NODE, LEFT AXILLARY #1, EXCISION: NEGATIVE FOR TUMOR.B) SENTINEL LYMPH NODE, LEFT AXILLARY #2, EXCISION: NEGATIVE FOR TUMOR.C) SENTINEL LYMPH NODE, LEFT AXILLARY #3, EXCISION: NEGATIVE FOR TUMOR.D) BREAST, LEFT, 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 LYMPH NODES (4), EXCISION: NEGATIVE FOR TUMOR.E) SKIN, LEFT INFERIOR CHEST WALL, EXCISION: NEGATIVE FOR TUMOR.Synoptic Report:Specimen Procedure: Total mastectomy Specimen Laterality: LeftTumor Tumor Site: Central Histologic Type: Ductal carcinoma in situ Size (Extent) of DCIS: 47 Millimeters (mm) Number of Blocks with DCIS: 8 Number of Blocks Examined: 11 Architectural Patterns: [place]edo Nuclear Grade: Grade III (high) Necrosis: Present, central (expansive "comedo" necrosis) Microcalcifications: Present in DCIS; Present in nonneoplastictissueMargins Margins: Uninvolved by DCIS Distance from Closest Margin (Millimeters): 25 mm Closest Margin(s): Posterior Distance from Other Margins Anterior Margin (Millimeters): 35 Superior Margin (Millimeters): 160 Inferior Margin (Millimeters): 80 Medial Margin (Millimeters): 60 Lateral Margin (Millimeters): 35Lymph Nodes Regional Lymph Nodes: Uninvolved by tumor cells Total Number of Lymph Nodes Examined: 7 Number of [place] Nodes Examined: 3Pathologic Stage Classification (pTNM, AJCC 8th Edition) Primary Tumor (pT): pTis (DCIS) Regional Lymph Nodes (pN): bP2Bnvdebgeze Findings Additional Findings: Apocrine metaplasia, intraductal papillomas,adenosis.Breast Biomarker Testing Performed on Previous Biopsy Testing Performed on Estrogen Receptor (ER) Status: Negative Progesterone Receptor (PgR) Status: Positive Percentage of Cells with Nuclear Positivity: 25% CAP eCC August 2019 Annual Release Karen Conde M.D.;Resident PathologistElectronically Signed By Jatinder Welch M.D., Attending Pathologist03/02/2021 16:26:02 The attending pathologist named above attests that he/she has personallyreviewed the relevant preparation(s) for the specimen, performedmicroscopic examination when ind icated, and rendered the final diagnosis. Gross DescriptionThe specimen is received in five parts. Part A is received in formalin and labeled with the patient's name, "Eleazar" and "left axillary sentinel node number 1". It consists of aportion of yellow lobulated fat measuring 4.5 x 3 by up to 1.5 cm. Asingle fatty node is identified measuring 3.0 cm in greatest dimension. The node is entirely submitted in five cassettes. Part B is received in formalin and labeled with the patient's name, "Eleazar" and "left axillary sentinel node number 2". It consists of afragment of yellow lobulated soft tissue measuring 2.8 x 1.6 x 1 cm. Asingle node is identified that measures 1.0 cm in greatest dimension. Thenode is bisected and entirely submitted in one cassette. Part C is received in formalin and labeled with the patient's name, "Eleazar" and "left axillary sentinel node number 3". It consists a tanrubbery lymph node measuring 1.7 cm in greatest dimension. The node isbisected and entirely submitted in one cassette. NMD\\Part D is received in formalin and labeled with the patient's name, "Eleazar" and "left mastectomy". It consists of an oriented mastectomymeasuring 25.0 x 22.0 by up to 5.5 cm. There is an overlying skin ellipsemeasuring 19.0 x 9.5 cm. An eccentric areola is identified measuring 5.0cm in diameter with a central flattened nipple that measures 1.5 cm. Theskin is white-pink and wrinkled. Sutures are attached for orientation asfollows: Short-superior and long-lateral. The specimen is seriallysectioned to reveal a yellow lobulated fatty cut surface with a moderateamount of interspersed white-pink fibrous tissue. There is extensivefibrocystic change, pink granularity and nodularity diffusely throughoutthe fibrous component. Within the central breast there is an zkp-nezrnrwrmrx-kkwt gritty mass that measures 4.7 x 3.7 x 3.0 cm. A biopsy clip isidentified. The mass is 2.5 cm from deep, 16.0 cm from superior, 8.0 cmfrom inferior, 6.0 cm from medial and 3.5 cm from lateral. The mass isalso 3.5 cm from the skin. No other lesions are seen. Lymph nodes areidentified within the lateral aspect measuring up to 2.0 cm. Circus Artist sections are submitted in eighteen cassettes as follows: D1 - nippleD2 - closest deep margin, inked blackD3-7 - billing representative of massD8 - upper inner quadrantD9 - lower inner goyuzfgmT24 - lower outer bwckhtcbB22 - upper outer xmqdbytmJ28-91 - 1 entire sectioned nodeD15 - 1 bisected gqunO70-53 - 1 entire nodeD18 - 1 bisected nodePart E is received in formalin and labeled with the patient's name, "Eleazar" and "left chest wall inferior skin". It consists of an orientedskin ellipse measuring 16.1 x 3.7 by up to 2.0 cm. The skin is white andwrinkled in appearance. Sutures are present for orientation as follows:Short-superior and long-lateral. The superior edge is inked blue and theinferior black. On sectioning, the cut surfaces are yellow and lobulated. No mass lesions are seen. Circus Artist sections are submitted in fivecassettes as follows: E1 - lateral poleE2 - medial poleE3-5 - billing representative transverseNMD\\Microscopic DescriptionMultiplex stain P63/myosin was performed on 5 blocks and shows intactmyoepithelial cell layer.This report may include one or more immunohistochemical stain results thatuse analyte specific reagents. All positive and negative controls havebeen reviewed by the attending pathologist and are satisfactory. The testswere developed and their performance characteristics determined by [facility] Pathology department. They have not been cleared or approved by the USFood and Drug Administration. The FDA has d etermined that such clearanceor approval is not necessary. Name Value Range Interpretation Code Description Data Teodora rce(s) Supporting Document(s) ID Date Data Source [id number] 02/17/2021 12:45:00 PM EDT [facility] Patient Name: ETTA ECHEVERRIA : 1945 Sex: F Pt Unit #: [id number] Location[facility] Provider: Visit Date/Time: 02/17/21 Primary Insurance: MEDICARE [employer] Secondary Insurance: BC/ [employer] EM[employer] Intake Vital Signs 02/17/21 12:45 02/17/21 13:06 Current Height 5 ft 3.5 in Current Weight 207 lb Weight Measurement Method Standing Scale BMI 36.1 BP 150/78 140/80 Blood Pressure Location Rt brachial Lt brachial Position Sitting Sitting Respiration 18 Pulse 63 Pulse Strength Normal Pulse Source Pulse Oximeter Temp 97.3 F L Temp Source Tympanic Pulse Oximetry (%) 98 Oxygen Delivery Method room air Intake Visit Reasons: Pre-op visit (general surgery) Nurse Note: 75 year old here to day for a pre-op visit. She is having a left breast mastectomy in [place]. Is patient in pain?: No Allergies codeine [Codeine] Allergy (Intermediate, Verified 02/17/21 12:55) RASH (SKIN RASH) No Known Food Allergies Allergy (Verified 02/17/21 12:55) Medications - Last Reconciled 02/17/21 by Leni Saleh NP aspirin (Adult Low Dose Aspirin) 81 mg PO .every other day duloxetine mg PO epinephrine 0.3 mg IM 1T famotidine 20 mg PO BID metformin ER 500 mg PO QPM metoprolol succinate ER TAKE ONE TABLET BY MOUTH EVERY DAY omeprazole 20 mg PO oxybutynin chloride ER TAKE ONE TABLET BY MOUTH EVERY DAY pravastatin 40 mg PO HS Post menopausal: Yes Vision Wearing glasses?: Yes Fall Risk History of falls: No Ambulatory Aid:: None Gait/Transferring:: Normal PHQ-2/9 Over the last 2 weeks, how often have you been bothered by any of the following problems? 1. Little interest or pleasure in doing things: not at all 2. Feeling down, depressed, or hopeless: not at all Total score: 0 HIV Testing Offer - ages 13-64 HIV testing Offer: No Requirement for HIV testing offer been met?: Not in age range SBIRT Annual Questionnaire Are you currently in recovery for alcohol or substance use?: No How many times in the past year have you had 4 or more drinks in a day?: None How many times in the past year have you used a recreational drug or used a prescription medication for nonmedical reasons?: None Coronavirus Screening Screening Are you currently positive or on isolation for COVID ?: No Do you have any NEW signs of one or more of the following?: no symptoms Do you have NEW signs of at least two of the following?: no symptoms HPI Additional HPI HPI Details: Pt presents for pre-surgical clearance. She is having left mastectomy. Scheduled for surgery 02/23. Overall she is feeling well. Reports that she snores but denies witnessed apnea or waking up gasping. Denies previous problems with surgery or anesthesia. [facility] Medical History (Updated 02/17/21 @ 13:01 by Leni Saleh NP) Bee sting reaction Breast cancer Bulging Disc Degenerative Disc Disease Degenerative Spondylothesis Essential hypertension (07/18/10) Gastroenteritis due to norovirus (07/25/16) GERD without esophagitis Heart murmur Hiatal hernia Lumbar radiculopathy Overactive bladder Presbyesophagus Pure hypercholesterolemia (07/13/14) Type 2 diabetes mellitus without complication, without long-term current use of insulin Xerosis Surgical History History of - surgery History of - surgery History of appendectomy History of back surgery History of breast biopsy History of cholecystectomy History of foot surgery History of hysterectomy Left CTS and left ganglion cyst [address] Bravo Status post carpal tunnel release Status post oophorectomy Family History Mother Diabetes Father Heart disease Brother No problems noted. Brother No problems noted. Brother No problems noted. Brother No problems noted. Brother No problems noted. Brother No problems noted. Brother No problems noted. Brother No problems noted. Sister No problems noted. Sister CORBETT (nonalcoholic steatohepatitis) Son No problems noted. Daughter No problems noted. Daughter No problems noted. 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 pets and animals: No leisure activities: reading, volunteer work and other Hx Recent Travel (where): No well-balanced diet: daily caffeine: Yes (no answer) high-fat food intake: 0-1 times daily daily servings fruits/ve-4 daily servings of milk/calcium: 0-1 eating out: rarely or never reads food labels: sometimes during the past year weight has: increased > 10 lbs what type of physical activity do you participate in?: walking Smoking Status: Former smoker alcohol intake: current alcohol intake frequency: holidays/special occasions only substance use type: does not use susan/mu-ism: Unknown special susan needs: No seatbelt use: always helmet use: No drive intox or ride w/ intox roll off driver: No water heater temp set < 120 deg: No working smoke detector in home: Yes fire extinguisher in home: Yes carbon monox detector in home: Yes firearms in home: Yes firearms unloaded and locked: Yes victim of physical abuse: No victim of emotional abuse: No Review of Systems Const Denies anorexia, Denies excessive sweating, Denies fatigue, Denies fever(s), Denies headache(s), Denies weight gain and Denies weight loss Eyes Denies blurry vision, Denies change in vision, Denies dry eyes, Denies irritation, Denies itchy eyes and Denies loss of vision ENT Denies abnormal hearing, Denies dysphagia, Denies dizziness, Denies headache(s), Denies lip swelling, Denies nasal congestion, Denies nasal discharge, Denies disequilibrium, Denies sinus pain, Denies sore throat and Denies throat swelling Card Denies chest pain, Denies pedal edema, Denies lightheadedness, Denies palpitations and Denies dyspnea Resp Denies cough, Denies excessive phlegm production, Denies pain on inspiration, Denies dyspnea and Denies wheezing GI Denies abdominal pain, Denies change in bowel habits, Denies dysphagia, Denies early satiety, Denies heartburn, Denies diarrhea, Denies nausea and Denies vomiting Musc Denies back pain, Denies arthralgias, Denies limited range of motion, Denies muscle cramps and Denies muscle weakness Skin/Breast Denies breast pain, Denies change in pigmentation, Denies lesions, Denies nail changes, Denies rash and Denies unusual bruising Neuro Denies abnormal hearing, Denies dizziness, Denies headache(s), Denies loss of vision, Denies memory loss, Denies paresthesias and Denies disequilibrium Psych Denies abnormal sleep pattern, Denies anxiety, Denies change in appetite, Denies depression, Denies irritability and Denies memory loss Endo Denies cold intolerance, Denies excessive sweating, Denies fatigue, Denies polyphagia, Denies polydipsia, Denies polyuria and Denies palpitations Sarath/Lymph Denies easy bleeding, Denies easy bruising and Denies lymphadenopathy Aller/Immun Denies urticaria, Denies itchy eyes, Denies lip swelling, Denies seasonal rhinorrhea, Denies throat swelling and Denies wheezing Exam Const General: cooperative and healthy appearing Nutritional Appearance: well nourished Orientation: alert, awake and oriented x3 Eyes General: appearance normal, both eyes and all related structures Pupils: PERRL EOM: EOM intact bilaterally Neck Neck: normal visual inspection and full ROM Resp Effort Inspection: normal respiratory effort Auscultation: clear to auscultation bilaterally Cardio Rate: regular rate Rhythm: regular rhythm Heart Sounds: S1 normal and S2 normal Bruits: no carotid bruits Skin Lesions: no lesions Rashes: no rashes Hair: normal Nails: normal Neuro General: patient alert, patient oriented x3 and moves all extremities Cognition: normal cognition Speech: speech normal Gait: normal gait Assessment Plan Assessment Plan (1) Breast cancer: Status: Acute Comment: Left breast Code(s): C50.919 - Malignant neoplasm of unspecified site of unspecified female breast SNOMED Code(s): 646859848 Category: Medical (2) Encounter for preoperative examination for general surgical procedure: Code(s): Z01.818 - Encounter for other preprocedural examination Plan: Reviewed labs and ECG. ECG shows intermittent PAC but no other concerns. Pt is medically optimized for surgery. Moderate risk due to age and BP. Will fax results to surgeon's office. Coding Level of Care Code 44972 Est Pt Intermediate Comp Diagnoses Encounter for preoperative examination for general surgical procedure Z01.818 Breast cancer C50.919 <Electronically signed by Leni Saleh NP> 02/17/21 1310 Name Value Range Interpretation Code Description Data Teodora rce(s) Supporting Document(s) ID Date Data Source [id number] 02/14/2021 01:20:[address] [facility] Name Value Range Interpretation Code Description Data Teodora rce(s) Supporting Document(s) Progress Note [facility] RLVQDl1bUsYDRtTq48/PJLjqMNTkk3UbVYaeABf2YOkdYHRdX2HlRJC9nD1lGUB1TVtLRxJoXtDhCgW3 lbm [file] pOjat/SUPPLEMENTAL NURSE+pxx1tWU/xa3pxXqkLq0CznHEAm8Qsml1tiod9qL/X/6B/3BX3RfOo44q9/IET9utTUbT11x [file] fBIvkAuzEGIXUwIeFSu4VJxlICQHTy3A ID Date Data Source [id number] 02/11/2021 09:00:00 AM EDT [facility] Name Value Range Interpretation Code Description Data Teodora rce(s) Supporting Document(s) Leukocytes [#/volume] in Blood by Automated count 7.1 10*3/uL 4.45-10 .71 N [facility] Erythrocytes [#/volume] in Blood by Automated count 4.45 10*6/uL 4.20 -5.40 N [facility] Hemoglobin [Moles/volume] in Blood 14.2 g/dL 10.7-15.4 N [facility] Hematocrit [Volume Fraction] of Blood by Automated count 40.7 % 3 7-47 N [facility] Erythrocyte mean corpuscular volume [Ent itic volume] in Cord blood by Automated count 92 fL 80-96 N [facility] ital Erythrocyte mean corpuscular hemoglobin [Entitic mass] by Au tomated count 32 pg 27-31 Above high normal [facility] Erythrocyte mean corpuscular hemoglobin concentration [Mass/volume] in Cord blood 35 g/dL 33-37 N [facility] ital Erythrocyte distribution width [Entitic volume] by Automated count 12 % 11-15 N [facility] Platelets [#/volume] in Blood by Automated count 211 10*3/uL 130-472 N [facility] Platelet mean volume [Entitic volume] in Blood 8.7 fL 9.1-13. 1 Below low normal [facility] Neutrophils/100 leukocytes in Blood by Automated count 71.0 % 41- 77 N [facility] Neutrophils [#/volume] in Blood by Automated count 5.0 U 1.7-7.6 N [facility] Lymphocytes/100 leukocytes in Blood by Automated count 17.1 % 14- 46 N [facility] Lymphocytes [#/volume] in Blood by Automated count 1.2 U 0.6-4.6 N [facility] Monocytes/100 leukocytes in Blood by Automated count 9.1 % 4-12 N [facility] Monocytes [#/volume] in Blood by Automated count 0.6 U 0.2-1.2 N [facility] Eosinophils/100 leukocytes in Blood by Automated count 1.8 % 0-7 N [facility] Eosinophils [#/volume] in Blood by Automated count 0.1 U 0.0-0.5 N [facility] Basophils/100 leukocytes in Blood by Automated count 0.7 % 0.4-1 .3 N [facility] Basophils [#/volume] in Blood by Automated count 0.1 U 0.0-0.2 N [facility] NUCLEATED RED BLOOD CELL 0 % [facility] NUCLEATED RED BLOOD CELL# 0 U [facility] Immature granulocytes [Presence] in Blood by Automated count 0-2 N [facility] Immature granulocytes [#/volume] in Blood by Automated count 0.0 U 0-0.1 N [facility] Manual Differential panel - Blood NO [facility] ID Date Data Source [id number] 02/11/2021 09:36:00 AM EDT [facility] Name Value Range Interpretation Code Description Data Etodora rce(s) Supporting Document(s) Urea nitrogen [Mass/volume] in Serum or Plasma 10 mg/dL 9-23 N [facility] Sodium [Moles/volume] in Serum or Plasma 141 mmol/L 132-146 N [facility] Potassium [Moles/volume] in Serum or Plasma 3.9 mmol/L 3.5-5.5 N [facility] Chloride [Moles/volume] in Serum or Plasma 106 mmol/L 99-109 N [facility] Carbon dioxide, total [Moles/volume] in Serum or Plasma 31 mmol/L 20 -31 N [facility] Anion gap in Serum or Plasma 8 mmol/L 8-[address] [facility] Glucose [Mass/volume] in Serum or Plasma 130 mg/dL 74-106 Above high normal [facility] Creatinine 0.7 mg/dL 0.5-1.1 [facility] Glomerular filtration rate/1.73 sq M.pre dicted [Volume Rate/Area] in Serum or Plasma Greater Than 60 ABOVE 60 [facility] Alanine aminotransferase [Enzymatic acti vity/volume] in Serum or Plasma by With P-5'-P 21 U/L 10-49 [facility] ital Aspartate aminotransferase [Enzymatic ac tivity/volume] in Serum or Plasma by With P-5'-P 19 U/L 0-33 [facility] pital Alkaline phosphatase [Enzymatic activity/volume] in Serum or Plasma 98 U/L 45-129 N [facility] Calcium [Mass/volume] in Serum or Plasma 8.5 mg/dL 8.5-10.1 [facility] Bilirubin.total [Mass/volume] in Serum or Plasma 1.0 mg/dL 0.3-1.2 [facility] Albumin [Mass/volume] in Serum or Plasma by Bromocresol purple (BCP) dye binding method 3.5 g/dL 3.2-4.8 [facility] ital Protein [Mass/volume] in Serum or Plasma 6.8 g/dL 5.7-8.2 [facility] ID Date Data Source [id number] 02/08/2021 05:44:[address] [facility] Name Value Range Interpretation Code Description Data Teodora rce(s) Supporting Document(s) Progress Note [facility] EMXKMj1fJaGDTtHe47/PGOiqSVUcz4FxMFvbNAx3YCguXYXeL6FzRCF1sE1qLUI8WHeAHmLlFzLmOhRq [facility] [file] vC/4Ns7EjF2fJ0KowNzKGMc5TvRDmbIvUPKqey [file] [employer]/kUY8Z1HcQJlR9kIHVPGNgP/VzoIvAMCLzMq9NmGTDYMAdOv1xZCoSH3TfJHhoY6CSmvF7hojvStF h/umxi8kU3iMq6/vw5WTjk8++Hip Hop Dance Instructor/1RWh7uW3RLO5f [file] s/L0CXOuyn7exMXmUmLU6/Benefits Administrator+s/m3uno+Y39bvu7JpQGvSoenflrUhwfh42ohvPDtK/ghF6xeQ2e8sS [file] ICAgICAgICAgICAgICAgICAgICAgICAgICAgICAgICAgICAgICAgICAgICAgICAgICAgICAgICAgICAg ICAgDQogICAgICAgICAgICAgICAgICAgICAgICAgIC AgICAgICAgICAgICAgICAgICAgICAgICAgICAgICAgICAgICAgICAgICAgICAgICAgICAgICAgICAgIC AgICAgICAgICAgICAgDQogICAgICAgICAgICAgICAgICAgICAgICAgICAgICAgICAgICAgICAgICAgIC AgICAgICAgICAgICAgICAgICAgICAgICAgICAgICAg ICAgICAgICAgICAgICAgICAgICAgICAgDQogICAgICAgICAgICAgICAgICAgICAgICAgICAgICAgICAg ICAgICAgICAgICAgICAgICAgICAgICAgICAgICAgICAgICAgICAgICAgICAgICAgICAgICAgICAgICAg ICAgICAgDQogICAgICAgICAgICAgICAgICAgICAgIC AgICAgICAgICAgICAgICAgICAgICAgICAgICAgICAgICAgICAgICAgICAgICAgICAgICAgICAgICAgIC AgICAgICAgICAgICAgICAgDQogICAgICAgICAgICAgICAgICAgICAgICAgICAgICAgICAgICAgICAgIC AgICAgICAgICAgICAgICAgICAgICAgICAgICAgICAg ICAgICAgICAgICAgICAgICAgICAgICAgICAgDQogICAgICAgICAgICAgICAgICAgICAgICAgICAgICAg ICAgICAgICAgICAgICAgICAgICAgICAgICAgICAgICAgICAgICAgICAgICAgICAgICAgICAgICAgICAg ICAgICAgICAgDQogICAgICAgICAgICAgICAgICAgIC AgICAgICAgICAgICAgICAgICAgICAgICAgICAgICAgICAgICAgICAgICAgICAgICAgICAgICAgICAgIC AgICAgICAgICAgICAgICAgICAgDQogICAgICAgICAgICAgICAgICAgICAgICAgICAgICAgICAgICAgIC AgICAgICAgICAgICAgICAgICAgICAgICAgICAgICAg ICAgICAgICAgICAgICAgICAgICAgICAgICAgICAgDQogICAgICAgICAgICAgICAgICAgICAgICAgICAg ICAgICAgICAgICAgICAgICAgICAgICAgICAgICAgICAgICAgICAgICAgICAgICAgICAgICAgICAgICAg JUBtJXYbGWVpKCHxUPv1H7pcBBMcVXMdFN5hQHd5Fr 8+TZeYWxZuDKJ8nbHicI1PDL9ao3JbZKwcDTLlr2IsTZw0PZ5MUDEpRRtyME7JFMxlmg6EHIDcZFMryB HHw0tvCxPoKWV2ZNYkVhbjFQ7TEMZxQ4tkujQmLHUxVXJYDJjtYKJVLMpfUKMOBQZgAPNfQbPdSdLfDC QvHKAdZZBTUPA1MYLuPaAcFSNfBTLbUbSkGTDNQK6H RmLbW5FoiV16UPvXVw1+CYhbhzGvIudIXoWqUGPcx5SoLUu3QN7OHTWfHuiqt3FmQSEiXPYZYJugYJ0Y EFZ7NOQ1KFUbOu8OVLCdR913dpSiWN9CTz6DRwSlWC7wfi0YZMEjDXWoJxeDYkc4RHikNF5JgKBaZUgM nx8igpEhgrWNs4JwinCzeLHOKG4xvwYdQ7qcnt8oYC PJCKMsgIT0BeSrIcLyXvUzQZz4FYFfRZ0dNBbzON9CBMP8ZTgaRZRuQGQgS7vLPeZxHAHkCVNzrZiyLB 4VXtDgJ0GsacUrwGZ8RaHkBIBHTx5+BJtitqPbKlkPWbY4NCIyb1IgEQl9JD0XAZNySXvnHF6UFUWxsC 6vGTdcPF8TLdK4OOUwGSYMLxPjC02cbKLbRJy5Y7Yk YmVkZGVkRmlsZXMgPDwvTmFtZXMgWyBdDQogID4+ID4+JUzjEJ5HHLenedUxAOAqUa8QEAWsYEVtHK5q BEDqXUToA7E9kLxoZUKEHkReQ8vtautzRT2xFGGqK802xRvigdNrXZFwJPOgOw0YKLClVQP3BGZbtDOh NOCaJBZCLFrhVE9QnNBwATW1hM7gSCrwQNHbKDMiL3 oZVdKbzWeaXN75iKvoauRxpBUoTXj+Xn7JLB1pf1BwLMr4goOiJXobXMS0FLxxGZXqWXAfFQLiYEA3HM L4NGJVQfEoPZHfNYXiLBhcMJGrFBUphx4OGGAyEAP1UkH7WVIwUGXoETTpUHmeINYnDRz3XgYfNSNtDP EtQB9OMqWkGQHrJWBdCThgXQSzZORmbk9JWDNiKIMf QZChKvBcHZIzEEEaJGkzFAGxKAL8ErQcIPQmHZMoTM8LUbYrPZZtNBdfZUZiGLYyWOOmhw9NNHCpCXNj AISkXtQbDSFyXLKdNSuiNOXzEROxOPJ5IUZbUEMhDD9UPzNlDXGrIHWqIbOgZFQlCPUxvv9VXASkLVLf FRS6JNMaAWCqTUYdVHvdHNLzDXN4Ywm0WALjBAKaSA 3ZNnMnYRSkFAufFPCoYPPeBPZeqa5SMCAtBPSuDMS7PrVrSCDpGECeKRhdELWrOTNdIoF9LQEbTIZeTU 5HWjGgTEKoRbP9RGGoEVSyAFOnmg6XZOWeZZDhUPwyVWMlAHSsGAYsRNowQEFfJYN9EQP4GRCtGUZsDI 7VXuCfMNWqGbWsTswlSMFwCNWxyn8PBLUpWIVqOUG1 SXVgIRLnEKXqLNiyHCJfJUObNEY0BDGlVCVkJI2QQvHlYVRiYzEyZOCmAYMrWPSohp3DQUUvEVSeBcBg ELAeCPOlPCXtMHkbXWMsVBWqOuXyUJXrAMAuYL1LDrJsFKGlBkUjXKOxOXIqMNFcgc8AQYTtJICjCjM5 KAIgPLIiGRGoSHlsVBVlRJIiRDF6UEAaQLBcPU6SZp WtCXViRrL8UtAyCHLzBKQgiq5LRDQiQON1CAD9FPTaVZGmGAGqQWefKXVvPOS1OZg2ZDWpRMHpEM0FTo QtBPZoCPK9CSsyXMVvNLJfsc9JVCKlUXL3QHn8GBBwZWEaJZMxZOgyTMLwSFM7YUf4MJCxLHYcLQ5QQd LsLIJxPQyhAnifRMIzIQBpbu5MXIGyDTP1VjVtYhQr PMKkBITaBCvvOUMxFKR1XLC6JUMnQLRwWV9AAeKaJDInDxA0QvIiHQOcPMQrta7DLCCrLGH3IEG9DzVc HTFeIUBnAJxgZNBiZRd0KXmyHWRaBLSdUC8FWpZdXMIyXhY3UyYsKVIdKUSfpt1CJQRyLVR0OwF9CbWp TAAiBLIiUZvxLKYyQLw0QICbGKZhZLCdFG9AVdFpMQ NzIyy4CVWyADPoCBZglu2PIVPmVQB1TYI0PiBcKEXaBPPdVDcmRYDwFYv0QaGgCKJjTPCnDX2LWhOgIE sdCOYKVui7TYquJ7m7VWC6Xa1GT9Obx1RqMTDaETTVBQjsCT9cmuLyXANsSd7ER3jGGjdhLRUrOWQ2Az NoXhNoCHUvQOZmCID4Xgw7QcZ0XnW7KX0lSVV7JxQ6 SspkWxF6PQZ2IUR0HLMuDNwtAtN3Ljo9YbadBlJtYE5VGe2PNhA8MQQ4kCZtVb7DVzi6MhOHDfYxHY0Y DQo= ID Date Data Source [id number] 02/02/2021 06:22:[address] [facility] MR BREAST BILATERAL WITH AND WITHOUT CON TRAST [id number] RESULTInterpreted by:Sara Keenan MDBILATERAL BREAST MRI, WITH AND WITHOUT CONTRASTINDICATION: Multifocal left breast DCIS, high-grade. Assess for extent of disease.HISTORY: Left breast biopsy 01/06/2021 demonstrated ductal carcinoma in situ. Left breast biopsy 12/08/2020 demonstrated ductal carcinoma in situ.COMPARISON: Mammograms dated 01/06/2021, 12/07/2020, 07/07/2020, 06/13/2019, breast ultrasound studies dated 01/06/2021, 12/08/2020, 12/07/2020.TECHNIQUE: 3.0 Diamond MRI examination of both breasts was performed in standard fashion in a dedicated breast coil with multiple image sequences obtained with and without gadolinium consisting of the administration of 9 mL Gadavist contrast injection. [email or web address] was utilized for image analysis. It is noted that patient moved during exam due to discomfort and back and knees.FINDINGS: Patient motion artifact degrades image quality limiting evaluation. The breasts have heterogeneous fibroglandular tissue. Background enhancement is marked. There is high T2 signal intensity within the ectatic ducts within both breasts likely representing proteinaceous material versus blood products.There are multiple bilateral cysts of varying signal intensities within both breasts. There is signal void within the lateral right breast from a biopsy marker. Diffuse enhancement within the right breast is likely related to fibrocystic changes.There is diffuse clumped nonmass enhancement predominantly within the upper outer quadrant of the left breast corresponding to areas of coarse heterogenous located at 12:00 and pleomorphic calcifications located within the upper outer quadrant of the breast on mammography, measuring approximately 9 cm in AP diameter. There are foci of signal void within the upper outer breast corresponding to biopsy markers. There is asymmetric duct wall and irregular, (axial subtraction page [phone]).IMPRESSION:1. Large area of clumped nonmass enhancement prominently within the upper outer quadrant of left breast in region of coarse heterogenous and pleomorphic calcifications demonstrated mammography.2. Asymmetric left breast subareolar ductal enhancement. This finding is a lower suspicion abnormality. 3. Diffuse enhancement within the right breast likely representing fibrocystic change.BI-RADS Category 4: SuspiciousRECOMMENDATION:1. Stereotactic biopsy of grouped heterogenous calcifications within the left breast at 12:00.2. Second look ultrasound of the subareolar regional left breast to evaluate for an intraductal mass.This document has been electronically signed by Sara Keenan MD on 02/02/2021 6:20 PM Name Value Range Interpretation Code Description Data Teodora rce(s) Supporting Document(s) ID Date Data Source [id number] 01/31/2021 05:30:[address] [facility] Name Value Range Interpretation Code Description Data Teodora rce(s) Supporting Document(s) Progress Note [facility] OQHWDp2xCrTGKmMw02/VWYxkTWVcy1YsUFqyOYz5UQktFIYbU8SmRIW1xQ5pCWV2CRcOMyIhChRfSoC7 lbm [file] KevdF/qDSR4Pen+SUPPLEMENTAL NURSE/IUtR8J5Od5d4DX/8fevScK+OSJDwDygAvuOxYd+ZOKeE3u6o9XQbC+nY3ff9ts [file] SCkI+iakV/s3+x/yK1P9S/2r/fv8h/0a+b3+qL/Zj3JPh9hekGP5gjbXevH/director safety/iJ8aGRwxcxB1269pt [file] ICAgICAgICAgICAgICAgICAgICAgICAgICAgICAgICAgICAgICAgICAgICAgICAgICAgICAgICAgICAg AAEmYXFmUTCsWEZgUIYyMCWnDVQvKSUkKHRtTNFiKDDbJAInRMOxDP0OHZAgDUYtIFStLMVeLMLqGTQc ICAgICAgICAgICAgICAgICAgICAgICAgICAgICAgIC DgEATpSDZaMBMhWUXuEMOhCDAdFLKmSSXwZSWlRHLgLNBqYJSuBFCrNGNlFTAdLKOfEJ0ANNHkEDLcRV AgICAgICAgICAgICAgICAgICAgICAgICAgICAgICAgICAgICAgICAgICAgICAgICAgICAgICAgICAgIC AgICAgICAgICAgICAgICAgICAgICAgICAgICAgICAg SD0CUCZlWUBgNMUsEENsAPPrVQThEIKfNYSfIUClRGLyDSAbHIDdQANjAMSfZDYmXMGjDWApMDZbHCSu KJPqMUOzDGIeCTVuMDKrZWRlCXJcGSDqBBMhYDRdNCOnWMFwIURoXWAiDA1XTFKwNHKvXEZzIDZcAEVy ICAgICAgICAgICAgICAgICAgICAgICAgICAgICAgIC EzYAOmYTDjTMKzRMXvNMIjKIRvZBKjFGBfTSKgBYPsRIYtUPSoGLVjMXDnEJKtUMLvNTMsGG4CEZAfRG AgICAgICAgICAgICAgICAgICAgICAgICAgICAgICAgICAgICAgICAgICAgICAgICAgICAgICAgICAgIC AgICAgICAgICAgICAgICAgICAgICAgICAgICAgICAg TPJeQO8CURZrMZLnJUPbAUDoEYNcXUXhUAGxKDVaNFQvUUYeCIUsJATuEULhRHLcTKSiOMRzPXKoODNi GRUoYHPyCJAbJGCnSDIqOTNdWNCuPFQuPYTpQSRkFXZlEVVvUSBhFIJnPJIsUU2SWEMdKQXlCZZlHZVq ICAgICAgICAgICAgICAgICAgICAgICAgICAgICAgIC WuXBPiIFTsGRZjYWGhPSYdSENoMJDvICUyQBJjFDQiXMIePQZjCALqTMJhEZBhBCEaZNUhZRRsPX6XCD AgICAgICAgICAgICAgICAgICAgICAgICAgICAgICAgICAgICAgICAgICAgICAgICAgICAgICAgICAgIC AgICAgICAgICAgICAgICAgICAgICAgICAgICAgICAg ZMScUBOuJU2BMWYkSTXjAMNgWVCxQBDmBUKmTAKkIMZbITZrHKEgEDFvTRJxVPXlEFFqLYKbJWGdUVZp UCScYCFkOBQjWYNnCKRsZVOfCNZwRTDlLFPtGCThERWtFEAcJSDfEXCxMKNzWBUmQV6EHM05qARlk6S8 RTEfKZ4czuv/Vq0IKKdwfcTxsIMpTM4RTxCwWJ9tsz 6CGwFtZT1fqq4RAJjFKoNvT1U0lPZaESOwBUWEZeFaU86pYQlhLm60MZprQMLiZkJkJOw1Ow1JLoSlX7 uhNMQiOeD6QHSjQjZ4JWLdOnZ6VKLkElAxENTuUNFpIEXvPVTUTNS4KJDzRcQzNwRsCHEzOWcxFQQVMI 0LNhOyE4ThhE09TUpDPl1+FVzhksCpPfyIFdL8TPOi v6RbTKb0BL7VIYCgFjdsv4JkLJMfHVGSYLsgXU6JBXA6CLN2TCGiKk2BMMSpA762ufZoSM8RCa6GAbUo DC0dlu2SGIYtEJOpEuvKGvx0XEbnZV0OdAVgICyNxy8exyUcuuCIr0LiejSnyIFWUGUaqKHpRCKwInIj BPDebCbpTM4GMBQ8RGNcDC5bPPApQSNuTaZeXWCALR 4MUSUkDLTtwUHqHUBbRLGODB6PPMmqCKI2KACpzwFccCJuFVijIK9RWSNmpoQgQKCsEJAGNHw+Pg0KZW 6bx3SlXHj9VtZqED5nei0OJUvLAnQnF4Z6uYHaO6C8JJkkTd4TIBMeCYLkVUArDCOOFWlvCV8GMI4woy Z6VU5VpOMcCYIeCSEdcEGvBCq3L02qnNJiKJcjST4O ICA+Rosy+Yk1DLKBfYJUfGSNvOqYvCEUHAnOyO1YiG2VBc5MvW8LlNE43dXxcyuUsCQtrBL1KIE8zIVKo WCFZDZ1UqCHuwU4zmdV0KOVuDCRNBrYyR75wfPIoYTUlCNWrTJOjXp0HXULyF7VetjLlpGumrpGfVBOe QGANEH3VJZlfevBxsERqgFeiWR54kJztIS1UNl8AFy ZgMQ7zzm6EkZJhFs8CZSM2Dc1IDHUbBJBbAQUpZGG1EVTsRbUfDDivMXUlZSHcBDM4DMKiJSCnFN9XXf PyJJIcIEL2MbCjPPNaJXYvnw4KLXZhLCR1BDG2TQByUMGmWHJdCOzoTSYlWICdBXX7YHBuYUArTG3GJd FzEUQvKOJaYATvAWLeREBuqd2TTHWjNRAwWoG8RAPi SFEcQHClQNiwZLNuDHQ5PLG0YBSzEMIpCW9OUhSwMJQxSEIoXqUwJZVfPCZlmx2QRPJvNJQmWJz5CuBv UYDfDTBmZJddNFFsLMI4BXm6BTFtAFZnMQ5VBfItARYpZBLvXVUjQCSeBYCrhe0AGNGnUTRjQfW2GtYn EWImVJDeVFlwAVUdNVT7UyRuVYAaDNZfMG8OTkShMN CkTGP0BvDeJRAkADOdyo8VHZDjJXScCXhjGHZvOTEgVDRnOVrpHSCzDLS9PKR3KVCjTVQzBF5AGyYsGE EgBwVcXcBqIVQvKASoou6UGQXgRCYoZCI4XMYvBPTwKAAeFAyqHBOzVDN4GYTvDULzXEPiYW1LGqBnZB YlHsQqKsWjZTNdGYVzaa7QQQFvSHPrPuW6ZiAdGQTd POHhBKgxMQRlOXF8DDwjJVTjTKItXT0ZJiDzPCLrHkz8GvJiPUSfVSUmjg0DNEUlQHBiWIIfNQOcMPOf XUQxKXlfKXXgZZW7QZC3NGFsPQVoTV4EBwLkYJGxViwbVjGlEUQdQJCilp9DVCJnFHF1AdDcMAQqCEFv BMCdOLzvRVBhHTG4WWU6QMQjHPZiRQ6YQiKzXUBnXM yrIqhgGKZhALYgde1MXAKmUUU2Act6WyYiQDYuXTPeKBihZXTsCED2OINsEQQvWVYpCN2RLeMpMBVqTQ myHZCoGRFgZFBeab6YFZZxQQX1JRWqIyEjSTZaYRGoDBquVRKgRAJ5ZZG6QRWqVXPgBS4VEsQdPFPhAe QjEQCfAJSaZYXvbr9QUOGuKKA0UWO8BVPsUROcWMNx GUgbYPNtPWKnFxS1YQGsTXKbQJ3ORdCcOPOoWCC6SPLiRGUcBPLhiq8RNLIvBVM4QJd9FMIqNLDgATOk GZbfXFSvBYpoAZd9WYWcXAGaBI2DPmJxDPCvSZI9UGGiKXOuHFPojl5TTIFvBFD4ArhuTPMlCGMhPDUr RVkgABJcSGfyOnOlBYIqGSTjHF0RHbYjOSOtZTE4Pr LuMQPtRCPuzc1GKEGtOBS7FMcbUbQnIETlOVDjNJitYTNfFTm4EIO4BSPaPSOzJI5VJrEqJYoeCAXLZk y7WZbsD7z1IOS0Bx5TZ8Img9IwFZFfEEZUYUpeNO7oowGsDKLnOm8AB4vJPxl8S5Q2GzYdKykhJMysNJ UgXKApVdp7AnD4AgT1VbIvEh4uHEq7AYGyNyH1ZCJ4 BDI1LiFdJMQxZAftEtwcZtMpNoHqIiPyEX3OWm7HQhS0MXN7cEBcXt5OAMKhBZQJFrMnKK2QQKq= ID Date Data Source [id number] 01/18/2021 06:59:[address] [facility] Name Value Range Interpretation Code Description Data Teodora rce(s) Supporting Document(s) Progress Note [facility] GELOMi3vAxQMBjBc92/GGOgaBVCmd1NkLGhpDRg5ONcoNZYjZ1XkZXF8fB4kJJW1WEzHIaUmNbNtBbGa lbm [file] communications [file] 4Gg5axcG74ykGGJ4RgajTsuLks4olWyi/unpaid intern/g7/J3+zng/0mydAUUt8Y88pm+ogh80wGuqlTW23I7fRX [file] AgICAgICAgICAgICAgICAgICAgICAgICAgICAgICAgICAgICAgICAgICAgICANCiAgICAgICAgICAgIC AgICAgICAgICAgICAgICAgICAgICAgICAgICAgICAg ICAgICAgICAgICAgICAgICAgICAgICAgICAgICAgICAgICAgICAgICAgICAgICAgICAgICAgICANCiAg ICAgICAgICAgICAgICAgICAgICAgICAgICAgICAgICAgICAgICAgICAgICAgICAgICAgICAgICAgICAg ICAgICAgICAgICAgICAgICAgICAgICAgICAgICAgIC AgICAgICANCiAgICAgICAgICAgICAgICAgICAgICAgICAgICAgICAgICAgICAgICAgICAgICAgICAgIC AgICAgICAgICAgICAgICAgICAgICAgICAgICAgICAgICAgICAgICAgICAgICAgICANCiAgICAgICAgIC AgICAgICAgICAgICAgICAgICAgICAgICAgICAgICAg ICAgICAgICAgICAgICAgICAgICAgICAgICAgICAgICAgICAgICAgICAgICAgICAgICAgICAgICAgICAN CiAgICAgICAgICAgICAgICAgICAgICAgICAgICAgICAgICAgICAgICAgICAgICAgICAgICAgICAgICAg ICAgICAgICAgICAgICAgICAgICAgICAgICAgICAgIC AgICAgICAgICANCiAgICAgICAgICAgICAgICAgICAgICAgICAgICAgICAgICAgICAgICAgICAgICAgIC AgICAgICAgICAgICAgICAgICAgICAgICAgICAgICAgICAgICAgICAgICAgICAgICAgICANCiAgICAgIC AgICAgICAgICAgICAgICAgICAgICAgICAgICAgICAg ICAgICAgICAgICAgICAgICAgICAgICAgICAgICAgICAgICAgICAgICAgICAgICAgICAgICAgICAgICAg ICANCiAgICAgICAgICAgICAgICAgICAgICAgICAgICAgICAgICAgICAgICAgICAgICAgICAgICAgICAg ICAgICAgICAgICAgICAgICAgICAgICAgICAgICAgIC AgICAgICAgICAgICANCiAgICAgICAgICAgICAgICAgICAgICAgICAgICAgICAgICAgICAgICAgICAgIC AgICAgICAgICAgICAgICAgICAgICAgICAgICAgICAgICAgICAgICAgICAgICAgICAgICAgICANCjw/eH EiP9vwmXHodsK3C4lqYz3VGh6ODA4zj3JlNEAmNQmp gmAlXuqZGcTtGTZcRflOLno8AVdrWI8KnGSeK3LyK9FaUYliHH9SFDRrJVQpxLVfUMDaXRPrQwI6PNBt YMkwDZ2ZvLCqBJtuEUDdHQSvHtGgTTVjUKDkYAXfQMIxDYPYINQtTUVhTwGvXEYmABXtIRbhWCRYBPY1 LXNpGeEuOQcdEY9Wq4RezTT9EAr+Bg0CQG1el9LzLP a9KHOjIL2yij8RABcOMiHbT9HswjR7OPZiDHYeRa1TTPIvZGXgoXO7ToFsKYBWQjSsN0HqhL96UQXCIp 4+TOljweHkHppZOkEdEBFxy2CuBOn4VK6UDSDtWCv5hDLnHSCpA8Kao6GwTl22WDUgNbkvRrSjby2kRE ElFOGmGPwvSBXyOMMhNm3rLa0bTCPjGUQdKuTnOIZZ LR5PUGJdNPFnvQHpZLKzEWAOGT2LJPyuIVE0SDPksuJirABiDFooYJ5CAAIhwlKaVVJiYQPXNHg+Pg0K AA9lr4PaKYi0OcFyRO2uug8BYTwGSaPrP6F3dCTeT6S8ONraIg9KQWBbRVDhCmghXKIYRGqkUX6OAA0t ntX1JP9ZgJFzTPBlMIYvtXCkXEa7K85frHSmAFahAV 0KICA+Rosy+Pp5OMCXeVSIaUPSaOrTiOCROAwGpH7AkX1NSr2StB6MyKP76aPrpqpVeLExwMR1DTU2lHG ApJBHETC0TuTNlqJ0uexY6TKCcEKQAPvWiG17reSAiRZUaSSQqPEAnCx9KSWOpA0DvfjZauRuujdMeIS EmUVLBXD5THSrdfiVzpXNtlSbaZU98yWvnKF3QLc2G ZjZjRR0afd6YwXHzRx6ZMMD0CM6ZHTElNRAkNUEwMMH0HCHuUjIqGZubFLUsNMNpMJE3WUGyLEIlSZ4M UtBlRXVyZvI4RNJyYICgGMMeme6EYCYfDVX2GQN9ZFSaYKGgGLWsHTczQAJnFKNmCHE9PAOwVTCiSC3B BjQeZATxAXFlJvwfNBFfAHRlxq3RLRQgNSLyQGA0ZM IwNTBvZLLfZPkuRFVuMXJ3Xqa1KKLtBNWcCK0XVfWhDPLhQJguGVGeTHJcJZEbwk3SUUUzCZGiHDReYD DzDNFjDRSuLSalRFZdQBHyAFEdQBJoJOIeLA5YPbLtINKxQGPoNLQlNELwISDvul8LWMMrTGVjPKGeAY SfRSZiZRErSIifKHKqUGG4BTB2JKFyVIFlGD1XJmHk NIHpONjyWICzYTPqZUDszg9GGQAyEMWrJSljKrHbFAFsECNyRDnpERXoJELyHAUlHIXyVPCjET2JKqDs JRWyMiHpENImKCBfYCWyqb0QOCMhTBAcWkOgNWUoCXUmDTOcLLdlSQZvFRX1VqPnPSTvJVMjXM9OLjKz BFAjIjv9TERlTPNaOZSzgb9YOXQqAZMqOZyrHkBgCL ZsHLMmZLuyZYNkOTF1VWNaXLTvNPHhMT8MVwRnLWPnXjnjFVYsSVRdCEZilt6ZVAImFSIzCFQ7VQCmZZ ZaNRYePFhrWPTmUYDjNbC1YHAqPUEiRW0ZAiDaMEKlAwJ8JaVlRFEaKEQyes4YQUBzGBC8ERf4ZKSyXR WvBLMxATpvOKSuHWZmSeksUMMwNEQtCP7MVtVhYCZz NTD6PWzjRXIzNUBwep6TDDNbYNB5Zhx7TYUwJGJfXTIxBNwiEKYpBEJdBCd1QNCzXYDzWS5BAvMlTEAf XCL1FwdjITAcCAYqoq3LUGPpZXR2KIZfZgJiPCOaFJSkNXnyBOKqUNJ6ZjE7MJHaJVSgWF6KFzKxKEAp ZoE5VrNaYEUjAMEaxy7YZXFjRMI9SwR9XPRySEGpAM OeQCnfYNQdLMdxGzsbBHVsMQIfUF4GShMtSKFuBiYuFyavGLWjRYAstb3HKOWsITU3GrV3WZSaODYtSR BrOPjfQVLuQYwxPQDlAHTfVCKqXZ9MBfDxMOWaMeNhICIsBBLkRRAdgy1WRBNzXEV7DNV9LhSkBVNoTS JuVBjnYQSfFGp4AKP2GTBnZBGiXN8RAoEePEmoKTDK Nvb4DKxnX3i2OTN1ER3XD6Igb6ZnLYKcKZGOVKlbWD2raqNcHUQpTm2FG8dRCisoCVJqHZCmWsRaM5Kq DuHiLvA0PdxrHsImDrfpKTFyHA3bRNB8EwV5OhFdMFL7FCY6GIOmPlNpYDN7SuNlD7GxGhQgRbXrIQ8X Vd7GEyY8IEY5hVHsMp6VFuX7TXbQXoVvDU0TSBt= ID Date Data Source [id number] 01/18/2021 01:41:[address] [facility] Name Value Range Interpretation Code Description Data Teodora rce(s) Supporting Document(s) Leukocytes [#/volume] in Blood by Automated count 6.8 10*3/uL 4-10 [facility] Erythrocytes [#/volume] in Blood by Automated count 4.37 10*6/uL 4.1- 5.3 [facility] Hemoglobin [Mass/volume] in Blood 14.2 g/dL 11.5-15.5 [facility] Hematocrit [Volume Fraction] of Blood by Automated count 40.3 % 3 6-45 [facility] Erythrocyte mean corpuscular volume [Entitic volume] by Auto mated count 92.2 fL 80-96 [facility] Erythrocyte mean corpuscular hemoglobin [Entitic mass] by Automated count 32.4 pg 27-33 [facility] Erythrocyte mean corpuscular hemoglobin concentration [Mass/volume] by Automated count 35.1 g/dL 32.0-36.0 [facility] width [Ratio] by Automated count 12.5 % 11.5-14.5 [facility] Platelets [#/volume] in Blood by Automated count 244 10*3/uL 150-400 [facility] ID Date Data Source [id number] 01/18/2021 02:08:[address] [facility] Name Value Range Interpretation Code Description Data Teodora rce(s) Supporting Document(s) Bicarbonate [Moles/volume] in Serum 29 mmol/L 22-29 [facility] Chloride [Moles/volume] in Serum or Plasma 103 mmol/L 98-107 [facility] Creatinine [Mass/volume] in Serum or Plasma 0.73 mg/dL 0.50-0.90 [facility] Glucose [Mass/volume] in Serum or Plasma 112 mg/dL 70-140 [facility] Potassium [Moles/volume] in Serum or Plasma 4.2 mmol/L 3.4-5.1 [facility] Sodium [Moles/volume] in Serum or Plasma 140 mmol/L 136-145 [facility] Urea nitrogen [Mass/volume] in Serum or Plasma 11 mg/dL 8-23 [facility] Anion gap 3 in Serum or Plasma 8 mmol/L 8-15 [facility] Osmolality of Serum or Plasma by calculation 290 mosm/kg 275-300 [facility] Creatinine/Urea nitrogen [Mass Ratio] in Serum or Plasma 15 [facility] Calcium [Mass/volume] in Serum or Plasma 8.7 mg/dL 8.8-10.2 L [facility] Glomerular filtration rate/1.73 sq M pre dicted among non-blacks [Volume Rate/Area] in Serum or Plasma by Creatinine-based formula (MDRD) 81 mL/min/1.73m2 >60 [facility] Glomerular filtration rate/1.73 sq M pre dicted among blacks [Volume Rate/Area] in Serum or Plasma by Creatinine-based formula (MDRD) >60 [facility] ID Date Data Source [id number] 01/14/2021 08:47:[address] [facility] MAMMO BREAST BIOPSY PROC. TOMOSYNTHESIS GUIDED ONLY 1ST LESION [id number] RESULTInterpreted by:Cosmo Pantoja breast stereotactic biopsy utilizing tomosynthesis for targetingHistory: Calcifications in the outer left breastComparison: Mammogram performed earlier the same day .Techniques and Findings:The procedure and its risks were discussed with the patient and she consented.The skin over the selected site was sterilely prepared. Then, buffered lidocaine was infiltrated into the skin and deeper tissues. The area of interest was targeted utilizing tomosynthesis. A small francois was placed in the skin. The 9 gauge vacuum assisted biopsy needle was inserted through the incision to the level of the lesion following the coordinates. Stereotactic images were obtained to confirm accurate positioning of the biopsy probe. Multiple circumferential biopsies were obtained while the biopsy site was lavaged with buffered lidocaine. Specimen radiograph revealed calcifications present within the sample. A biopsy clip marker was left at the site of biopsy. A unilateral mammogram was obtained after completion of the biopsy. The localization clip is in close proximity to the biopsy site. Pressure was held on the biopsy site utilizing sterile gauze until all bleeding subsided. The skin incision was closed with sterile tape. A pressure dressing was placed over the biopsy site. An ice pack was placed over the dressing. Postbiopsy instructions were reviewed with the patient by the department nurse and a copy given to her. The patient tolerated the procedure well and left the department in good condition. 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 Take appropriate action.This document has been electronically signed by Haile Wagoner MD on 01/14/2021 8:44 AM Name Value Range Interpretation Code Description Data Teodora rce(s) Supporting Document(s) ID Date Data Source [id number] 01/14/2021 08:34:[address] [facility] [place] MAMMO DIGITAL DIAGNOSTIC BILATERAL [id number] FINAL RESULTInterpreted by:Haile Wagoner MDBILATERAL DIGITAL MAMMOGRAM WITH COMPUTER-AIDED DETECTION and BILATERAL COMPLETE BREAST ULTRASOUNDHISTORY: Left breast DCISCOMPARISON: Outside mammograms dating back to 11/14/2017, outside breast ultrasound 12/07/2020, images from outside breast biopsy 12/08/2020TECHNIQUE: Craniocaudal and mediolateral oblique digital mammograms were obtained with tomosynthesis. Computer-aided detection was utilized. Magnified views of the left breast were obtained. Ultrasound of all four quadrants and the retroareolar region of both breasts was performed.FINDINGS:The breasts are heterogeneously dense, which may obscure small masses (category C).On mammogram, pleomorphic calcifications with associated mass and biopsy clip marker is seen in the upper outer left breast at the biopsy-proven DCIS. Additional pleomorphic calcifications are seen more posteriorly. Scattered circumscribed masses are seen in primarily in both breasts. Vascular calcifications are seen.On bilateral complete breast ultrasound, a 4.5 x 2.5 x 4.1 cm hypoechoic irregular mass with calcifications is seen in the upper outer left breast at site of biopsy-proven DCIS. Scattered cysts and ductal dilatation is seen in both breasts. No axillary lymphadenopathy.IMPRESSION: 1. Calcifications posterior to the site of left DCIS, suspicious for additional disease. This was biopsied later the same day.2. A 4.5 cm left breast mass representing biopsied DCIS.BI-RADS 4 - SUSPICIOUS ABNORMALITY, BIOPSY SHOULD BE CONSIDERED.This document has been electronically signed by Haile Wagoner MD on 01/14/2021 8:32 AM Name Value Range Interpretation Code Description Data Teodora rce(s) Supporting Document(s) ID Date Data Source [id number] 01/14/2021 08:34:[address] [facility] [place] US BREAST INCLUDING AXILLA COMPLETE BILA TERAL [id number] RESULTInterpreted by:Haile Wagoner MDBILATERAL DIGITAL MAMMOGRAM WITH COMPUTER-AIDED DETECTION and BILATERAL COMPLETE BREAST ULTRASOUNDHISTORY: Left breast DCISCOMPARISON: Outside mammograms dating back to 11/14/2017, outside breast ultrasound 12/07/2020, images from outside breast biopsy 12/08/2020TECHNIQUE: Craniocaudal and mediolateral oblique digital mammograms were obtained with tomosynthesis. Computer-aided detection was utilized. Magnified views of the left breast were obtained. Ultrasound of all four quadrants and the retroareolar region of both breasts was performed.FINDINGS:The breasts are heterogeneously dense, which may obscure small masses (category C).On mammogram, pleomorphic calcifications with associated mass and biopsy clip marker is seen in the upper outer left breast at the biopsy-proven DCIS. Additional pleomorphic calcifications are seen more posteriorly. Scattered circumscribed masses are seen in primarily in both [facility]. Vascular calcifications are seen.On bilateral complete breast ultrasound, a 4.5 x 2.5 x 4.1 cm hypoechoic irregular mass with calcifications is seen in the upper outer left breast at site of biopsy-proven DCIS. Scattered cysts and ductal dilatation is seen in both breasts. No axillary lymphadenopathy.IMPRESSION: 1. Calcifications posterior to the site of left DCIS, suspicious for additional disease. This was biopsied later the same day.2. A 4.5 cm left breast mass representing biopsied DCIS.BI-RADS 4 - SUSPICIOUS ABNORMALITY, BIOPSY SHOULD BE CONSIDERED.This document has been electronically s igned by Haile Wagoner MD on 01/14/2021 8:32 AM Name Value Range Interpretation Code Description Data Teodora rce(s) Supporting Document(s) ID Date Data Source [id number] 01/10/2021 03:52:[address] [facility] Name Value Range Interpretation Code Description Data Teodora rce(s) Supporting Document(s) Progress Note [facility] ZILDNs8gKrHCKkIa18/XSVbfAYPim2QcNErsFHl8FTcfYUInY0GcAWZ2kQ6kUXI5BUyEAhPoUpRvFlK5 lbm [file] AgICAgICAgICAgICAgICAgICAgICAgICAgICAgICAgICAgICAgICAgICAgICAgICAgICAgICAgICAgIC EnOTTeOVGjARRfTOTzGAMdDS5AZANyQGCuQSCyANJrSQWhJMCxAOZuPUHlZRGyZUNbBCOvTGYoDPErKI AgICAgICAgICAgICAgICAgICAgICAgICAgICAgICAg UVUcKGPdYZRxAGCbMDIpZEPcGNIvOGUeCGMaBS1LXDWwZQIzKOZjWIDvIVAzBYHcEUHcLEYoVXXiSRPv ICAgICAgICAgICAgICAgICAgICAgICAgICAgICAgICAgICAgICAgICAgICAgICAgICAgICAgICAgICAg VJDvZGItLGQkBZ5ICHHqFAKoIBJoRRQlUGDiVKCgSD AgICAgICAgICAgICAgICAgICAgICAgICAgICAgICAgICAgICAgICAgICAgICAgICAgICAgICAgICAgIC IkIPYaHUOmGJYmBOZnDBFsRIUbZX5HSAWaCGSyVMBnJTXmQSXnTSFqKECeLBEcTACsHJAwIUJoBVKzPK AgICAgICAgICAgICAgICAgICAgICAgICAgICAgICAg WFThKXEdXMNaIWZaRZUxGAHrFDEwOIDdRQHsUNJrBY7HWLCcSUVzJTJzZFZhQJPgNXCjWTAwJAAsYXXq ICAgICAgICAgICAgICAgICAgICAgICAgICAgICAgICAgICAgICAgICAgICAgICAgICAgICAgICAgICAg TJXlAEQqGTUsALIxVH8VCYRyOQZkCKIkYIAqYIDbNI AgICAgICAgICAgICAgICAgICAgICAgICAgICAgICAgICAgICAgICAgICAgICAgICAgICAgICAgICAgIC QwOPAtLFYgZOKsGBZuQFJuKPAxADWuJL4FIAXdGCHsCZWqXKSvPSKrOGPwWQIgVIUyHJZsZJWzIQMaCA AgICAgICAgICAgICAgICAgICAgICAgICAgICAgICAg AZHhISNaGUJmYQAwLCSwMAVtIIOlEANdCSCnMHCsCAMkQV5CYZUvNYKhHYPuXPOlWHZjPKGaRFPxWJWf ICAgICAgICAgICAgICAgICAgICAgICAgICAgICAgICAgICAgICAgICAgICAgICAgICAgICAgICAgICAg WMSqMFQhFWLrPFCeVIFzWD7EIAWiDIFxZNTdCVWyJL AgICAgICAgICAgICAgICAgICAgICAgICAgICAgICAgICAgICAgICAgICAgICAgICAgICAgICAgICAgIC AvUXXqXXEhOANbCZJaWDIpVAAwFWLnZZXsDU6OCF64hFTbo2V7JXOjUD4yamk/Sg9AJDnsqxNyaMHxUB 2YHbNmQG7rmr7UWtRoZW8etr8DGEzFVyQdX3P9iXFd FDEyYZHLGlWqR98oSItoAu38JXblDUWuQkMtXDc1Cx0YNaNhY5daLAPgAoW9NYKoLmK5SUTgVmP8YCFb WfKxXDMnZXCaES8ILBRjU747brNzHJ5CUq2XMhNaBT4ilj9WYiUaJDOpPwrQPtg2XMttBD8KkEEzwWNe FlZiFVTZGyVmJ6rrx0ViPqKcCNYEEEwcKV8Lk2DkdO AxDQo+Kv1WUK6kg9RmBGyzVkGbZD0aaf4ETQiBZuBzH8EofFciFNLzz2ozSBNgSU2wtDJaDUG0NQCsAV QbtyPBLVKgMJugmMqpWE5MDHN4VUMvPC1qIDLvLVSbRpMoPKYOMT7KHDMdWDBpaXXaLQTrEPXVEJ2RST roEML4BMBmquCqtHHgWFnyUW4EMZMgdaFrZzVvYXXN DQo+Sz9MES5am3CvNSnkYkTgEV8zss8ENWhHLyYmH6D9vCSrI7V5LPcgUn3FKQDlRJOtQjWjMEIPGGhw CI2HCY9isgT4YN0QoIFlNBZeJADrsBTeKIg7K18dnRPdFYsaXA1DJLJ+Rosy+Yx4VVLCvIYNnNPWoHtUl FZNIMeReO5EzY5SWn8VqI7ZnGM35xHptdpGnENffZW 4AKF1lNOBbLORMLB5DdTDaqH2fvhRdLCXfKFXRHuRsD27srEQpWDQqFRX4IBPwDt6MJOUdM0LjnlIzcH klscSiQGNuIDKSUJ1OEGiclcZcdZMixLksQE62dBxrLB6BWu7UXzJwHY3wro8UmHWsWe2KSONdCE1EGU QlGBQpTSTvWET9QTYhRcWrOHkmNZXdZZJxSTL4IAFh NMMeCP7SYvDeGVDhCwcfBkKrCRQvHJHoqv6VRYKiCBYaWNw1CXBjSGMaCTJsQInmATAnQLAsZSW6ZKBg JBShVK0WUdIgYSRfWSN7HXGeYPHhIOEwyi8VMOUjTFDkWYN8UTCqVFIySNZhPIwjUYSxIPP6Qmn0POAj VQXpSD4PNmMpXUItTMg3RBGaZGIpHXDwrq9UBFYxHQ TyHTGxAsVgYDWbNXEuBUftXCPpKIIhGHUxPDIfZHOqHZ2IRaHmXPYlYNO3CIpdUFAfARPzdv3UVOHrWF AlEFK1CLQnINRhKNZqRLavXVAnHUA7ZCR8XNWzEWRyTC2ALyLxSYJuWOIkUJJdNJIkJJXqpm9KULJeEE XtCXIqEGMvRINpDZXpBDybOYMmSZK7Qjm7KMFrQJIb VN7GRqWiODUgOVT3RUQjTJAcXIEaqt9USGGtDZNpUxu4ACBgNGLcUVGnVMqgOOStSGM9YmW1EJKkDFYw XQ0NWdDbPRNhCir7JydiUBRhLDIuon1YCBKoKWDkQNr6MNBlVYApPLYrOXnwFEMaGUO5JHd0WAKdBVTb ER5MXoCfSOTrHzifARKoZCOmOHFjkp0TURXdPENuRS B9JJRsKMDxGYMrCIzfVERxBOChXXRvIREeDOMfKA9FBfTpLMRdBfRbVxSgTQIpRPSzwl5KJPClPJCkBT RsRsPoNUJaPXBySYr7ieHorOTcXTp1NK6WZ1XawwRlTpxGQk9Ip462LPX8MQEbBj8NB5agNa8pZRLnAZ BZHm1ZRWh2JIU0UDUzBVLzNCTsUEB9CBHcBARqClCf DKW2VZE5TLC+KYj6FOd1BqJmWeOuXvIgRLY4S6RoOYReLXAwXjpoBDg4TK5uBDQIIf6+DQpzdGFydHhy PQTMOvWhDHE8AAgqBOVSDc0U ID Date Data Source [id number] 01/10/2021 12:49:[address] [facility] Name Value Range Interpretation Code Description Data Teodora rce(s) Supporting Document(s) Progress Note [facility] RHZBIy1yMuMMJkTf04/LOCcaTXAmx0RzWCiiBQg2FOcmHVMpQ1YhUOJ2oV6vVIG9DVwODqOpLjKyKrM7 lbm [file] AgICAgICAgICAgICAgICAgICAgICAgICAgICAgICAgICAgICAgICAgICAgICAgICAgICAgICAgICAgIC AgICAgICAgICAgICAgICAgICAgICAgICAgICAgICAg ICAgDQogICAgICAgICAgICAgICAgICAgICAgICAgICAgICAgICAgICAgICAgICAgICAgICAgICAgICAg ICAgICAgICAgICAgICAgICAgICAgICAgICAgICAgICAgICAgICAgICAgICAgDQogICAgICAgICAgICAg ICAgICAgICAgICAgICAgICAgICAgICAgICAgICAgIC AgICAgICAgICAgICAgICAgICAgICAgICAgICAgICAgICAgICAgICAgICAgICAgICAgICAgICAgDQogIC AgICAgICAgICAgICAgICAgICAgICAgICAgICAgICAgICAgICAgICAgICAgICAgICAgICAgICAgICAgIC AgICAgICAgICAgICAgICAgICAgICAgICAgICAgICAg ICAgICAgDQogICAgICAgICAgICAgICAgICAgICAgICAgICAgICAgICAgICAgICAgICAgICAgICAgICAg ICAgICAgICAgICAgICAgICAgICAgICAgICAgICAgICAgICAgICAgICAgICAgICAgDQogICAgICAgICAg ICAgICAgICAgICAgICAgICAgICAgICAgICAgICAgIC AgICAgICAgICAgICAgICAgICAgICAgICAgICAgICAgICAgICAgICAgICAgICAgICAgICAgICAgICAgDQ ogICAgICAgICAgICAgICAgICAgICAgICAgICAgICAgICAgICAgICAgICAgICAgICAgICAgICAgICAgIC AgICAgICAgICAgICAgICAgICAgICAgICAgICAgICAg ICAgICAgICAgDQogICAgICAgICAgICAgICAgICAgICAgICAgICAgICAgICAgICAgICAgICAgICAgICAg ICAgICAgICAgICAgICAgICAgICAgICAgICAgICAgICAgICAgICAgICAgICAgICAgICAgDQogICAgICAg ICAgICAgICAgICAgICAgICAgICAgICAgICAgICAgIC AgICAgICAgICAgICAgICAgICAgICAgICAgICAgICAgICAgICAgICAgICAgICAgICAgICAgICAgICAgIC AgDQogICAgICAgICAgICAgICAgICAgICAgICAgICAgICAgICAgICAgICAgICAgICAgICAgICAgICAgIC AgICAgICAgICAgICAgICAgICAgICAgICAgICAgICAg XTRiXKBxDJQlWPNvHYo5B6upYOBoDWXmGM6oURo3Td2+WJgUJgIpPFE1wuVckP1JKZ9bx9GlHTbvQJLh t0XjHJg4TZ3HDNWvEWmrWL8MXHyezf7RIINmQLQqfUYKo9cqZuWkPFV9NGVvNpcdCK6GDQDwW0vzecMl SEAgIDHYYZ6TBvOmL7SqiJ78ZKVTUk2+DQplbmRvYm pSMjJ0DIJxh4JvIKe4II8ZMKRmSvmuq2IfGoIfIIMAQNliVS1IUYX8WFTdEBZqPl0FCSSqJ074amNuLD 2CKr8FJiPaYC7lzf5SYnUtCIXlYrdIXpi6EUuyPZ8UwUGqQIkTlp5ccqXcugOKa9YywkPxmBTHRM0oFh XskqXokR2jGF2MLBU2AEQsYL5gXTFtGCBlIgTeIBGK CT9YIFSmSYIkcYYmZXPxJVJQRY2DYHqdPXY8IRPyisWktYEgFVadFP1TOUDzdvOwEKtbYDFPKHn+Pg0K OU7jw9AgTDhsJZHaUL3iay6HDBgRWpTxZ0Q5zGCgS5Q5WWufAn2LPWIuHHIqKHnrGKJBVHnaJB2XWA9n cqI9GQ4QeKEbEATgTPVyzRQzYPb8X72xgKTcPVklTC 0KICA+Rosy+Ge2MEHSfOIUnOIAhSmZaQEEVYeGrP9AcH9XGf1AzA5LdGL74sSdjmoPwVSktRW5BZL2jBK IoBNVZHW1BoJQhmD7kdcEiBUSaWVHLTxRkV82shFAnHZXvHCJ8SOQnXk7KPRYtJ9PzxdJvvKivuuJkYK SqKCYMUN0EMAleszNxjUUgfKitWY37fHusET5SLb6E UeTwFJ8hxu4ZbWMnXs4CTICaTb1YUEZuYNEtXRYsONB7XQOhIkFgXDazMYFrSLTjZAL9FYJpGWCaFU4O TxZvADEjMMw4YscwBKEqXGWbjj1JDVRiDGDmTLE1NACnYIAvNEKbFFvsBFGlYXImHMB6ZXQwUYUuMW9S OzWuDGHcSFZhKIAmOBWrVMEwha3BDVQsYPGtUmV8Nr PjMQIdSUNhHJqyZMXzCNCvGLC7SSOxBSOnYL5VLgNmPFSxVJW2QMNuWSWcYPTenn2HUTTeCTJdGij2Pi XgPHAiTSTeZErxFLFkBJZ1FdYkLXWgHVDcNK9XEcYlPZDfVRW8ZRAdVKIbFAVvxm8JIESlEHKcQNOvAP FeWJFhXMSdJJobPEXlLIV0DYq2GWAbWBCmVF6HLtLz QZHnGAN2TSFxKBFxVRPary3NKMBuEHDnEsOpTQJtCIMkKJVwPWonOBBzUIK5VzV1AXWaLFOhRW9QXhIb TFUnQJz0PTKuSUZfWBXidr2MLXEqPLRySobaFZYrZRRbQHNzSNsqITEeBIV2TsOfTAGfHFXeKL2FYvUl UPCbAVhjLCUrJOIrOTDxnc2RKKQaYXCuTPG2RLGoUL ZxLMDjKYu9mkJkeXAwSSe0IS4AE1DaohXvTiDKSj4Og259OSSdODBlFy3SX8zuDz6lTJYaSDFVMn8WVZ y4FTCfNUIoIlLcAHLqYSL7QbU0LAv0TNY5DhHqVPA5VOE+FJk8OQQ5PGNnY5G1WOZfKPitMJinRER4FW SiS8NeVti7AA2pPORAQm4+VDcpeZRyqOhsBUDSUcY6SvK5JRsvJXVWJd9U ID Date Data Source [id number] 01/10/2021 12:49:[address] [facility] Name Value Range Interpretation Code Description Data Teodora rce(s) Supporting Document(s) Progress Note [facility] WSIQDy3qCwQYMqSd54/ZPEnsLYMdh8PfMBvhXMf5WAxdTIPhG4KvOXP6hG7oJDZ1GTlDZcKnVoVtTeI1 lbm [file] AgICAgICAgICAgICAgICAgICAgICAgICAgICAgICAgICAgICAgICAgICAgICAgICAgDQogICAgICAgIC AgICAgICAgICAgICAgICAgICAgICAgICAgICAgICAg ICAgICAgICAgICAgICAgICAgICAgICAgICAgICAgICAgICAgICAgICAgICAgICAgICAgICAgICAgICAg DQogICAgICAgICAgICAgICAgICAgICAgICAgICAgICAgICAgICAgICAgICAgICAgICAgICAgICAgICAg ICAgICAgICAgICAgICAgICAgICAgICAgICAgICAgIC AgICAgICAgICAgDQogICAgICAgICAgICAgICAgICAgICAgICAgICAgICAgICAgICAgICAgICAgICAgIC AgICAgICAgICAgICAgICAgICAgICAgICAgICAgICAgICAgICAgICAgICAgICAgICAgICAgDQogICAgIC AgICAgICAgICAgICAgICAgICAgICAgICAgICAgICAg ICAgICAgICAgICAgICAgICAgICAgICAgICAgICAgICAgICAgICAgICAgICAgICAgICAgICAgICAgICAg ICAgDQogICAgICAgICAgICAgICAgICAgICAgICAgICAgICAgICAgICAgICAgICAgICAgICAgICAgICAg ICAgICAgICAgICAgICAgICAgICAgICAgICAgICAgIC AgICAgICAgICAgICAgDQogICAgICAgICAgICAgICAgICAgICAgICAgICAgICAgICAgICAgICAgICAgIC AgICAgICAgICAgICAgICAgICAgICAgICAgICAgICAgICAgICAgICAgICAgICAgICAgICAgICAgDQogIC AgICAgICAgICAgICAgICAgICAgICAgICAgICAgICAg ICAgICAgICAgICAgICAgICAgICAgICAgICAgICAgICAgICAgICAgICAgICAgICAgICAgICAgICAgICAg ICAgICAgDQogICAgICAgICAgICAgICAgICAgICAgICAgICAgICAgICAgICAgICAgICAgICAgICAgICAg ICAgICAgICAgICAgICAgICAgICAgICAgICAgICAgIC AgICAgICAgICAgICAgICAgDQogICAgICAgICAgICAgICAgICAgICAgICAgICAgICAgICAgICAgICAgIC AgICAgICAgICAgICAgICAgICAgICAgICAgICAgICAgICAgICAgICAgICAgICAgICAgICAgICAgICAgDQ x9I8spZOGrMHKsQI4rBPt1Qc2+YBrIWzNpPLY9cqGh tM4JSK2fz5EmPZqnNCNoe2MxOFo9RS8SIUNmOQzwYI3OHAgftb0XQBHkKOVepSMXq9udHvSgYHB4ZHSz LyjkNI0AKLVrC5kbqzDqNSVhZLAKEFfnTMJBGVhcQWAKFJPaCDKrPfBzWtWtOAStGF9CYCDnV508hhIy WZ4EWy0MEhHaJW9oxo0TLuGtOAZxTbiOJij5YTrfYD 0BzNYdaKToJPPnBKPHVnVvX9sbw0CzThWaGYUUWFbvWZ2Zf3DagSJfHYs+Bx5COI9kh9KdOMmuTZWeJB 3qmn0YCBsXGqEkL2TzdPzaUGXvd5yfMUSyUU9ocHQkHED8WCgyuUcjWvIVYBFcGBSyQQLESCR8UTGbQW 2jNYLdZSSwDwExMORYKN2ROOUwYWGfrCIbQTRsUBJU XM8ZVNxzILH1OKFnsjCmnAViQRsxCT1WNYEgokYcHjRkDVFYRFr+Wr6ODW4pi7FbAVjcKKVaVJ4bga7P MHdHOxXgB3V6xQFnR0T1IDdsVs3QGFAsZMSxYxRzTGNOHVpiLJ3AWC6uzxG3AZ6DsFZbOTBsLEMfoUIe LUy2P35zwYQmTWbbNP7LEQL+Rosy+Hy0LDWFcXTNvFA LgEqOdCLAWXcYzQ7EkG7ZSc1BzK4YoZT96rVievlHlQNpoCP1GFE0oYIWwBUKKVC8ZzDOaaG5dmkBoIf TeAKJKXjAvM92ppPZrMGPjMIWyHFFcXe9IILXvD8SitbTbaJtccfJjARMjVMSWKN1JPSdqyqRwaKWosU cbMZ26lJevMK5KXi1WNhGtSR5itl2StAFcNg9KIMMk Bg7GXKKwJSCrYABwZRV6EBAvCsRsILpnNRWiSKNhHNL2YTWcBWVjCT0YAjCeHRTiCbBxZKXuVPFsNLNd xq5FTWVaJBEzYnh2RsHsLUUmAWLgXWnbRMGaYBBwUNB9XILxBARwER9ONwGhAXZyOJD2ZrMbZPZxNIRu vo2JINApMTYyVSP9KOWnNDPrPPAbVEzjEFMaWKC7KO D4LSMpBHNwFN6GZwWvOCEkAFqxMtJeHQAyOAKxcc8VQUAnEAMeCVw1WaRoUNOyXIJkJIymPOSzJWXyUW S2QBHnRBLpPC8RHeHxJRVfBZE7OyCwLANoIGMlka2VLELnZXHmPpl7HIOzUPBfOCPcEZqoNTViRJA1Pi IrRDUiXASfLU7VWmPoEWLjYPM8PTvqTRKfTGZsif5P XQDdUNIjWOX4SOBcFBQeJBQsBNsjDOXsMCB7Llb0VZErTFGhQA7MGrOlMOXyXPP1QOnoNQZnZTLcxb2M WXEtJEZoRwcaGJRgQJJtVFYgFGciKACiKGN2XOThISKsZBImCD0NTtHjXZDbKUjwHBuqUPBvCZImcv5H GXMqUTJqFMWgAWEoLYAxZWCjSQliGCTcCHH9CAScAJ OhEPAwRA8SOtDrHWQiKumoNiOmXFWzMEAtug4ANVDcACKaQCWjVcRzGKKoTIMlUSvqXICfZYF8HTG0NW GoAXGmNA6QMlEhJXLlQfJ1EMKuNMUiHAOzxr7SGKKuBUTgXSgiFRNrEENuAXEaUPbeIOOyDGNeBUz2JE XiCUPlDZ7JSoFnLNNjWbB8MmVySDBfVSPujv7GEJZy GKStYpPxXcVmNVZjWRLjOKvxQLEcWRCoOTw1WYLgPRWdDI3QKnAqNABgItM8JYzcVDAmFDPugx1KIZVs DHReNTI6PTBeREUfHASuCScoPSPqXEJ7TABiTDCwDFCfET2JYzOvCKJyCwCbMUkeAYLtIZWdrc6LjWGl sWalol8XOPeJFp7PbQktVXJ3AUdvXs2obARlAJGbWY UJGz4LvnCwZCKgYEOWHPdkVNPgCNK1Teg8STPzBqWnGYWwRfR9RkbrTWraKXOkYLC7BWCkUjA5DlA4Nb P1PRJ2UQGpPaNwUvklNNHkDqEzXKP3WqKoYKL+HS1rFTh+Ro5Ds4IfndG7udFfPNuiBNIjOr1LDJSBN2 YNCg== ID Date Data Source [id number] 01/13/2021 10:09:[address] [facility] [place] Surgical Pathology ReportName: CAROLA ECHEVERRIAMRN: [id number] Number: [id number] Date: 01/06/2021 00:00Received Date: 01/07/2021 09:15Physician(s): JL ALVARADO MD SHARMA, RANJNA,[facility] [place]opy To:HAILE WAGONER MDSpecricardo(s) ReceivedA: Left breast outerClinical HistoryCalcifications in the outer left breast in a patient with left DCIS.Differential: Fibrocystic changes, exclude DCISDiagnosisBREAST, LEFT OUTER, BIOPSY: DUCTAL CARCINOMA IN-SITU. HISTOLOGIC PATTERN: solid, cribriform NUCLEAR GRADE: 3 NECROSIS: Present, comedo-type CALCIFICATION: PresentESTROGEN RECEPTORS: Negative (< 1% staining).PROGESTERONE RECEPTORS: Positive (weak, 25% of cells).Angelica Kirk M.D.;Resident PathologistElectronically Signed By Lottie Hernandez M.D., Attending Pathologist01/13/2021 22:09:04 The attending pathologist named above attests that he/she has personallyreviewed the relevant preparation(s) for the specimen, performedmicroscopic examination when indicated, and rendered the final diagnosis. Gross DescriptionThe specimen is received in formalin and labeled with the patient's name,"Etta Echeverria" and "left breast outer". It consists of a plasticmulti-welled apparatus containing fibroadipose tissue in wells labeledA- G. The fibroadipose tissue ranges from 0.3 cm up to 1 cm in length andaverages 0.3 cm in diameter. The specimen is totally submitted in sevencassettes, alphabetically beginning with leilani ESPINOZA\\Microscopic DescriptionThere is also focal papilloma with atypia.This report may include one or more immunohistochemical stain results thatuse analyte specific reagents. All positive and negative controls havebeen reviewed by the attending pathologist and are satisfactory. The testswere developed and their performance characteristics determined by [facility] Pathology department. They have not been cleared or approved by the USFood and Drug Administration. The FDA has determined that such clearanceor approval is not necessary. Name Value Range Interpretation Code Description Data Teodora rce(s) Supporting Document(s) ID Date Data Source [id number] 01/04/2021 08:20:[address] [facility] Name Value Range Interpretation Code Description Data Teodora rce(s) Supporting Document(s) Progress Note [facility] OUJHJp2sOhVOLnTr24/ZKXlvRKKsd2LaZTrjCWd9BVfwNYVoL4WdJDO2aS9eWDZ2QLuLFnUhEpGtBjK1 m [file] staff attorney/BD5fpfBGGIgdM+H6CdjvpFiB0+Or8JS+W7tVvaQiKFV80wG+b4FuMMQgu+wzy0m7f5Jot0TYPZuC [file] AgICAgICAgICAgICAgICAgICAgICAgICAgICAgICAgICAgICAgICAgICAgICAgICAgICAgICAgICAgIC AgICAgICAgICAgICAgDQogICAgICAgICAgICAgICAg ICAgICAgICAgICAgICAgICAgICAgICAgICAgICAgICAgICAgICAgICAgICAgICAgICAgICAgICAgICAg ICAgICAgICAgICAgICAgICAgICAgICAgDQogICAgICAgICAgICAgICAgICAgICAgICAgICAgICAgICAg ICAgICAgICAgICAgICAgICAgICAgICAgICAgICAgIC AgICAgICAgICAgICAgICAgICAgICAgICAgICAgICAgICAgDQogICAgICAgICAgICAgICAgICAgICAgIC AgICAgICAgICAgICAgICAgICAgICAgICAgICAgICAgICAgICAgICAgICAgICAgICAgICAgICAgICAgIC AgICAgICAgICAgICAgICAgDQogICAgICAgICAgICAg ICAgICAgICAgICAgICAgICAgICAgICAgICAgICAgICAgICAgICAgICAgICAgICAgICAgICAgICAgICAg ICAgICAgICAgICAgICAgICAgICAgICAgICAgDQogICAgICAgICAgICAgICAgICAgICAgICAgICAgICAg ICAgICAgICAgICAgICAgICAgICAgICAgICAgICAgIC AgICAgICAgICAgICAgICAgICAgICAgICAgICAgICAgICAgICAgDQogICAgICAgICAgICAgICAgICAgIC AgICAgICAgICAgICAgICAgICAgICAgICAgICAgICAgICAgICAgICAgICAgICAgICAgICAgICAgICAgIC AgICAgICAgICAgICAgICAgICAgDQogICAgICAgICAg ICAgICAgICAgICAgICAgICAgICAgICAgICAgICAgICAgICAgICAgICAgICAgICAgICAgICAgICAgICAg ICAgICAgICAgICAgICAgICAgICAgICAgICAgICAgDQogICAgICAgICAgICAgICAgICAgICAgICAgICAg ICAgICAgICAgICAgICAgICAgICAgICAgICAgICAgIC AgICAgICAgICAgICAgICAgICAgICAgICAgICAgICAgICAgICAgICAgDQogICAgICAgICAgICAgICAgIC AgICAgICAgICAgICAgICAgICAgICAgICAgICAgICAgICAgICAgICAgICAgICAgICAgICAgICAgICAgIC UlGWKiMQOlEZVbENYfKIXeMJKxYIHbIOz9D3giNCAl RKSoXD8aYHu6Wq3+UNjMDmRrBYJ1bdAjjP1BQB9nl2MhJEunKRVgk7SuBOt8ER3MSZAuWXxzWD1VOMkl lv4QKGPwTBRbpRXOq8wsYvZtONK5YSRvJjtdZA1SUDEwU0ufxvIcGWUgOGQJVPenSHZBOXibAZAHBUEo HRFsIdTxVkMkFPYnPJ5ISYEaY562npGmFN8ROn2JJt DtKB7rrc7DOhlsQWRbVvtXMvw8YQdbIZ9MwHDwxDHuELCyIZMQJyUbC8lgn7BjUqqgMMVOKMvpIW6Si6 VudCAxDQo+Ji5CEA8sp2RtKSxpBRJkAY9jjr8DOCbTJnAkR8JswMbrYEPfn8egAOTuDF5qdWAjRBV2YQ VxokwgASEHkEYhyHDvKE3SHXB5MZUwPY6dPUGuWVNl JgKiECWWPK2SAVEkECEdeJCpHIPhYGZLFJ1RIFkaYRU8LGXwsiIzeXKaGBovWD1HCZCblfVaKwecSCVH DQo+Zi1XIK3fg3KaNZt6BLYzTW9bxq9YPPaBHnHnU8G8jZZxX3C7SKueTe7TJWHwWBWrEfPoDQXNNPxv AQ3FSZ2lkhI2JC7BnJPdZJWqQZUxwMOpFIo2L49oaT PiVXehRG5VIJR+Rosy+Ji3BEPScRUQzMZAoIoGrNOTMSjJaG4VnJ3VGu5DhI0VaRS56cZkincNxOZimXW 6TTP1uHTOsKHLPNN9BzZBddO7wgnIxXWRjCFIPIjFbE18kfZPoCTMqPZQ5GRFbXf6MVVItD1ShewKvqA bymqYaZSSwTJBFWQ7NMVtmhfPobIQhvDwlGX95rXzp UE3MIu4WOvKeYW8iwv2CkBQiAl5UVAO5QX0XPIXnRXFtKCHnEDA0QBVxJxPxIUyaNZFsUXPmMFD5OFKo KCMbOW7SWlToBEKsUzB0YlQfRFUgFIFpll6SDGNtJTC1NwRxIZWqSYEnGBPaPJujDGVjMDUsKJK9LKDc EOXgPF5QTpMjCUEkCDQgMowxKLLaTVFdsi4PWNMyIL WaKLU7LzMnYUFsUNAeHIbeCWBlARI1HOD5VRYjPCAsVV4VEvJsNNNhIZvqHuXhVQSnLKDmgm6YHKKbSW GrCOu5EZFzGZGiJVRgVJdwTYCiWKGoDNTrXSMqOXJlMZ0IRbByLGRcOJB7FYPnVMDeBWIlfs2NPKRfVG OwBmU0UZPuUZRdCPLrUAyrNIHkYHA0FGc6GYHuWRCj PM6FHrQfEZCaSMx1EABjWTTxFWXrss5NPSYwTFPfIJq4BvUcAJOmDXZnBUztJEJlURHnOEX5ZWIqBIZv YO9VGvPbAGSqMcMrZUKlMHPtFEXqfr3JUHXvVVUxOcOoUWFqIYDwFAVmZQlhGXHmCTAiUoNaWWCcLVTo IU6OIaYyDYMiKcO1LBKdQBSgQTKtom3INBMxXDBlQz meIVOcUHWfBLGqHQcmMWHpRXK0UkX3NQElWCXoKO7QRhFwSNAkQkI0IVNwITOsIBFvyu1QTFSbMOPbCX miFLBsBKBqWKJmYGkfFRQePHE1KPGkLOYbGRXoZN8YBkXfWBSdRpC6EVVtKKMdYDMmjv8VBAYgTTLtUE e0VoAcKOIjGZYuKIblYUJnRLF2YZI2UMIiXARvID0W RhEqHIPtDlvrKJUmABKeMEZrcc0NRXUaUNIlYiQ7JNYvNFGiPEAzSGyiKKHdUFK5SWG0EQFnDWKoLR3Q BbDkEPKsJxJ3HCDpGUPmVEBepz8LZZUqHAO2IVJjMzQtWYIzQSHmDEmdWTGtKYM2RFWjSRXeLXFjKY1N CyTvGBFhTdCmYrBuXLSoLPQnja0NHVVtOHB4QMYnIc VzKBTlQYDmYCyqQNLlHQJ3VMZbEJUbQEAmIT0RUiFuEUNbFta7AjUeMNSvRGRfwy5HXONmBGT6FkO1Qw IqJRKwDISsLJorUDQuSRA5EyIaFRMcILJoYM4KGmJaRGlmAJRSHux0KKriG9h9KYU4SY1UX9Bgt7HmWN QnAHKOXYrmVD4linEmCHPxLu0QF8tELbq2ZXWpQOFq ZEo9TiW6KQAaT8ZhXzSfUuV7MpocIXqlOP4xKHq9I8N9RjR7BLpgNUspM0UjP8JzGUNpCtRzBHNwECWl KtUcGD5JPm1FCcO6EBL0iGHpUy0WCdh7HHqAJpOjKR3ZXIm= ID Date Data Source [id number] 12/14/2020 08:24:00 AM EDT [facility] Patient Name: ETTA ECHEVERRIA : 1945 Sex: F Pt Unit #: [id number] Location:[facility] Provider: Visit Date/Time: 12/14/20 Primary Insurance: MEDICARE [employer] Secondary Insurance: BC/BS [employer] Intake Vital Signs 12/14/20 08:30 Current Height 5 ft 3 in Current Weight 206 lb Weight Measurement Method Standing Scale BMI 36.5 BP 136/80 Blood Pressure Location Lt brachial Position Sitting Pulse 78 Pulse Strength Normal Pulse Source Pulse Oximeter Pulse Oximetry (%) 98 Oxygen Delivery Method room air Intake Visit Reasons: Annual Physical Nurse Note: Pt would like to know if her breast biopsy results came in yet. Consolidator Required: No Accompanied by: Self / Same as Patient Is patient in pain?: No Allergies codeine [Codeine] Allergy (Intermediate, Verified 06/26/19 10:00) RASH (SKIN RASH) No Known Food Allergies Allergy (Verified 12/14/20 08:42) Medications - Last Reconciled 12/14/20 by Shimon Cordova M.D. aspirin 325 mg PO DAILY duloxetine mg PO epinephrine 0.3 mg IM 1T famotidine 20 mg PO BID metformin ER 500 mg PO QPM metoprolol succinate ER TAKE ONE TABLET BY MOUTH EVERY DAY omega-3 fatty acids-fish oil 300-1,000 mg 1 cap PO omeprazole 20 mg PO oxybutynin chloride ER TAKE ONE TABLET BY MOUTH EVERY DAY pravastatin 40 mg PO HS Vision Wearing glasses?: Yes Fall Risk History of falls: No Ambulatory Aid:: None Gait/Transferring:: Normal Medications:: Antihypertensives PHQ-2/9 Over the last 2 weeks, how often have you been bothered by any of the following problems? 1. Little interest or pleasure in doing things: not at all 2. Feeling down, depressed, or hopeless: not at all Total score: 0 3. Trouble falling or staying asleep, or sleeping too much: not at all 4. Feeling tired or having little energy: several days 5. Poor appetite or overeating: not at all 6. Feeling bad about yourself - or that you are a failure or have let yourself and your family down: not at all 7. Trouble concentrating on things, such as reading the newspaper or watching television: not at all 8. Moving or speaking so slowly that other people could have noticed? - Or the opposite - being so fidgety or restless that you have been moving around a lot more than usual: not at all 9. Thoughts that you would be better off or of hurting yourself in some way: not at all Total score: 1 If you checked off any problems, how difficult have these problems made it for you to do your work, take care of things at home, or get along with other people?: not difficult at all Source: Developed by Drs. Luis Cadet, Tamica Thompson, Dung Marshall and colleagues, with an educational henry from [employer]. HIV Testing Offer - ages 13-64 HIV testing Offer: No Requirement for HIV testing offer been met?: Not in age range SBIRT Annual Questionnaire Are you currently in recovery for alcohol or substance use?: No How many times in the past year have you had 4 or more drinks in a day?: None How many times in the past year have you used a recreational drug or used a prescription medication for nonmedical reasons?: None Do you need a note to return Do you need a note to return to daycare/school/sports/work: No Coronavirus Screening Screening Are you currently positive or on isolation for COVID ?: No Do you have any NEW signs of one or more of the following?: no symptoms Do you have NEW signs of at least two of the following?: no symptoms HPI Additional HPI HPI Details: Patient with a history of diabetes, hypertension, hypercholesterolemia and GERD came to the office for her annual evaluation. She recently underwent a breast biopsy for abnormality identified on mammogram. 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 Patient also continues to experience left leg discomfort. After a busy day she notices that the left leg drags. This is on account of her spinal pathology that has been surgically addressed in the past. [facility] Medical History Bee sting reaction Bulging Disc Degenerative Disc Disease Degenerative Spondylothesis Essential hypertension (07/18/10) Gastroenteritis due to norovirus (07/25/16) GERD without esophagitis Heart murmur Hiatal hernia Lumbar radiculopathy Overactive bladder Presbyesophagus Pure hypercholesterolemia (07/13/14) Type 2 diabetes mellitus without complication, without long-term current use of insulin Xerosis Surgical History History of - surgery History of - surgery History of appendectomy History of back surgery History of breast biopsy History of cholecystectomy History of foot surgery History of hysterectomy Left CTS and left ganglion cyst [address] Bravo Status post carpal tunnel release Status post oophorectomy Family History (Updated 12/14/20 @ 09:02 by Shimon Cordova M.D.) Mother Diabetes Father Heart disease Brother No problems noted. Brother No problems noted. Brother No problems noted. Brother No problems noted. Brother No problems noted. Brother No problems noted. Brother No problems noted. Brother No problems noted. Sister No problems noted. Sister CORBETT (nonalcoholic steatohepatitis) Son No problems noted. Daughter No problems noted. Daughter No problems noted. 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 pets and animals: No leisure activities: reading, volunteer work and other Hx Recent Travel (where): No well-balanced diet: daily caffeine: Yes (no answer) high-fat food intake: 0-1 times daily daily servings fruits/ve-4 daily servings of milk/calcium: 0-1 eating out: rarely or never reads food labels: sometimes during the past year weight has: increased > 10 lbs Smoking Status: Former smoker alcohol intake: current alcohol intake frequency: holidays/special occasions only substance use type: does not use susan/mu-ism: Unknown special susan needs: No seatbelt use: always helmet use: No drive intox or ride w/ intox roll off driver: No water heater temp set < 120 deg: No working smoke detector in home: Yes fire extinguisher in home: Yes carbon monox detector in home: Yes firearms in home: Yes firearms unloaded and locked: Yes victim of physical abuse: No victim of emotional abuse: No Review of Systems Const Denies anorexia, Denies excessive sweating, Denies fatigue, Denies fever(s), Denies headache(s), Denies weight gain and Denies weight loss Eyes Denies blurry vision, Denies change in vision, Denies dry eyes, Denies irritation, Denies itchy eyes and Denies loss of vision ENT Denies abnormal hearing, Denies dysphagia, Denies dizziness, Denies headache(s), Denies lip swelling, Denies nasal congestion, Denies nasal discharge, Denies disequilibrium, Denies sinus pain, Denies sore throat and Florencio es throat swelling Card Denies chest pain, Denies pedal edema, Denies lightheadedness, Denies palpitations and Denies dyspnea Resp Denies cough, Denies excessive phlegm production, Denies pain on inspiration, Denies dyspnea and Denies wheezing GI Denies abdominal pain, Denies change in bowel habits, Denies dysphagia, Denies early satiety, Denies heartburn, Denies diarrhea, Denies nausea and Denies vomiting Genitourinary: Denies flank pain, urinary incontinence or urinary urgency Musc Denies back pain, Denies arthralgias, Denies limited range of motion, Denies muscle cramps, Denies muscle weakness and Reports other (Left leg drags after a day of exertion) Skin/Breast Denies change in pigmentation, Denies lesions, Denies nail changes, Denies rash and Denies unusual bruising Neuro Denies abnormal hearing, Denies dizziness, Denies headache(s), Denies loss of vision, Denies memory loss, Denies paresthesias and Denies disequilibrium Psych Denies abnormal sleep pattern, Denies anxiety, Denies change in appetite, Denies depression, Denies irritability and Denies memory loss Endo Denies cold intolerance, Denies excessive sweating, Denies fatigue, Denies polyphagia, Denies polydipsia, Denies polyuria and Denies palpitations Sarath/Lymph Denies easy bleeding, Denies easy bruising and Denies lymphadenopathy Aller/Immun Denies urticaria, Denies itchy eyes, Denies lip swelling, Denies seasonal rhinorrhea, Denies throat swelling and Denies wheezing Exam Const General: cooperative, healthy appearing, no acute distress, well developed and well groomed Nutritional Appearance: obese Orientation: alert and awake [facility] Head: normal to inspection, normocephalic, atraumatic and no scalp tenderness Ears: hearing grossly normal bilaterally, external ears normal, TM's normal bilaterally, EAC's normal and no periauricular adenopathy General nose exam: external nose normal, nares normal, no nasal polyps, septum normal and no nasal discharge Eyes Pupils: PERRL Direct ophthalmoscopy: other (There is a black dot in the right lens) Neck Neck: normal visual inspection, full ROM, no lymphadenopathy, supple and no JVD present Carotids: normal carotid upstroke Resp Effort I nspection: normal respiratory effort Auscultation: clear to auscultation bilaterally Percussion: percussion normal Cardio Jugular venous pressure: no JVD Rate: regular rate Rhythm: regular rhythm Heart Sounds: S1 normal, S2 normal and murmur systolic with radiation to the carotids and at the right sternal border GI Inspection: Yes normal to inspection Palpation: soft and nontender Auscultation: normal bowel sounds General: No CVA tenderness Neuro General: patient alert, patient awake, gait normal, moves all extremities and normal light touch, pain and propioception Cranial Nerves: CN's II-XII intact bilaterally Cognition: normal cognition Speech: speech normal Motor: muscle tone normal throughout and strength 5/5 throughout Sensory Exam: no sensory deficits noted DTR's: Rt Patellar: 2+ and Lt Patellar: 0 (Absent left patellar reflex) Extrem General: normal to inspection and no clubbing, cyanosis or edema Psych Appearance: grossly normal and well kempt Mental Status: mental status grossly normal Speech and Movement: speech and movement normal Quality Reporting Depression/Bipolar (159/160/161/169/177) Total score: 1 Assessment Plan Assessment Plan (1) Encounter for annual health examination: Code(s): Z00.00 - Encounter for general adult medical examination without abnormal findings Plan: Annual visit today. Personal history was updated. Medication record was updated. Results of the annual blood work were discussed with the patient in detail. Comprehensive review of systems was done. Comprehensive examination was done. Depression questionnaire was reviewed. (2) Type 2 diabetes mellitus without complication, without long-term current use of insulin: Status: Acute Code(s): E11.9 - Type 2 diabetes mellitus without complications SNOMED Code(s): 632181323 Category: Medical Plan: A1c is 5.4. Treatment regimen was left unchanged. Patient is on the lowest strength of Metformin. (3) Essential hypertension: Status: Acute Onset Date: 07/18/10 Code(s): I10 - Essential (primary) hypertension SNOMED Code(s): 13221619 Category: Medical Plan: Blood pressure is reasonably well controlled on the current regimen. Patient was advised to follow a low- salt diet. Additional time was spent with the patient discussing the hypertension plan of care. (4) Pure hypercholesterolemia: Status: Acute Onset Date: 07/13/14 Code(s): E78.00 - Pure hypercholesterolemia, unspecified SNOMED Code(s): 680973272 Category: Medical Plan: Results of the fasting lipid panel were discussed with the patient. The findings are satisfactory except for a low HDL. Patient was advised to follow a low-fat diet. (5) GERD without esophagitis: Status: Acute Code(s): K21.9 - Gastro-esophageal reflux disease without esophagitis SNOMED Code(s): 677211325 Category: Medical Plan: This problem remains unchanged. (6) Abnormal mammogram: Status: Acute Code(s): R92.8 - Other abnormal and inconclusive findings on diagnostic imaging of breast SNOMED Code(s): 872637663 Categor y: Medical Plan: Biopsy result indicates ductal carcinoma in situ. Patient will be referred to the [facility]. (7) Overactive bladder: Status: Acute Code(s): N32.81 - Overactive bladder SNOMED Code(s): 780383982 Category: Medical Plan: Patient is on oxybutynin for this problem. Additional Comments Additional Comments: Patient came for her annual evaluation. She will return at the end of 3 months for a recheck. She will be referred to the breast care center for her newly diagnosed breast cancer. This document was dictated using [employer] speech recognition software. A reasonable attempt to proofread has been made to minimize errors. Please call if you notice any errors or have any questions. Certain parts of this note may have been carried over from prior notes to maintain accuracy of the patient's pertinent medical history and continuity of care. The details were verified and edited as appropriate. Orders Instr uctions: Breast Cancer in Women (AC) Type 2 Diabetes in Adults: New Diagnosis (GEN) DASH Eating Plan (GEN) Hypertension (GEN) Follow Up: 3 Months (Diabetes) Coding Level of Care Code 39843 Est Pt Extended Comp Coding comments Coding Comments Additional info for the brokerage coordinator: Annual evaluation, discussion of the newly diagnosed breast cancer over the phone following the visit, referral to breast care center in [place] Exam Comprehensive Diagnoses Encounter for annual health examination Z00.00 Type 2 diabetes mellitus without complication, without long-term current use of insulin E11.9 Essential hypertension I10 Pure hypercholesterolemia E78.00 GERD without esophagitis K21.9 Abnormal mammogram R92.8 Overactive bladder N32.81 <Electronically signed by Shimon Cordova MD> 12/16/20 0804 Name Value Range Interpretation Code Description Data Teodora rce(s) Supporting Document(s) ID Date Data Source [id number] 12/08/2020 05:56:00 PM EDT [facility] [address] [place] [address] [phone] NAME SEX PT STATUS ACCOUNT NUMBER ETTA ECHEVERRIA REG REF [id number] ORDERING PHYSICIAN LOCATION MEDICAL RECORD NO. 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 Imaging findings are considered concordant. 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 Imaging findings are considered concordant. Addendum Reported By Mariely Napoles MD on 01/03/21 1731 Signed By Mariely Napoles MD on 01/06/21 1414 <<Signature on File>> Trans Dt/Tm: Trans by: MEDQ [p pg] COMPARISON: Mammogram from 1121 FINDINGS: The area of mass with microcalcifications was identified in the left breast upper outer quadrant Written, informed consent obtained. All questions answered. No guarantees given. The patient understood and agreed to proceed. Following sterile prep and drape, local anesthesia given with 1% lidocaine. A small skin incision was made. Using ultrasound guidance, 8 core biopsies of the mass were obtained with a 12-gauge biopsy instrument. The specimens were taken to Pathology. A specimen radiograph also demonstrated microcalcifications within the specimen. Using ultrasound guidance, a biopsy clip was placed and demonstrated to be in satisfactory positionon the postprocedural mammogram.. The patient tolerated the procedure well, without immediate complications. IMPRESSION: Successful Ultra sound-guided biopsy of a left breast mass, and placement of a biopsy clip. Pathology report is pending. Reported By Mariely Napoles MD on 12/08/20 1756 Signed By Mariely Napoles MD on 12/16/20 1047 Date Time CC: Chino Ho MD; Shimon Cordova MD; Mariely Napoles MD Techn: BUSMI Trans Dt/Tm: Trans by: DT Prt Dt/Tm: : Total DLP = 0.00 mGy-cm : Total Radiation Dose = 0.0000 mSv Lifetime Dose: 15.8700 mSv Name Value Range Interpretation Code Description Data Teodora rce(s) Supporting Document(s) ID Date Data Source [id number] 12/08/2020 05:56:00 PM EDT [facility] [address] [id number] [phone] NAME SEX PT STATUS ACCOUNT NUMBER CAROLA ECHEVERRIACY Miranda REG REF [id number] ORDERING PHYSICIAN LOCATION MEDICAL RECORD NO. 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 Imaging findings are considered concordant. 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 Imaging findings are considered concordant. Addendum Reported By Mariely Napoles MD on 01/03/21 1736 Signed By Mariely Napoles MD on 01/06/21 1414 <<Signature on File>> Trans Dt/Tm: Trans by: MEDQ [p pg] COMPARISON: Mammogram from 1121 FINDINGS: The area of mass with microcalcifications was identified in the left breast upper outer quadrant Written, informed consent obtained. All questions answered. No guarantees given. The patient understood and agreed to proceed. Following sterile prep and drape, local anesthesia given with 1% lidocaine. A small skin incision was made. Using ultrasound guidance, 8 core biopsies of the mass were obtained with a 12-gauge biopsy instrument. The specimens were taken to Pathology. A specimen radiograph also demonstrated microcalcifications within the specimen. Using ultrasound guidance, a biopsy clip was placed and demonstrated to be in satisfactory positionon the postprocedural mammogram.. The patient tolerated the procedure well, without immediate complications. IMPRESSION: Successful Ultrasound-guided biopsy of a left breast mass, and placement of a biopsy clip. Pathology report is pending. Reported By Mariely Napoles MD on 12/08/201755 Signed By Mariely Napoles MD on 12/16/20 1047 Date Time CC: Chino Ho MD; Shimon Cordova MD; Mariely Napoles MD Techn: BAKLE Trans Dt/Tm: Trans by: DT Prt Dt/Tm: : Total DLP = 0.00 mGy- cm : Total Radiation Dose = 0.0000 mSv Lifetime Dose: 15.8700 mSv Name Value Range Interpretation Code Description Data Teodora rce(s) Supporting Document(s) ID Date Data Source [id number] 12/08/2020 05:56:00 PM EDT [facility] [address] [place] [address] [phone] NAME SEX PT STATUS ACCOUNT NUMBER ETTA ECHEVERRIA REG REF [id number] ORDERING PHYSICIAN LOCATION MEDICAL RECORD NO. 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 Imaging findings are considered concordant. Addendum Reported By Chino Ho MD on 03/02/21 1242 Signed By Chino Ho MD on 03/22/21 1135 Trans Dt/Tm: Trans by: MEDQ [p pg] COMPARISON: Mammogram from 1120 FINDINGS: The area of mass with microcalcifications was identified in the left breast upper outer quadrant Written, informed consent obtained. All questions answered. No guarantees given. The patient understood and agreed to proceed. Following sterile prep and drape, local anesthesia given with 1% lidocaine. A small skin incision was made. Using ultrasound guidance, 8 core biopsies of the mass were obtained with a 12-gauge biopsy instrument. The specimens were taken to Pathology. A specimen radiograph also demonstrated microcalcifications within the specimen. Using ultrasound guidance, a biopsy clip was placed and demonstrated to be in satisfactory positionon the postprocedural mammogram.. The patient tolerated the procedure well, without i mmediate complications. IMPRESSION: Successful Ultrasound-guided biopsy of a left breast mass, and placement of a biopsy clip. Pathology report is pending. Reported By Mariely Napoles MD on 12/08/20 5731 Signed By Mariely Napoles MD on 12/16/20 1744 Date Time CC: Chino Ho MD; Shimon Cordova MD; Mariely Napoles MD Techn: FROSA Trans Dt/Tm: Trans by: DT Prt Dt/Tm: : Total DLP = 0.00 mGy-cm : Total Radiation Dose = 0.0000 mSv Lifetime Dose: 15.8700 mSv Name Value Range Interpretation Code Description Data Teodora rce(s) Supporting Document(s) ID Date Data Source [id number] 12/15/2020 07:03:00 AM EDT [facility] PATH SPEC #:: [id number] Name Value Range Interpretation Code Description Data Teodora rce(s) Supporting Document(s) Pathology studies (set) See scanned report [facility] ID Date Data Source [id number] 12/07/2020 11:30:00 AM EDT [facility] [address] [place] [address] [phone] NAME SEX PT STATUS ACCOUNT NUMBER ETTA ECHEVERRIA REG REF [id number] ORDERING PHYSICIAN LOCATION MEDICAL RECORD NO. Shimon Cordova MD MAMMO [id number] ATTENDING PHYSICIAN DATE OF DATE OF EXAM/TIME Shimon Cordova MD 1945 12/07/20901 TYPE / EXAM 3D DIG MAMMO DIAG LT REASON FOR EXAM Abnormal mammogram LAST CLINICAL BREAST EXAM: unknown FIVE YEAR RISK: 1.7% LIFETIME RISK: 3.5% FAMILY HISTORY OF BREAST CARCINOMA: none COMPARISON: 07/17/2020 mammogram and ultrasound, 06/13/2019, 11/14/2017, 11/12/2014 2D bilateral digital mammogram in the CC and MLO projections was performed with supplemental 3D tomosynthesis of both breasts. FINDINGS: Six-month follow-up left-sided mammogram with spot views demonstrate a new area of calcification seen anteriorly and laterally with some increased density in that region as well. This is in the region of palpable mass now felt by the patient. Older areas of microcalcification appears stable. TARGETED ULTRASOUND OF THE LEFT BREAST. COMPARISON: Ultrasound from 07/07/2020 FINDINGS: Ultrasound was performed from 10:00 to approximately 2:00. Small cystic structure seen in that region appear to represent a complicated cyst measuring approximately 6.1 mm in greatest diameter with adjacent small septated cyst. At 11:00 there is a simple cyst measuring approximately 1 cm in greatest diameter. At 2:00 in the region of palpable mass indicated by the patient there is an area of ill-defined hypoechoic slightly firm feeling soft tissue that appears to contain calcifications that are in the region of new calcification seen on mammography. For further evaluation of this area ultrasound-guided biopsy is recommended IMPRESSION: Suspicious appearing area in the left breast 2:00 contains new microcalcifications also seen on mammography. Ultrasound-guided breast biopsy is recommended for further evaluation. OVERALL FINAL ASSESSMENT OF FIND INGS BI-RADS 4 - Suspicious Abnormality OVERALL FINAL ASSESSMENT OF THE BREAST COMPOSITION Breast Density Classification: C Description: The breasts are heterogeneously dense, which may obscure small masses. These findings were discussed with Dr. Cordova at the time of interpretation. Reported By Mariely Napoles MD on 12/07/20 1130 Signed By Mariely Napoles MD on 12/16/20 1047 Date Time CC: Shimon Cordova MD; Mariely Napoles MD Techn: EBEBR Trans Dt/Tm: Trans by: DT Prt Dt/Tm: : Total DLP = 0.00 mGy-cm : Total Radiation Dose = 0.0000 mSv Lifetime Dose: 15.8700 mSv Name Value Range Interpretation Code Description Data Teodora rce(s) Supporting Document(s) ID Date Data Source [id number] 12/07/2020 11:30:00 AM EDT [facility] [address] [place] [address] [phone] NAME SEX PT STATUS ACCOUNT NUMBER ETTA ECHEVERRIA REG REF [id number] ORDERING PHYSICIAN LOCATION MEDICAL RECORD NO. Shimon Cordova MD MAMMO [id number] ATTENDING PHYSICIAN DATE OF DATE OF EXAM/TIME Shimon Cordova MD 1945 12/07/20 / 1012 TYPE / EXAM US Breast - Complete unilat REASON FOR EXAM Abnormal mammogram LAST CLINICAL BREAST EXAM: unknown FIVE YEAR RISK: 1.7% LIFETIME RISK: 3.5% FAMILY HISTORY OF BREAST CARCINOMA: none COMPARISON: 07/17/2020 mammogram and ultrasound, 06/13/2019, 11/14/2017, 11/12/2014 2D bilateral digital mammogram in the CC and MLO projections was performed with supplemental 3D tomosynthesis of both breasts. FINDINGS: Six-month follow-up left-sided mammogram with spot views demonstrate a new area of calcification seen anteriorly and laterally with some increased density in that region as well. This is in the region of palpable mass now felt by the patient. Older areas of microcalcification appears stable. TARGETED ULTRASOUND OF THE LEFT BREAST. COMPARISON: Ultrasound from 07/07/2020 FINDINGS: Ultrasound was performed from 10:00 to approximately 2:00. Small cystic structure seen in that region appear to represent a complicated cyst measuring approximately 6.1 mm in greatest diameter with adjacent small septated cyst. At 11:00 there is a simple cyst measuring approximately 1 cm in greatest diameter. At 2:00 in the region of palpable mass indicated by the patient there is an area of ill-defined hypoechoic slightly firm feeling soft tissue that appears to contain calcifications that are in the region of new calcification seen on mammography. For further evaluation of this area ultrasound-guidedbiopsy is recommended IMPRESSION: Suspicious appearing area in the left breast 2:00 contains new microcalcifications also seen on mammography. Ultrasound-guided breast biopsy is recommended for further evaluation. OVERALL FINAL ASSESSMENT OF FINDINGS BI-RADS 4 - Suspicious Abnormality OVERALL FINAL ASSESSMENT OF THE BREAST COMPOSITION Breast Density Classification: C Description: The breasts are heterogeneously dense, which may obscure small masses. These findings were discussed with Dr. Cordova at the time of interpretation. Reported By Mariely Napoles MD on 12/07/20 1130 Signed By Mariely Napoles MD on 12/16/20 1047 Date Time CC: Shimon Cordova MD; Mariely Napoles MD Techn: BUSMI Trans Dt/Tm: Trans by: DT Prt Dt/Tm: : Total DLP = 0.00 mGy-cm : Total Radiation Dose = 0.0000 mSv Lifetime Dose: 15.8700 mSv Name Value Range Interpretation Code Description Data Tedoora rce(s) Supporting Document(s) ID Date Data Source [id number] 12/06/2020 08:37:00 AM EDT [facility] @12/06/20 0824: UA W/ MICRO added. RFLXG = UMIC.Method of Collection:: Voided @12/06/20823: UA W/ MICRO added. RFLXG = UMIC.Method of Collection:: Voided Name Value Range Interpretation Code Description Data Teodora rce(s) Supporting Document(s) Color of Urine [facility] Appearance of Urine CLEAR Abnormal (applies to non-nu meric results) [facility] pH of Urine by Test strip 7.5 5-8 [facility] Specific gravity of Urine by Refractometry 1.017 1.005-1.030 [facility] Leukocyte esterase [Presence] in Urine by Test strip NEGATIVE Above high normal [facility] @DO MICRO!!!! Nitrite [Presence] in Urine by Test strip NEGATIVE [facility] Protein [Presence] in Urine by Test strip NEGATIVE [facility] Glucose [Mass/volume] in Urine by Automated test strip NEGATIVE NEG ATIVE [facility] Ketones [Presence] in Urine by Test strip NEGATIVE [facility] Urobilinogen [Presence] in Urine 0.2-1 EU/dl [facility] Bilirubin.total [Presence] in Urine by Automated test strip NEGATIVE [facility] Erythrocytes [#/volume] in Urine by Test strip NON-HEMOLYZED TRA CE NEGATIVE Above high normal [facility] @DO MICRO!!!! URINE MICROSCOPIC ADDED Microscopic Added [facility] ID Date Data Source [id number] 12/06/2020 09:00:00 AM EDT [facility] @12/06/20 0824: UA W/ MICRO added. RFLXG = UMIC.Method of Collection:: Voided @12/06/20 0824: UA W/ MICRO added. RFLXG = UMIC.Method of Collection:: Voided Name Value Range Interpretation Code Description Data [facility]) Supporting Document(s) Urine Random Creatinine 112.0 mg/dL [facility] THERE IS NO ESTABLISHED RANGE FOR RANDOM URINE CREATININE Urine Microalbumin 17.2 mg/L 0.0-29.9 N [facility] Ur Malb/Cre Ratio (ACR) 15.3 ug/mg 0.0-30.0 N [facility] ID Date Data Source [id number] 12/06/2020 08:37:00 AM EDT [facility] @12/06/20 0824: UA W/ MICRO added. RFLXG = UMIC.Method of Collection:: Voided @12/06/20823: UA W/ MICRO added. RFLXG = UMIC.Method of Collection:: Voided Name Value Range Interpretation Code Description Data [facility](s) Supporting Document(s) Erythrocytes [#/volume] in Urine by Manual count OCCASIONAL 0-5 [facility] Leukocytes [#/volume] in Urine by Manual count 3-5 /hpf 0-5 [facility] Cells [Type] in Urine sediment by Light microscopy [facility] Bacteria [Presence] in Urine sediment by Light microscopy NEGATIVE Above high normal [facility] ID Date Data Source [id number] 12/06/2020 08:04:00 AM EDT [facility] @12/06/20 0824: UA W/ MICRO added. RFLXG = UMIC.Method of Collection:: Voided @12/06/20 0824: UA W/ MICRO added. RFLXG = UMIC.Method of Collection:: Voided Name Value Range Interpretation Code Description Data [facility](s) Supporting Document(s) Leukocytes [#/volume] in Blood by Automated count 5.6 10*3/uL 4.45-10 .71 [facility] Erythrocytes [#/volume] in Blood by Automated count 4.56 10*6/uL 4.20 -5.40 [facility] Hemoglobin [Moles/volume] in Blood 14.3 g/dL 10.7-15.4 [facility] Hematocrit [Volume Fraction] of Blood by Automated count 42.7 % 3 7-47 N [facility] Erythrocyte mean corpuscular volume [Ent itic volume] in Cord blood by Automated count 94 fL 80-96 N [facility] ital Erythrocyte mean corpuscular hemoglobin [Entitic mass] by Au tomated count 31 pg 27-31 N [facility] Erythrocyte mean corpuscular hemoglobin concentration [Mass/volume] in Cord blood 34 g/dL 33-37 N [facility] ital Erythrocyte distribution width [Entitic volume] by Automated count 12 % 11-15 N [facility] Platelets [#/volume] in Blood by Automated count 228 10*3/uL 130-472 N [facility] Platelet mean volume [Entitic volume] in Blood 8.7 fL 9.1-13. 1 Below low normal [facility] Neutrophils/100 leukocytes in Blood by Automated count 66.3 % 41- 77 N [facility] Neutrophils [#/volume] in Blood by Automated count 3.7 U 1.7-7.6 N [facility] Lymphocytes/100 leukocytes in Blood by Automated count 22.4 % 14- 46 N [facility] Lymphocytes [#/volume] in Blood by Automated count 1.3 U 0.6-4.6 N [facility] Monocytes/100 leukocytes in Blood by Automated count 7.7 % 4-12 N [facility] Monocytes [#/volume] in Blood by Automated count 0.4 U 0.2-1.2 N [facility] Eosinophils/100 leukocytes in Blood by Automated count 2.3 % 0-7 N [facility] Eosinophils [#/volume] in Blood by Automated count 0.1 U 0.0-0.5 N [facility] Basophils/100 leukocytes in Blood by Automated count 0.9 % 0.4-1 .3 N [facility] Basophils [#/volume] in Blood by Automated count 0.1 U 0.0-0.2 N [facility] NUCLEATED RED BLOOD CELL 0 % [facility] NUCLEATED RED BLOOD CELL# 0 U [facility] Immature granulocytes [Presence] in Blood by Automated count 0-2 N [facility] Immature granulocytes [#/volume] in Blood by Automated count 0.0 U 0-0.1 N [facility] Manual Differential panel - Blood NO [facility] ID Date Data Source [id number] 12/06/2020 08:28:00 AM EDT [facility] @12/06/20 0824: UA W/ MICRO added. RFLXG = UMIC.Method of Collection:: Voided @12/06/20 08: UA W/ MICRO added. RFLXG = UMIC.Method of Collection:: Voided Name Value Range Interpretation Code Description Data Teodora rce(s) Supporting Document(s) Hemoglobin A1c [Mass/volume] in Blood 5.4 % 3.8-5.6 N [facility] The following ranges may be u sed for interpretation of results: HGBA1C degree of glucose control: Greater than 8%: Action Suggested * Less than 7%: Goal of Diabetic Therapy Less than 5.6%: NormalFactors such as duration of diabetes, adherence to therapyand the age of the patient should also be considered inassessing the degree of blood glucose control.* High risk of developing retirement complications such asretinopathy, nephropathy, neuropathy, cardiopathy, etc. Some danger of hypoglycemic reaction in Type I diabetics.Some glucose intolerant individuals and "Sub Clinical"diabetics may demonstrate HGBA1C levels in this area. Glucose mean value [Moles/volume] in Blood Estimated f rom glycated hemoglobin 108 mg/dL [facility] l An A1C of 7% - the goal of diabetic ther apy - is equivalentto an EAG of 154 mg/dl. ID Date Data Source [id number] 12/06/2020 08:32:00 AM [facility] @12/06/20 0824: UA W/ MICRO added. RFLXG = UMIC.Method of Collection:: Voided @12/06/20 08: UA W/ MICRO added. RFLXG = UMIC.Method of Collection:: Voided Name Value Range Interpretation Code Description Data Teodora rce(s) Supporting Document(s) Urea nitrogen [Mass/volume] in Serum or Plasma 9 mg/dL 9-23 N [facility] Sodium [Moles/volume] in Serum or Plasma 141 mmol/L 132-146 N [facility] Potassium [Moles/volume] in Serum or Plasma 4.0 mmol/L 3.5-5.5 N [facility] Chloride [Moles/volume] in Serum or Plasma 107 mmol/L 99-109 N [facility] Carbon dioxide, total [Moles/volume] in Serum or Plasma 31 mmol/L 20 -31 N [facility] Anion gap in Serum or Plasma 7 mmol/L 8-16 Below low normal [facility] Glucose [Mass/volume] in Serum or Plasma 130 mg/dL 74-106 Above high normal [facility] Creatinine 0.7 mg/dL 0.5-1.1 [facility] Glomerular filtration rate/1.73 sq M.pre dicted [Volume Rate/Area] in Serum or Plasma Greater Than 60 ABOVE 60 [facility] Alanine aminotransferase [Enzymatic acti vity/volume] in Serum or Plasma by With P-5'-P 23 U/L 10-49 [facility] ital Aspartate aminotransferase [Enzymatic ac tivity/volume] in Serum or Plasma by With P-5'-P 18 U/L 0-33 [facility] pital Alkaline phosphatase [Enzymatic activity/volume] in Serum or Plasma 92 U/L 45-129 [facility] Calcium [Mass/volume] in Serum or Plasma 8.8 mg/dL 8.5-10.1 [facility] Bilirubin.total [Mass/volume] in Serum or Plasma 0.8 mg/dL 0.3-1.2 [facility] Albumin [Mass/volume] in Serum or Plasma by Bromocresol purple (BCP) dye binding method 3.3 g/dL 3.2-4.8 [facility] ital Protein [Mass/volume] in Serum or Plasma 6.8 g/dL 5.7-8.2 [facility] ID Date Data Source [id number] 12/06/2020 08:32:00 AM EDT [facility] @12/06/20 0824: UA W/ MICRO added. RFLXG = UMIC.Method of Collection:: Voided @12/06/20 0824: UA W/ MICRO added. RFLXG = UMIC.Method of Collection:: Voided Name Value Range Interpretation Code Description Data Teodora rce(s) Supporting Document(s) Triglycerides 117 mg/dL 0-150 N [facility] Cholesterol 144 mg/dL 120-200 N [facility] HDL Cholesterol 40 mg/dL [facility] HDL Less than 40 mg/dL: Major risk for CHDHDL Greater than 59 mg/dL: Low risk for CHD LDL Cholesterol, Calc 81 mg/dL 0-100 N [facility] ID Date Data Source [id number] 11/09/2020 12:53:00 PM EDT [facility] Patient Name: ETTA ECHEVERRIA : 1945 Sex: F Pt Unit #: [id number] Location:[facility] Provider: Visit Date/Time: 11/09/20 Primary Insurance: MEDICARE [employer] Secondary Insurance: BC/BS [employer] Intake Vital Signs 11/09/20 12:54 Current Height 5 ft 3 in Current Weight 206 lb Weight Measurement Method Standing Scale BMI 36.5 BP 128/72 Blood Pressure Location Lt brachial Position Sitting Pulse 62 Pulse Strength Normal Pulse Source Pulse Oximeter Pulse Oximetry (%) 97 Oxygen Delivery Method room air Intake Visit Reasons: Urinary complaint Nurse Note: ? UTI X1 week; has a lump behind right ear that she would like checked; would like an order put in for another mammogram. Consolidator Required: No Accompanied by: Self / Same as Patient Is patient in pain?: No Allergies codeine [Codeine] Allergy (Intermediate, Verified 06/26/19 10:00) RASH (SKIN RASH) Medications - Last Reconciled 11/09/20 by Shimon Cordova M.D. aspirin 325 mg PO DAILY ciprofloxacin HCl 500 mg PO BID 7 days duloxetine mg PO epinephrine 0.3 mg IM 1T famotidine 20 mg PO BID metformin ER 500 mg PO QPM metoprolol succinate ER TAKE ONE TABLET BY MOUTH EVERY DAY omega-3 fatty acids-fish oil 300-1,000 mg 1 cap PO omeprazole 20 mg PO oxybutynin chloride ER TAKE ONE TABLET BY MOUTH EVERY DAY pravastatin 40 mg PO HS Vision Wearing glasses?: Yes Fall Risk History of falls: No Ambulatory Aid:: None Gait/Transferring:: Normal Medications:: Anti hypertensives HIV Testing Offer - ages 13-64 HIV testing Offer: No Requirement for HIV testing offer been met?: Patient reports past refusal Do you need a note to return Do you need a note to return to daycare/school/sports/work: No Coronavirus Screening Screening Are you currently positive or on isolation for COVID ?: No Do you have any NEW signs of one or more of the following?: no symptoms Do you have NEW signs of at least two of the following?: no symptoms HPI Additional HPI HPI Details: Patient came to the office for evaluation of her urinary symptoms of dysuria, frequency and urgency. She also has a skin lesion behind her right ear. A mammogram done in June identified abnormality in the left breast. The recommendation was to recheck a mammogram and a unilateral breast ultrasound in December. Patient wanted to make sure that these orders are in the system [facility] Medical History Bee sting reaction Bulging Disc Cough Degenerative Disc Disease Degenerative Spondylothesis Dehydration (07/25/16) Essential hypertension (07/18/10) Gastroenteritis due to norovirus (07/25/16) GERD without esophagitis Gout Heart murmur Hiatal hernia IFG (impaired fasting glucose) Lumbar radiculopathy Nausea vomiting Overactive Bladder Presbyesophagus Pure hypercholesterolemia (07/13/14) Type 2 diabetes mellitus without complication, without long-term current use of insulin Xerosis Surgical History Appendectomy Biopsy of breast Cholecystectomy History of - surgery History of - surgery History of - surgery History of - surgery History of - surgery History of - surgery History of hysterectomy Left CTS and left ganglion cyst [address] Bravo Status post carpal tunnel release Status post oophorectomy Family History Mother Diabetes Father Heart disease Brother No problems noted. Brother No problems noted. Brother No problems noted. Brother No problems noted. Brother No problems noted. Brother No problems noted. Brother No problems noted. Brother No problems noted. Sister No problems noted. Sister No problems noted. Son No problems noted. Daughter No problems noted. Daughter No problems noted. 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 pets and animals: No leisure activities: reading, volunteer work and other Hx Recent Travel (where): No well-balanced diet: daily caffeine: Yes (no answer) high-fat food intake: 0-1 times daily daily servings fruits/ve-4 daily servings of milk/calcium: 0-1 eating out: rarely or never reads food labels: sometimes during the past year weight has: increased > 10 lbs Smoking Status: Former smoker alcohol intake: current alcohol intake frequency: holidays/special occasions only substance use type: does not use susan/mu-ism: Unknown special susan needs: No seatbelt use: always helmet use: No drive intox or ride w/ intox roll off driver: No water heater temp set < 120 deg: No working smoke detector in home: Yes fire extinguisher in home: Yes carbon monox detector in home: Yes firearms in home: Yes firearms unloaded and locked: Yes victim of physical abuse: No victim of emotional abuse: No Review of Systems Const Denies chills, Denies fever(s) and Denies headache(s) ENT Denies headache(s) GI Denies nausea and Denies vomiting Genitourinary: Reports difficulty voiding, urinary frequency and urinary urgency Skin/Breast Reports lesions (Raised skin lesion behind the right ear) Neuro Denies headache(s) Exam General: No CVA tenderness Skin Lesions: lesion noted (Seborrheic keratotic lesion behind the right ear) Assessment Plan Assessment Plan (1) UTI (urinary tract infection): Status: Acute Code(s): N39.0 - Urinary tract infection, site not specified SNOMED Code(s): 71869392 Category: Medical Qualifiers: Urinary tract infection type: acute cystitis Hematuria presence: without hematuria Qualified Code(s): N30.00 - Acute cystitis without hematuria Plan - Shimon Cordova M.D.: A urinalysis done in the office did identify positive nitrates. Urine culture has been requested. Patient will be empirically started on an antibiotic. (2) Seborrheic keratosis: Code(s): L82.1 - Other seborrheic keratosis Plan - Shimon Cordova M.D.: The skin lesion behind her right ear was evaluated. It was felt to be a seborrheic keratotic lesion. Patient was provided reassurance. If she would like it cryo surgically treated, she will let me know. Additional Comments Additional Comments: Patient came for urgent evalua tion of her urine symptoms and the skin lesion. Return for medical evaluation will be as previously scheduled in November. 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 for the brokerage coordinator: New complaint of urinary symptoms suggestive of her UTI, new complaint of a skin lesion behind her right ear, additional time reviewing urinalysis done in the office Exam Expanded Problem Focused Diagnoses UTI (urinary tract infection) N30.00 Urinary tract infection type: acute cystitis Hematuria presence: without hematuria Seborrheic keratosis L82.1 <Electronically signed by Shimon Cordova MD> 11/09/20 1705 Name Value Range Interpretation Code Description Data Teodora rce(s) Supporting Document(s) ID Date Data Source [id number] 09/27/2020 12:00:00 AM EST [facility] ([facility]) Name Value Range Interpretation Code Description Data Teodora rce(s) Supporting Document(s) SARS-CoV-2 (COVID-19) RNA [Presence] in Respiratory specimen by MEENAKSHI with probe detection negative negative Sars-cov-2 [facility] ([facility]) ID Date Data Source [id number] 09/27/2020 12:00:00 AM EST [facility] ([facility]) Name Value Range Interpretation Code Description Data Teodora rce(s) Supporting Document(s) ID Date Data Source [id number] 09/27/2020 12:00:00 AM EST [facility] ([facility]) Name Value Range Interpretation Code Description Data Teodora rce(s) Supporting Document(s) SARS-CoV-2 (COVID-19) RNA [Presence] in Respiratory specimen by MEENAKSHI with probe detection negative negative Sars-cov-2 [facility] ([facility]) ID Date Data Source [id number] 09/27/2020 12:00:00 AM EST [facility] ([facility]) Name Value Range Interpretation Code Description Data Teodora rce(s) Supporting Document(s) ID Date Data Source [id number] 09/27/2020 12:00:00 AM EST [facility] ([facility]) Name Value Range Interpretation Code Description Data Teodora rce(s) Supporting Document(s) SARS-CoV-2 (COVID-19) RNA [Presence] in Respiratory specimen by MEENAKSHI with probe detection negative negative Sars-cov-2 [facility] ([facility]) ID Date Data Source [id number] 09/27/2020 12:00:00 AM EST [facility] ([facility]) Name Value Range Interpretation Code Description Data Teodora rce(s) Supporting Document(s) ID Date Data Source [id number] 09/27/2020 12:00:00 AM EST [facility] ([facility]) Name Value Range Interpretation Code Description Data Teodora rce(s) Supporting Document(s) SARS-CoV-2 (COVID-19) RNA [Presence] in Respiratory specimen by MEENAKSHI with probe detection negative negative Sars-cov-2 [facility] ([facility]) ID Date Data Source [id number] 09/27/2020 12:00:00 AM EST [facility] ([facility]) Name Value Range Interpretation Code Description Data Teodora rce(s) Supporting Document(s) ID Date Data Source [id number] 09/27/2020 12:00:00 AM EST [facility] ([facility]) Name Value Range Interpretation Code Description Data Teodora rce(s) Supporting Document(s) SARS-CoV-2 (COVID-19) RNA [Presence] in Respiratory specimen by MEENAKSHI with probe detection negative negative Sars-cov-2 [facility] ([facility]) ID Date Data Source [id number] 09/27/2020 12:00:00 AM EST [facility] ([facility]) Name Value Range Interpretation Code Description Data Teodora rce(s) Supporting Document(s) ID Date Data Source [id number] 09/27/2020 12:00:00 AM EST [facility] ([facility]) Name Value Range Interpretation Code Description Data Teodora rce(s) Supporting Document(s) SARS-CoV-2 (COVID-19) RNA [Presence] in Respiratory specimen by MEENAKSHI with probe detection negative negative Sars-cov-2 [facility] ([facility]) ID Date Data Source [id number] 09/27/2020 12:00:00 AM EST [facility] ([facility]) Name Value Range Interpretation Code Description Data Teodora rce(s) Supporting Document(s) ID Date Data Source [id number] 09/27/2020 12:00:00 AM EST [facility] Name Value Range Interpretation Code Description Data Teodora rce(s) Supporting Document(s) SARS-CoV-2 NEGATIVE [facility] This lab was ordered by [facility]-COVID[facility] and reported by [facility]. ID Date Data Source [id number] 09/27/2020 12:00:00 AM EST [facility] ([facility]) Name Value Range Interpretation Code Description Data Teodora rce(s) Supporting Document(s) SARS-CoV-2 (COVID-19) RNA [Presence] in Respiratory specimen by MEENAKSHI with probe detection negative negative Sars-cov-2 [facility] ([facility]) ID Date Data Source [id number] 09/27/2020 12:00:00 AM EST [facility] ([facility]) Name Value Range Interpretation Code Description Data Teodora rce(s) Supporting Document(s) ID Date Data Source [id number] 09/13/2020 12:00:00 AM EST [facility] ([facility]) Name Value Range Interpretation Code Description Data Teodora rce(s) Supporting Document(s) SARS-CoV-2 (COVID-19) RNA [Presence] in Respiratory specimen by MEENAKSHI with probe detection negative negative Sars-cov-2 ETHE[facility] ([facility]) ID Date Data Source [id number] 09/13/2020 12:00:00 AM EST [facility] ([facility]) Name Value Range Interpretation Code Description Data Teodora rce(s) Supporting Document(s) ID Date Data Source [id number] 09/13/2020 12:00:00 AM EST ETHEL ([facility]) Name Value Range Interpretation Code Description Data Teodora rce(s) Supporting Document(s) SARS-CoV-2 (COVID-19) RNA [Presence] in Respiratory specimen by MEENAKSHI with probe detection negative negative Sars-cov-2 ETHEL ([facility]) ID Date Data Source [id number] 09/13/2020 12:00:00 AM EST ETHEL ([facility]) Name Value Range Interpretation Code Description Data Teodora rce(s) Supporting Document(s) ID Date Data Source [id number] 09/13/2020 12:00:00 AM EST ETHE[facility] ([facility]) Name Value Range Interpretation Code Description Data Teodora rce(s) Supporting Document(s) SARS-CoV-2 (COVID-19) RNA [Presence] in Respiratory specimen by MEENAKSHI with probe detection negative negative Sars-cov-2 [facility] ([facility]) ID Date Data Source [id number] 09/13/2020 12:00:00 AM EST ETHE[facility] ([facility]) Name Value Range Interpretation Code Description Data Teodora rce(s) Supporting Document(s) ID Date Data Source [id number] 09/13/2020 12:00:00 AM EST ETHEL ([facility]) Name Value Range Interpretation Code Description Data Teodora rce(s) Supporting Document(s) SARS-CoV-2 (COVID-19) RNA [Presence] in Respiratory specimen by MEENAKSHI with probe detection negative negative Sars-cov-2 ETHE[facility] ([facility]) ID Date Data Source [id number] 09/13/2020 12:00:00 AM EST ETHEL ([facility]) Name Value Range Interpretation Code Description Data Teodora rce(s) Supporting Document(s) ID Date Data Source [id number] 09/13/2020 12:00:00 AM EST ETHEL ([facility]) Name Value Range Interpretation Code Description Data Teodora rce(s) Supporting Document(s) SARS-CoV-2 (COVID-19) RNA [Presence] in Respiratory specimen by MEENAKSHI with probe detection negative negative Sars-cov-2 ETHE[facility] ([facility]) ID Date Data Source [id number] 09/13/2020 12:00:00 AM EST ETHEL ([facility]) Name Value Range Interpretation Code Description Data Teodora rce(s) Supporting Document(s) ID Date Data Source [id number] 09/13/2020 12:00:00 AM EST ETHEL ([facility]) Name Value Range Interpretation Code Description Data Teodora rce(s) Supporting Document(s) SARS-CoV-2 (COVID-19) RNA [Presence] in Respiratory specimen by MEENAKSHI with probe detection negative negative Sars-cov-2 E[facility] ([facility]) ID Date Data Source [id number] 09/13/2020 12:00:00 AM EST E[facility] ([facility]) Name Value Range Interpretation Code Description Data Teodora rce(s) Supporting Document(s) ID Date Data Source [id number] 09/13/2020 12:00:00 AM EST ETHE[facility] ([facility]) Name Value Range Interpretation Code Description Data Teodora rce(s) Supporting Document(s) SARS-CoV-2 (COVID-19) RNA [Presence] in Respiratory specimen by MEENAKSHI with probe detection negative negative Sars-cov-2 ETHE[facility] ([facility]) ID Date Data Source [id number] 09/13/2020 12:00:00 AM EST ETHE[facility] ([facility]) Name Value Range Interpretation Code Description Data Teodora rce(s) Supporting Document(s) ID Date Data Source [id number] 09/13/2020 12:00:00 AM EST [facility] Name Value Range Interpretation Code Description Data Teodora rce(s) Supporting Document(s) SARS-CoV-2 NEGATIVE [facility] This lab was ordered by [facility] and reported by [facility]. ID Date Data Source [id number] 08/25/2020 12:00:00 AM EST ETHEL ([facility]) Name Value Range Interpretation Code Description Data Teoodra rce(s) Supporting Document(s) SARS-CoV-2 (COVID-19) RNA [Presence] in Respiratory specimen by MEENAKSHI with probe detection negative negative Sars-cov-2 [facility] ([facility]) ID Date Data Source [id number] 08/25/2020 12:00:00 AM EST [facility] ([facility]) Name Value Range Interpretation Code Description Data Teodora rce(s) Supporting Document(s) ID Date Data Source [id number] 08/25/2020 12:00:00 AM EST [facility] ([facility]) Name Value Range Interpretation Code Description Data Teodora rce(s) Supporting Document(s) SARS-CoV-2 (COVID-19) RNA [Presence] in Respiratory specimen by MEENAKSHI with probe detection negative negative Sars-cov-2 [facility] ([facility]) ID Date Data Source [id number] 08/25/2020 12:00:00 AM EST E[facility] ([facility]) Name Value Range Interpretation Code Description Data Teodora rce(s) Supporting Document(s) ID Date Data Source [id number] 08/25/2020 12:00:00 AM EST [facility] ([facility]) Name Value Range Interpretation Code Description Data Teodora rce(s) Supporting Document(s) SARS-CoV-2 (COVID-19) RNA [Presence] in Respiratory specimen by MEENAKSHI with probe detection negative negative Sars-cov-2 [facility] ([facility]) ID Date Data Source [id number] 08/25/2020 12:00:00 AM EST [facility] ([facility]) Name Value Range Interpretation Code Description Data Teodora rce(s) Supporting Document(s) ID Date Data Source [id number] 08/25/2020 12:00:00 AM EST [facility] ([facility]) Name Value Range Interpretation Code Description Data Teodora rce(s) Supporting Document(s) SARS-CoV-2 (COVID-19) RNA [Presence] in Respiratory specimen by MEENAKSHI with probe detection negative negative Sars-cov-2 [facility] ([facility]) ID Date Data Source [id number] 08/25/2020 12:00:00 AM EST [facility] ([facility]) Name Value Range Interpretation Code Description Data Teodora rce(s) Supporting Document(s) ID Date Data Source [id number] 08/25/2020 12:00:00 AM EST [facility] ([facility]) Name Value Range Interpretation Code Description Data Teodora rce(s) Supporting Document(s) ID Date Data Source [id number] 08/25/2020 12:00:00 AM EST [facility] ([facility]) Name Value Range Interpretation Code Description Data Teodora rce(s) Supporting Document(s) SARS-CoV-2 (COVID-19) RNA [Presence] in Respiratory specimen by MEENAKSHI with probe detection negative negative Sars-cov-2 [facility] ([facility]) ID Date Data Source [id number] 08/25/2020 12:00:00 AM EST [facility] ([facility]) Name Value Range Interpretation Code Description Data Teodora rce(s) Supporting Document(s) ID Date Data Source [id number] 08/25/2020 12:00:00 AM EST [facility] ([facility]) Name Value Range Interpretation Code Description Data Teodora rce(s) Supporting Document(s) SARS-CoV-2 (COVID-19) RNA [Presence] in Respiratory specimen by MEENAKSHI with probe detection negative negative Sars-cov-2 [facility] ([facility]) ID Date Data Source [id number] 08/25/2020 12:00:00 AM EST [facility] ([facility]) Name Value Range Interpretation Code Description Data Teodora rce(s) Supporting Document(s) ID Date Data Source [id number] 08/25/2020 12:00:00 AM EST [facility] ([facility]) Name Value Range Interpretation Code Description Data Teodora rce(s) Supporting Document(s) SARS-CoV-2 (COVID-19) RNA [Presence] in Respiratory specimen by MEENAKSHI with probe detection negative negative Sars-cov-2 [facility] ([facility]) ID Date Data Source [id number] 08/25/2020 12:00:00 AM EST ETHE[facility] ([facility]) Name Value Range Interpretation Code Description Data Teodora rce(s) Supporting Document(s) ID Date Data Source [id number] 08/25/2020 12:00:00 AM EST ETHE[facility] ([facility]) Name Value Range Interpretation Code Description Data Teodora rce(s) Supporting Document(s) SARS-CoV-2 (COVID-19) RNA [Presence] in Respiratory specimen by MEENAKSHI with probe detection negative negative Sars-cov-2 [facility]AT[facility] ([facility]) ID Date Data Source [id number] 08/25/2020 12:00:00 AM EST ETHEL ([facility]) Name Value Range Interpretation Code Description Data Teodora rce(s) Supporting Document(s) ID Date Data Source [id number] 08/25/2020 12:00:00 AM EST [facility] Name Value Range Interpretation Code Description Data Teodora rce(s) Supporting Document(s) SARS-CoV-2 NEGATIVE [facility] This lab was ordered by [facility] and reported by [facility]. ID Date Data Source [id number] 08/25/2020 12:00:00 AM EST [facility] ([facility]) Name Value Range Interpretation Code Description Data Teodora rce(s) Supporting Document(s) SARS-CoV-2 (COVID-19) RNA [Presence] in Respiratory specimen by MEENAKSHI with probe detection negative negative Sars-cov-2 [facility] ([facility]) ID Date Data Source [id number] 08/11/2020 12:00:00 AM EST [facility] ([facility]) Name Value Range Interpretation Code Description Data Teodora rce(s) Supporting Document(s) SARS-CoV-2 (COVID-19) RNA [Presence] in Respiratory specimen by MEENAKSHI with probe detection negative negative Sars-cov-2 [facility] ([facility]) ID Date Data Source [id number] 08/11/2020 12:00:00 AM EST [facility] ([facility]) Name Value Range Interpretation Code Description Data Teodora rce(s) Supporting Document(s) ID Date Data Source [id number] 08/11/2020 12:00:00 AM EST [facility] ([facility]) Name Value Range Interpretation Code Description Data Teodora rce(s) Supporting Document(s) SARS-CoV-2 (COVID-19) RNA [Presence] in Respiratory specimen by MEENAKSHI with probe detection negative negative Sars-cov-2 [facility] ([facility]) ID Date Data Source [id number] 08/11/2020 12:00:00 AM EST [facility] ([facility]) Name Value Range Interpretation Code Description Data Teodora rce(s) Supporting Document(s) ID Date Data Source [id number] 08/11/2020 12:00:00 AM EST E[facility] ([facility]) Name Value Range Interpretation Code Description Data Teodora rce(s) Supporting Document(s) SARS-CoV-2 (COVID-19) RNA [Presence] in Respiratory specimen by MEENAKSHI with probe detection negative negative Sars-cov-2 [facility] ([facility]) ID Date Data Source [id number] 08/11/2020 12:00:00 AM EST [facility] ([facility]) Name Value Range Interpretation Code Description Data Teodora rce(s) Supporting Document(s) ID Date Data Source [id number] 08/11/2020 12:00:00 AM EST [facility] ([facility]) Name Value Range Interpretation Code Description Data Teodora rce(s) Supporting Document(s) SARS-CoV-2 (COVID-19) RNA [Presence] in Respiratory specimen by MEENAKSHI with probe detection negative negative Sars-cov-2 [facility] ([facility]) ID Date Data Source [id number] 08/11/2020 12:00:00 AM EST [facility] ([facility]) Name Value Range Interpretation Code Description Data Teodora rce(s) Supporting Document(s) ID Date Data Source [id number] 08/11/2020 12:00:00 AM EST [facility] ([facility]) Name Value Range Interpretation Code Description Data Teodora rce(s) Supporting Document(s) SARS-CoV-2 (COVID-19) RNA [Presence] in Respiratory specimen by MEENAKSHI with probe detection negative negative Sars-cov-2 [facility] ([facility]) ID Date Data Source [id number] 08/11/2020 12:00:00 AM EST [facility] ([facility]) Name Value Range Interpretation Code Description Data Teodora rce(s) Supporting Document(s) ID Date Data Source [id number] 08/11/2020 12:00:00 AM EST [facility] ([facility]) Name Value Range Interpretation Code Description Data Teodora rce(s) Supporting Document(s) SARS-CoV-2 (COVID-19) RNA [Presence] in Respiratory specimen by MEENAKSHI with probe detection negative negative Sars-cov-2 [facility] ([facility]) ID Date Data Source [id number] 08/11/2020 12:00:00 AM EST [facility] ([facility]) Name Value Range Interpretation Code Description Data Teodora rce(s) Supporting Document(s) ID Date Data Source [id number] 08/11/2020 12:00:00 AM EST [facility] ([facility]) Name Value Range Interpretation Code Description Data Teodora rce(s) Supporting Document(s) SARS-CoV-2 (COVID-19) RNA [Presence] in Respiratory specimen by MEENAKSHI with probe detection negative negative Sars-cov-2 [facility] ([facility]) ID Date Data Source [id number] 08/11/2020 12:00:00 AM EST [facility] ([facility]) Name Value Range Interpretation Code Description Data Teodora rce(s) Supporting Document(s) ID Date Data Source [id number] 08/11/2020 12:00:00 AM EST [facility] ([facility]) Name Value Range Interpretation Code Description Data Teodora rce(s) Supporting Document(s) SARS-CoV-2 (COVID-19) RNA [Presence] in Respiratory specimen by MEENAKSHI with probe detection negative negative Sars-cov-2 [facility] ([facility]) ID Date Data Source [id number] 08/11/2020 12:00:00 AM EST [facility] ([facility]) Name Value Range Interpretation Code Description Data Teodora rce(s) Supporting Document(s) ID Date Data Source [id number] 08/11/2020 12:00:00 AM EST [facility] ([facility]) Name Value Range Interpretation Code Description Data Teodora rce(s) Supporting Document(s) SARS-CoV-2 (COVID-19) RNA [Presence] in Respiratory specimen by MEENAKSHI with probe detection negative negative Sars-cov-2 [facility] ([facility]) ID Date Data Source [id number] 08/11/2020 12:00:00 AM EST [facility] ([facility]) Name Value Range Interpretation Code Description Data Teodora rce(s) Supporting Document(s) ID Date Data Source [id number] 08/11/2020 12:00:00 AM EST [facility] ([facility]) Name Value Range Interpretation Code Description Data Teodora rce(s) Supporting Document(s) SARS-CoV-2 (COVID-19) RNA [Presence] in Respiratory specimen by MEENAKSHI with probe detection negative negative Sars-cov-2 [facility] ([facility]) ID Date Data Source [id number] 08/11/2020 12:00:00 AM EST [facility] ([facility]) Name Value Range Interpretation Code Description Data Teodora rce(s) Supporting Document(s) ID Date Data Source [id number] 08/11/2020 12:00:00 AM EST [facility] Name Value Range Interpretation Code Description Data Teodora rce(s) Supporting Document(s) SARS-CoV-2 NEGATIVE [facility] This lab was ordered by [facility] and reported by [facility]. ID Date Data Source [id number] 08/11/2020 12:00:00 AM EST [facility] ([facility]) Name Value Range Interpretation Code Description Data Teodora rce(s) Supporting Document(s) SARS-CoV-2 (COVID-19) RNA [Presence] in Respiratory specimen by MEENAKSHI with probe detection negative negative Sars-cov-2 [facility] ([facility]) ID Date Data Source [id number] 08/11/2020 12:00:00 AM EST [facility] ([facility]) Name Value Range Interpretation Code Description Data Teodora rce(s) Supporting Document(s) ID Date Data Source [id number] 07/07/2020 10:58:00 AM EST [place] [address] [place] [address] [phone] NAME SEX PT STATUS ACCOUNT NUMBER ETTA ECHEVERRIA REG REF [id number] ORDERING PHYSICIAN LOCATION MEDICAL RECORD NO. MD JOE Haynes [id number] ATTENDING PHYSICIAN DATE OF DATE OF EXAM/TIME Shimon Cordova MD 1945 07/07/201009 TYPE / EXAM 3D DIG MAMMO SCREEN BILAT REASON FOR EXAM Screening for breast cancer [address] [address] [phone] NAME SEX PT STATUS ACCOUNT NUMBER ETTA ECHEVERRIA REG REF [id number] ORDERING PHYSICIAN LOCATION MEDICAL RECORD NO. Shimon Cordova MD MAMMO [id number] ATTENDING PHYSICIAN DATE OF DATE OF EXAM/TIME Shimon Cordova MD 1945 07/07/20 / 1010 TYPE / EXAM 3D DIG MAMMO SCREEN BILAT REASON FOR EXAM Screening for breast cancer LAST CLINICAL BREAST EXAM: 2018 FIVE YEAR RISK: 1.7% LIFETIME RISK: 3.5% FAMILY HISTORY OF BREAST CARCINOMA: None COMPARISON: 06/13/2019 11/14/2017 2D bilateral digital mammogram in the CC and MLO projections was performed with supplemental 3D t omosynthesis of both breasts. FINDINGS: Craniocaudad and oblique lateral views of the breasts were obtained. The breasts are heterogeneously dense, which may obscure small masses. There is no dominant mass, suspicious clustered microcalcification or architectural distortion. SCREENING ULTRASOUND OF THE BILATERAL BREASTS. COMPARISON: None FINDINGS: Right breast: 2.68 x 1.1 x 2.35 cm simple cyst at 12:00 1.8 x 1.0 x 1.9 cm simple cyst at 8:00 Left breast 0.76 x 0.56 x 1.0 cm simple cyst at 4:00 6 mm complicated cyst versus fibroadenoma at 11:00 8.57 mm fibroadenoma versus complicated cyst at 10:00 IMPRESSION: Unremarkable examination of the right breast. The left breast shows 2 small well-defined hypoechoic structures that may represent small fibroadenomas at 10 and 11:00 versus complicated cyst. Six-month follow-up left-sided mammogram and ultrasound are recommended for further evaluation. OVERALL FINAL ASSESSMENT OF FINDINGS BI-RADS 3 - Probably benign findings. OVERALL FINAL ASSESSMENT OF THE BREAST COMPOSITION Breast Density Classification: C Description: The breasts are heterogeneously dense, which may obscure small masses. Reported By Mariely Napoles MD on 07/07/20 1058 Signed By Mariely Napoles MD on 07/07/20 1749 Date Time CC: Shimon Cordova MD; Mariely Napoles MD Techn: CUMME Trans Dt/Tm: Trans by: DT Prt Dt/Tm: [id number]: Total DLP = 0.00 mGy-cm 3499-7915: Total Radiation Dose = 0.0000 mSv Lifetime Dose: 15.8700 mSv Reported By Mariely Napoles MD on 07/07/20 1058 Signed By Mariely Napoles MD on 07/13/20 1215 Date Time CC: Shimon Cordova MD; Mariely Napoles MD Techn: CUMME Trans Dt/Tm: Trans by: DT Prt Dt/Tm: 9470-7365: Total DLP = 0.00 mGy-cm 0949-8860: Total Radiation Dose = 0.0000 mSv Lifetime Dose: 15.8700 mSv Name Value Range Interpretation Code Description Data Teodora rce(s) Supporting Document(s) ID Date Data Source [id number] 07/07/2020 10:58:00 AM EST [address] [id number] [phone] NAME SEX PT STATUS ACCOUNT NUMBER ETTA ECHEVERRIA REG REF [id number] ORDERING PHYSICIAN LOCATION MEDICAL RECORD NO. Shimon Cordova MD MAMMO [id number] ATTENDING PHYSICIAN DATE OF DATE OF EXAM/TIME Shimon Cordova MD 1945 07/07/20 1108 TYPE / EXAM US Breast - Complete Bilat REASON FOR EXAM DENSE BREASTS [address] [address] [phone] NAME SEX PT STATUS ACCOUNT NUMBER ETTA ECHEVERRIA REG REF [id number] ORDERING PHYSICIAN LOCATION MEDICAL RECORD NO. Shimon Cordova MD MAMMO [id number] ATTENDING PHYSICIAN DATE OF DATE OF EXAM/TIME Shimon Cordova MD 1945 07/07/20 / 1010 TYPE / EXAM 3D DIG MAMMO SCREEN BILAT REASON FOR EXAM Screening for breast cancer LAST CLINICAL BREAST EXAM: 2018 FIVE YEAR RISK: 1.7% LIFETIME RISK: 3.5% FAMILY HISTORY OF BREAST CARCINOMA: None COMPARISON: 06/13/2019 11/14/2017 2D bilateral digital mammogram in the CC and MLO projections was performed with supplemental 3D t omosynthesis of both breasts. FINDINGS: Craniocaudad and oblique lateral views of the breasts were obtained. The breasts are heterogeneously dense, which may obscure small masses. There is no dominant mass, suspicious clustered microcalcification or architectural distortion. SCREENING ULTRASOUND OF THE BILATERAL BREASTS. COMPARISON: None FINDINGS: Right breast: 2.68 x 1.1 x 2.35 cm simple cyst at 12:00 1.8 x 1.0 x 1.9 cm simple cyst at 8:00 Left breast 0.76 x 0.56 x 1.0 cm simple cyst at 4:00 6 mm complicated cyst versus fibroadenoma at 11:00 8.57 mm fibroadenoma versus complicated cyst at 10:00 IMPRESSION: Unremarkable examination of the right breast. The left breast shows 2 small well-defined hypoechoic structures that may represent small fibroadenomas at 10 and 11:00 v ersus complicated cyst. Six-month follow-up left-sided mammogram and ultrasound are recommended for further evaluation. OVERALL FINAL ASSESSMENT OF FINDINGS BI-RADS 3 - Probably benign findings. OVERALL FINAL ASSESSMENT OF THE BREAST COMPOSITION Breast Density Classification: C Description: The breasts are heterogeneously dense, which may obscure small masses. Reported By Mariely Napoles MD on 07/07/201057 Signed By Mariely Napoles MD on 07/07/20 1749 Date Time CC: Shimon Cordova MD; Mariely Napoles MD Techn: CUMME Trans Dt/Tm: Trans by: DT Prt Dt/Tm: 9747-1345: Total DLP = 0.00 mGy-cm : Total Radiation Dose = 0.0000 mSv Lifetime Dose: 15.8700 mSv Reported By Mariely Napoles MD on 12/09/20 1058 Signed By Mariely Napoles MD on 07/13/20 1215 Date Time CC: Shimon Cordova MD; Mariely Napoles MD Techn: TABSA Trans Dt/Tm: Trans by: DT Prt Dt/Tm: 8669-7377: Total DLP = 0.00 mGy-cm 0757-2519: Total Radiation Dose = 0.0000 mSv Lifetime Dose: 15.8700 mSv Name Value Range Interpretation Code Description Data Teodora rce(s) Supporting Document(s) ID Date Data Source [id number] 06/22/2020 04:40:00 PM [facility] "NORMAL" FOR IFOB FECAL OCCULT BLOOD IS "NEGATIVE"THE [employer] iFOB IS AN IMMUNOCHEMICAL FECAL OCCULT BLOODTEST Name Value Range Interpretation Code Description Data Teodora rce(s) Supporting Document(s) IFOB ICT fecal occult bld Negative [facility] ID Date Data Source [id number] 06/10/2020 08:56:00 AM [facility] Patient Name: ETTA ECHEVERRIA : 1945 Sex: F Pt Unit #: [id number] Location:[facility] Provider: Visit Date/Time: 06/10/20 Primary Insurance: MEDICARE [employer] Secondary Insurance: BC/BS [employer] Intake Vital Signs 06/10/20 09:05 Current Height 5 ft 3 in Current Weight 201 lb Weight Measurement Method Standing Scale BMI 35.6 BP 134/82 Blood Pressure Location Lt brachial Position Sitting Pulse 73 Pulse Strength Normal Pulse Source Pulse Oximeter Pulse Oximetry (%) 98 Oxygen Delivery Method room air Intake-Medicare Annual Visit Reasons: Medicare Annual Wellness subsequent Nurse Note: Pt's here for her Medicare Annual Exam and regular follow up. Pt has continued right knee pain. Consolidator Required: No Accompanied by: Self / Same as Patient Is patient in pain?: No Allergies codeine [Codeine] Allergy (Intermediate, Verified 06/26/19 10:00) RASH (SKIN RASH) Feel stressed/tense/nervous/anxious/difficulty sleeping: not at all Medications aspirin 325 mg PO DAILY cranberry extract 200 mg PO duloxetine PO epinephrine 0.3 mg IM 1T famotidine 20 mg PO BID metformin ER 500 mg PO QPM metoprolol succinate ER TAKE ONE TABLET BY MOUTH EVERY DAY omega-3 fatty acids-fish oil 300-1,000 mg 1 cap PO omeprazole 20 mg PO oxybutynin chloride ER TAKE ONE TABLET BY MOUTH EVERY DAY pravastatin 40 mg PO HS Fall Risk History of falls: No Ambulatory Aid:: None Gait/Transferring:: Normal Medications:: Antihypertensives HIV testing Offer: No Requirement for HIV testing offer been met?: Patient reports past refusal SBIRT Annual Questionnaire Are you currently in recovery for alcohol or substance use?: No How many times in the past year have you had 4 or more drinks in a day?: None How many times in the past year have you used a recreational drug or used a prescription medication for nonmedical reasons?: None Coronavirus Screening Screening Have you traveled outside of [facility] or [facility] in the last 14 days.: No Has patient experienced coronavirus symptoms: No [facility] Medical History Bee sting reaction Bulging Disc Cough Degenerative Disc Disease Degenerative Spondylothesis Dehydration (07/25/16) Essential hypertension (07/18/10) Gastroenteritis due to norovirus (07/25/16) GERD without esophagitis Gout Heart murmur Hiatal hernia IFG (impaired fasting glucose) Lumbar radiculopathy Nausea vomiting Overactive Bladder Presbyesophagus Pure hypercholesterolemia (07/13/14) Type 2 diabetes mellitus without complication, without long-term current use of insulin Xerosis Surgical History Appendectomy Biopsy of breast Cholecystectomy History of - surgery History of - surgery History of - surgery History of - surgery History of - surgery History of - surgery History of hysterectomy Left CTS and left ganglion cyst [address] Bravo Status post carpal tunnel release Status post oophorectomy Family History Mother Diabetes Father Heart disease Brother No problems noted. Brother No problems noted. Brother No problems noted. Brother No problems noted. Brother No problems noted. Brother No problems noted. Brother No problems noted. Brother No problems noted. Sister No problems noted. Sister No problems noted. Son No problems noted. Daughter No problems noted. Daughter No problems noted. 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 pets and animals: No leisure activities: reading, volunteer work and other Hx Recent Travel (where): No well-balanced diet: daily caffeine: Yes (no answer) high-fat food intake: 0-1 times daily daily servings fruits/ve-4 daily servings of milk/calcium: 0-1 eating out: rarely or never reads food labels: sometimes during the past year weight has: increased > 10 lbs Smoking Status: Former smoker alcohol intake: current alcohol intake frequency: holidays/special occasions only substance use type: does not use susan/mu-ism: Unknown special susan needs: No seatbelt use: always helmet use: No drive intox or ride w/ intox roll off driver: No water heater temp set < 120 deg: No working smoke detector in home: Yes fire extinguisher in home: Yes carbon monox detector in home: Yes firearms in home: Yes firearms unloaded and locked: Yes victim of physical abuse: No victim of emotional abuse: No Medicare Annual Wellness Type Of Examation Type of Exam: Subsequent Wellness Exam EKG EKG Performed: Yes (07/26/16) Medication list Medications aspirin 325 mg PO DAILY cranberry extract 200 mg PO duloxetine PO epinephrine 0.3 mg IM 1T famotidine 20 mg PO BID metformin ER 500 mg PO QPM metoprolol succinate ER TAKE ONE TABLET BY MOUTH EVERY DAY omega-3 fatty acids-fish oil 300-1,000 mg 1 cap PO omeprazole 20 mg PO oxybutynin chloride ER TAKE ONE TABLET BY MOUTH EVERY DAY pravastatin 40 mg PO HS Allergies Allergies codeine [Codeine] Allergy (Intermediate, Verified 06/26/19 10:00) RASH (SKIN RASH) Current Diet Current diet: regular PHQ-2/9 Over the last 2 weeks, how often have you been bothered by any of the following problems? 1. Little interest or pleasure in doing things: not at all 2. Feeling down, depressed, or hopeless: not at all Total score: 0 If score is 2 greater, continue 3. Trouble falling or staying asleep, or sleeping too much: not at all 4. Feeling tired or having little energy: not at all 5. Poor appetite or overeating: not at all 6. Feeling bad about yourself - or that you are a failure or have let yourself and your family down: not at all 7. Trouble concentrating on things, such as reading the newspaper or watching television: not at all 8. Moving or speaking so slowly that other people could have noticed? - Or the opposite - being so fidgety or restless that you have been moving around a lot more than usual: not at all 9. Thoughts that you would be better off or of hurting yourself in some way: not at all Total score: 0 If you checked off any problems, how difficult have these problems made it for you to do your work, take care of things at home, or get along with other people?: not difficult at all Source: Developed by Drs. Luis Cadet, Tamica Thompson, Dung Marshall and colleagues, with an educational henry from [employer]. Vision [place] VA Far - right eye: 20/30 VA Far - left eye: 20/40 VA Far - bilateral eyes: 20/25 VA Near - right eye: 20/30 VA Near - left eye: 20/40 VA near - bilateral eye: 20/30 Functional Assessment Bathing: Independent Dressing: Independent Toileting: Independent Transferring: Independent Continence: Independent Feeding: Independent Total Score: 6 Home Safety Home Safety: Reports Bathroom: Grab bars, Lighting: Adequate, [place]: No throw rugs and Stairs: Handrail available Hearing Hearing Left Ear: Normal Hearing Right Ear: Normal IADL Assessment Functional abilities: Up Go test, pt steady, Up Go test, within 30 sec, Pt independent w/phone, Pt independent w/transportation, Pt independent w/shopping, Pt independent w/housework, Pt independent w/meal preparation, Pt independent w/laundry, Pt independent w/medication and Pt independent w/finances Cognitive Evaluation Oriented to the date:: Yes Oriented to time:: Yes Oriented to place:: Yes Mood: grossly normal Affect: Normal Judgement: normal Needs caregiver for assistance: No Clock drawing: Yes Clock drawing with correct time: Yes 3 item recall: 3 Next Visit Return to Office:: At the end of 6 months HPI Additional HPI HPI Details: Patient with problems including hypertension, diabetes, hypercholesterolemia and osteoarthritis came to the office for a follow-up visit as well as her Medicare annual wellness visit. She continues to experience right knee joint discomfort. She also has chronic low back pain. She had no other complaints. Review of Systems Const Denies anorexia, Denies fatigue, Denies fever(s), Denies headache(s) and Denies weight loss ENT Denies dysphagia, Denies dizziness, Denies headache(s), Reports nasal congestion and D enies disequilibrium Card Denies chest pain, Denies pedal edema, Denies lightheadedness, Denies palpitations and Denies dyspnea Resp Denies dyspnea GI Denies abdominal pain, Denies change in bowel habits, Denies dysphagia, Denies early satiety, Denies heartburn, Denies diarrhea, Denies nausea and Denies vomiting Musc Reports back pain and Reports arthralgias (Right knee pain) Neuro Denies dizziness, Denies headache(s), Denies memory loss, Denies paresthesias and Denies disequilibrium Psych Denies memory loss Endo Denies fatigue and Denies palpitations Exam Const General: cooperative and healthy appearing Nutritional Appearance: obese Orientation: alert and awake Neck Neck: no lymphadenopathy noted Resp Effort Inspection: normal respiratory effort Auscultation: clear to auscultation bilaterally Percussion: percussion normal Cardio Jugular venous pressure: no JVD Palpation: normal PMI Rate: regular rate Rhythm: regular rhythm Heart Sounds: S1 normal and S2 normal Pulses: normal peripheral pulses Musc Other: Crepitant sounds on flexion and extension of the right knee suggest osteoarthritis Neuro General: patient alert, patient awake, gait normal, moves all extremities and normal light touch, pain and propioception Cognition: normal cognition Speech: speech normal Gait: normal gait Extrem General: normal to inspection, full ROM, capillary refill normal, no clubbing, cyanosis or edema and no muscle atrophy Quality Reporting Depression/Bipolar (159/160/161/169/177) Total score: 0 Assessment Plan Assessment Plan (1) Medicare annual wellness visit, subsequent: Code(s): Z00.00 - Encounter for general adult medical examination without abnormal findings Plan - Shimon Cordova M.D.: Patient came for the annual wellness visit as well as a 3-month checkup. Patient's medical and personal history was updated. I updated the list of patient's current medical providers. Medication regimen was also reviewed. Vital signs were recorded. Patient was subjected to the mini-cog test. There is no evidence of cognitive impairment. Health maintenance activity record was updated. Patient was provided with personalized advice regarding lifestyle measures. A printed personalized prevention plan was provided to the patient. Return appointment will be at the end of 6 months for her annual physical. (2) Essential hypertension: Status: Acute Onset Date: 07/18/10 Code(s): I10 - Essential (primary) hypertension SNOMED Code(s): 18796925 Category: Maria R Cordova M.D.: Blood pressu re is well controlled on the current regimen. Patient was advised to follow a low-salt diet. Additional time was spent with the patient discussing the hypertension plan of care. (3) Pure hypercholesterolemia: Status: Acute Onset Date: 07/13/14 Code(s): E78.00 - Pure hypercholesterolemia, unspecified SNOMED Code(s): 325990101 Category: Maria R Cordova M.D.: Patient admits to compliance with her lipid-lowering therapy. Fasting blood panel has been requested before the next visit. (4) GERD without esophagitis: Status: Acute Co de(s): K21.9 - Gastro-esophageal reflux disease without esophagitis SNOMED Code(s): 883276201 Category: Maria R Cordova M.D.: Patient takes famotidine and omeprazole for this problem. Additional Comments Additional Comments: Patient came for her Medicare annual wellness visit as well as a regular follow-up. She will return at the end of 6 months for her annual physical. Certain parts of this note may have been carried over from prior notes to maintain accuracy of the patient's pertinent medical history and continuity of care. The details were verified and edited as appropriate. This document was dictated using [employer] speech recognition software. A reasonable attempt to proofread has been made to minimize errors. Please call if you notice any errors or have any questions. Orders Other Orders: Orders: CMP 6 Months E11.9 LIPID PANEL 6 Months E11.9 Microalbumin/Creat Ratio - ACR 6 Months E11.9 CBC W AUTO DIFF 6 Months E11.9 URINALYSIS 6 Months E11.9 HGBA1C + EAG 6 Months E11.9 IFOB ICT fecal occult bld 6 Months Z12.11 3D DIG MAMMO SCREEN BILAT 1 Month Z12.31 Follow Up: 6 Months (Annual physical) <Electronically signed by Shimon Cordova MD> 06/11/20 0731 Name Value Range Interpretation Code Description Data Teodora rce(s) Supporting Document(s) ID Date Data Source [id number] 06/08/2020 08:48:00 AM [facility] Name Value Range Interpretation Code Description Data Teodora rce(s) Supporting Document(s) Hemoglobin A1c % 5.9 % 4.0-6.0 [facility] The following ranges may be u sed for interpretation of results: HGBA1C degree of glucose control: Greater than 8%: Action Suggested * Less than 7%: Goal of Diabetic Therapy Less than 6%: NormalFactors such as duration of diabetes, adherence to therapyand the age of the patient should also be considered inassessing the degree of blood glucose control.* High risk of developing director long term care complications such asretinopathy, nephropathy, neuropathy, cardiopathy, etc. Some danger of hypoglycemic reaction in Type I diabetics.Some glucose intolerant individuals and "Sub Clinical"diabetics may demonstrate HGBA1C levels in this area. Glucose mean value [Moles/volume] in Blood Estimated f rom glycated hemoglobin 123 mg/dL [facility] l An A1C of 7% - the goal of diabetic ther apy - is equivalentto an EAG of 154 mg/dl. ID Date Data Source [id number] 06/08/2020 09:36:00 AM [facility] Name Value Range Interpretation Code Description Data Teodora rce(s) Supporting Document(s) Urea nitrogen [Mass/volume] in Serum or Plasma 13 mg/dL 9-23 N [facility] Sodium [Moles/volume] in Serum or Plasma 142 mmol/L 132-146 N [facility] Potassium [Moles/volume] in Serum or Plasma 4.2 mmol/L 3.5-5.5 N [facility] Chloride [Moles/volume] in Serum or Plasma 107 mmol/L 99-109 N [facility] Carbon dioxide, total [Moles/volume] in Serum or Plasma 30 mmol/L 20 -31 N [facility] Anion gap in Serum or Plasma 9 mmol/L 8-[address] [facility] Glucose [Mass/volume] in Serum or Plasma 119 mg/dL 74-106 Above high normal [facility] Creatinine 0.7 mg/dL 0.5-1.1 [facility] Glomerular filtration rate/1.73 sq M.pre dicted [Volume Rate/Area] in Serum or Plasma Greater Than 60 ABOVE 60 [facility] Calcium [Mass/volume] in Serum or Plasma 8.6 mg/dL 8.5-10.1 [facility] ID Date Data Source [id number] 05/24/2020 08:03:00 PM EDT [facility] Normal result is "BinaxNow Covid-19 Ag n egative"BinaxNow Covid-19 Ag is a rapid lateral flowimmunochromatographic immunoassayThis test detects both viable(live) and non-viable, SARS-COVand SARS-COV-2.Positive test results do not differentiate between SARS-COVand [id number] results , from patients with symptom onset beyondseven days, should be treated as presumptive andconfirmation with a molecular assay, if necessary, forpatient managementIf the differentiation of specific SARS viruses and strainsis needed, additional testing, in consultation with stateand local public health departments, is required.No Organisms Detected Name Value Range Interpretation Code Description Data Teodora rce(s) Supporting Document(s) ID Date Data Source [id number] 05/24/2020 12:00:00 AM EDT [facility] Name Value Range Interpretation Code Description Data Teodora rce(s) Supporting Document(s) SARS-CoV2 Rapid Antigen [facility] and reported by [facility]. ID Date Data Source [id number] 05/07/2020 11:11:00 AM EDT [facility] Patient Name: ETTA ECHEVERRIA : 1945 Sex: F Pt Unit #: [id number] Location:[facility]. Provider: Visit Date/Time: 05/07/20 Primary Insurance: MEDICARE [employer] Secondary Insurance: BC/BS [employer] Intake Nurse Note Intake Visit Reasons: Flu shot Nurse Note: Pt was given a Flu vaccine for preventive purposes. Immunizations Afluria Qd 2019-(3yr up)(PF) Performing Provider: Shimon Cordova M.D. Administered by: Krystle Arreguin on 05/07/20 11:15 Dose Route Admin Location Lot Number Expiration Date NDC Manufactu rer 60 mcg IM Left deltoid [id number] 01/26/21 17310-961-10 Seq[employer] 2 VIS Given Date VIS Provided VIS Publication Date 05/07/20 Single Vaccine 19 Eligibility Eligibility Date Funding Source Not VF Eligible 05/07/20 Private Assessment Plan Orders Other Orders: Orders: INJ - In fluenza Vaccine Today Z23 Electronically Signed By: <Electronically signed by Shimon Cordova MD> Date/Time Signed: 05/07/20 1125 Name Value Range Interpretation Code Description Data Teodora rce(s) Supporting Document(s) Procedure Social History Code Duration Value Status Description Data Source(s ) Alcohol intake 04/05/2021 12:00:00 AM EDT Current drinker of al cohol (finding) completed Current drinker of alcohol (finding) [facility] Alcohol intake 04/01/2021 12:00:00 AM EDT Current drinker of al cohol (finding) completed Current drinker of alcohol (finding) [facility] Tobacco use and exposure 04/01/2021 12:00:00 AM EDT Never used co mpleted Never used [facility] Smoking 04/01/2021 12:00:00 AM EDT Never smoker completed Never s orker [facility] Alcohol intake 03/21/2021 12:00:00 AM EDT Current drinker of al cohol (finding) completed Current drinker of alcohol (finding) [facility] Alcohol intake 03/14/2021 12:00:00 AM EDT Current drinker of al cohol (finding) completed Current drinker of alcohol (finding) [facility] Alcohol intake 03/08/2021 12:00:00 AM EDT Current drinker of al cohol (finding) completed Current drinker of alcohol (finding) [facility] 02/25/2021 01:19:00 PM EDT Former smoker completed Former smoker [facility] 02/25/2021 01:19:00 PM EDT No completed No [facility] 02/25/2021 01:19:00 PM EDT Yes completed Yes [facility] 02/25/2021 01:19:00 PM EDT Former smoker completed Former smoker [facility] Smoking 02/25/2021 01:19:00 PM EDT Former smoker completed Former smoker [facility] 02/25/2021 01:19:00 PM EDT Former smoker completed Former smoker [facility] 02/25/2021 01:19:00 PM EDT No completed No [facility] 02/25/2021 01:19:00 PM EDT Yes completed Yes [facility] 02/25/2021 01:19:00 PM EDT Former smoker completed Former smoker [facility] Alcohol intake 02/23/2021 12:00:00 AM EDT Current drinker of al cohol (finding) completed Current drinker of alcohol (finding) [facility] Alcohol intake 02/14/2021 12:00:00 AM EDT Current drinker of al cohol (finding) completed Current drinker of alcohol (finding) [facility] 02/09/2021 09:34:00 AM EDT Former smoker completed Former smoker [facility] 02/09/2021 09:34:00 AM EDT No completed No [facility] 02/09/2021 09:34:00 AM EDT Yes completed Yes [facility] 02/09/2021 09:34:00 AM EDT Former smoker completed Former smoker [facility] Smoking 02/09/2021 09:34:00 AM EDT Former smoker completed Former smoker [facility] Alcohol intake 02/08/2021 12:00:00 AM EDT Current drinker of al cohol (finding) completed Current drinker of alcohol (finding) [facility] Alcohol intake 01/18/2021 12:00:00 AM EDT Current drinker of al cohol (finding) completed Current drinker of alcohol (finding) [facility] Alcohol intake 01/06/2021 12:00:00 AM EDT Current drinker of al cohol (finding) completed Current drinker of alcohol (finding) [facility] Alcohol intake 12/31/2020 12:00:00 AM EDT Current drinker of al cohol (finding) completed Current drinker of alcohol (finding) [facility] 11/08/2020 11:43:00 AM EDT Former smoker completed Former smoker [facility] 11/08/2020 11:43:00 AM EDT No completed No [facility] 11/08/2020 11:43:00 AM EDT Yes completed Yes [facility] 11/08/2020 11:43:00 AM EDT Former smoker completed Former smoker [facility] Smoking 11/08/2020 11:43:00 AM EDT Former smoker completed Former smoker [facility] 11/08/2020 11:43:00 AM EDT Former smoker completed Former smoker [facility] 11/08/2020 11:43:00 AM EDT No completed No [facility] 11/08/2020 11:43:00 AM EDT Yes completed Yes [facility] 11/08/2020 11:43:00 AM EDT Former smoker completed Former smoker [facility] Smoking 11/08/2020 11:43:00 AM EDT Former smoker completed Former smoker [facility] Vital Signs ID Date Data Source UNK Name Value Range Interpretation Code Description Data Source(s) Diastolic blood pressure 70 mm[Hg] 70 mm[Hg] ETHEL ([facility]) Body height 63 [in_i] 63 [in_i] ETHEL ([facility]) Systolic blood pressure 131 mm[Hg] 131 mm[Hg] A THENA ([facility]) Diastolic blood pressure 70 mm[Hg] 70 mm[Hg] ETHEL ([facility]) Body height 63 [in_i] 63 [in_i] ETHEL ([facility]) Systolic blood pressure 131 mm[Hg] 131 mm[Hg] A THENA ([facility]) Diastolic blood pressure 70 mm[Hg] 70 mm[Hg] ETHEL ([facility]) Body height 63 [in_i] 63 [in_i] ETHEL ([facility]) Systolic blood pressure 131 mm[Hg] 131 mm[Hg] A THENA ([facility]) Diastolic blood pressure 70 mm[Hg] 70 mm[Hg] ETHEL ([facility]) Body height 63 [in_i] 63 [in_i] ETHEL ([facility]) Systolic blood pressure 131 mm[Hg] 131 mm[Hg] A THENA ([facility]) Diastolic blood pressure 70 mm[Hg] 70 mm[Hg] ETHEL ([facility]) Body height 63 [in_i] 63 [in_i] ETHEL ([facility]) Systolic blood pressure 131 mm[Hg] 131 mm[Hg] A THENA ([facility]) Diastolic blood pressure 84 mm[Hg] 84 mm[Hg] ETHEL ([facility]) Body height 63 [in_i] 63 [in_i] ETHEL ([facility]) Systolic blood pressure 154 mm[Hg] 154 mm[Hg] A THENA ([facility]) Diastolic blood pressure 84 mm[Hg] 84 mm[Hg] ETHEL ([facility]) Body height 63 [in_i] 63 [in_i] ETHEL ([facility]) Systolic blood pressure 154 mm[Hg] 154 mm[Hg] A THENA ([facility]) Diastolic blood pressure 84 mm[Hg] 84 mm[Hg] ETHEL ([facility]) Body height 63 [in_i] 63 [in_i] ETHEL ([facility]) Systolic blood pressure 154 mm[Hg] 154 mm[Hg] A THENA ([facility]) Body height 63 [in_i] 63 [in_i] ETHEL ([facility]) Systolic blood pressure 154 mm[Hg] 154 mm[Hg] A THENA ([facility]) Diastolic blood pressure 84 mm[Hg] 84 mm[Hg] ETHEL ([facility]) Diastolic blood pressure 84 mm[Hg] 84 mm[Hg] ETHEL ([facility]) Body height 63 [in_i] 63 [in_i] ETHEL ([facility]) Systolic blood pressure 154 mm[Hg] 154 mm[Hg] A THENA ([facility]) Diastolic blood pressure 84 mm[Hg] 84 mm[Hg] ETHEL ([facility]) Body height 63 [in_i] 63 [in_i] ETHEL ([facility]) Systolic blood pressure 154 mm[Hg] 154 mm[Hg] A THENA ([facility]) Diastolic blood pressure 91 mm[Hg] 91 mm[Hg] ETHEL ([facility]) Systolic blood pressure 160 mm[Hg] 160 mm[Hg] A THENA ([facility]) Body height 63 [in_i] 63 [in_i] ETHEL ([facility]) Diastolic blood pressure 91 mm[Hg] 91 mm[Hg] ETHEL ([facility]) Body height 63 [in_i] 63 [in_i] ETHEL ([facility]) Systolic blood pressure 160 mm[Hg] 160 mm[Hg] A THENA ([facility]) Diastolic blood pressure 91 mm[Hg] 91 mm[Hg] ETHEL ([facility]) Body height 63 [in_i] 63 [in_i] ETHEL ([facility]) Systolic blood pressure 160 mm[Hg] 160 mm[Hg] A THENA ([facility]) Diastolic blood pressure 91 mm[Hg] 91 mm[Hg] ETHEL ([facility]) Body height 63 [in_i] 63 [in_i] ETHEL ([facility]) Systolic blood pressure 160 mm[Hg] 160 mm[Hg] A THENA ([facility]) Diastolic blood pressure 91 mm[Hg] 91 mm[Hg] ETHEL ([facility]) Diastolic blood pressure 91 mm[Hg] 91 mm[Hg] ETHEL ([facility]) Body height 63 [in_i] 63 [in_i] ETHEL ([facility]) Systolic blood pressure 160 mm[Hg] 160 mm[Hg] A THENA ([facility]) Body height 63 [in_i] 63 [in_i] ETHEL ([facility]) Systolic blood pressure 160 mm[Hg] 160 mm[Hg] A THENA ([facility]) Diastolic blood pressure 91 mm[Hg] 91 mm[Hg] ETHEL ([facility]) Body height 63 [in_i] 63 [in_i] ETHEL ([facility]) Systolic blood pressure 160 mm[Hg] 160 mm[Hg] A THENA ([facility]) Diastolic blood pressure 91 mm[Hg] 91 mm[Hg] ETHEL ([facility]) Body height 63 [in_i] 63 [in_i] ETHEL ([facility]) Diastolic blood pressure 91 mm[Hg] 91 mm[Hg] ETHEL ([facility]) Systolic blood pressure 160 mm[Hg] 160 mm[Hg] A THENA ([facility]) Body height 63 [in_i] 63 [in_i] ETHEL ([facility]) Systolic blood pressure 160 mm[Hg] 160 mm[Hg] A THENA ([facility]) Diastolic blood pressure 91 mm[Hg] 91 mm[Hg] ETHEL ([facility]) Body height 63 [in_i] 63 [in_i] ETHEL ([facility]) Systolic blood pressure 160 mm[Hg] 160 mm[Hg] A THENA ([facility]) Diastolic blood pressure 91 mm[Hg] 91 mm[Hg] ETHEL ([facility]) Body height 63 [in_i] 63 [in_i] ETHEL ([facility]) Systolic blood pressure 160 mm[Hg] 160 mm[Hg] A THENA ([facility]) Diastolic blood pressure 91 mm[Hg] 91 mm[Hg] ETHEL ([facility]) Body height 63 [in_i] 63 [in_i] ETHEL ([facility]) Systolic blood pressure 160 mm[Hg] 160 mm[Hg] A THENA ([facility]) Diastolic blood pressure 91 mm[Hg] 91 mm[Hg] ETHEL ([facility]) Body height 63 [in_i] 63 [in_i] ETHEL ([facility]) Systolic blood pressure 160 mm[Hg] 160 mm[Hg] A THENA ([facility]) Diastolic blood pressure 91 mm[Hg] 91 mm[Hg] ETHEL ([facility]) Body height 63 [in_i] 63 [in_i] ETHEL ([facility]) Systolic blood pressure 160 mm[Hg] 160 mm[Hg] A THENA ([facility]) Diastolic blood pressure 83 mm[Hg] 83 mm[Hg] ETHEL ([facility]) Body height 63 [in_i] 63 [in_i] ETHEL ([facility]) Systolic blood pressure 153 mm[Hg] 153 mm[Hg] A THENA ([facility]) Diastolic blood pressure 83 mm[Hg] 83 mm[Hg] ETHEL ([facility]) Body height 63 [in_i] 63 [in_i] ETHEL ([facility]) Systolic blood pressure 153 mm[Hg] 153 mm[Hg] A THENA ([facility]) Diastolic blood pressure 83 mm[Hg] 83 mm[Hg] ETHEL ([facility]) Body height 63 [in_i] 63 [in_i] ETHEL ([facility]) Systolic blood pressure 153 mm[Hg] 153 mm[Hg] A THENA ([facility]) Diastolic blood pressure 83 mm[Hg] 83 mm[Hg] ETHEL ([facility]) Body height 63 [in_i] 63 [in_i] ETHEL ([facility]) Systolic blood pressure 153 mm[Hg] 153 mm[Hg] A THENA ([facility]) Diastolic blood pressure 83 mm[Hg] 83 mm[Hg] ETHEL ([facility]) Body height 63 [in_i] 63 [in_i] ETHEL ([facility]) Systolic blood pressure 153 mm[Hg] 153 mm[Hg] A THENA ([facility]) Diastolic blood pressure 83 mm[Hg] 83 mm[Hg] ETHEL ([facility]) Body height 63 [in_i] 63 [in_i] ETHEL ([facility]) Systolic blood pressure 153 mm[Hg] 153 mm[Hg] A THENA ([facility]) Diastolic blood pressure 83 mm[Hg] 83 mm[Hg] ETHEL ([facility]) Body height 63 [in_i] 63 [in_i] ETHEL ([facility]) Systolic blood pressure 153 mm[Hg] 153 mm[Hg] A THENA ([facility]) Diastolic blood pressure 83 mm[Hg] 83 mm[Hg] ETHEL ([facility]) Body height 63 [in_i] 63 [in_i] EHTEL ([facility]) Systolic blood pressure 153 mm[Hg] 153 mm[Hg] A THENA ([facility]) Diastolic blood pressure 83 mm[Hg] 83 mm[Hg] ETHEL ([facility]) Body height 63 [in_i] 63 [in_i] ETHEL ([facility]) Systolic blood pressure 153 mm[Hg] 153 mm[Hg] A THENA ([facility]) Diastolic blood pressure 83 mm[Hg] 83 mm[Hg] ETHEL ([facility]) Body height 63 [in_i] 63 [in_i] ETHEL ([facility]) Systolic blood pressure 153 mm[Hg] 153 mm[Hg] A THENA ([facility]) Diastolic blood pressure 83 mm[Hg] 83 mm[Hg] ETHEL ([facility]) Body height 63 [in_i] 63 [in_i] ETHEL ([facility]) Systolic blood pressure 153 mm[Hg] 153 mm[Hg] A THENA ([facility]) Body height 63 [in_i] 63 [in_i] ETHEL ([facility]) Diastolic blood pressure 83 mm[Hg] 83 mm[Hg] ETHEL ([facility]) Systolic blood pressure 153 mm[Hg] 153 mm[Hg] A THENA ([facility]) Body height 63 [in_i] 63 [in_i] ETHEL ([facility]) Systolic blood pressure 153 mm[Hg] 153 mm[Hg] A THENA ([facility]) Diastolic blood pressure 83 mm[Hg] 83 mm[Hg] ETHEL ([facility]) Diastolic blood pressure 83 mm[Hg] 83 mm[Hg] ETHEL ([facility]) Body height 63 [in_i] 63 [in_i] ETHEL ([facility]) Systolic blood pressure 153 mm[Hg] 153 mm[Hg] A THENA ([facility]) Diastolic blood pressure 83 mm[Hg] 83 mm[Hg] ETHEL ([facility]) Body height 63 [in_i] 63 [in_i] ETHEL ([facility]) Systolic blood pressure 153 mm[Hg] 153 mm[Hg] Elmer GRIFFIN ([facility]) ID Date Data Source [id number] 03/02/2021 04:26:[address] [facility] [place] Name Value Range Interpretation Code Description Data Source(s) WEIGHT RECORDED 205 lb 205 lb [facility] Body height Measured 63 in 63 in [facility] WEIGHT RECORDED 205 lb 205 lb [facility] Body height Measured 63 in 63 in [facility] ID Date Data Source [id number] 01/31/2021 05:30:[address] [facility] [place] Name Value Range Interpretation Code Description Data Source(s) WEIGHT RECORDED 205.6 lb 205.6 lb [facility] Body height Measured 63 in 63 in [facility] ID Date Data Source [id number] 01/10/2021 03:52:[address] [facility] [place] Name Value Range Interpretation Code Description Data Source(s) WEIGHT RECORDED 205.6 lb 205.6 lb [facility] Body height Measured 62.99 in 62.99 in [facility] Patient Treatment Plan of Care Planned Activity Planned Date Details Description Data Source (s) tramadol hydrochloride 50 MG Oral Tablet 02/24/2021 12:00:00 AM [facility] Acetaminophen 325 MG Oral Tablet 02/24/2021 12:00:00 AM [facility] dextrose 50 % IV solution 25 mL 02/23/2021 06:40:28 PM [facility] Glucagon 1 MG Injection 02/23/2021 06:40:28 PM [facility] Glucose 0.417 MG/MG Oral Gel 02/23/2021 06:40:28 PM [facility] Prochlorperazine 5 MG/ML Injectable Solution 02/23/2021 05:26:00 PM [facility] Ondansetron 4 MG Disintegrating Oral Tablet 02/23/2021 05:25:08 PM [facility] fentaNYL (SUBLIMAZE) (PF) injection 25 mcg 02/23/2021 05:24:35 PM [facility] tramadol hydrochloride 50 MG Oral Tablet 02/23/2021 04:32:28 PM [facility] Ciprofloxacin 500 MG Oral Tablet 11/09/2020 12:00:00 AM [facility] ciclopirox 7.7 MG/ML Topical Cream 09/28/2020 12:00:00 AM [facility] gabapentin 300 MG Oral Capsule 06/06/2017 12:00:00 AM [facility] Acetaminophen 325 MG / Hydrocodone Bitartrate 5 MG Ora l Tablet 10/07/2014 12:00:00 AM [facility] Lisinopril 5 MG Oral Tablet 10/10/2013 12:00:00 AM [facility] Vitamin D3 one by mouth once daily ETHEL ([facility]) Penicillin V Potassium 500 MG Oral Tablet ETHEL ([facility]) Metoclopramide 10 MG Oral Tablet ETHEL ([facility]) Ibuprofen 800 MG Oral Tablet ETHEL ([facility]) gabapentin 300 MG Oral Capsule ETHEL ([facility]) Famotidine 40 MG Oral Tablet ETHEL ([facility]) ciclopirox 7.7 MG/ML Topical Cream ETHEL ([facility]) blood pressure test kit-large cuff ETHEL ([facility]) benzonatate 200 MG Oral Capsule ETHEL ([facility]) Vitamin D3 one by mouth once daily ETHEL ([facility]) Penicillin V Potassium 500 MG Oral Tablet ETHEL ([facility]) Metoclopramide 10 MG Oral Tablet ETHEL ([facility]) Ibuprofen 800 MG Oral Tablet ETHEL ([facility]) gabapentin 300 MG Oral Capsule ETHEL ([facility]) Famotidine 40 MG Oral Tablet ETHEL ([facility]) ciclopirox 7.7 MG/ML Topical Cream ETHEL ([facility]) blood pressure test kit-large cuff ETHEL ([facility]) benzonatate 200 MG Oral Capsule ETHEL ([facility]) Vitamin D3 one by mouth once daily ETHEL ([facility]) Penicillin V Potassium 500 MG Oral Tablet ETHEL ([facility]) Metoclopramide 10 MG Oral Tablet ETHEL ([facility]) Ibuprofen 800 MG Oral Tablet ETHEL ([facility]) gabapentin 300 MG Oral Capsule ETHEL ([facility]) Famotidine 40 MG Oral Tablet ETHEL ([facility]) ciclopirox 7.7 MG/ML Topical Cream ETHEL ([facility]) blood pressure test kit-large cuff ETHEL ([facility]) benzonatate 200 MG Oral Capsule ETHEL ([facility]) Vitamin D3 one by mouth once daily ETHEL ([facility]) Penicillin V Potassium 500 MG Oral Tablet ETHEL ([facility]) Metoclopramide 10 MG Oral Tablet ETHEL ([facility]) Ibuprofen 800 MG Oral Tablet ETHEL ([facility]) gabapentin 300 MG Oral Capsule ETHEL ([facility]) Famotidine 40 MG Oral Tablet ETHEL ([facility]) ciclopirox 7.7 MG/ML Topical Cream ETHEL ([facility]) blood pressure test kit-large cuff ETHEL ([facility]) benzonatate 200 MG Oral Capsule ETHEL ([facility]) VITAMIN D, CHOLECALCIFEROL, [facility] Famotidine 20 MG Oral Tablet [facility] Vitamin D3 one by mouth once daily ETHEL ([facility]) Penicillin V Potassium 500 MG Oral Tablet ETHEL ([facility]) Metoclopramide 10 MG Oral Tablet ETHEL ([facility]) Ibuprofen 800 MG Oral Tablet ETHEL ([facility]) gabapentin 300 MG Oral Capsule ETHEL ([facility]) Famotidine 40 MG Oral Tablet ETHEL ([facility]) Ciprofloxacin 500 MG Oral Tablet ETHEL ([facility]) ciclopirox 7.7 MG/ML Topical Cream ETHEL ([facility]) blood pressure test kit-large cuff ETHEL ([facility]) benzonatate 200 MG Oral Capsule ETHEL ([facility]) Vitamin D3 one by mouth once daily ETHEL ([facility]) Penicillin V Potassium 500 MG Oral Tablet ETHEL ([facility]) Metoclopramide 10 MG Oral Tablet ETHEL ([facility]) Ibuprofen 800 MG Oral Tablet ETHEL ([facility]) gabapentin 300 MG Oral Capsule ETHEL ([facility]) Famotidine 40 MG Oral Tablet ETHEL ([facility]) ciclopirox 7.7 MG/ML Topical Cream ETHEL ([facility]) blood pressure test kit-large cuff ETHEL ([facility]) benzonatate 200 MG Oral Capsule ETHEL ([facility] Vitamin D3 one by mouth once daily ETHEL ([facility]) gabapentin 300 MG Oral Capsule ETHEL ([facility]) Famotidine 40 MG Oral Tablet ETHEL ([facility]) Vitamin D3 one by mouth once daily ETHEL ([facility]) gabapentin 300 MG Oral Capsule ETHEL ([facility]) Famotidine 40 MG Oral Tablet ETHEL ([facility]) Vitamin D3 one by mouth once daily ETHEL ([facility]) Penicillin V Potassium 500 MG Oral Tablet ETHEL ([facility]) gabapentin 300 MG Oral Capsule ETHEL ([facility] Famotidine 40 MG Oral Tablet ETHEL ([facility]) Famotidine 20 MG Oral Tablet ETHEL ([facility]) duloxetine 30 MG Delayed Release Oral Capsule ETHEL ([facility]) gabapentin 300 MG Oral Capsule ETHEL ([facility]) Famotidine 40 MG Oral Tablet ETHEL ([facility]) Vitamin D3 one by mouth once daily ETHEL ([facility]) gabapentin 300 MG Oral Capsule ETHEL ([facility]) Famotidine 40 MG Oral Tablet ETHEL ([facility]) Vitamin D3 one by mouth once daily ETHEL ([facility]) gabapentin 300 MG Oral Capsule ETHEL ([facility]) Famotidine 40 MG Oral Tablet ETHEL ([facility]) Vitamin D3 one by mouth once daily ETHEL ([facility]) gabapentin 300 MG Oral Capsule ETHEL ([facility]) Famotidine 40 MG Oral Tablet ETHEL ([facility]) Vitamin D3 one by mouth once daily ETHEL ([facility]) gabapentin 300 MG Oral Capsule ETHEL ([facility]) Famotidine 40 MG Oral Tablet ETHEL ([facility]) Vitamin D3 one by mouth once daily ETHEL ([facility])
--- NOTE | 2021-05-24 08:28 | REP ---
INDICATION: abdominal pain. abdominal pain. COMPARISON: 10/30/2007 the only prior TECHNIQUE: Portable FINDINGS: The technique utilized in obtaining the radiograph has magnified the cardiac silhouette and accentuated the interstitial markings. The cardiomediastinal silhouette is within normal limits for the technique utilized in obtaining the radiograph. Mild left basilar fibrotic changes are noted status quo. The pleural angles remain sharp. There are no new patchy opacities or pleural effusions. There is no change in the osseous structures. IMPRESSION: There is no acute cardiopulmonary disease. No significant change from the prior exam other than technique. <Electronically signed by Hitesh Daniel > 05/24/21 [id number]
[2021-05-24 08:30] LABS: ALBUMIN 3.2 GM/DL (3.2-5.2); ALT/SGPT 26 U/L (12-78); AMYLASE 28 U/L (25-115); BILIRUBIN,DIRECT 0.2 MG/DL (0.0-0.2); BILIRUBIN,TOTAL 0.9 MG/DL (0.2-1.0); BLOOD UREA NITROGEN 13 MG/DL (7-18); CALCIUM LEVEL 8.8 MG/DL (8.8-10.2); CARBON DIOXIDE LEVEL 30 MEQ/L (21-32); CHLORIDE LEVEL 107 MEQ/L (98-107); CPK CREATINE PHOSPHOKINASE 118 U/L (26-192); CREATININE FOR GFR 0.83 MG/DL (0.55-1.30); GLOMERULAR FILTRATION RATE > 60.0 (>39); GLUCOSE, FASTING 126 MG/DL (70-100); LIPASE 74 U/L (73-393); MB/CK RELATIVE INDEX 2.54 (< OR =4); POTASSIUM SERUM 4.4 MEQ/L (3.5-5.1); SODIUM LEVEL 141 MEQ/L (136-145); TROPONIN I < 0.02 NG/ML (< 0.10)
[2021-05-24 09:27] LABS: RSV AMPLIFICATION NEGATIVE (NEGATIVE)
[2021-05-24] MEDS ORDERED: COLA100C5 PO (10:26)
[2021-05-24 10:45] VITALS: BP 156/66
--- NOTE | 2021-05-24 15:57 | ECGEPIP ---
[facility] - ED Test Date: 2021-05-24 Pat Name: ETTA SAWYER Department: Room: - Gender: Female Eligibility Supervisor: JAZMIN : [id number] Requested By: Hussain García Order Number: [id number] Reading MD: Hussain García Measurements Intervals [place] Rate: 58 P: 45 MA: 196 QRS: 8 QRSD: 82 T: 67 QT: 496 QTc: 486 Interpretive Statements Sinus bradycardia Nonspecific ST T wave changes No prior ECG for comparison Borderline prolonged QTc Electronically Signed on 05-24-2021 15:56:35 EDT by Hussain García
== END 2021-05-24 10:55 | disposition home or self-care (01) ==
LOC: M ED 06:48
DX: R10.9 Unspecified abdominal pain (principal); K59.00 Constipation, unspecified; R00.1 Bradycardia, unspecified; R05.9 Cough, unspecified; E11.9 Type 2 diabetes mellitus without complications; I10 Essential (primary) hypertension; E78.5 Hyperlipidemia, unspecified; F17.200 Nicotine dependence, unspecified, uncomplicated; Z88.6 Allergy status to analgesic agent; Z79.899 Other long term (current) drug therapy
CPT/HCPCS: 71045; 80048; 80076; 82150; 82550; 82553; 83605; 83690; 84484; 85025; 87040; 87631; 93005; 93041; 96374; 99285; J2405

== ENCOUNTER 2021-10-13 08:32 | Emergency (ER) | payer MEDICARE, BC ==
[~2021-10-13] VITALS: Ht 157.5 cm; Wt 90.8 kg
[~2021-10-13 08:32] MED LIST changes: +CIPR-249 PO; +COLA100C5 PO; +CVS500CA5 PO; +METF-838; +OMEP10CASR PO; +ZOFR4TAB16 PO
[2021-10-13] MEDS ORDERED: DULO1CAP6 (08:44)
[2021-10-13] MEDS ORDERED: MIRALAX *UNIT DOSE* 17GM PACKET PO ONE (09:00)
[2021-10-13] MEDS ORDERED: GI COCKTAIL 50ML BTL(HYOSCYAMINE/MAALOX/LIDOCAINE VISCOUS)(1:3:1) PO ONE (11:30)
[2021-10-13] MEDS ORDERED: METOCLOPRAMIDE 5 MG TAB PO ONE (12:10)
[2021-10-13] MEDS ORDERED: METOCLOPRAMIDE 10MG TAB PO ONE (12:15)
[2021-10-13] MEDS ORDERED: MIRA3350 PO (12:42)
[2021-10-13] MEDS ORDERED: CETI10CA2 PO (12:42)
[2021-10-13] MEDS ORDERED: ONDA-83 PO (12:42)
[2021-10-13 12:43] VITALS: BP 158/89
== END 2021-10-13 12:59 | disposition home or self-care (01) ==
LOC: M ED 08:32
DX: B34.8 Other viral infections of unspecified site (principal); R11.0 Nausea; K59.00 Constipation, unspecified; I10 Essential (primary) hypertension; E11.9 Type 2 diabetes mellitus without complications; K21.9 Gastro-esophageal reflux disease without esophagitis; K44.9 Diaphragmatic hernia without obstruction or gangrene; Z79.4 Long term (current) use of insulin; Z79.899 Other long term (current) drug therapy; Z88.5 Allergy status to narcotic agent

== ENCOUNTER → 2024-07-17 | Outpatient (REF) | payer MEDICARE, BC ==
[~2024-07-17] MED LIST changes: -BENZ150C2 PO; +BENZ150C5 PO; +CETI10CA2 PO; -CRAN400C PO; +CRANBERRY400 MG PO; +DULO1CAP6; +MIRA3350 PO; +ONDA-83 PO
[2024-07-17 17:27] LABS: APPEARANCE, URINE CLOUDY (CLEAR); BACTERIA, URINE AUTO 2+ (NEGATIVE); BILIRUBIN, URINE AUTO NEGATIVE (NEGATIVE); BLOOD, URINE BLOOD NEGATIVE (NEGATIVE); COLOR, URINE YELLOW (YELLOW); GLUCOSE, URINE (UA) AUTO NEGATIVE (NEGATIVE); KETONE, URINE AUTO NEGATIVE (NEGATIVE); LEUKOCYTE ESTERASE, URINE AUTO 3+ (NEGATIVE); NITRITE, URINE AUTO POSITIVE (NEGATIVE); PROTEIN, URINE AUTO NEGATIVE (NEGATIVE); RBC, URINE AUTO 5 /HPF (0-3); SPECIFIC GRAVITY URINE AUTO 1.018 (1.002-1.035); SQUAMOUS EPITHELIAL CELL UR AU 19 /HPF (0-6); UROBILINOGEN, URINE AUTO 0.2 mg/dL (0.0-2.0); WBC, URINE AUTO 173 /HPF (0-3)
== END ==
LOC: M SMT 17:00
PROVIDERS: ATTEND Physician Assistant
DX: N39.0 Urinary tract infection, site not specified (principal)

== ENCOUNTER → 2025-02-18 | Outpatient (REF) | payer MEDICARE, BC ==
[~2025-02-18] MED LIST changes: -PRAV40TA2 PO; +PRAV40TA85 PO
[2025-02-18 17:56] LABS: APPEARANCE, URINE CLEAR (CLEAR); BACTERIA, URINE AUTO NEGATIVE (NEGATIVE); BILIRUBIN, URINE AUTO NEGATIVE (NEGATIVE); BLOOD, URINE BLOOD 1+ (NEGATIVE); GLUCOSE, URINE (UA) AUTO NEGATIVE (NEGATIVE); KETONE, URINE AUTO NEGATIVE (NEGATIVE); LEUKOCYTE ESTERASE, URINE AUTO NEGATIVE (NEGATIVE); NITRITE, URINE AUTO NEGATIVE (NEGATIVE); PROTEIN, URINE AUTO NEGATIVE (NEGATIVE); RBC, URINE AUTO 3 /HPF (0-3); SPECIFIC GRAVITY URINE AUTO 1.011 (1.002-1.035); SQUAMOUS EPITHELIAL CELL UR AU 1 /HPF (0-6); UROBILINOGEN, URINE AUTO 0.2 mg/dL (0.0-2.0); WBC, URINE AUTO 4 /HPF (0-3)
== END ==
LOC: M SMT 16:51
PROVIDERS: ATTEND Urology
DX: N39.46 Mixed incontinence (principal)

== ENCOUNTER → 2025-05-12 | Outpatient (REF) | payer MEDICARE, BC ==
[2025-05-12 16:07] LABS: APPEARANCE, URINE HAZY (CLEAR); BACTERIA, URINE AUTO NEGATIVE (NEGATIVE); BILIRUBIN, URINE AUTO NEGATIVE (NEGATIVE); BLOOD, URINE BLOOD 1+ (NEGATIVE); GLUCOSE, URINE (UA) AUTO 1+ mg/dL (NEGATIVE); KETONE, URINE AUTO NEGATIVE (NEGATIVE); LEUKOCYTE ESTERASE, URINE AUTO 2+ (NEGATIVE); MUCUS, URINE SMALL (NEGATIVE); NITRITE, URINE AUTO NEGATIVE (NEGATIVE); PROTEIN, URINE AUTO 2+ mg/dL (NEGATIVE); RBC, URINE AUTO 0 /HPF (0-3); SPECIFIC GRAVITY URINE AUTO 1.028 (1.002-1.035); SQUAMOUS EPITHELIAL CELL UR AU 16 /HPF (0-6); UROBILINOGEN, URINE AUTO 0.2 mg/dL (0.0-2.0); WBC, URINE AUTO 12 /HPF (0-3)
== END ==
LOC: M SMT 15:06
PROVIDERS: ATTEND Physician Assistant
DX: N39.0 Urinary tract infection, site not specified (principal)

== ENCOUNTER 2025-07-27 10:13 | Day surgery (SDC) | payer MEDICARE, BC ==
[~2025-07-27] VITALS: Ht 157.5 cm; Wt 92.4 kg
[~2025-07-27 10:13] MED LIST changes: +ASPI81TA26 PO; +CYAN500T14 PO; +CYCLOPENTOLATE 1% OPHTH SOLN 2 ML BTL OS SCH; +DONE10TA90 PO; +DULO60CA35 PO; +FLURBIPROFEN 0.03% OPHTH SOLN 2.5 ML OS SCH; +LR 1,000 ML IV SCH; +OMEG10002 PO; +PHENYLEPHRINE 2.5% OPHTH SOL 2ML OS SCH; +PRES10CA2 PO; +TETRACAINE 0.5% OPHTH SOLN 4ML OS SCH; +THERTAB52 PO
[2025-07-27] MEDS ORDERED: MIDAZOLAM INJ 2 MG/2 ML VIAL As Ordered ONE (14:46)
[2025-07-27] MEDS: CEFUROXIME 1 MG/0.1 ML INTRACAMERAL INJ As Ordered ONE (15:53)
[2025-07-27] MEDS: LIDOCAINE 1% SDV 5 ML VIAL As Ordered ONE (15:53)
[2025-07-27 16:10] VITALS: BP 206/92; TEMP 97.2; O2SAT 96
== END 2025-07-27 16:40 | disposition home or self-care (01) ==
LOC: M SDC 10:13
PROVIDERS: ATTEND Ophthalmology
DX: E11.36 Type 2 diabetes mellitus with diabetic cataract (principal); H25.12 Age-related nuclear cataract, left eye; I10 Essential (primary) hypertension; E11.40 Type 2 diabetes mellitus with diabetic neuropathy, unspecified; E78.00 Pure hypercholesterolemia, unspecified; R32 Unspecified urinary incontinence; K21.9 Gastro-esophageal reflux disease without esophagitis; Z79.899 Other long term (current) drug therapy; Z79.82 Long term (current) use of aspirin; Z79.84 Long term (current) use of oral hypoglycemic drugs; Z85.3 Personal history of malignant neoplasm of breast; Z90.710 Acquired absence of both cervix and uterus; Z88.5 Allergy status to narcotic agent; Z87.19 Personal history of other diseases of the digestive system; Z90.12 Acquired absence of left breast and nipple
CPT/HCPCS: 66984; J0697; J2250; J3010; V2632